=== PATIENT | male | born 1955 | race Caucasian/White ===

== ENCOUNTER → 2016-05-18 | Outpatient (CLI) | payer OTHER | END | disposition home or self-care (01) | LOC: RADECHMAIN 12:29 | PROVIDERS: ATTEND Family Medicine | DX: R00.1 Bradycardia, unspecified (principal); R00.0 Tachycardia, unspecified | CPT/HCPCS: 93225; 93226 ==

== ENCOUNTER 2019-05-07 16:55 | Emergency (ER) | payer OTHER ==
[2019-05-07] MEDS ORDERED: ONDANSETRON 4 MG/2 ML VIAL IVP STA (17:54)
[2019-05-07] MEDS ORDERED: MORPHINE SULFATE 4 MG/ML SYRINGE IVP STA (17:54)
[2019-05-07] MEDS ORDERED: diphenhydrAMINE 50 MG/ML 1 ML VIAL IVP STA (17:54)
--- NOTE | 2019-05-07 18:05 | ED ---
Headache HPI - General Chief Complaint: Headache Stated Complaint: Fall, headache Time Seen by Provider: 05/07/19 17:17 Mode of arrival: ambulatory Limitations: no limitations - History of Present Illness Initial Comments: Patient is a 63-year-old male presenting to emergency Department with complaints of a right-sided headache that started early today. Patient states he did have a slip and fall on ice 2 weeks ago. He put out his right hand to break most of this fall but he did hit the right side of his head. Patient states he had a mild headache the rest of that day but that went away. Patient denies being on blood thinners. Patient has been fine for the last 2 weeks until today. Patient states he was working today when he started noticing right sided forehead pain that extended into his right thigh. He states even touching the right eyebrow caused him pain. He also states he feels some mild tingling in the right cheek. He denies any fever, chills, vomiting, diarrhea, dizziness, blurry vision, weakness. He does admit to mild nausea when the headache intensifies. He has no other complaints at this time. Upon arrival to the ER, his vital signs are stable. - Related Data Previous Rx's Medication Instructions Recorded Dexamethasone 0.75 mg PO DAILY #12 tablet 04/07/15 Hydrocodone/Acetaminophen [[place] 1 each PO Q6HR PRN #30 tab 04/07/15 5-325] Orphenadrine [Norflex] 100 mg PO Q12H #10 tablet.er 04/07/15 Amoxicillin/Potassium Clav 1 tab PO BID 7 Days #14 tab 05/07/19 [Augmentin 875-125 Tablet] Allergies Allergy/AdvReac Type Severity Reaction Status Date / Time No Known Allergies Allergy Verified 05/07/19 17:00 Review of Systems ROS Statement: Those systems with pertinent positive or pertinent negative responses have been documented in the HPI. ROS Other: All systems not noted in ROS Statement are negative. Past Medical History Past Medical History: Hyperlipidemia, Hypertension Additional Past Medical History / Comment(s): allergies History of Any Multi-Drug Resistant Organisms: None Reported Past Surgical History: Hernia Repair, Orthopedic Surgery Additional Past Surgical History / Comment(s): face, right eye, shoulder Past Psychological History: No Psychological Hx Reported Smoking Status: Current every day smoker Past Alcohol Use History: None Reported Past Drug Use History: None Reported General Exam - General Exam Comments Initial Comments: GENERAL: Well-appearing, well-nourished and in no acute distress. HEAD: Atraumatic, normocephalic. No hematoma. No signs of basal skull fracture. Pain with palpation of the right forehead. EYES: Pupils equal round and reactive to light, extraocular movements intact, sclera anicteric, conjunctiva are normal. A very mild healing abrasion to the right lateral eyebrow. ENT: TMs normal, nares patent, oropharynx clear without exudates. Moist mucous membranes. NECK: Normal range of motion, supple without lymphadenopathy or JVD. LUNGS: Breath sounds clear to auscultation bilaterally and equal. No wheezes rales or rhonchi. HEART: Regular rate and rhythm without murmurs, rubs or gallops. ABDOMEN: Soft, nontender, normoactive bowel sounds. No guarding, no rebound. No masses appreciated. : Deferred EXTREMITIES: Normal range of motion, no pitting or edema. No clubbing or cyanosis. 5 out of 5 strength in upper and lower extremities. Sensation is equal in bilateral upper and lower extremities. NEUROLOGICAL: Cranial nerves II through XII grossly intact. Normal speech, normal gait. Negative Romberg, negative heel to toe. PSYCH: Normal mood, normal affect. SKIN: Warm, Dry, normal turgor, no rashes or lesions noted. Limitations: no limitations Course Vital Signs 05/07/19 16:57 Temperature 98.1 F Pulse Rate 102 H Respiratory 20 Rate Blood Pressure 210/95 O2 Sat by Pulse 95 Oximetry Medical Decision Making - Medical Decision Making Patient is 63-year-old male presenting with a headache since this morning. Patient did have a slip and fall on ice 2 weeks ago which she did hit the right side of his forehead. He is not on blood thinners. No acute findings on the neuro exam. CT the head shows moderately severe pansinusitis. No acute intercranial hemorrhage or other abnormalities. Patient was given pain control, Zofran, Benadryl reports improvement of symptoms. I discussed these findings with the patient. Patient will be started on antibiotic for sinusitis. He will follow-up with his ENT, Dr. Johnson. Return parameters were discussed with the patient and he verbalized understanding. He is stable for discharge and he is in agreement with this plan of care. Case discussed with Dr. cartagena. Disposition Clinical Impression: Headache, Pansinusitis Disposition: HOME SELF-CARE Condition: Stable Instructions (If sedation given, give patient instructions): Sinusitis (ED) Additional Instructions: Please return to the Emergency Department if symptoms worsen or any other concerns. Continue with Motrin as needed for headache. Follow up with ENT, Dr. Carey as discussed. Take antibiotic as prescribed. Prescriptions: Amoxicillin/Potassium Clav [Augmentin 875-125 Tablet] 1 tab PO BID 7 Days #14 tab Is patient prescribed a controlled substance at d/c from ED?: No Referrals: Monster Bolivar MD [Primary Care Provider] - 1-2 days
--- NOTE | 2019-05-07 18:21 | CT ---
EXAMINATION TYPE: CT brain wo con DATE OF EXAM: 05/07/2019 COMPARISON: None HISTORY: DESAI after fall injury x1 week ago CT DLP: 1123.4 mGycm Automated exposure control for dose reduction was used. There is some cerebral mild cortical atrophy. There is no mass effect nor midline shift. There is no sign of intracranial hemorrhage. There is mucosal thickening involving the frontal ethmoid maxillary and sphenoid sinuses. There is almost complete opacification of the ethmoid sinuses. The calvarium is intact. IMPRESSION: Mild atrophy. Moderately severe pansinusitis.
[2019-05-07] MEDS ORDERED: AMOXIC-POT CLAV 875-125MG 1 EACH TAB PO STA (19:23)
[2019-05-07 19:30] VITALS: BP 147/81; PULSE 63; RESP 18; TEMP 98
== END 2019-05-07 19:43 | disposition home or self-care (01) ==
LOC: EC 16:55
DX: J32.4 Chronic pansinusitis (principal); S09.90XA Unspecified injury of head, initial encounter; F17.200 Nicotine dependence, unspecified, uncomplicated; W01.10XA Fall on same level from slipping, tripping and stumbling with subsequent striking against unspecified object, initial encounter; Y92.009 Unspecified place in unspecified non-institutional (private) residence as the place of occurrence of the external cause
CPT/HCPCS: 70450; 99284; 96374; 96375 ×2; J2270; J1200; J2405

== ENCOUNTER 2021-02-12 12:40 | Observation (INO) | payer OTHER, MEDICARE ==
[2021-02-12 14:17] LABS: Basophils % (A) 0 %; Eosinophils # (A) 0.1 k/uL (0-0.7); Eosinophils % (A) 1 %; HCT 48.2 % (39.0-53.0); HGB 16.5 gm/dL (13.0-17.5); Lymphocytes # (A) 0.8 k/uL (1.0-4.8); Lymphocytes % (A) 7 %; MCH 30.3 pg (25.0-35.0); MCHC 34.2 g/dL (31.0-37.0); MCV 88.5 fL (80.0-100.0); Monocytes # (A) 0.6 k/uL (0-1.0); Monocytes % (A) 6 %; Neutrophils # (A) 9.3 k/uL (1.3-7.7); Neutrophils % (A) 85 %; Platelet Count 161 k/uL (150-450); RBC 5.44 m/uL (4.30-5.90); RDW 12.9 % (11.5-15.5)
[2021-02-12] MEDS ORDERED: SODIUM CHLORIDE 0.9% 1,000 ML IV ONE (14:17)
[2021-02-12 14:34] LABS: ALT 18 U/L (4-49); AST 21 U/L (17-59); African American GFR (CKD) >90 (>60 ml/min/1.73 sqM); Albumin 4.4 g/dL (3.5-5.0); Alkaline Phosphatase 82 U/L (38-126); Anion Gap 10 mmol/L; Blood Urea Nitrogen 16 mg/dL (9-20); Carbon Dioxide 26 mmol/L (22-30); Chloride 100 mmol/L (98-107); Glucose 119 mg/dL (74-99); Non-African American GFR(CKD) >90 (>60 ml/min/1.73 sqM); Potassium 3.9 mmol/L (3.5-5.1); Sodium 136 mmol/L (137-145); Total Protein 7.4 g/dL (6.3-8.2)
[2021-02-12 14:35] LABS: Partial Thromboplastin Time 27.1 sec (22.0-30.0); Prothrombin Time 10.3 sec (9.0-12.0)
--- NOTE | 2021-02-12 14:50 | ED ---
General Adult HPI - General Chief complaint: Arrhythmia/Palpitations Stated complaint: Increased heart rate,Dizziness Time Seen by Provider: 02/12/21 13:46 Source: patient, RN notes reviewed, old records reviewed Mode of arrival: ambulatory Limitations: no limitations - History of Present Illness Initial comments: 65-year-old male presents for evaluation of palpitations and lightheadedness. Patient states that this morning he had a short episode less than 1 minute of palpitations with associated dizziness. He did not pass out. He states he's had an upper respiratory infection for the past several days with nasal congestion. He has had several episodes vomiting. No central chest pain. No history of arrhythmia. No history of CAD. No measured fevers. He is vaccinated against coronavirus. - Related Data Home Medications Medication Instructions Recorded Confirmed Bromfenac Sodium [Prolensa Ophth 1 drop LEFT EYE DAILY 02/12/21 02/12/21 Soln] Fluticasone Nasal [place] [Flonase 1 spray EA NOSTRIL DAILY 02/12/21 02/12/21 Nasal [place]] HYDROcodone/APAP 7.5-325MG [[place] 1 tab PO QID PRN 02/12/21 02/12/21 7.5-325] Montelukast Sodium [Singulair] 10 mg PO HS 02/12/21 02/12/21 Ofloxacin 0.3% Ophth Soln [Ocuflox 1 drops RIGHT EYE DIRECTED 02/12/21 02/12/21 Ophth Soln] prednisoLONE ACETATE [Pred Forte 1 drop LEFT EYE QID 02/12/21 02/12/21 1%] Allergies Allergy/AdvReac Type Severity Reaction Status Date / Time No Known Allergies Allergy Verified 05/07/19 17:00 Review of Systems ROS Statement: Those systems with pertinent positive or pertinent negative responses have been documented in the HPI. ROS Other: All systems not noted in ROS Statement are negative. Past Medical History Past Medical History: Hyperlipidemia, Hypertension Additional Past Medical History / Comment(s): allergies History of Any Multi-Drug Resistant Organisms: None Reported Past Surgical History: Hernia Repair, Orthopedic Surgery Additional Past Surgical History / Comment(s): face, right eye, shoulder Past Psychological History: No Psychological Hx Reported Smoking Status: Current every day smoker Past Alcohol Use History: Occasional Past Drug Use History: Marijuana General Exam Limitations: no limitations General appearance: alert, in no apparent distress Head exam: Present: atraumatic, normocephalic Eye exam: Present: normal appearance, PERRL ENT exam: Present: mucous membranes dry Neck exam: Present: normal inspection Respiratory exam: Present: normal lung sounds bilaterally. Absent: respiratory distress, wheezes Cardiovascular Exam: Present: regular rate, irregular rhythm GI/Abdominal exam: Present: soft. Absent: distended, tenderness, guarding Extremities exam: Present: normal inspection, normal capillary refill Neurological exam: Present: alert, oriented X3, CN II-XII intact. Absent: motor sensory deficit Psychiatric exam: Present: normal affect, normal mood Skin exam: Present: warm, dry, intact. Absent: cyanosis, diaphoretic Course Vital Signs 02/12/21 02/12/21 02/12/21 13:04 14:03 15:31 Temperature 98.9 F Pulse Rate 90 68 Pulse Rate [ 68 Bilateral Pulse Oximetery] Respiratory 19 20 Rate Blood Pressure 157/86 O2 Sat by Pulse 97 95 Oximetry 02/12/21 16:22 Temperature Pulse Rate 77 Pulse Rate [ Bilateral Pulse Oximetery] Respiratory 20 Rate Blood Pressure 125/45 O2 Sat by Pulse 97 Oximetry EKG Findings - EKG Comments: EKG Findings:: EKG: Sinus rhythm with arrhythmia left atrial enlargement, possible LVH, rate of 79, DE interval 142, QRS duration 86, QTC [address] segment elevation. Medical Decision Making - Medical Decision Making 65-year-old male presenting with central chest palpitations, and a vague discomfort as well as lightheadedness and near syncope. Patient does currently have an upper respiratory infection. Chest x-ray is negative for focal pneumonia. He is negative for coronavirus. His EKG is sinus rhythm with sinus arrhythmia. There is no ST segment elevation. He has a mild leukocytosis at 11. He has a normal CMP, initial troponin 0.017. This level will be trended. He will be monitored on telemetry. Also he will be treated with Augmentin for sinusitis. Case discussed with Roly degroot for [facility]. - Lab Data Result diagrams: 02/12/21 14:03 02/12/21 14:03 Lab Results 02/12/21 02/12/21 02/12/21 Range/Units 14:03 14:03 14:03 WBC 11.0 H (3.8-10.6) k/uL RBC 5.44 (4.30-5.90) m/uL Hgb 16.5 (13.0-17.5) gm/dL Hct 48.2 (39.0-53.0) % MCV 88.5 (80.0-100.0) fL MCH 30.3 (25.0-35.0) pg MCHC 34.2 (31.0-37.0) g/dL RDW 12.9 (11.5-15.5) % Plt Count 161 (150-450) k/uL MPV 9.0 Neutrophils % 85 % Lymphocytes % 7 % Monocytes % 6 % Eosinophils % 1 % Basophils % 0 % Neutrophils # 9.3 H (1.3-7.7) k/uL Lymphocytes # 0.8 L (1.0-4.8) k/uL Monocytes # 0.6 (0-1.0) k/uL Eosinophils # 0.1 (0-0.7) k/uL Basophils # 0.0 (0-0.2) k/uL PT 10.3 (9.0-12.0) sec INR 1.0 (<1.2) APTT 27.1 (22.0-30.0) sec Sodium 136 L (137-145) mmol/L Potassium 3.9 (3.5-5.1) mmol/L Chloride 100 (98-107) mmol/L Carbon Dioxide 26 (22-30) mmol/L Anion Gap 10 mmol/L BUN 16 (9-20) mg/dL Creatinine 0.61 L (0.66-1.25) mg/dL Est GFR (CKD-EPI)AfAm >90 (>60 ml/min/1.73 sqM) Est GFR (CKD-EPI)NonAf >90 (>60 ml/min/1.73 sqM) Glucose 119 H (74-99) mg/dL Calcium 10.0 (8.4-10.2) mg/dL Magnesium 2.0 (1.6-2.3) mg/dL Total Bilirubin 1.0 (0.2-1.3) mg/dL AST 21 (17-59) U/L ALT 18 (4-49) U/L Alkaline Phosphatase 82 (38-126) U/L Troponin I (0.000-0.034) ng/mL Total Protein 7.4 (6.3-8.2) g/dL Albumin 4.4 (3.5-5.0) g/dL Coronavirus (PCR) (Not Detectd) 02/12/21 02/12/21 02/12/21 Range/Units 14:03 15:25 16:31 WBC (3.8-10.6) k/uL RBC (4.30-5.90) m/uL Hgb (13.0-17.5) gm/dL Hct (39.0-53.0) % MCV (80.0-100.0) fL MCH (25.0-35.0) pg MCHC (31.0-37.0) g/dL RDW (11.5-15.5) % Plt Count (150-450) k/uL MPV Neutrophils % % Lymphocytes % % Monocytes % % Eosinophils % % Basophils % % Neutrophils # (1.3-7.7) k/uL Lymphocytes # (1.0-4.8) k/uL Monocytes # (0-1.0) k/uL Eosinophils # (0-0.7) k/uL Basophils # (0-0.2) k/uL PT (9.0-12.0) sec INR (<1.2) APTT (22.0-30.0) sec Sodium (137-145) mmol/L Potassium (3.5-5.1) mmol/L Chloride (98-107) mmol/L Carbon Dioxide (22-30) mmol/L Anion Gap mmol/L BUN (9-20) mg/dL Creatinine (0.66-1.25) mg/dL Est GFR (CKD-EPI)AfAm (>60 ml/min/1.73 sqM) Est GFR (CKD-EPI)NonAf (>60 ml/min/1.73 sqM) Glucose (74-99) mg/dL Calcium (8.4-10.2) mg/dL Magnesium (1.6-2.3) mg/dL Total Bilirubin (0.2-1.3) mg/dL AST (17-59) U/L ALT (4-49) U/L Alkaline Phosphatase (38-126) U/L Troponin I 0.017 0.023 (0.000-0.034) ng/mL Total Protein (6.3-8.2) g/dL Albumin (3.5-5.0) g/dL Coronavirus (PCR) Not Detected (Not Detectd) Disposition Clinical Impression: Palpitations, Chest pain, URI (upper respiratory infection) Disposition: ADMITTED IP TO THIS [facility] Condition: Stable Is patient prescribed a controlled substance at d/c from ED?: No Referrals: Monster Bolivar MD [Primary Care Provider] - 1-2 days Decision to Admit Reason: Admit from EC Decision Date: 02/12/21 Decision Time: 17:39
--- NOTE | 2021-02-12 16:17 | XR ---
EXAMINATION TYPE: XR chest 2V DATE OF EXAM: 02/12/2021 COMPARISON: 04/07/2015 HISTORY: Dysrhythmia TECHNIQUE: Frontal and lateral views of the chest are obtained. FINDINGS: There is a mildly prominent interstitial pattern with height or inflation lungs and flatten ing the diaphragms consistent with COPD. There is no lung consolidation. There is no pleural effusion or pneumothorax. Heart size is normal and the pulmonary vasculature is not congested. There are multiple healed rib fractures bilaterally and there is a prosthesis of the right shoulder. There is marked degeneration of the left shoulder joint. IMPRESSION: No acute cardiopulmonary process. Probable mild COPD.
[2021-02-12] MEDS ORDERED: AMOXIC-POT CLAV 875-125MG 1 EACH TAB PO STA (17:35)
[2021-02-12] MEDS ORDERED: NALOXONE 0.4 MG/ML 1 ML VIAL IV PRN (17:36)
[2021-02-12] MEDS ORDERED: ACETAMINOPHEN TAB 325 MG TAB PO PRN (17:36)
[2021-02-12] MEDS ORDERED: ASPIRIN 325 MG TAB PO STA (17:37)
[2021-02-12] MEDS: SODIUM CHLORIDE 0.9% 1,000 ML IV SCH (18:50)
[2021-02-13] MEDS: AMOXIC-POT CLAV 875-125MG 1 EACH TAB PO SCH ×3 (01:39→20:25)
[2021-02-13] MEDS: SODIUM CHLORIDE 0.9% 1,000 ML IV SCH ×2 (06:48→19:47)
[2021-02-13 07:20] LABS: African American GFR (CKD) >90 (>60 ml/min/1.73 sqM); Anion Gap 6 mmol/L; Blood Urea Nitrogen 15 mg/dL (9-20); Calcium 8.8 mg/dL (8.4-10.2); Carbon Dioxide 24 mmol/L (22-30); Chloride 105 mmol/L (98-107); Glucose 103 mg/dL (74-99); Non-African American GFR(CKD) >90 (>60 ml/min/1.73 sqM); Potassium 3.9 mmol/L (3.5-5.1); Sodium 135 mmol/L (137-145)
[2021-02-13] MEDS: lisinopriL 10 MG TAB PO SCH (10:38)
[2021-02-13] MEDS: HYDROcodone/APAP 7.5-325MG 1 EACH TAB PO PRN (10:39)
[2021-02-13] MEDS: prednisoLONE ACETATE 1% OPHTH DROPS 5 ML BTL LEFT EYE SCH ×3 (10:39→19:46)
[2021-02-13] MEDS: KETOROLAC 0.5% OPHTH DROPS 5 ML BTL LEFT EYE SCH ×3 (10:39→19:45)
[2021-02-13] MEDS: METOPROLOL TARTRATE 12.5 MG TAB PO SCH ×2 (10:39→19:44)
[2021-02-13] MEDS: OFLOXACIN 0.3% OPHTH DROPS 5 ML BOTTLE RIGHT EYE SCH (10:40)
--- NOTE | 2021-02-13 11:19 | P.CRDCN ---
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 Patient states that he had a heart cathet erization done in the after he had an ALLERGIC reaction to bee sting. Patient denies any exertional chest pain or shortness of breath. Patient states that he has had sinus symptoms and yesterday morning he took a hot shower following that he was standing and he could feel that his heart was fluttering and racing in the center part. It stopped suddenly and he felt lightheaded after that and then had an episode for 3-5 seconds where he felt he was going to black out. He was standing but was able to sit himself into a chair did not have any fall. EKG sinus rhythm with sinus arrhythmia, no acute ST changes. Chest x-ray reveals no acute cardiopulmonary process. Probable mild COPD Laboratory studies: Troponin 0.023, 0.027, 0.019. Creatinine 0.61. WBC 11.0. Coronavirus PCR not detected drag down revealed Cruz of 17 beats of V. tach at 3:30 in the morning which patient states he could feel. This morning shortly after seeing the patient, he had another run of 6 beats. Patient is a smoker three-quarter pack a day for 30 years off and on. Patient drinks anywhere from 2-16 beers per week. REVIEW OF SYSTEMS Constitutional: No fever, no chills. No weakness, fatigue or lethargy. EENT: No headache. No dizziness. Lungs: No shortness of breath, cough, no sputum production. No wheezing. Cardiovascular: No chest pain, no lower extremity edema. Reports palpitations. No paroxysmal nocturnal dyspnea. No orthopnea. No lightheadedness or dizziness. Reports near syncopal episodes. Abdominal: No abdominal pain. No nausea, vomiting. No diarrhea. No constipation. No bloody or tarry stools.. No loss of appetite. Genitourinary: No dysuria.. No urinary retention. Musculoskeletal: No myalgias. No muscle weakness, no gait dysfunction, no frequent falls. No back pain. No neck pain. Integumentary: No wounds, no lesions. No rash or pruritus. No unusual bruising. Neurologic: No aphasia. No facial droop. No change in mentation. No head injury. No headache. No paralysis. No paresthesia. Psychiatric: No depression. No anxiety. Endocrine: No abnormal blood sugars. PHYSICAL EXAMINATION Gen: This is a 65-year-old male. He is resting in bed and appears to be in no acute distress. VS: Blood pressure 164/81, heart rate 59, pulse ox 96% on room air, afebrile. HEENT: Head is atraumatic, normocephalic. Pupils equal, round. Sclerae is anicteric. NECK: Supple. No JVD. No lymphadenopathy. No thyromegaly. LUNGS: Few scattered rhonchi rhonchi. No intercostal retractions. HEART: Distant heart sounds, Irregular rate and rhythm. No murmur. ABDOMEN: Soft. Bowel sounds are present. No masses. No tenderness. EXTREMITIES: No pedal edema. No calf tenderness. Dorsalis pedis +2 bilaterally. NEUROLOGICAL: Patient is awake, alert and oriented x3. Cranial nerves 2 through 12 are grossly intact. ASSESSMENT Episodes of ventricular tachycardia associated with near syncope Hypertension COPD Active tobacco use PLAN Patient started on lisinopril 10 mg daily and Lopressor 12.5 mg twice daily Obtain 2-D echocardiogram and Doppler study to assess cardiac structure and function Patient most likely will require heart catheterization Further recommendations to follow based upon clinical course Thank you kindly for this consultation. Nurse practitioner note has been reviewed, I agree with documented findings and plan of care. Patient was seen and examined. Past Medical History Past Medical History: Eye Disorder, Hyperlipidemia, Hypertension Additional Past Medical History / Comment(s): bilateral cataracts, allergies History of Any Multi-Drug Resistant Organisms: None Reported Past Surgical History: Heart Catheterization, Hernia Repair, Orthopedic Surgery Additional Past Surgical History / Comment(s): ankle surgery X3 with hardware, face surgery w/ titanium mesh, left eye cataract surgery 02/03/21, right shoulder replacement Past Anesthesia/Blood Transfusion Reactions: Previous Problems w/ Anesthesia Additional Past Anesthesia/Blood Transfusion Reaction / Comment(s): Pt states he went into anaphylactic shock during his right shoulder surgery. Past Psychological History: No Psychological Hx Reported Smoking Status: Current every day smoker Past Alcohol Use History: Occasional Past Drug Use History: Marijuana Medications and Allergies Home Medications Medication Instructions Recorded Confirmed Type Bromfenac Sodium [Prolensa Ophth 1 drop LEFT EYE DAILY 02/12/21 02/12/21 History Soln] Fluticasone Nasal [place] [Flonase 1 spray EA NOSTRIL DAILY 02/12/21 02/12/21 History Nasal [place]] HYDROcodone/APAP 7.5-325MG [[place] 1 tab PO QID PRN 02/12/21 02/12/21 History 7.5-325] Montelukast Sodium [Singulair] 10 mg PO HS 02/12/21 02/12/21 History Ofloxacin 0.3% Ophth Soln [Ocuflox 1 drops RIGHT EYE DIRECTED 02/12/21 02/12/21 History Ophth Soln] prednisoLONE ACETATE [Pred Forte 1 drop LEFT EYE QID 02/12/21 02/12/21 History 1%] Allergies Allergy/AdvReac Type Severity Reaction Status Date / Time No Known Allergies Allergy Verified 05/07/19 17:00 Physical Exam Vitals: Vital Signs Temp Pulse Pulse Pulse Resp BP BP 02/13/21 08:00 20 02/13/21 07:05 98.1 F 59 L 16 164/81 02/13/21 04:25 02/13/21 02:00 62 20 02/13/21 01:01 68 20 02/13/21 01:00 97.4 F L 62 16 02/12/21 23:15 57 L 20 157/78 02/12/21 21:44 67 20 147/82 02/12/21 19:25 76 20 167/62 02/12/21 18:39 67 20 167/82 02/12/21 16:22 77 20 125/45 02/12/21 15:31 68 20 02/12/21 14:03 68 02/12/21 13:04 98.9 F 90 19 157/86 BP Pulse Ox 02/13/21 08:00 02/13/21 07:05 96 02/13/21 04:25 169/88 02/13/21 02:00 02/13/21 01:01 02/13/21 01:00 176/85 100 02/12/21 23:15 97 02/12/21 21:44 96 02/12/21 19:25 96 02/12/21 18:39 96 02/12/21 16:22 97 02/12/21 15:31 95 02/12/21 14:03 02/12/21 13:04 97 Intake and Output 02/12/21 02/13/21 02/13/21 22:59 06:59 14:59 Other: Voiding Method Toilet Toilet Urinal Urinal # Voids 1 Weight 79.379 kg Results 02/12/21 14:03 02/13/21 06:18 Cardiac Enzymes 02/12/21 02/12/21 02/12/21 Range/Units 14:03 14:03 16:31 AST 21 (17-59) U/L Troponin I 0.017 0.023 (0.000-0.034) ng/mL 02/12/21 02/12/21 Range/Units 19:17 22:30 AST (17-59) U/L Troponin I 0.027 0.019 (0.000-0.034) ng/mL Coagulation 02/12/21 Range/Units 14:03 PT 10.3 (9.0-12.0) sec APTT 27.1 (22.0-30.0) sec CBC 02/12/21 Range/Units 14:03 WBC 11.0 H (3.8-10.6) k/uL RBC 5.44 (4.30-5.90) m/uL Hgb 16.5 (13.0-17.5) gm/dL Hct 48.2 (39.0-53.0) % Plt Count 161 (150-450) k/uL Comprehensive Metabolic Panel 02/12/21 02/13/21 Range/Units 14:03 06:18 Sodium 136 L 135 L (137-145) mmol/L Potassium 3.9 3.9 (3.5-5.1) mmol/L Chloride 100 105 (98-107) mmol/L Carbon Dioxide 26 24 (22-30) mmol/L BUN 16 15 (9-20) mg/dL Creatinine 0.61 L 0.50 L (0.66-1.25) mg/dL Glucose 119 H 103 H (74-99) mg/dL Calcium 10.0 8.8 (8.4-10.2) mg/dL AST 21 (17-59) U/L ALT 18 (4-49) U/L Alkaline Phosphatase 82 (38-126) U/L Total Protein 7.4 (6.3-8.2) g/dL Albumin 4.4 (3.5-5.0) g/dL Current Medications Generic Name Dose Route Start Last Admin Trade Name Freq PRN Reason Stop Dose Admin Acetaminophen 650 mg 02/12/21 17:36 Acetaminophen Tab 325 Mg Tab PO Q6HR PRN Mild Pain or Fever > 100.5 Amoxicillin/Clavulanate Potassium 1 each 02/12/21 21:00 02/13/21 06:48 Amoxic-Pot Clav 875-125mg 1 Each Tab PO 1 each Q12HR DELORES Administration Sodium Chloride 1,000 mls @ 75 mls/hr 02/12/21 17:45 02/13/21 06:48 Saline 0.9% IV 75 mls/hr .[id number] DELORES Administration Naloxone HCl 0.2 mg 02/12/21 17:36 Naloxone 0.4 Mg/Ml 1 Ml Vial IV Q2M PRN Opioid Reversal Intake and Output 02/12/21 02/13/21 02/13/21 22:59 06:59 14:59 Other: Voiding Method Toilet Toilet Urinal Urinal # Voids 1 Weight 79.379 kg 02/12/21 14:03 02/13/21 06:18
[2021-02-13] MEDS: MONTELUKAST 10 MG TAB PO SCH (19:44)
--- NOTE | 2021-02-13 22:25 | P.HPIM ---
History of Present Illness H&P Date: 02/13/21 Chief Complaint: Dizziness/palpitations/rapid heart beat 65-year-old male presents for evaluation of palpitations and lightheadedness. Patient states that this morning he had a short episode less than 1 minute of palpitations with associated dizziness. He did not pass out. He states he's had an upper respiratory infection for the past several days with nasal congestion. He has had several episodes vomiting. No central chest pain. No history of arrhythmia. No history of CAD. No measured fevers. He is vaccinated against coronavirus. EKG sinus rhythm with sinus arrhythmia, no acute ST changes. Chest x-ray reveals no acute cardiopulmonary process. Probable mild COPD Laboratory studies: Troponin 0.023, 0.027, 0.019. Creatinine 0.61. WBC 11.0. Coronavirus PCR not detected compliance monitor revealed Cruz of 17 beats of V. tach at 3:30 in the morning which patient states he could feel. This morning shortly after seeing the patient, he had another run of 6 beats. Patient is a smoker three-quarter pack a day for 30 years off and on. Patient drinks anywhere from 2-16 beers per week. Review of Systems REVIEW OF SYSTEMS: CONSTITUTIONAL: No fever, no malaise, no fatigue. HEENT: No recent visual problems or hearing problems. Denied any sore throat. CARDIOVASCULAR: No chest pain, orthopnea, PND, no palpitations, no syncope. PULMONARY: No shortness of breath, no cough, no hemoptysis. GASTROINTESTINAL: No diarrhea, no nausea, no vomiting, no abdominal pain. NEUROLOGICAL: No headaches, no weakness, no numbness. HEMATOLOGICAL: Denies any bleeding or petechiae. GENITOURINARY: Denies any burning micturition, frequency, or urgency. MUSCULOSKELETAL/RHEUMATOLOGICAL: Denies any joint pain, swelling, or any muscle pain. ENDOCRINE: Denies any polyuria or polydipsia. The rest of the 14-point review of systems is negative. Past Medical History Past Medical History: Eye Disorder, Hyperlipidemia, Hypertension Additional Past Medical History / Comment(s): bilateral cataracts, allergies History of Any Multi-Drug Resistant Organisms: None Reported Past Surgical History: Heart Catheterization, Hernia Repair, Orthopedic Surgery Additional Past Surgical History / Comment(s): ankle surgery X3 with hardware, face surgery w/ titanium mesh, left eye cataract surgery 02/03/21, right shoulder replacement Past Anesthesia/Blood Transfusion Reactions: Previous Problems w/ Anesthesia Additional Past Anesthesia/Blood Transfusion Reaction / Comment(s): Pt states he went into anaphylactic shock during his right shoulder surgery. Past Psychological History: No Psychological Hx Reported Smoking Status: Current every day smoker Past Alcohol Use History: Occasional Past Drug Use History: Marijuana Medications and Allergies Home Medications Medication Instructions Recorded Confirmed Type Bromfenac Sodium [Prolensa Ophth 1 drop LEFT EYE DAILY 02/12/21 02/12/21 History Soln] Fluticasone Nasal [place] [Flonase 1 spray EA NOSTRIL DAILY 02/12/21 02/12/21 History Nasal [place]] HYDROcodone/APAP 7.5-325MG [[place] 1 tab PO QID PRN 02/12/21 02/12/21 History 7.5-325] Montelukast Sodium [Singulair] 10 mg PO HS 02/12/21 02/12/21 History Ofloxacin 0.3% Ophth Soln [Ocuflox 1 drops RIGHT EYE DIRECTED 02/12/21 02/12/21 History Ophth Soln] prednisoLONE ACETATE [Pred Forte 1 drop LEFT EYE QID 02/12/21 02/12/21 History 1%] Allergies Allergy/AdvReac Type Severity Reaction Status Date / Time No Known Allergies Allergy Verified 05/07/19 17:00 Physical Exam Vitals: Vital Signs Temp Pulse Pulse Pulse Resp BP BP 02/13/21 08:00 20 02/13/21 07:05 98.1 F 59 L 16 164/81 02/13/21 04:25 02/13/21 02:00 62 20 02/13/21 01:01 68 20 02/13/21 01:00 97.4 F L 62 16 02/12/21 23:15 57 L 20 157/78 02/12/21 21:44 67 20 147/82 02/12/21 19:25 76 20 167/62 02/12/21 18:39 67 20 167/82 02/12/21 16:22 77 20 125/45 02/12/21 15:31 68 20 02/12/21 14:03 68 02/12/21 13:04 98.9 F 90 19 157/86 BP Pulse Ox 02/13/21 08:00 02/13/21 07:05 96 02/13/21 04:25 169/88 02/13/21 02:00 02/13/21 01:01 02/13/21 01:00 176/85 100 02/12/21 23:15 97 02/12/21 21:44 96 02/12/21 19:25 96 02/12/21 18:39 96 02/12/21 16:22 97 02/12/21 15:31 95 02/12/21 14:03 02/12/21 13:04 97 Intake and Output 02/12/21 02/13/21 02/13/21 22:59 06:59 14:59 Intake Total 118 Balance 118 Intake: Oral 118 Other: Voiding Method Toilet Toilet Urinal Urinal # Voids 1 Weight 79.379 kg - Constitutional General appearance: Present: average body habitus, cooperative, no acute distress - EENT Eyes: Present: anicteric sclerae, EOMI, PERRLA, normal appearance ENT: Present: hearing grossly normal, normal oropharynx Ears: bilateral: normal - Neck Neck: Present: normal ROM. Absent: lymphadenopathy, rigidity, thyromegaly Carotids: negative: bruit present Thyroid: bilateral: normal size, negative: enlarged, nodule - Respiratory Respiratory: bilateral: CTA, negative: rales, rhonchi, wheezing - Cardiovascular Rhythm: regular Heart sounds: normal: S1, S2 Abnormal Heart Sounds: Absent: systolic murmur, diastolic murmur - Gastrointestinal General gastrointestinal: Present: normal bowel sounds, soft. Absent: distended, organomegaly, tenderness - Genitourinary Genitourinary Comment(s): deferred - Integumentary Integumentary: Present: normal turgor. Absent: jaundiced, rash, ulcer - Neurologic Neurologic: Present: CNII-XII intact. Absent: focal deficits - Musculoskeletal Musculoskeletal: Present: gait normal, strength equal bilaterally - Psychiatric Psychiatric: Present: A&O x's 3, appropriate affect, intact judgment & insight Results CBC & Chem 7: 02/12/21 14:03 02/13/21 06:18 Labs: Abnormal Lab Results - Last 24 Hours (Table) 02/12/21 02/12/21 02/13/21 Range/Units 14:03 14:03 06:18 WBC 11.0 H (3.8-10.6) k/uL Neutrophils # 9.3 H (1.3-7.7) k/uL Lymphocytes # 0.8 L (1.0-4.8) k/uL Sodium 136 L 135 L (137-145) mmol/L Creatinine 0.61 L 0.50 L (0.66-1.25) mg/dL Glucose 119 H 103 H (74-99) mg/dL Thrombosis Risk Factor Assmnt - Choose All That Apply Each Risk Factor Represents 2 Points: Age 61-74 years Thrombosis Risk Factor Assessment Total Risk Factor Score: 2 Thrombosis Risk Factor Assessment Level: Low Risk Assessment and Plan Assessment: 1. Episodes of ventricular tachycardia with near syncope - Patient is placed on Lopressor 12.5 mg twice a day; cardiology on board and planning possible cardiac catheterization - 2-D echo is ordered and pending 2. Hypertension; patient has been placed on lisinopril 10 mg daily along with Lopressor 12.5 mg twice a day 3. Hyperlipidemia; currently not on statin therapy; we will order lipid profile 4. COPD; Singulair 10 mg daily at bedtime; continue with home inhaler therapy DVT prophylaxis; SCDs CODE STATUS; full code
--- NOTE | 2021-02-14 08:10 | P.PN ---
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 Patient states that he had a heart catheterization done in the after he had an ALLERGIC reaction to bee sting. Patient denies any exertional chest pain or shortness of breath. Patient states that he has had sinus symptoms and yesterday morning he took a hot shower following that he was standing and he could feel that his heart was fluttering and racing in the center part. It stopped suddenly and he felt lightheaded after that and then had an episode for 3-5 seconds where he felt he was going to black out. He was standing but was able to sit himself into a chair did not have any fall. EKG sinus rhythm with sinus arrhythmia, no acute ST changes. Chest x-ray reveals no acute cardiopulmonary process. Probable mild COPD Laboratory studies: Troponin 0.023, 0.027, 0.019. Creatinine 0.61. WBC 11.0. Coronavirus PCR not detected traffic monitor specialist revealed Cruz of 17 beats of V. tach at 3:30 in the morning which patient states he could feel. This morning shortly after seeing the patient, he had another run of 6 beats. Patient is a smoker three-quarter pack a day for 30 years off and on. Patient drinks anywhere from 2-16 beers per week. 02/14 Patient seen and examined. Patient denies any chest pain or pressure. He does admit at home however that he may get chest pain mainly when he is at work doing things. Echo pending today. No further episodes of DVT. PHYSICAL EXAMINATION Gen: This is a 65-year-old male. He is resting in bed and appears to be in no acute distress. VS: Reviewed HEENT: Head is atraumatic, normocephalic. Pupils equal, round. Sclerae is anicteric. NECK: Supple. No JVD. No lymphadenopathy. No thyromegaly. LUNGS: Few scattered rhonchi rhonchi. No intercostal retractions. HEART: Distant heart sounds, Irregular rate and rhythm. No murmur. ABDOMEN: Soft. Bowel sounds are present. No masses. No tenderness. EXTREMITIES: No pedal edema. No calf tenderness. Dorsalis pedis +2 bilaterally. NEUROLOGICAL: Patient is awake, alert and oriented x3. Cranial nerves 2 through 12 are grossly intact. ASSESSMENT Episodes of ventricular tachycardia associated with near syncope Hypertension COPD Active tobacco use Chest pain occurring at work, rule out angina PLAN Continue lisinopril 10 mg daily and Lopressor 12.5 mg twice daily Obtain 2-D echocardiogram and Doppler study to assess cardiac structure and function Possible heart catheterization today or tomorrow Further recommendations to follow based upon clinical course Objective - Vital Signs Vital signs: Vital Signs Temp 98.5 F 02/14/21 07:00 Pulse 58 L 02/14/21 07:00 Resp 18 02/14/21 07:00 BP 169/77 02/14/21 07:00 Pulse Ox 98 02/14/21 07:00 Intake & Output 02/13/21 02/14/21 02/14/21 18:59 06:59 18:59 Intake Total 568 Balance 568 Intake: IV 450 Sodium Chloride 0.9% 1, 450 000 ml @ 75 mls/hr IV . [id number] [facility] Rx#:[id number] Oral 118 Other: Voiding Method Toilet Toilet Urinal Urinal # Voids 2 - Labs CBC & Chem 7: 02/12/21 14:03 02/13/21 06:18
[2021-02-14] MEDS: METOPROLOL TARTRATE 12.5 MG TAB PO SCH (08:57)
[2021-02-14] MEDS: AMOXIC-POT CLAV 875-125MG 1 EACH TAB PO SCH ×2 (08:57→21:34)
[2021-02-14] MEDS: lisinopriL 10 MG TAB PO SCH (08:57)
[2021-02-14] MEDS: FLUTICASONE 50MCG/SPRAY NASAL 16GM EA NOSTRIL SCH (08:58)
[2021-02-14] MEDS: HYDROcodone/APAP 7.5-325MG 1 EACH TAB PO PRN ×2 (08:58→21:34)
[2021-02-14] MEDS: KETOROLAC 0.5% OPHTH DROPS 5 ML BTL LEFT EYE SCH ×4 (08:58→21:34)
[2021-02-14] MEDS: OFLOXACIN 0.3% OPHTH DROPS 5 ML BOTTLE RIGHT EYE SCH (09:09)
[2021-02-14] MEDS: prednisoLONE ACETATE 1% OPHTH DROPS 5 ML BTL LEFT EYE SCH ×4 (09:10→21:34)
[2021-02-14] MEDS: SODIUM CHLORIDE 0.9% 1,000 ML IV SCH ×2 (09:10→21:37)
[2021-02-14] MEDS ORDERED: ALPRAZolam 0.5 MG TAB PO PRN (09:34)
[2021-02-14] MEDS ORDERED: ATORVASTATIN 80 MG TAB PO STA (09:34)
[2021-02-14] MEDS ORDERED: ASPIRIN 325 MG TAB PO STA (09:34)
[2021-02-14] MEDS ORDERED: ALPRAZolam 0.25 MG TAB PO PRN (09:34)
[2021-02-14] MEDS ORDERED: NITROGLYCERIN SL TABS 0.4 MG TAB SUBLINGUAL PRN (09:34)
[2021-02-14] MEDS: SODIUM CHLORIDE 0.9% 1,000 ML in EMPTY BAG 1 BAG IV SCH ×2 (09:57→21:37)
[2021-02-14] MEDS ORDERED: LIDOCAINE 1% INJ 10MG/ML (20 ML MDV) ONE (11:00)
[2021-02-14] MEDS ORDERED: VERAPAMIL 2.5 MG/ML 2 ML AMP ONE (11:00)
[2021-02-14] MEDS ORDERED: IV FLUID CONTINUATION 1,000 ML IV ONE (11:06)
[2021-02-14] MEDS ORDERED: fentaNYL (PF) 50 MCG/ML 2 ML AMP ONE (11:18)
[2021-02-14] MEDS ORDERED: HEPARIN SODIUM 1,000 UN/ML (10ML VL) ONE (11:18)
[2021-02-14] MEDS ORDERED: MIDAZOLAM 2 MG/2 ML VIAL IV ONE (11:46)
[2021-02-14] MEDS ORDERED: fentaNYL (PF) 50 MCG/ML 2 ML AMP IV ONE (11:47)
[2021-02-14] MEDS ORDERED: LIDOCAINE 1% INJ 10MG/ML (20 ML MDV) SQ ONE (11:49)
[2021-02-14] MEDS ORDERED: VERAPAMIL SYRINGE (5 MG/10 ML) INTRAARTER ONE (11:51)
[2021-02-14] MEDS: HEPARIN SODIUM 1,000 UN/ML (10ML VL) IV ONE ×2 (11:55→12:23)
[2021-02-14] MEDS ORDERED: NITROGLYCERIN 1000MCG/10ML SYRINGE INTRACORON ONE (12:28)
[2021-02-14] MEDS ORDERED: IOPAMIDOL-370 125ML BTL INJ ONE (12:33)
--- NOTE | 2021-02-14 12:37 | ECHOF ---
Referral Reason:LVF MEASUREMENTS -------- HEIGHT: 180.3 cm WEIGHT: 79.4 kg BP: 169/77 RVIDd: 4.0 cm (< 3.3) IVSd: 1.6 cm (0.6 - 1.1) LVIDd: 4.5 cm (3.9 - 5.3) LVPWd: 1.7 cm (0.6 - 1.1) IVSs: 2.1 cm LVIDs: 3.1 cm LVPWs: 2.0 cm LAESV Index (A-L): 45.60 ml/m Ao Diam: 3.2 cm (2.0 - 3.7) AV Cusp: 2.1 cm (1.5 - 2.6) LA Diam: 2.6 cm (2.7 - 3.8) MV EXCURSION: 16.898 mm (> 18.000) MV EF SLOPE: 84 mm/s (70 - 150) EPSS: 0.4 cm MV E Raymond: 0.83 m/s MV DecT: 221 ms MV A Raymond: 1.00 m/s MV E/A Ratio: 0.82 RAP: 5.00 mmHg RVSP: 30.01 mmHg FINDINGS -------- Resting bradycardia (HR<60bpm). This was a technically adequate study. The left ventricular size is normal. There is moderate concentric left ventricular hypertrophy. O verall left ventricular systolic function is low-normal with, an EF between 50 - 55 %. The right ventricle is moderately enlarged. LA is severely dilated >40 ml/m2 The right atrial size is normal. Interatrial and interventricular septum intact. Mobile interatrial septum. The aortic valve is trileaflet and appears structurally normal. There is no evidence of aortic regu rgitation. There is no evidence of aortic stenosis. [id number]-[id number] mitral regurgitation is present. Mild tricuspid regurgitation present. There is no evidence of pulmonary hypertension. The right v entricular systolic pressure, as measured by Doppler, is 30.01mmHg. There is no pulmonic regurgitation present. The aortic root size is normal. The inferior vena cava is mildly dilated. There is no pericardial effusion. CONCLUSIONS -------- 1. This was a technically adequate study. 2. The left ventricular size is normal. 3. There is moderate concentric left ventricular hypertrophy. 4. Overall left ventricular systolic function is low-normal with, an EF between 50 - 55 %. 5. The right ventricle is moderately enlarged. 6. LA is severely dilated >40 ml/m2 7. The right atrial size is normal. 8. [place]-ha-vjdvuiwe mitral regurgitation is present. 9. Mild tricuspid regurgitation present. 10. The inferior vena cava is mildly dilated. RECEIVABLES SPECIALIST: Afia Stoll RDCS
[2021-02-14] MEDS: MONTELUKAST 10 MG TAB PO SCH (21:34)
--- NOTE | 2021-02-14 21:48 | P.PN ---
Subjective Progress Note Date: 02/14/21 Principal diagnosis: The patient is here ess maternal tachycardia wi dizziness/syncope. Echocardiogram is pend. The patient feels much better this morning. No new dizziness or chest pain stated. No significant nausea or vomiting. No diaphoresis stated. Appreciate cardiology input Objective - Vital Signs Vital signs: Vital Signs Temp 98.1 F 02/14/21 19:16 Pulse 58 L 02/14/21 19:16 Resp 18 02/14/21 19:16 BP 144/72 02/14/21 19:16 Pulse Ox 99 02/14/21 19:16 Intake & Output 02/14/21 02/14/21 02/15/21 06:59 18:59 06:59 Intake Total 340 Balance 340 Intake: IV 100 Oral 240 Other: Voiding Method Toilet Urinal # Voids 2 1 - Constitutional General appearance: Present: average body habitus - EENT Eyes: Absent: abnormal pupil - Neck Neck: Absent: lymphadenopathy - Respiratory Respiratory: bilateral: diminished - Cardiovascular Rhythm: regular Heart sounds: normal: S1, S2 Abnormal Heart Sounds: Absent: S3 Gallop - Gastrointestinal General gastrointestinal: Present: soft. Absent: tenderness - Labs CBC & Chem 7: 02/12/21 14:03 02/13/21 06:18 Assessment and Plan (1) Chest pain Current Visit: Yes Status: Acute Code(s): R07.9 - CHEST PAIN, UNSPECIFIED SNOMED Code(s): 35559084 (2) Palpitations Current Visit: Yes Status: Acute Code(s): R00.2 - PALPITATIONS SNOMED Code(s): 74917254 Plan: Await echocardiogram results. Continue current regimen of treatment. Possible cardiac catheterization.
[2021-02-15] MEDS ORDERED: HEPARIN SODIUM,PORCINE 10,000 UNIT in SODIUM CHLORIDE 0.9% 1,000 ML IRRIGATION PRN (07:00)
[2021-02-15] MEDS ORDERED: HEPARIN SODIUM,PORCINE 2,500 UNIT in SODIUM CHLORIDE 0.9% 250 ML IRRIGATION PRN (07:00)
[2021-02-15 07:08] VITALS: BP 172/82; PULSE 50; RESP 18; TEMP 97.5
[2021-02-15] MEDS: HYDROcodone/APAP 7.5-325MG 1 EACH TAB PO PRN (07:47)
[2021-02-15] MEDS: AMOXIC-POT CLAV 875-125MG 1 EACH TAB PO SCH (07:47)
[2021-02-15] MEDS: lisinopriL 10 MG TAB PO SCH (07:47)
[2021-02-15] MEDS: FLUTICASONE 50MCG/SPRAY NASAL 16GM EA NOSTRIL SCH (07:48)
[2021-02-15] MEDS: KETOROLAC 0.5% OPHTH DROPS 5 ML BTL LEFT EYE SCH (07:48)
[2021-02-15] MEDS: METOPROLOL TARTRATE 12.5 MG TAB PO SCH (07:48)
[2021-02-15] MEDS: SODIUM CHLORIDE 0.9% 1,000 ML IV SCH (07:49)
[2021-02-15] MEDS: SODIUM CHLORIDE 0.9% 1,000 ML in EMPTY BAG 1 BAG IV SCH (07:49)
[2021-02-15] MEDS: prednisoLONE ACETATE 1% OPHTH DROPS 5 ML BTL LEFT EYE SCH (07:49)
[2021-02-15] MEDS: OFLOXACIN 0.3% OPHTH DROPS 5 ML BOTTLE RIGHT EYE SCH (07:49)
--- NOTE | 2021-02-15 08:39 | P.CARDCATH ---
Description of Procedure: PROCEDURES PERFORMED: Left coronary angiography, iFR diagonal branch INDICATION: VT HISTORY: Patient is a pleasant 65-year-old male with history of hypertension who presented with near syncopal episodes and was found to have nonsustained VT. He therefore underwent diagnostic heart catheterization with relatively normal coronary arteries other than a 60-70% diagonal 1 branch stenosis. Therefore iFR was recommended. PROCEDURE: After the risks, benefits and alternatives of the above mentioned procedure explained in detail with the patient, informed consent was obtained. Patient had been taken to the catheterization lab and prepped and draped in usual fashion and a 6FR sheath had already been placed in the right radial jose ry. Heparin was given. A 6Fr CLS 3.5 guide was used to engage the left main. A 0.014 pressure wire was advanced into the left main and normalized. The wire was then advanced approximately 1 cm distally to the diagonal lesion. Initial iFR values had a drift noted with pullback and therefore the wire was renormalized and advanced again distal to the lesion. iFR was then noted to be normal at 0.94. There was no drift with pullback. The guide and wire were then removed. The right radial sheath was removed and a TR band was placed with hemostasis achieved. The patient tolerated the procedure well. Patient was transported back to the post catheterization holding area in stable condition. Conscious Sedation: Patient was monitored under the direct supervision of vision of myself for conscious sedation using Versed and fentanyl for a total duration of 10 minutes FINAL IMPRESSION: 1. 60-70% diagonal 1 stenosis with normal iFR 0.94 PLAN: 1. Aggressive risk factor modification per most recent ACC/AHA guidelines. 2. Recommend medical therapy of diagonal branch.
--- NOTE | 2021-02-15 08:50 | P.DS ---
Providers Date of admission: 02/12/21 17:37 Attending physician: Monster Bolivar Consults: 02/13/21 05:05 Consult Physician Routine Consulting Provider: Tricia Bai Consult Reason/Comments: Run of V-tach Do you want consulting provider notified?: Yes Primary care physician: Monster Bolivar - Discharge Diagnosis(es) (1) Chest pain Current Visit: Yes Status: Acute (2) Palpitations Current Visit: Yes Status: Acute Hospital Course: The patient is a 65-year-old white male with known history of asthma and chronic sinusitis came in with significant chest pressure. Cardiac catheterization is being done after evaluation. The patient had no critical stenosis and is to be treated with appropriate aggressive medical management. The patient is being discharged on ADARSH inhibitor beta murtaza appropriately and will have good cluster control. The patient is now stable and will follow-up with me in about one Patient Condition at Discharge: Stable Plan - Discharge Summary New Discharge Prescriptions: New Metoprolol Tartrate [Lopressor] 12.5 mg PO BID #60 tab Nitroglycerin Sl Tabs [Nitrostat] 0.4 mg SUBLINGUAL Q5M PRN #50 tab PRN Reason: Chest Pain Amoxic-Pot Clav 875-125Mg [Augmentin 875-125] 1 each PO Q12HR #14 tab lisinopriL [Zestril] 20 mg PO DAILY #30 tab Continue Ofloxacin 0.3% Ophth Soln [Ocuflox Ophth Soln] 1 drops RIGHT EYE DIRECTED Montelukast Sodium [Singulair] 10 mg PO HS Bromfenac Sodium [Prolensa Ophth Soln] 1 drop LEFT EYE DAILY prednisoLONE ACETATE [Pred Forte 1%] 1 drop LEFT EYE QID HYDROcodone/APAP 7.5-325MG [[place] 7.5-325] 1 tab PO QID PRN PRN Reason: Pain Fluticasone Nasal [place] [Flonase Nasal [place]] 1 spray EA NOSTRIL DAILY Discharge Medication List Bromfenac Sodium [Prolensa Ophth Soln] 1 drop LEFT EYE DAILY 02/12/21 [History] Fluticasone Nasal [place] [Flonase Nasal [place]] 1 spray EA NOSTRIL DAILY 02/12/21 [History] HYDROcodone/APAP 7.5-325MG [[place] 7.5-325] 1 tab PO QID PRN 02/12/21 [History] Montelukast Sodium [Singulair] 10 mg PO HS 02/12/21 [History] Ofloxacin 0.3% Ophth Soln [Ocuflox Ophth Soln] 1 drops RIGHT EYE DIRECTED 02/12/21 [History] prednisoLONE ACETATE [Pred Forte 1%] 1 drop LEFT EYE QID 02/12/21 [History] Amoxic-Pot Clav 875-125Mg [[place] 875-125] 1 each PO Q12HR #14 tab 02/15/21 [Rx] Metoprolol Tartrate [Lopressor] 12.5 mg PO BID #60 tab 02/15/21 [Rx] Nitroglycerin Sl Tabs [Nitrostat] 0.4 mg SUBLINGUAL Q5M PRN #50 tab 02/15/21 [Rx] lisinopriL [Zestril] 20 mg PO DAILY #30 tab 02/15/21 [Rx] Follow up Appointment(s)/Referral(s): Alfred Lund DO [STAFF PHYSICIAN] - 1 Week Monster Bolivar MD [Primary Care Provider] - 1-2 days Patient Instructions/Handouts: *Surgery [facility] - After Heart Catheterization - Loss Control Consultant Instructions, Holter Monitor (GEN) Activity/Diet/Wound Care/Special Instructions: event monitor placed 02/14/2021 , continue until Mar 16, 2021 Right wrist puncture from Heart Cath 02/14/2021 activity as tolerated heart healthy diet
[2021-02-15] MEDS ORDERED: lisinopriL 10 MG TAB PO SCH (09:00)
[2021-02-15] MEDS ORDERED: ASPIRIN 81 MG PO SCH (09:00)
--- NOTE | 2021-02-15 09:41 | P.PN ---
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 Patient states that he had a heart catheterization done in the after he had an ALLERGIC reaction to bee sti ng. Patient denies any exertional chest pain or shortness of breath. Patient states that he has had sinus symptoms and yesterday morning he took a hot shower following that he was standing and he could feel that his heart was fluttering and racing in the center part. It stopped suddenly and he felt lightheaded after that and then had an episode for 3-5 seconds where he felt he was going to black out. He was standing but was able to sit himself into a chair did not have any fall. EKG sinus rhythm with sinus arrhythmia, no acute ST changes. Chest x-ray reveals no acute cardiopulmonary process. Probable mild COPD Laboratory studies: Troponin 0.023, 0.027, 0.019. Creatinine 0.61. WBC 11.0. Coronavirus PCR not detected monitoring coordinator revealed Cruz of 17 beats of V. tach at 3:30 in the morning which patient states he could feel. This morning shortly after seeing the patient, he had another run of 6 beats. Patient is a smoker three-quarter pack a day for 30 years off and on. Patient drinks anywhere from 2-16 beers per week. 02/14 Patient seen and examined. Patient denies any chest pain or pressure. He does admit at home however that he may get chest pain mainly when he is at work doing things. Echo pending today. No further episodes of DVT. 02/15/2021 Patient examined this morning at the bedside. He is s/p cardiac cath revealing 60-70% diagonal 1 stenosis with normal iFR 0.94. He denies chest pain or pressure. Denies SOB. Denies dizziness or lightheadedness. No episodes of syncope. Patient had event monitor placed yesterday. Telemetry reveals sinus bradycardia with a heart rate in the 50s. Blood pressures remain elevated with a systolic ranging between 160 and 170. Echocardiogram completed revealed ejection fraction 50-55%, [id number] mitral regurgitation, and mild tricuspid regurgitation. PHYSICAL EXAM: VITAL SIGNS: Reviewed. GENERAL: Well-developed in no acute distress. NECK: Supple. No JVD or thyromegaly LUNGS: Respirations even and unlabored. Lungs essentially clear to auscultation bilaterally. HEART: Regular rate and rhythm. S1 and S2 heard. EXTREMITIES: Normal range of motion. No clubbing or cyanosis. Peripheral pulses intact. No lower extremity edema. Right radial cath site with pulse present. ASSESSMENT: Ventricular tachycardia associated with near syncope Chest pain, s/p cardiac cath revealing 60-70% diagonal 1 stenosis with normal iFR 0.94 Hypertension COPD Nicotine dependence PLAN: Continue current cardiac medications Add aspirin 81mg daily Increase lisinopril for optimal blood pressure control Add Lipitor 40mg at HS. Check lipid panel. Patient stable for discharge home today. He is to follow up outpatient with Dr. Lund. Nurse practitioner note has been reviewed by physician. Signing provider agrees with the documented findings, assessment, and plan of care. Objective - Vital Signs Vital signs: Vital Signs Temp 97.5 F L 02/15/21 07:00 Pulse 50 L 02/15/21 07:00 Resp 18 02/15/21 07:00 BP 172/82 02/15/21 07:00 Pulse Ox 98 02/15/21 07:00 Intake & Output 02/14/21 02/15/21 02/15/21 18:59 06:59 18:59 Intake Total 340 Balance 340 Intake: IV 100 Oral 240 Other: # Voids 1 2 - Labs CBC & Chem 7: 02/12/21 14:03 02/13/21 06:18
--- NOTE | 2021-02-15 12:16 | P.CARDCATH ---
Date of Procedure: 02/15/21 Preoperative Diagnosis: Nonsustained ventricular tachycardia Postoperative Diagnosis: Borderline lesion in the diagonal Procedure(s) Performed: Left heart catheterization without left ventriculography Description of Procedure: HISTORY: This is a 65-year-old gentleman who was admitted to the hospital with complains of palpitations. He was found to have episode of nonsustained V. tach. He is also having some jaw discomfort. He was advised to have cardiac catheterization to rule out underlying ischemic heart disease. CONSENT:I have discussed the risks, benefits and alternative therapies for the above-mentioned procedure and for both sedation/analgesia as well as necessary blood product administration, if indicated, as they pertain to this patient. The patient has indicated understanding and acceptance of the risks and procedures discussed. PROCEDURE: Patient was brought to the lab in a fasting state. Patient was given some IV sedation. The right wrist is infiltrated with lidocaine and right radial artery was entered using Seldinger technique. A 6-Stateless catheter was left in place and selective coronary arteriography was performed. Patient tolerated the procedure well. Patient was found to have borderline lesion lesion in the diagonal and went on to have IFR by Dr. Lund. Hemostasis is obtained with TR band No immediate complications were noted and patient was transferred to [facility] in a stable condition Conscious Sedation: Versed 1mg Fentanyl 50 g Duration 17minutes HEMODYNAMICS: The aortic pressure is about 120/70. There was no gradient across the aortic valve SELECTIVE CORONARY ARTERIOGRAPHY: LEFT MAIN: There is no left main. The LAD and circumflex are originating separately THE LEFT ANTERIOR DESCENDING CORONARY ARTERY: This a good caliber vessel, denies to good-sized diagonal branch. Diagonal branch has borderline 60% lesion THE LEFT CIRCUMFLEX AND IS CORONARY ARTERY: . This is a rising separately with separate origins and moderate to large caliber vessel free of any significant occlusive disease THE RIGHT CORONARY ARTERY: . This is a large caliber vessel free of any significant occlusive disease LEFT VENTRICULOGRAPHY: . Not performed FINAL IMPRESSION: . Noncritical lesion which is borderline and the diagonal. The rest of the coronary system is free of occlusive disease PLAN: . Beta blockers and monitor him with event monitor. He patient continues to have nonsustained V. tach, we will consider EP evaluation PROGNOSIS: Fair
[2021-02-15 16:56] LABS: LDL Cholesterol,Calculated 77.9 mg/dL (0.0-131.0); VLDL Calculation 18.38 mg/dL (5.00-40.00)
== END 2021-02-15 09:59 | disposition home or self-care (01) ==
LOC: EC 12:40 → 6NMEDSUR 17:37
PROVIDERS: ADMIT Family Medicine; ATTEND Family Medicine
DX: R07.89 Other chest pain (principal); I47.2 Ventricular tachycardia; J32.9 Chronic sinusitis, unspecified; J44.9 Chronic obstructive pulmonary disease, unspecified; I25.10 Atherosclerotic heart disease of native coronary artery without angina pectoris; R00.1 Bradycardia, unspecified; I08.1 Rheumatic disorders of both mitral and tricuspid valves; I10 Essential (primary) hypertension; E78.5 Hyperlipidemia, unspecified; H26.9 Unspecified cataract; R11.10 Vomiting, unspecified; F17.210 Nicotine dependence, cigarettes, uncomplicated; Z20.822 Contact with and (suspected) exposure to COVID-19; Z79.899 Other long term (current) drug therapy; Z98.890 Other specified postprocedural states; Z91.030 Bee allergy status; Z91.09 Other allergy status, other than to drugs and biological substances; Z96.611 Presence of right artificial shoulder joint; Z98.42 Cataract extraction status, left eye; Z87.892 Personal history of anaphylaxis
CPT/HCPCS: 96361 ×3; 96360; 99285; 36415; 93005; 93306; 93270; 93571; 93458; 80061; 80053; 80048; 83735 ×2; 84484; 85025; 85610; 85730; 87635; 71046; G0378 ×4; C1887; C1894; C1769; J2250; J2001; J3010; J1644; Q9967

== ENCOUNTER → 2021-04-09 | Outpatient (CLI) | payer OTHER, MEDICARE ==
[2021-04-09 11:35] LABS: African American GFR (CKD) >90 (>60 ml/min/1.73 sqM); Anion Gap 10 mmol/L; Blood Urea Nitrogen 14 mg/dL (9-20); Carbon Dioxide 25 mmol/L (22-30); Chloride 103 mmol/L (98-107); Non-African American GFR(CKD) >90 (>60 ml/min/1.73 sqM); Potassium 3.9 mmol/L (3.5-5.1); Sodium 138 mmol/L (137-145)
[2021-04-09 11:42] LABS: HGB 14.9 gm/dL (13.0-17.5); MCH 29.4 pg (25.0-35.0); MCHC 31.6 g/dL (31.0-37.0); MCV 92.9 fL (80.0-100.0); Mean Platelet Volume 9.7; Platelet Count 153 k/uL (150-450); RBC 5.06 m/uL (4.30-5.90); RDW 13.9 % (11.5-15.5); WBC 5.9 k/uL (3.8-10.6)
== END | disposition home or self-care (01) ==
LOC: LABPAT 10:33
PROVIDERS: ATTEND Internal Medicine Clinical Cardiac Electrophysiology
DX: Z01.812 Encounter for preprocedural laboratory examination (principal); Z20.822 Contact with and (suspected) exposure to COVID-19; I47.2 Ventricular tachycardia
CPT/HCPCS: 80051; 82565; 84520; 85027; 87635; 36415; C9803

== ENCOUNTER 2021-04-12 12:49 | Day surgery (SDC) | payer OTHER, MEDICARE ==
[2021-04-07 03:48] VITALS: BMI 24.4
[2021-04-12] MEDS ORDERED: SODIUM CHLORIDE 0.9% 1,000 ML IV ONE (13:04)
[2021-04-12] MEDS ORDERED: LIDOCAINE 1% INJ 10MG/ML (20 ML MDV) ONE (14:59)
[2021-04-12] MEDS ORDERED: HEPARIN SODIUM (1,000 UNIT/ML) 1,000 UNIT in SODIUM CHLORIDE 0.9% 1,000 ML IRRIGATION ONE (15:04)
[2021-04-12] MEDS ORDERED: ISOPROTERENOL 250 MCG/1.25 ML SYR IV ONE (15:08)
[2021-04-12] MEDS ORDERED: fentaNYL (PF) 50 MCG/ML 2 ML AMP ONE (15:08)
[2021-04-12] MEDS ORDERED: MIDAZOLAM 2 MG/2 ML VIAL ONE (15:08)
--- NOTE | 2021-04-12 15:27 | P.HPCAR ---
History of Present Illness This is Dr. Arrington dictating an H/P on this patient The patient was interviewed and examined IMPRESSION / ASSESSMENT: Recurrent palpitations Documented wide complex tachycardia for left bundle branch block morphology with upright QRS is in the inferior leads Nonsustained atrial tachycardia as well as PACs PLAN: Diagnoses EP study and possible VT ablation HPI Patient did have palpitations is placed to the exertion No syncope no loss of consciousness No fever chills cough expectoration ROS: No fever chills or rigors, no cough, phlegm or expectoration, no nausea, vomiting or diarrhea, no hematuria, dysuria, no musculoskeletal complaints, no strokes or seizures, no skin lesions. EXAMINATION: Afebrile 97.5F pulse rate in the 60s normal respirations No JVD Blood pressure 177/85 mmHg Breath sounds are clear no rhonchi no crackles Heart sounds S1 and S2 are normal No lower extremity edema REVIEW OF LABS, ECG & MEDICAL DATA Rhythm strips at [facility] show fast VT with warmup phase with a left bundle branch block morphology and upright QRS is in the inferior leads Twelve-lead EKG is normal, no epsilon waves Physical Exam Vitals: Vital Signs Temp Pulse Resp BP Pulse Ox 04/12/21 12:55 97.5 F L 61 16 177/85 98 Intake and Output 04/12/21 04/12/21 04/12/21 06:59 14:59 22:59 Intake Total 100 0 Balance 100 0 Intake: IV 100 0 Other: Weight 76.8 kg Past Medical History Past Medical History: Eye Disorder, Hyperlipidemia, Hypertension Additional Past Medical History / Comment(s): bilateral cataracts, environmental , allergies, see dr Arrington's history and physical for cardiac history History of Any Multi-Drug Resistant Organisms: None Reported Past Surgical History: Heart Catheterization, Hernia Repair, Orthopedic Surgery Additional Past Surgical History / Comment(s): ankle surgery X3 with hardware, face surgery w/ titanium mesh, left eye cataract, CATARACT REMOVED left EYE , Past Anesthesia/Blood Transfusion Reactions: Previous Problems w/ Anesthesia Additional Past Anesthesia/Blood Transfusion Reaction / Comment(s): Pt states he went into shock prior to shoulder surgery was in the OR. Kept him overnight and he had the surgery done the next day. Patient states he has had surgery since than including a total surgery with no problem." Smoking Status: Current every day smoker - Past Family History Mother Family Medical History: No Reported History Physical Examination Vital Signs Temp Pulse Resp BP Pulse Ox 04/12/21 12:55 97.5 F L 61 16 177/85 98 Intake and Output 04/12/21 04/12/21 04/12/21 06:59 14:59 22:59 Intake Total 100 0 Balance 100 0 Intake: IV 100 0 Other: Weight 76.8 kg Results Current Medications Generic Name Dose Route Start Last Admin Trade Name Freq PRN Reason Stop Dose Admin Sodium Chloride 1,000 mls @ 50 mls/hr 04/12/21 06:00 Saline 0.9% IV 05/12/21 06:01 .Q20H DELORES Lactated Ringer's 1,000 mls @ 20 mls/hr 04/12/21 06:00 Lactated Ringers IV 05/12/21 06:01 .Q24H DELORES Intake and Output 04/12/21 04/12/21 04/12/21 06:59 14:59 22:59 Intake Total 100 0 Balance 100 0 Intake: IV 100 0 Other: Weight 76.8 kg Patient Weight 04/13/21 06:59 Weight 76.8 kg
[2021-04-12] MEDS ORDERED: LIDOCAINE 1% INJ 10MG/ML (20 ML MDV) SQ ONE ×2 (15:34)
[2021-04-12] MEDS ORDERED: ACETAMINOPHEN TAB 325 MG TAB PO PRN (16:41)
--- NOTE | 2021-04-12 16:55 | P.EPPROC ---
- EP Procedure Note Electrophysiology Procedure Note: Diagnosis Run of nonsustained ventricular tachycardia, palpitations The documented episode was fast ventricular tachycardia with a left bundle branch block morphology and upright QRS lead 2 Procedures performed Diagnostic EP study CS pacing and recording Programmed solution following Isuprel Procedure details Patient was brought to the EP lab in a fasting state. Written informed consent was obtained prior to the procedure Venous sheaths were placed in the right and left femoral veins and abnormalities, diagnostic catheters were positioned in diagnostic EP study is performed on and off Isuprel Sinus cycle length 1113 ms, MA interval 142 ms, QRS 180 ms and QT interval 412 ms AH 84 ms and HV 31 ms Sinus recovery times at the bases cycle length 600 ms is 1561 ms. Corresponding carotid sinus node recovery time is normal AV node Wenckebach block 280 ms VA Wenckebach block 380 ms Burst ablation was performed from the right ventricle Access stimulation after double extrastimuli performed from the right ventricular apex Height is Isuprel was employed Burst stimulation on Isuprel performed Access stimulation up to triple extrastimuli performed on Isuprel from the right ventricle Burst stimulation from the RV septum performed on Isuprel AV node Wenckebach block on Isuprel was to 50 ms PVCs of different morphologies induced No nonsustained VT induced no sustained VT induced Most PVCs seem to originate from the septum but with varying morphologies, mostly upright in the inferior leads, left bundle branch block morphology with a prominent initial R wave, broad and round, mostly negative QRS is in lead 1 Sometimes in lead 1 it would be a deep S wave, RS pattern current upright QRS In view of multiple different morphologies mostly from the septum with indications of a deep focus, no ablation was performed Catheters were removed Vascade closure device applied Impression Normal sinus node function Normal AV node function No SVT No sustained VT PVCs of different morphologies mostly from the septum the left bundle-like morphology with an initial broad and tall R wave Consistent with a deep pericardial focus Suggest Resume all cardiac medications including beta blockers Recommend cardiac MRI to look for delayed enhancement in the myocardial septum
[2021-04-12] MEDS ORDERED: ACETAMINOPHEN IV (For NPO) 1,000 MG in EMPTY BAG 1 BAG IVPB ONE (17:30)
[2021-04-12] MEDS: LACTATED RINGERS 1,000 ML IV SCH (17:48)
[2021-04-12] MEDS: SODIUM CHLORIDE 0.9% 1,000 ML IV SCH (17:48)
[2021-04-12] MEDS: METOPROLOL TARTRATE 12.5 MG TAB PO SCH (20:10)
[2021-04-12] MEDS: HYDROcodone/APAP 7.5-325MG 1 EACH TAB PO PRN (20:26)
[2021-04-12] MEDS ORDERED: ATORVASTATIN 40 MG TAB PO SCH (21:00)
[2021-04-12] MEDS ORDERED: MONTELUKAST 10 MG TAB PO SCH (21:00)
[2021-04-13] MEDS: SODIUM CHLORIDE 0.9% 1,000 ML IV SCH (03:47)
[2021-04-13] MEDS: LACTATED RINGERS 1,000 ML IV SCH (03:48)
[2021-04-13] MEDS: HYDROcodone/APAP 7.5-325MG 1 EACH TAB PO PRN (08:33)
[2021-04-13 08:52] VITALS: BP 185/80; PULSE 56; RESP 18; TEMP 97.7
[2021-04-13] MEDS ORDERED: lisinopriL 20 MG TAB PO SCH (09:00)
[2021-04-13] MEDS ORDERED: FLUTICASONE 50MCG/SPRAY NASAL 16GM EA NOSTRIL SCH (09:00)
[2021-04-13] MEDS: METOPROLOL TARTRATE 12.5 MG TAB PO SCH (11:07)
--- NOTE | 2021-04-13 12:10 | P.DS ---
Providers Attending physician: Manjeet Arrington Primary care physician: Monster Bolivar Assessment: Patient is doing well. No chest discomfort no dizziness no lightheadedness He's had brief runs of nonsustained ventricular tachycardia lasting 45 beats and ventricular triplets No groin pain Breath sounds are clear no rhonchi no crackles Heart sounds are normal normal S1 normal S2 Groins of healed well no hematoma no swelling Afebrile 97.7F pulse rate in the 50s Blood pressure 151/80 mmHg Impression Nonsustained ventricular tachycardia, on low-dose beta blockers Hypertension, on lisinopril Dyslipidemia Diagnosis EP study yesterday did not reveal any reproducible sustained or long, nonsustained VT He PVCs of multiple different morphologies mostly of the left bundle branch block morphology but some of her right bundle branch block morphology with upright QRS is These PVCs were consistent with a deep myocardial focus in the septum Variable morphology in lead 1 Suggest Evaluate for chronic myocarditis causes such as sarcoidosis I will schedule him for a cardiac MRI He'll follow Dr. Bai thereafter Discussed with the patient Plan - Discharge Summary Discharge Rx Participant: Yes New Discharge Prescriptions: Continue Montelukast Sodium [Singulair] 10 mg PO HS Metoprolol Tartrate [Lopressor] 12.5 mg PO BID #60 tab Nitroglycerin Sl Tabs [Nitrostat] 0.4 mg SUBLINGUAL Q5M PRN #50 tab PRN Reason: Chest Pain HYDROcodone/APAP 7.5-325MG [[place] 7.5-325] 1 tab PO QID PRN PRN Reason: Pain Fluticasone Nasal [place] [Flonase Nasal [place]] 1 spray EA NOSTRIL DAILY lisinopriL [Zestril] 20 mg PO DAILY #30 tab Atorvastatin Calcium [Lipitor] 40 mg PO HS #90 tablet Discharge Medication List Fluticasone Nasal [place] [Flonase Nasal [place]] 1 spray EA NOSTRIL DAILY 02/12/21 [History] HYDROcodone/APAP 7.5-325MG [[place] 7.5-325] 1 tab PO QID PRN 02/12/21 [History] Montelukast Sodium [Singulair] 10 mg PO HS 02/12/21 [History] Atorvastatin Calcium [Lipitor] 40 mg PO HS #90 tablet 02/15/21 [Rx] Metoprolol Tartrate [Lopressor] 12.5 mg PO BID #60 tab 02/15/21 [Rx] Nitroglycerin Sl Tabs [Nitrostat] 0.4 mg SUBLINGUAL Q5M PRN #50 tab 02/15/21 [Rx] lisinopriL [Zestril] 20 mg PO DAILY #30 tab 02/15/21 [Rx] Follow up Appointment(s)/Referral(s): Tricia Bai MD [STAFF PHYSICIAN] - 04/26/21 2:30 pm Patient Instructions/Handouts: Electrophysiology Study (IP), Cardiac Ablation (DC) Activity/Diet/Wound Care/Special Instructions: Post EP study - Ablation instructions 1. Keep access sites dry for 2 days. 2. No heavy lifting or straining for 2 days. 3. Avoid bending the hips repeatedly for 2 days. 4. You may go up and down stairs slowly Call if the following is noted 1. Bleeding, increasing swelling or pain at the access sites. 2. Increasing chest discomfort, especially upon taking a deep breath. 3. Increasing shortness of breath, at rest or with exertion. 4. Undue cough / phlegm 5. Difficulty or pain while swallowing. 6. Pain or change in color in the extremities. 7. Fever, chills, rigors. 8. Increasing headache or neurologic symptoms. 9. Dizziness, fainting, palpitations Follow-up Dr. Bai in a week Discharge Disposition: HOME SELF-CARE
== END 2021-04-13 13:55 | disposition home or self-care (01) ==
LOC: CATHEP 12:49 → 6NMEDSUR 15:09 → CATHEP 04-13 13:55
PROVIDERS: ATTEND Internal Medicine Clinical Cardiac Electrophysiology
DX: I47.2 Ventricular tachycardia (principal); R00.0 Tachycardia, unspecified; I49.1 Atrial premature depolarization; E78.5 Hyperlipidemia, unspecified; I10 Essential (primary) hypertension; F17.200 Nicotine dependence, unspecified, uncomplicated; Z98.42 Cataract extraction status, left eye; H26.9 Unspecified cataract; Z98.890 Other specified postprocedural states
CPT/HCPCS: 93623; 93620; C1894; C1769 ×2; C1760; C1730 ×2; J2250; J2001; J3010

== ENCOUNTER 2021-10-14 06:23 | Inpatient (IN) | payer MEDICARE, OTHER ==
[2021-10-14] MEDS: SODIUM CHLORIDE 0.9% 500 ML 500 ML IV SCH (06:48)
[2021-10-14] MEDS: SODIUM CHLORIDE 0.9% 1,000 ML IV SCH ×3 (06:48→22:14)
--- NOTE | 2021-10-14 06:49 | ED ---
General Adult HPI - General Source: patient, EMS Mode of arrival: EMS Limitations: altered mental status - History of Present Illness -: hour(s) Location: genitals Quality: aching Consistency: constant Improves with: none Worsens with: none Associated Symptoms: fever/chills, shortness of breath Treatments Prior to Arrival: none <Bhargav Murray - Last Filed: 10/14/21 07:12> <Josr Collins - Last Filed: 10/14/21 10:25> - General Chief complaint: Shortness of Breath Stated complaint: SINDI Time Seen by Provider: 10/14/21 06:34 - History of Present Illness Initial comments: This patient is 66-year-old man who presents with complaint of shortness of breath. He called EMS this morning with complaint that he was feeling cold and short of breath. Patient had been fine yesterday he had gone to see the parade and walk around there and he had a ground-level fall. Patient states that after the fall he noticed he was having some pain in the left groin. He states that over the course of the night he became cold and shaky and he was short of breath. He denies chest pain, abdominal pain, back pain. He did have a couple of episodes of vomiting over the course of the night and he was having pain in the left side of the groin. Patient denies having a fever. No productive cough. No change in urination or bowel movements. (Bhargav Murray) - Related Data Home Medications Medication Instructions Recorded Confirmed Fluticasone Nasal [place] [Flonase 1 spray EA NOSTRIL DAILY 02/12/21 10/14/21 Nasal [place]] HYDROcodone/APAP 7.5-325MG [[place] 1 tab PO QID PRN 02/12/21 10/14/21 7.5-325] Montelukast Sodium [Singulair] 10 mg PO HS 02/12/21 10/14/21 Albuterol Inhaler [Ventolin Hfa 2 puff INHALATION RT-Q6H PRN 10/14/21 10/14/21 Inhaler] EPINEPHrine (Auto Inject) [Epipen] 0.3 mg IM ONCE PRN 10/14/21 10/14/21 Ibuprofen [Motrin] 600 mg PO Q8HR 10/14/21 10/14/21 lisinopriL [Zestril] 10 mg PO DAILY 10/14/21 10/14/21 Previous Rx's Medication Instructions Recorded Atorvastatin Calcium [Lipitor] 40 mg PO HS #90 tablet 02/15/21 Allergies Allergy/AdvReac Type Severity Reaction Status Date / Time No Known Allergies Allergy Verified 10/14/21 09:49 Review of Systems ROS Other: All systems not noted in ROS Statement are negative. Constitutional: Reports: chills. Denies: fever, weakness Respiratory: Reports: dyspnea. Denies: cough, wheezes Cardiovascular: Reports: palpitations. Denies: chest pain, edema, syncope Gastrointestinal: Reports: abdominal pain (Left groin), nausea, vomiting. Denies: diarrhea, constipation, hematemesis, melena, hematochezia Genitourinary: Reports: testicular pain, testicular mass. Denies: dysuria, hematuria Musculoskeletal: Denies: back pain Skin: Denies: rash Neurological: Denies: headache, weakness, numbness <Bhargav Murray - Last Filed: 10/14/21 07:12> ROS Other: All systems not noted in ROS Statement are negative. <Josr Collins - Last Filed: 10/14/21 10:25> ROS Statement: Those systems with pertinent positive or pertinent negative responses have been documented in the HPI. Past Medical History Past Medical History: Eye Disorder, Hyperlipidemia, Hypertension Additional Past Medical History / Comment(s): bilateral cataracts, environmental , allergies, see dr Arrington's history and physical for cardiac history History of Any Multi-Drug Resistant Organisms: None Reported Past Surgical History: Heart Catheterization, Hernia Repair, Orthopedic Surgery Additional Past Surgical History / Comment(s): ankle surgery X3 with hardware, face surgery w/ titanium mesh, left eye cataract, CATARACT REMOVED left EYE , Past Anesthesia/Blood Transfusion Reactions: Previous Problems w/ Anesthesia Additional Past Anesthesia/Blood Transfusion Reaction / Comment(s): Pt states he went into shock prior to shoulder surgery was in the OR. Kept him overnight and he had the surgery done the next day. Patient states he has had surgery since than including a total surgery with no problem." Past Psychological History: No Psychological Hx Reported Smoking Status: Current every day smoker Past Alcohol Use History: Occasional Past Drug Use History: Marijuana - Past Family History Mother Family Medical History: No Reported History <Bhargav Murray - Last Filed: 10/14/21 07:12> General Exam General appearance: alert, in distress Head exam: Present: atraumatic, normocephalic Eye exam: Present: normal appearance, PERRL, EOMI. Absent: scleral icterus, conjunctival injection ENT exam: Present: mucous membranes dry Neck exam: Present: normal inspection, full ROM. Absent: tenderness Respiratory exam: Present: normal lung sounds bilaterally, respiratory distress. Absent: wheezes, rales, rhonchi, stridor Cardiovascular Exam: Present: regular rate, normal rhythm, normal heart sounds. Absent: systolic murmur, diastolic murmur, rubs, gallop GI/Abdominal exam: Present: soft, hernia (There is a left inguinal hernia which was minimally tender. It was soft and I was able to reduce it at the bedside without difficulty.). Absent: distended, tenderness, guarding, rebound, rigid, mass Extremities exam: Present: normal inspection, normal capillary refill. Absent: pedal edema, calf tenderness Back exam: Present: normal inspection. Absent: CVA tenderness (R), CVA tenderness (L) Neurological exam: Present: alert Skin exam: Present: warm, dry, intact, normal color. Absent: rash <Bhargav Murray - Last Filed: 10/14/21 07:12> Course Vital Signs 10/14/21 10/14/21 10/14/21 06:24 06:36 06:48 Temperature 96.8 F L Pulse Rate 90 100 Pulse Rate [ Supine Pulse Oximetery] Respiratory Rate Blood Pressure 68/33 101/56 66/45 Blood Pressure [Left Arm Supine] O2 Sat by Pulse Oximetry 10/14/21 10/14/21 10/14/21 07:03 07:05 07:38 Temperature 97.4 F L 98.5 F Pulse Rate 96 Pulse Rate [ Supine Pulse Oximetery] Respiratory 25 H Rate Blood Pressure 131/59 Blood Pressure [Left Arm Supine] O2 Sat by Pulse 98 Oximetry 10/14/21 10/14/21 10/14/21 07:45 07:59 08:03 Temperature 97.5 F L Pulse Rate 91 111 H 93 Pulse Rate [ Supine Pulse Oximetery] Respiratory 20 20 22 Rate Blood Pressure 111/76 92/60 104/91 Blood Pressure [Left Arm Supine] O2 Sat by Pulse 98 100 100 Oximetry 0710/14/21 10/14/21 08:13 08:17 08:20 Temperature 97.6 F 97.8 F Pulse Rate 95 85 87 Pulse Rate [ Supine Pulse Oximetery] Respiratory 18 18 20 Rate Blood Pressure 124/68 122/77 Blood Pressure [Left Arm Supine] O2 Sat by Pulse 100 100 Oximetry 10/14/21 10/14/21 10/14/21 08:46 08:57 09:05 Temperature 98.1 F 96.9 F L Pulse Rate 91 90 Pulse Rate [ 83 Supine Pulse Oximetery] Respiratory 20 18 16 Rate Blood Pressure 152/77 131/84 Blood Pressure 123/58 [Left Arm Supine] O2 Sat by Pulse 100 100 100 Oximetry EKG Findings - EKG Results: EKG: interpreted by ERMD, sinus rhythm (Rate 86 bpm), normal axis, normal QRS, normal ST/T <Bhargav Murray - Last Filed: 10/14/21 07:12> Medical Decision Making - Lab Data Result diagrams: 10/14/21 09:44 10/14/21 06:30 <Josr Collins - Last Filed: 10/14/21 10:25> - Medical Decision Making Computed tomography scan shows blood in the abdomen and possible splenic laceration. I spoke with Dr. Crowell immediately and he agreed to take the patient to the OR. I activated the massive blood transfusion gave the patient packed red blood cells. I also gave the patient TXA. (Josr Collins) - Lab Data Lab Results 10/14/21 10/14/21 10/14/21 Range/Units 06:30 06:30 06:30 WBC 17.3 H (3.8-10.6) k/uL RBC 3.81 L (4.30-5.90) m/uL Hgb 11.2 L (13.0-17.5) gm/dL Hct 35.8 L (39.0-53.0) % MCV 93.7 (80.0-100.0) fL MCH 29.3 (25.0-35.0) pg MCHC 31.3 (31.0-37.0) g/dL RDW 13.8 (11.5-15.5) % Plt Count 140 L (150-450) k/uL MPV 10.7 Neutrophils % 81 % Lymphocytes % 13 % Monocytes % 4 % Eosinophils % 1 % Basophils % 0 % Neutrophils # 14.0 H (1.3-7.7) k/uL Lymphocytes # 2.2 (1.0-4.8) k/uL Monocytes # 0.7 (0-1.0) k/uL Eosinophils # 0.1 (0-0.7) k/uL Basophils # 0.1 (0-0.2) k/uL Manual Slide Review Performed Hypochromasia Moderate PT 12.1 H (9.0-12.0) sec INR 1.1 (<1.2) APTT 21.9 L (22.0-30.0) sec Sodium 138 (137-145) mmol/L Potassium 3.8 (3.5-5.1) mmol/L Chloride 104 (98-107) mmol/L Carbon Dioxide 14 L (22-30) mmol/L Anion Gap 20 mmol/L BUN 17 (9-20) mg/dL Creatinine 1.49 H (0.66-1.25) mg/dL Est GFR (CKD-EPI)AfAm 56 (>60 ml/min/1.73 sqM) Est GFR (CKD-EPI)NonAf 48 (>60 ml/min/1.73 sqM) Glucose 266 H (74-99) mg/dL Lactic Ac Sepsis Rflx Plasma Lactic Acid Ben (0.7-2.0) mmol/L Calcium 9.0 (8.4-10.2) mg/dL Total Bilirubin 0.9 (0.2-1.3) mg/dL AST 31 (17-59) U/L ALT 35 (4-49) U/L Alkaline Phosphatase 64 (38-126) U/L Troponin I (0.000-0.034) ng/mL Total Protein 5.9 L (6.3-8.2) g/dL Albumin 4.0 (3.5-5.0) g/dL Urine Color Urine Appearance (Clear) Urine pH (5.0-8.0) Ur Specific [place] (1.001-1.035) Urine Protein (Negative) Urine Glucose (UA) (Negative) Urine Ketones (Negative) Urine Blood (Negative) Urine Nitrite (Negative) Urine Bilirubin (Negative) Urine Urobilinogen (<2.0) mg/dL Ur Leukocyte Esterase (Negative) Urine RBC (0-5) /hpf Urine WBC (0-5) /hpf Ur Squamous Epith Cells (0-4) /hpf Hyaline Casts (0-2) /lpf Urine Mucus (None) /hpf Serum Alcohol <10 mg/dL Coronavirus (PCR) (Not Detectd) Blood Type Blood Type Confirm Blood Type Recheck Bld Type Recheck Status Antibody Screen Crossmatch Spec Expiration Date 10/14/21 10/14/21 10/14/21 Range/Units 06:30 06:30 06:52 WBC (3.8-10.6) k/uL RBC (4.30-5.90) m/uL Hgb (13.0-17.5) gm/dL Hct (39.0-53.0) % MCV (80.0-100.0) fL MCH (25.0-35.0) pg MCHC (31.0-37.0) g/dL RDW (11.5-15.5) % Plt Count (150-450) k/uL MPV Neutrophils % % Lymphocytes % % Monocytes % % Eosinophils % % Basophils % % Neutrophils # (1.3-7.7) k/uL Lymphocytes # (1.0-4.8) k/uL Monocytes # (0-1.0) k/uL Eosinophils # (0-0.7) k/uL Basophils # (0-0.2) k/uL Manual Slide Review Hypochromasia PT (9.0-12.0) sec INR (<1.2) APTT (22.0-30.0) sec Sodium (137-145) mmol/L Potassium (3.5-5.1) mmol/L Chloride (98-107) mmol/L Carbon Dioxide (22-30) mmol/L Anion Gap mmol/L BUN (9-20) mg/dL Creatinine (0.66-1.25) mg/dL Est GFR (CKD-EPI)AfAm (>60 ml/min/1.73 sqM) Est GFR (CKD-EPI)NonAf (>60 ml/min/1.73 sqM) Glucose (74-99) mg/dL Lactic Ac Sepsis Rflx Plasma Lactic Acid Ben 14.1 H* (0.7-2.0) mmol/L Calcium (8.4-10.2) mg/dL Total Bilirubin (0.2-1.3) mg/dL AST (17-59) U/L ALT (4-49) U/L Alkaline Phosphatase (38-126) U/L Troponin I 0.181 H* (0.000-0.034) ng/mL Total Protein (6.3-8.2) g/dL Albumin (3.5-5.0) g/dL Urine Color Urine Appearance (Clear) Urine pH (5.0-8.0) Ur Specific [place] (1.001-1.035) Urine Protein (Negative) Urine Glucose (UA) (Negative) Urine Ketones (Negative) Urine Blood (Negative) Urine Nitrite (Negative) Urine Bilirubin (Negative) Urine Urobilinogen (<2.0) mg/dL Ur Leukocyte Esterase (Negative) Urine RBC (0-5) /hpf Urine WBC (0-5) /hpf Ur Squamous Epith Cells (0-4) /hpf Hyaline Casts (0-2) /lpf Urine Mucus (None) /hpf Serum Alcohol mg/dL Coronavirus (PCR) Not Detected (Not Detectd) Blood Type Blood Type Confirm Blood Type Recheck Bld Type Recheck Status Antibody Screen Crossmatch Spec Expiration Date 10/14/21 10/14/21 10/14/21 Range/Units 07:29 07:48 08:10 WBC (3.8-10.6) k/uL RBC (4.30-5.90) m/uL Hgb (13.0-17.5) gm/dL Hct (39.0-53.0) % MCV (80.0-100.0) fL MCH (25.0-35.0) pg MCHC (31.0-37.0) g/dL RDW (11.5-15.5) % Plt Count (150-450) k/uL MPV Neutrophils % % Lymphocytes % % Monocytes % % Eosinophils % % Basophils % % Neutrophils # (1.3-7.7) k/uL Lymphocytes # (1.0-4.8) k/uL Monocytes # (0-1.0) k/uL Eosinophils # (0-0.7) k/uL Basophils # (0-0.2) k/uL Manual Slide Review Hypochromasia PT (9.0-12.0) sec INR (<1.2) APTT (22.0-30.0) sec Sodium (137-145) mmol/L Potassium (3.5-5.1) mmol/L Chloride (98-107) mmol/L Carbon Dioxide (22-30) mmol/L Anion Gap mmol/L BUN (9-20) mg/dL Creatinine (0.66-1.25) mg/dL Est GFR (CKD-EPI)AfAm (>60 ml/min/1.73 sqM) Est GFR (CKD-EPI)NonAf (>60 ml/min/1.73 sqM) Glucose (74-99) mg/dL Lactic Ac Sepsis Rflx Y Plasma Lactic Acid Ben (0.7-2.0) mmol/L Calcium (8.4-10.2) mg/dL Total Bilirubin (0.2-1.3) mg/dL AST (17-59) U/L ALT (4-49) U/L Alkaline Phosphatase (38-126) U/L Troponin I (0.000-0.034) ng/mL Total Protein (6.3-8.2) g/dL Albumin (3.5-5.0) g/dL Urine Color Urine Appearance (Clear) Urine pH (5.0-8.0) Ur Specific [place] (1.001-1.035) Urine Protein (Negative) Urine Glucose (UA) (Negative) Urine Ketones (Negative) Urine Blood (Negative) Urine Nitrite (Negative) Urine Bilirubin (Negative) Urine Urobilinogen (<2.0) mg/dL Ur Leukocyte Esterase (Negative) Urine RBC (0-5) /hpf Urine WBC (0-5) /hpf Ur Squamous Epith Cells (0-4) /hpf Hyaline Casts (0-2) /lpf Urine Mucus (None) /hpf Serum Alcohol mg/dL Coronavirus (PCR) (Not Detectd) Blood Type AB Positive Blood Type Confirm AB Positive Blood Type Recheck No Previous Record Bld Type Recheck Status CABO Indicated Antibody Screen NEGATIVE Crossmatch See Detail Spec Expiration Date 10/17/2021 - 234710/14/21 10/14/21 Range/Units 08:40 09:44 WBC 14.0 H (3.8-10.6) k/uL RBC 3.13 L (4.30-5.90) m/uL Hgb 9.1 L D (13.0-17.5) gm/dL Hct 27.6 L (39.0-53.0) % MCV 88.3 D (80.0-100.0) fL MCH 29.2 (25.0-35.0) pg MCHC 33.0 (31.0-37.0) g/dL RDW 13.8 (11.5-15.5) % Plt Count 103 L (150-450) k/uL MPV 10.7 Neutrophils % 88 % Lymphocytes % 6 % Monocytes % 5 % Eosinophils % 0 % Basophils % 0 % Neutrophils # 12.3 H (1.3-7.7) k/uL Lymphocytes # 0.9 L (1.0-4.8) k/uL Monocytes # 0.8 (0-1.0) k/uL Eosinophils # 0.0 (0-0.7) k/uL Basophils # 0.0 (0-0.2) k/uL Manual Slide Review Hypochromasia PT (9.0-12.0) sec INR (<1.2) APTT (22.0-30.0) sec Sodium (137-145) mmol/L Potassium (3.5-5.1) mmol/L Chloride (98-107) mmol/L Carbon Dioxide (22-30) mmol/L Anion Gap mmol/L BUN (9-20) mg/dL Creatinine (0.66-1.25) mg/dL Est GFR (CKD-EPI)AfAm (>60 ml/min/1.73 sqM) Est GFR (CKD-EPI)NonAf (>60 ml/min/1.73 sqM) Glucose (74-99) mg/dL Lactic Ac Sepsis Rflx Plasma Lactic Acid Ben (0.7-2.0) mmol/L Calcium (8.4-10.2) mg/dL Total Bilirubin (0.2-1.3) mg/dL AST (17-59) U/L ALT (4-49) U/L Alkaline Phosphatase (38-126) U/L Troponin I (0.000-0.034) ng/mL Total Protein (6.3-8.2) g/dL Albumin (3.5-5.0) g/dL Urine Color Yellow Urine Appearance Clear (Clear) Urine pH 5.5 (5.0-8.0) Ur Specific [place] 1.009 (1.001-1.035) Urine Protein 1+ H (Negative) Urine Glucose (UA) Negative (Negative) Urine Ketones Negative (Negative) Urine Blood Large H (Negative) Urine Nitrite Negative (Negative) Urine Bilirubin Negative (Negative) Urine Urobilinogen <2.0 (<2.0) mg/dL Ur Leukocyte Esterase Negative (Negative) Urine RBC 5 (0-5) /hpf Urine WBC 5 (0-5) /hpf Ur Squamous Epith Cells <1 (0-4) /hpf Hyaline Casts 22 H (0-2) /lpf Urine Mucus Few H (None) /hpf Serum Alcohol mg/dL Coronavirus (PCR) (Not Detectd) Blood Type Blood Type Confirm Blood Type Recheck Bld Type Recheck Status Antibody Screen Crossmatch Spec Expiration Date Critical Care Time Critical Care Time: Yes Total Critical Care Time: 35 <Josr Collins - Last Filed: 10/14/21 10:25> Disposition Is patient prescribed a controlled substance at d/c from ED?: No <Bhargav Murray - Last Filed: 10/14/21 07:12> Time of Disposition: 07:30 <Josr Collins - Last Filed: 10/14/21 10:25> Clinical Impression: Splenic laceration, Hemoperitoneum, Fall Disposition: ADMITTED IP TO THIS HOSP Referrals: Monster Bolivar MD [Primary Care Provider] - 1-2 days
--- NOTE | 2021-10-14 06:58 | XR ---
EXAMINATION TYPE: XR chest 1V portable DATE OF EXAM: 10/14/2021 COMPARISON: 02/12/2021 HISTORY: Fever TECHNIQUE: FINDINGS: There is no heart failure nor confluent pneumonic infiltrate. There is right shoulder prost hesis. There are numerous bilateral old rib fractures. No pleural effusion. Heart size is normal. IMPRESSION: No active cardiopulmonary disease. Normal heart. No change.
[2021-10-14 07:08] LABS: INR 1.1 (<1.2); Partial Thromboplastin Time 21.9 sec (22.0-30.0); Prothrombin Time 12.1 sec (9.0-12.0)
[2021-10-14 07:11] LABS: AST 31 U/L (17-59); African American GFR (CKD) 56 (>60 ml/min/1.73 sqM); Alcohol <10 mg/dL; Alkaline Phosphatase 64 U/L (38-126); Anion Gap 20 mmol/L; Blood Urea Nitrogen 17 mg/dL (9-20); Carbon Dioxide 14 mmol/L (22-30); Chloride 104 mmol/L (98-107); Glucose 266 mg/dL (74-99); Non-African American GFR(CKD) 48 (>60 ml/min/1.73 sqM); Potassium 3.8 mmol/L (3.5-5.1); Sodium 138 mmol/L (137-145); Total Bilirubin 0.9 mg/dL (0.2-1.3); Total Protein 5.9 g/dL (6.3-8.2)
[2021-10-14 07:20] LABS: ALT 35 U/L (4-49)
[2021-10-14 07:34] LABS: Basophils # (A) 0.1 k/uL (0-0.2); Basophils % (A) 0 %; Eosinophils # (A) 0.1 k/uL (0-0.7); Eosinophils % (A) 1 %; HCT 35.8 % (39.0-53.0); HGB 11.2 gm/dL (13.0-17.5); Hypochromasia Moderate; Lymphocytes # (A) 2.2 k/uL (1.0-4.8); Lymphocytes % (A) 13 %; MCH 29.3 pg (25.0-35.0); MCHC 31.3 g/dL (31.0-37.0); MCV 93.7 fL (80.0-100.0); Mean Platelet Volume 10.7; Monocytes # (A) 0.7 k/uL (0-1.0); Monocytes % (A) 4 %; Neutrophils % (A) 81 %; RBC 3.81 m/uL (4.30-5.90); RDW 13.8 % (11.5-15.5); WBC 17.3 k/uL (3.8-10.6)
[2021-10-14] MEDS ORDERED: SODIUM CHLORIDE 0.9% 1,000 ML IV ONE ×7 (07:38→10:40)
--- NOTE | 2021-10-14 07:45 | CT ---
EXAMINATION TYPE: CT abdomen pelvis wo con DATE OF EXAM: 10/14/2021 HISTORY: Lt Inguinal Hernia, abdominal pain CT DLP: 634 mGycm. Automated Exposure Control for Dose Reduction was Utilized. TECHNIQUE: CT scan of the abdomen and pelvis is performed without oral or IV contrast. COMPARISON: NONE FINDINGS: Within the limitations of a non-contrast study, the following observations are made. LUNG BASES: Tiny anterior pericardial effusion. LIVER/GB: Somewhat small size liver with lobulated contour and adjacent right lateral ascites. PANCREAS: No significant abnormality is seen. SPLEEN: Heterogeneous possibly slightly enlarged spleen with surrounding hyperdense intraperitoneal f luid extending into the left paracolic and infracolic gutter. ADRENALS: Low dense nodularity to both adrenal glands favors benign lipid rich adenomas. KIDNEYS: There is nonobstructing 3 mm calculus midpole right kidney: No left-sided nephrolithiasis. N o hydronephrosis bilaterally. BOWEL: Slightly suboptimal evaluation without enteric contrast. No suspicious small or large bowel di latation. A few diverticula of the sigmoid colon are present. GENITAL ORGANS: Some central calcifications and nonenlarged prostate gland. LYMPH NODES: No greater than 1cm abdominal or pelvic lymph nodes are appreciated. OSSEOUS STRUCTURES: [id number] multilevel anterior and lateral spurring in the thoracolumbar spine. Moderate axial joint space loss in both hips. Transitional-type vertebra at lumbosacral juncti on is sacralized on the left. OTHER: Surgical clips right groin region from prior hernia repair surgery. There is moderate to large left inguinal hernia containing fat and portions of sigmoid colon. Moderate to severe hyperdense free fluid in the pelvis. Small to moderate amount of heterogeneous sli ghtly hyperdense fluid in the abdomen. The most hyperdense fluid collection is the adjacent to the sp srinivas. Atherosclerotic and ectatic abdominal aorta without greater than 3.0 cm AAA. 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 Small to moderate-sized fat-containing umbilical hernia. IMPRESSION: 1. There is suspected acute splenic hematoma or hemorrhage possible rupture with nonsimple ascites be ing more hyperdense than the left lateral abdomen versus right abdomen. Underlying splenomegaly may b e present. Etiology uncertain. Significant nonsimple fluid or hemorrhage into the pelvis is noted. 2. Confirmation of left inguinal hernia containing portion of sigmoid colon. No bowel obstruction. Po stsurgical change right groin without recurrent hernia. Difficult to accurately grade trauma as exam is performed without IV contrast. Result communicated with Dr. Collins via telephone at time of dictation.
[2021-10-14] MEDS ORDERED: TRANEXAMIC ACID IN NACL,ISO-OS 1,000 MG in SALINE 1 100ML.BAG IVPB ONE (07:51)
[2021-10-14] MEDS ORDERED: ONDANSETRON 4 MG/2 ML VIAL IVP STA (07:53)
[2021-10-14] MEDS ORDERED: HYDROmorphone 0.5 MG/0.5 ML SYRINGE IVP STA (07:53)
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
[2021-10-14 08:49] LABS: Appearance,Urine Clear (Clear); Bilirubin,Urine Negative (Negative); Blood,Urine Large (Negative); Color,Urine Yellow; Glucose,Urine (UA) Negative (Negative); Hyaline Casts,Urine 22 /lpf (0-2); Ketones,Urine Negative (Negative); Leukocyte Esterase,Urine Negative (Negative); Mucus,Urine Few /hpf; Nitrite,Urine Negative (Negative); PH, Urine 5.5 (5.0-8.0); Protein,Urine 1+ (Negative); RBC,Urine 5 /hpf (0-5); Specific Gravity,Urine 1.009 (1.001-1.035); Squamous Epithelial Cell,Urine <1 /hpf (0-4); Urobilinogen,Urine <2.0 mg/dL (<2.0); WBC,Urine 5 /hpf (0-5)
[2021-10-14] MEDS ORDERED: LACTATED RINGERS 1,000 ML IV ONE ×2 (09:48→12:23)
[2021-10-14 09:55] LABS: Basophils % (A) 0 %; Eosinophils % (A) 0 %; HCT 27.6 % (39.0-53.0); Lymphocytes # (A) 0.9 k/uL (1.0-4.8); Lymphocytes % (A) 6 %; MCH 29.2 pg (25.0-35.0); Mean Platelet Volume 10.7; Monocytes # (A) 0.8 k/uL (0-1.0); Monocytes % (A) 5 %; Neutrophils # (A) 12.3 k/uL (1.3-7.7); Neutrophils % (A) 88 %; Platelet Count 103 k/uL (150-450); RBC 3.13 m/uL (4.30-5.90); RDW 13.8 % (11.5-15.5)
[2021-10-14 10:04] LABS: HGB 9.1 gm/dL (13.0-17.5); MCV 88.3 fL (80.0-100.0)
[2021-10-14] MEDS ORDERED: PHENYLEPHRINE-0.9% NACL SYG 1,000 MCG/10 ML SYRINGE ONE (10:04)
[2021-10-14] MEDS ORDERED: ROCURONIUM 10 MG/ML (5 ML VIAL) IV ONE (10:04)
[2021-10-14] MEDS ORDERED: SUCCINYLCHOLINE CHLORIDE 100 MG/5 ML SYR IV ONE (10:04)
[2021-10-14] MEDS ORDERED: PROPOFOL 10 MG/ML 20 ML VIAL IV ONE (10:04)
[2021-10-14] MEDS ORDERED: SODIUM CHLORIDE 0.9% IRRIG 1,000 ML BTL IRRIGATION ONE (10:04)
[2021-10-14] MEDS ORDERED: NEOSTIGMINE 1 MG/ML 10 ML VIAL ONE (10:04)
[2021-10-14] MEDS ORDERED: HEPARIN SODIUM,PORCINE 10,000 UNIT/ML 1 ML VIAL ONE (10:04)
[2021-10-14] MEDS ORDERED: LIDOCAINE 2% INJ 20 MG/ML (2 ML VIAL) ONE (10:04)
[2021-10-14] MEDS ORDERED: GLYCOPYRROLATE 0.2 MG/ML 2 ML VIAL ONE (10:04)
[2021-10-14] MEDS ORDERED: fentaNYL (PF) 50 MCG/ML 2 ML AMP ONE (10:04)
[2021-10-14 10:19] LABS: Platelet Count 140 k/uL (150-450)
[2021-10-14] MEDS ORDERED: ACETAMINOPHEN IV (For NPO) 1,000 MG in EMPTY BAG 1 BAG IVPB ONE (12:23)
--- NOTE | 2021-10-14 12:35 | P.OP ---
Date of Procedure: 10/14/21 Procedure(s) Performed: PREOPERATIVE DIAGNOSIS: Hemoperitoneum with splenic injury, umbilical hernia POSTOPERATIVE DIAGNOSIS: Same PROCEDURE: Exploratory laparotomy with splenectomy, with umbilical hernia repair SURGEON: Socrates EBL: 2.5 L Urine output: 350 mL Transfusion: 2 units PRBC, additional Cell Saver blood given please check anesthesia records ANESTHESIA: Gen. COMPLICATIONS: None OPERATIVE PROCEDURE: Patient is brought and placed on the operative table. He was placed under general anesthesia. Bear hugger and Andres catheter were placed. Arterial line was placed preoperatively as well in preop. Abdomen was prepped and draped sterilely. Midline incision was made from the xiphoid to the left periumbilical location. Subcutaneous tissues and fascia were divided using electrocautery. The patient's defect at the umbilicus was included in our fascial opening. Once anesthesia was prepared the peritoneum was opened. 4 quadrants were packed with lap pads. 2.5 L eventually were evacuated from the abdomen. Cell Saver was utilized from the onset. Sequentially the packs were removed from the left lower quadrant, right lower quadrant, and right upper quadrant. No bleeding was seen in those areas. The patient's spleen was noted to be pushed inferiorly from a large hematoma above the spleen. Using a combination of sharp dissection and blunt dissection the spleen was brought medially. The short gastrics are divided using sutures and the LigaSure device. The hilum of the spleen was then divided using interrupted 0 silk ties. Care was taken to sequentially tie the vein and artery separately. Clips were also used on these ties sites. The specimen was passed off. At that point we carefully examined the perisplenic region for bleeding. No significant bleeding was seen. A small serosal tear on the fundus of the stomach was repaired using a 3-0 GI silk Lembert suture. The abdomen was irrigated with approximate 5 L of saline. Again no active bleeding was seen. Our count was correct as we started to close the abdomen. The fascia was reapproximated using 2 separate double- stranded #1 PDS sutures. Skin was then closed using luis. Then the umbilical hernia defect was closed with our fascial closure. Sterile dressings were applied. DISPOSITION: Stable to recovery room
[2021-10-14] MEDS: HYDROmorphone 0.5 MG/0.5 ML SYRINGE IVP PRN (12:55)
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
[2021-10-14 13:45] LABS: Glucose,Whole Blood 83 mg/dL (70-110)
[2021-10-14] MEDS: HYDROmorphone 1 MG/ML 1 ML SYRINGE IVP PRN ×3 (15:52→22:17)
[2021-10-14] MEDS: PANTOPRAZOLE 40 MG/10 ML VIAL IV SCH (15:54)
[2021-10-14 16:35] LABS: HCT 43.3 % (39.0-53.0); Hypochromasia Slight; MCH 29.8 pg (25.0-35.0); MCHC 32.3 g/dL (31.0-37.0); MCV 92.2 fL (80.0-100.0); Mean Platelet Volume 10.7; RDW 14.5 % (11.5-15.5); WBC 14.1 k/uL (3.8-10.6)
[2021-10-14 16:52] LABS: Calcium 7.6 mg/dL (8.4-10.2); Magnesium 1.5 mg/dL (1.6-2.3); Phosphorus 4.1 mg/dL (2.5-4.5); Platelet Count 77 k/uL (150-450); Potassium 4.4 mmol/L (3.5-5.1)
[2021-10-14] MEDS: ACETAMINOPHEN IV (For NPO) 1,000 MG in EMPTY BAG 1 BAG IVPB SCH (17:38)
[2021-10-14] MEDS: MAGNESIUM SULFATE-D5W PMX 1 GM in DEXTROSE/WATER 1 100ML.BAG IVPB SCH ×2 (18:40→19:45)
[2021-10-14] MEDS: HEPARIN SODIUM,PORCINE/PF 5,000 UNIT/0.5 ML SYRINGE SQ SCH (21:15)
[2021-10-14] MEDS: ATORVASTATIN 40 MG TAB PO SCH (21:38)
[2021-10-14] MEDS: MONTELUKAST 10 MG TAB PO SCH (21:38)
--- NOTE | 2021-10-14 23:23 | P.CONS ---
History of Present Illness - Reason for Consult Consult date: 10/14/21 Postsplenectomy vaccination Requesting physician: Brian Crowell - Chief Complaint Weakness and abdominal pain x one day - History of Present Illness Patient is a 66-year-old male with a past medical history pertinent for hypertension hyperlipidemia chronic and ongoing tobacco use patient apparently was in the [facility] yesterday for the bout festive of patient apparently did have a ground-level fall patient was able to get up and did notice some pain to the abdominal area however not significant over the night patient started having worsening abdominal pain mostly in the left groin and lower abdominal area describing it to be sharp almost 10 out of 10 and still nauseated but no vomiting with the symptoms the patient presented to hospital on arrival to the ER the patient was afebrile and no fever have been recorded subsequently patient did have white count of 17,000 with a left shift creatinine was mildly elevated did have elevated lactic acid liver exams are normal urine was negative serum alcohol less than 10: PCR was negative patient did have a chest x-ray no active cardiopulmonary disease CT of abdominal pelvis suspected acute splenic hematoma or hemorrhage possible rupture, patient was taken to the in this patient who is status post drainage of the splenic hematoma there was no evidence of any damage to the visceral or any perforation patient is s/p penectomy has been admitted to ICU infectious disease was consulted for posts plenectomy vaccination Review of Systems Positive point has been mentioned in the HPI rest of the systems are negative Past Medical History Past Medical History: Eye Disorder, Hyperlipidemia, Hypertension Additional Past Medical History / Comment(s): bilateral cataracts, environmental , allergies, see dr Arrington's history and physical for cardiac history History of Any Multi-Drug Resistant Organisms: None Reported Past Surgical History: Heart Catheterization, Hernia Repair, Orthopedic Surgery Additional Past Surgical History / Comment(s): ankle surgery X3 with hardware, face surgery w/ titanium mesh, left eye cataract, CATARACT REMOVED left EYE , Past Anesthesia/Blood Transfusion Reactions: Previous Problems w/ Anesthesia Additional Past Anesthesia/Blood Transfusion Reaction / Comm: Pt states he went into shock prior to shoulder surgery was in the OR. Kept him overnight and he had the surgery done the next day. Patient states he has had surgery since than including a total surgery with no problem." Past Psychological History: No Psychological Hx Reported Smoking Status: Current every day smoker Past Alcohol Use History: Occasional Past Drug Use History: Marijuana - Past Family History Mother Family Medical History: No Reported History Medications and Allergies Home Medications Medication Instructions Recorded Confirmed Type Fluticasone Nasal [place] [Flonase 1 spray EA NOSTRIL DAILY 02/12/21 10/14/21 History Nasal [place]] HYDROcodone/APAP 7.5-325MG [[place] 1 tab PO QID PRN 02/12/21 10/14/21 History 7.5-325] Montelukast Sodium [Singulair] 10 mg PO HS 02/12/21 10/14/21 History Atorvastatin Calcium [Lipitor] 40 mg PO HS #90 tablet 02/15/21 10/14/21 Rx Albuterol Inhaler [Ventolin Hfa 2 puff INHALATION RT-Q6H PRN 10/14/21 10/14/21 H istory Inhaler] EPINEPHrine (Auto Inject) [Epipen] 0.3 mg IM ONCE PRN 10/14/21 10/14/21 History Ibuprofen [Motrin] 600 mg PO Q8HR 10/14/21 10/14/21 History lisinopriL [Zestril] 10 mg PO DAILY 10/14/21 10/14/21 History Allergies Allergy/AdvReac Type Severity Reaction Status Date / Time No Known Allergies Allergy Verified 10/14/21 09:49 Physical Exam Vitals: Vital Signs Temp Pulse Pulse Pulse Resp BP BP 10/14/21 12:59 62 22 10/14/21 12:44 62 18 10/14/21 12:23 67 18 10/14/21 12:08 98.4 F 92 18 10/14/21 09:05 96.9 F L 83 16 123/58 10/14/21 08:57 98.1 F 90 18 131/84 10/14/21 08:46 91 20 152/77 10/14/21 08:20 97.8 F 87 20 122/77 10/14/21 08:17 85 18 10/14/21 08:13 97.6 F 95 18 124/68 10/14/21 08:03 97.5 F L 93 22 104/91 10/14/21 07:59 111 H 20 92/60 10/14/21 07:45 91 20 111/76 10/14/21 07:38 98.5 F 10/14/21 07:05 97.4 F L 10/14/21 07:03 96 25 H 131/59 10/14/21 06:48 100 66/45 10/14/21 06:36 96.8 F L 90 101/56 10/14/21 06:24 68/33 BP Pulse Ox 10/14/21 12:59 138/64 100 10/14/21 12:44 148/70 100 10/14/21 12:23 145/71 100 10/14/21 12:08 152/70 97 10/14/21 09:05 100 10/14/21 08:57 100 10/14/21 08:46 100 10/14/21 08:20 100 10/14/21 08:17 100 10/14/21 08:13 10/14/21 08:03 100 10/14/21 07:59 100 10/14/21 07:45 98 10/14/21 07:38 10/14/21 07:05 10/14/21 07:03 98 10/14/21 06:48 10/14/21 06:36 10/14/21 06:24 Intake and Output 10/13/21 10/14/21 10/14/21 22:59 06:59 14:59 Intake Total 1651 Output Total 2850 Balance -1199 Intake: IV 750 Blood Product 901 Rc As-1 Unit 310 [id number] Rc As-1 Unit 310 [id number] Rc Pheresis 2 As3 Unit 281 [id number] Output: Urine 350 Estimated Blood Loss 2500 Other: Weight 78.8 kg GENERAL DESCRIPTION: Elderly male lying in bed, no distress. No tachypnea or accessory muscle of respiration use. HEENT: Shows Pallor , no scleral icterus. Oral mucous membrane is dry. No pharyngeal erythema or thrush NECK: Trachea central, no thyromegaly. LUNGS: Unlabored breathing. Decreased breath sound the bases. No wheeze or crackle. HEART: S1, S2, regular rate and rhythm. No loud murmur ABDOMEN: Soft, no tenderness , guarding or rigidity, no organomegaly EXTREMITIES: No edema of feet. SKIN: No rash, no masses palpable. NEUROLOGICAL: The patient is awake, alert, oriented x3, mood and affect normal. Results CBC & Chem 7: 10/14/21 16:15 10/14/21 16:15 Labs: Abnormal Lab Results - Last 24 Hours (Table) 10/14/21 10/14/21 10/14/21 Range/Units 06:30 06:30 06:30 WBC 17.3 H (3.8-10.6) k/uL RBC 3.81 L (4.30-5.90) m/uL Hgb 11.2 L (13.0-17.5) gm/dL Hct 35.8 L (39.0-53.0) % Plt Count 140 L (150-450) k/uL Neutrophils # 14.0 H (1.3-7.7) k/uL Lymphocytes # (1.0-4.8) k/uL PT 12.1 H (9.0-12.0) sec APTT 21.9 L (22.0-30.0) sec Carbon Dioxide 14 L (22-30) mmol/L Creatinine 1.49 H (0.66-1.25) mg/dL Glucose 266 H (74-99) mg/dL Plasma Lactic Acid Ben (0.7-2.0) mmol/L Troponin I (0.000-0.034) ng/mL Total Protein 5.9 L (6.3-8.2) g/dL Urine Protein (Negative) Urine Blood (Negative) Hyaline Casts (0-2) /lpf Urine Mucus (None) /hpf Crossmatch 10/14/21 10/14/21 10/14/21 Range/Units 06:30 06:30 07:48 WBC (3.8-10.6) k/uL RBC (4.30-5.90) m/uL Hgb (13.0-17.5) gm/dL Hct (39.0-53.0) % Plt Count (150-450) k/uL Neutrophils # (1.3-7.7) k/uL Lymphocytes # (1.0-4.8) k/uL PT (9.0-12.0) sec APTT (22.0-30.0) sec Carbon Dioxide (22-30) mmol/L Creatinine (0.66-1.25) mg/dL Glucose (74-99) mg/dL Plasma Lactic Acid Ben 14.1 H* (0.7-2.0) mmol/L Troponin I 0.181 H* (0.000-0.034) ng/mL Total Protein (6.3-8.2) g/dL Urine Protein (Negative) Urine Blood (Negative) Hyaline Casts (0-2) /lpf Urine Mucus (None) /hpf Crossmatch See Detail 10/14/21 10/14/21 Range/Units 08:40 09:44 WBC 14.0 H (3.8-10.6) k/uL RBC 3.13 L (4.30-5.90) m/uL Hgb 9.1 L D (13.0-17.5) gm/dL Hct 27.6 L (39.0-53.0) % Plt Count 103 L (150-450) k/uL Neutrophils # 12.3 H (1.3-7.7) k/uL Lymphocytes # 0.9 L (1.0-4.8) k/uL PT (9.0-12.0) sec APTT (22.0-30.0) sec Carbon Dioxide (22-30) mmol/L Creatinine (0.66-1.25) mg/dL Glucose (74-99) mg/dL Plasma Lactic Acid Ben (0.7-2.0) mmol/L Troponin I (0.000-0.034) ng/mL Total Protein (6.3-8.2) g/dL Urine Protein 1+ H (Negative) Urine Blood Large H (Negative) Hyaline Casts 22 H (0-2) /lpf Urine Mucus Few H (None) /hpf Crossmatch Assessment and Plan (1) Post-splenectomy Current Visit: Yes Status: Acute Code(s): Z90.81 - ACQUIRED ABSENCE OF SPLEEN SNOMED Code(s): 103718073 (2) Leukocytosis Current Visit: Yes Status: Acute Code(s): D72.829 - ELEVATED WHITE BLOOD CELL COUNT, UNSPECIFIED SNOMED Code(s): 444992196 Plan: 1patient presented hospital abdominal pain in this patient who did have evidence of traumatic splenic rupture and hematoma status post laparotomy evacuation of the hematoma and splenectomy with no evidence of any trauma to the gut or any perforation. 2patient will need postsplenectomy vaccination for pneumococcal haemophilus influenza and meningococcal day 14 of his splenectomy which will be 10/28/2021. 3-leukocytosis possible reactive post splenectomy and will be monitored closely. We will follow on clinical condition and cultures to further adjust medication if needed Thank you for this consultation will follow this patient with you Time with Patient: Greater than 30
[2021-10-15] MEDS: HYDROmorphone 1 MG/ML 1 ML SYRINGE IVP PRN ×11 (00:19→22:41)
[2021-10-15] MEDS: ACETAMINOPHEN IV (For NPO) 1,000 MG in EMPTY BAG 1 BAG IVPB SCH ×3 (00:21→12:05)
[2021-10-15 00:58] LABS: Glucose,Whole Blood 107 mg/dL (70-110)
[2021-10-15 06:12] LABS: Glucose,Whole Blood 104 mg/dL (70-110)
[2021-10-15 06:12] LABS: Basophils % (A) 0 %; Eosinophils # (A) 0.1 k/uL (0-0.7); Eosinophils % (A) 1 %; HCT 36.6 % (39.0-53.0); Hypochromasia Slight; Lymphocytes # (A) 1.5 k/uL (1.0-4.8); Lymphocytes % (A) 10 %; MCH 30.1 pg (25.0-35.0); MCHC 32.8 g/dL (31.0-37.0); MCV 91.9 fL (80.0-100.0); Mean Platelet Volume 9.4; Monocytes % (A) 7 %; Neutrophils # (A) 11.7 k/uL (1.3-7.7); Neutrophils % (A) 81 %; Platelet Count 86 k/uL (150-450); RBC 3.98 m/uL (4.30-5.90); RDW 14.4 % (11.5-15.5); WBC 14.5 k/uL (3.8-10.6)
[2021-10-15] MEDS: SODIUM CHLORIDE 0.9% 1,000 ML IV SCH ×3 (06:22→21:02)
[2021-10-15 06:24] LABS: ALT 18 U/L (4-49); AST 25 U/L (17-59); African American GFR (CKD) >90 (>60 ml/min/1.73 sqM); Albumin 2.4 g/dL (3.5-5.0); Alkaline Phosphatase 42 U/L (38-126); Anion Gap 2 mmol/L; Blood Urea Nitrogen 21 mg/dL (9-20); Calcium 7.6 mg/dL (8.4-10.2); Carbon Dioxide 23 mmol/L (22-30); Chloride 111 mmol/L (98-107); Glucose 104 mg/dL (74-99); Magnesium 2.1 mg/dL (1.6-2.3); Non-African American GFR(CKD) >90 (>60 ml/min/1.73 sqM); Phosphorus 3.1 mg/dL (2.5-4.5); Potassium 4.1 mmol/L (3.5-5.1); Sodium 136 mmol/L (137-145); Total Bilirubin 0.4 mg/dL (0.2-1.3); Total Protein 4.3 g/dL (6.3-8.2)
--- NOTE | 2021-10-15 09:32 | P.CONS ---
History of Present Illness - History of Present Illness On-call hospitalist covering Dr. Bolivar over the weekend 10/15 and 10/16, Dr. Andrea rodríguez will resume the care of the patient on 10/17 This is a pleasant 66 years old male with past medical history of Hyperlipidemia, Hypertension Patient presents on 10/14 with fall and dyspnea with left inguinal pain. Patient was celebrating with fireworks and drinking alcohol got confused and fell and presents with left sided abdominal pain.patient states that his abdominal pain happened immediately after he fell, he was walking flat on the stairs when he fell, he denies dizziness or syncope, he stated he is twisted and tripped and fell. Immediately after the fall he started having abdominal pain around his stomach area which was gradually getting worse, but he got more concerns with getting sweating and clammy currently he had some abdominal tenderness which is expected. No bowel moveme nt. No vomiting. He has a Andres catheter but denies any urinary symptoms. He denies headache or weakness or numbness. No chest pain or dyspnea, no coughing. He is a smoker 15 per day and he was counseled to quit and he agrees but he declines nicotine patch. States that he drinks about twice a week now days, before was daily, currently he drinks 1-2 beers a day of drinking. He said that the day he fell he was drinking 1 or 2 beers only. No liquor. No illicit drugs. Patient informed about the need to get the vaccination in 2 weeks and he agrees and he told me he will talk to Dr. Bolivar On admission he had CT of the abdomen and pelvis with suspected acute splenic hematoma or hemorrhage and possible rupture, also with left inguinal hernia containing portion of the sigmoid colon. Patient underwent emergent exploratory laparotomy with hernia repair and splenectomy and he was admitted to the ICU for further management. Today is postoperative day #1. Vitals are stable and patient is afebrile. He has mild leukocytosis at 14.5, hemoglobin 12.0. BMP and liver enzymes are unremarkable and sugar controlled. Urine analysis is also suspicious of infection. Serum alcohol is less than 10 Coronavirus not detected. patient received 3 units of blood transfusion Review of Systems CONSTITUTIONAL: No fever, no malaise, no fatigue. HEENT: No recent visual problems or hearing problems. Denied any sore throat. CARDIOVASCULAR: No orthopnea, PND, no palpitations, no syncope. PULMONARY: No shortness of breath, no cough, no hemoptysis. GASTROINTESTINAL: No diarrhea, no nausea, no vomiting,. Normoactive bowel sounds. NEUROLOGICAL: No headaches, no weakness, no numbness. HEMATOLOGICAL: Denies any bleeding or petechiae. GENITOURINARY: Denies any burning micturition, frequency, or urgency. MUSCULOSKELETAL/RHEUMATOLOGICAL: Denies any joint pain, swelling, or any muscle pain. ENDOCRINE: Denies any polyuria or polydipsia. Past Medical History Past Medical History: Eye Disorder, Hyperlipidemia, Hypertension Additional Past Medical History / Comment(s): bilateral cataracts, environmental , allergies, see dr Arrington's history and physical for cardiac history History of Any Multi-Drug Resistant Organisms: None Reported Past Surgical History: Heart Catheterization, Hernia Repair, Orthopedic Surgery Additional Past Surgical History / Comment(s): ankle surgery X3 with hardware, face surgery w/ titanium mesh, left eye cataract, CATARACT REMOVED left EYE , Past Anesthesia/Blood Transfusion Reactions: Previous Problems w/ Anesthesia Additional Past Anesthesia/Blood Transfusion Reaction / Comm: Pt states he went into shock prior to shoulder surgery was in the OR. Kept him overnight and he had the surgery done the next day. Patient states he has had surgery since than including a total surgery with no problem." Past Psychological History: No Psychological Hx Reported Smoking Status: Current every day smoker Past Alcohol Use History: Occasional Past Drug Use History: Marijuana - Past Family History Mother Family Medical History: No Reported History Medications and Allergies Home Medications Medication Instructions Recorded Confirmed Type Fluticasone Nasal [place] [Flonase 1 spray EA NOSTRIL DAILY 02/12/21 10/14/21 History Nasal [place]] HYDROcodone/APAP 7.5-325MG [[place] 1 tab PO QID PRN 02/12/21 10/14/21 History 7.5-325] Montelukast Sodium [Singulair] 10 mg PO HS 02/12/21 10/14/21 History Atorvastatin Calcium [Lipitor] 40 mg PO HS #90 tablet 02/15/21 10/14/21 Rx Albuterol Inhaler [Ventolin Hfa 2 puff INHALATION RT-Q6H PRN 10/14/21 10/14/21 History Inhaler] EPINEPHrine (Auto Inject) [Epipen] 0.3 mg IM ONCE PRN 10/14/21 10/14/21 History Ibuprofen [Motrin] 600 mg PO Q8HR 10/14/21 10/14/21 History lisinopriL [Zestril] 10 mg PO DAILY 10/14/21 10/14/21 History Allergies Allergy/AdvReac Type Severity Reaction Status Date / Time No Known Allergies Allergy Verified 10/14/21 09:49 Physical Exam Vitals: Vital Signs Temp Pulse Pulse Pulse Resp BP BP 10/15/21 07:00 51 L 17 149/80 10/15/21 06:00 51 L 16 125/58 10/15/21 05:00 52 L 16 154/72 10/15/21 04:00 98 F 65 60 16 113/56 10/15/21 03:00 50 L 16 145/67 10/15/21 02:00 59 L 18 146/66 10/15/21 01:00 63 22 128/64 10/15/21 00:00 97.8 F 53 L 60 17 129/60 10/14/21 23:00 58 L 24 152/68 10/14/21 22:00 56 L 18 133/71 10/14/21 21:00 59 L 17 134/83 10/14/21 20:00 97.6 F 68 60 15 147/74 10/14/21 19:00 60 135/65 10/14/21 18:00 60 0 L 127/69 10/14/21 17:00 98.6 F 63 19 132/77 10/14/21 16:30 62 9 L 137/61 10/14/21 16:02 21 10/14/21 16:00 71 12 145/96 10/14/21 15:30 61 0 L 172/83 10/14/21 15:00 61 14 172/83 10/14/21 14:30 61 14 156/75 10/14/21 14:00 60 14 156/75 10/14/21 13:40 14 10/14/21 13:14 60 24 10/14/21 12:59 62 22 10/14/21 12:44 62 18 10/14/21 12:23 67 18 10/14/21 12:08 98.4 F 92 18 10/14/21 09:05 96.9 F L 83 16 123/58 10/14/21 08:57 98.1 F 90 18 131/84 10/14/21 08:46 91 20 152/77 10/14/21 08:20 97.8 F 87 20 122/77 10/14/21 08:17 85 18 10/14/21 08:13 97.6 F 95 18 124/68 10/14/21 08:03 97.5 F L 93 22 104/91 10/14/21 07:59 111 H 20 92/60 10/14/21 07:45 91 20 111/76 10/14/21 07:38 98.5 F BP Pulse Ox 10/15/21 07:00 97 10/15/21 06:00 98 10/15/21 05:00 97 10/15/21 04:00 97 10/15/21 03:00 98 10/15/21 02:00 97 10/15/21 01:00 98 10/15/21 00:00 97 10/14/21 23:00 97 10/14/21 22:00 98 10/14/21 21:00 97 10/14/21 20:00 95 10/14/21 19:00 97 10/14/21 18:00 96 10/14/21 17:00 97 10/14/21 16:30 95 10/14/21 16:02 10/14/21 16:00 96 10/14/21 15:30 99 10/14/21 15:00 99 10/14/21 14:30 99 10/14/21 14:00 98 10/14/21 13:40 10/14/21 13:14 144/67 100 10/14/21 12:59 138/64 100 10/14/21 12:44 148/70 100 10/14/21 12:23 145/71 100 10/14/21 12:08 152/70 97 10/14/21 09:05 100 10/14/21 08:57 100 10/14/21 08:46 100 10/14/21 08:20 100 10/14/21 08:17 100 10/14/21 08:13 10/14/21 08:03 100 10/14/21 07:59 100 10/14/21 07:45 98 10/14/21 07:38 Intake and Output 10/14/21 10/15/21 10/15/21 22:59 06:59 14:59 Intake Total 1340 800 100 Output Total 270 495 60 Balance 1070 305 40 Intake: IV 300 800 100 Lactated Ringers 1,000 ml 300 800 100 @ 100 mls/hr IV .Q10H ONE Rx#:[id number] Intake, IV Titration 1040 Amount ACETAMINOPHEN IV (For NPO 100 ) 1,000 mg In Empty Bag 1 bag @ 400 mls/hr IVPB ONCE ONE Rx#:[id number] ACETAMINOPHEN IV (For NPO 400 ) 1,000 mg In Empty Bag 1 bag @ 400 mls/hr IVPB Q6HR [facility] Rx#:[id number] Lactated Ringers 1,000 ml 300 @ 100 mls/hr IV .Q10H ONE Rx#:[id number] Magnesium Sulfate-D5w Pmx 200 1 gm In Dextrose/Water 1 100ml.bag @ 100 mls/hr IVPB Q1H [facility] Rx#: [id number] Sodium Chloride 0.9% 1, 40 000 ml @ 0 mls/hr IV .STK -MED ONE Rx#:[id number] Output: Urine 270 495 60 Other: Voiding Method Indwelling Catheter Indwelling Catheter Weight 78.8 kg 79.5 kg GENERAL: The patient is alert and oriented x3, not in any acute distress. Well developed, well nourished. HEENT: Pupils are round and equally reacting to light. EOMI. No scleral icterus. No conjunctival pallor. Normocephalic, atraumatic. No pharyngeal erythema. No t hyromegaly. CARDIOVASCULAR: S1 and S2 present. No murmurs, rubs, or gallops. PULMONARY: Chest is clear to auscultation, no wheezing or crackles. -ABDOMEN: Soft, nontender, nondistended, normoactive bowel sounds. No palpable organomegaly. Surgical wound with dressing place, rest of exam is deferred to surgery team MUSCULOSKELETAL: No joint swelling or deformity. EXTREMITIES: No cyanosis, clubbing, or pedal edema. NEUROLOGICAL: Gross neurological examination did not reveal any focal deficits. SKIN: No rashes. No petechiae Results CBC & Chem 7: 10/15/21 05:47 10/15/21 05:47 Labs: Abnormal Lab Results - Last 24 Hours (Table) 10/14/21 10/14/21 10/14/21 Range/Units 06:30 06:30 06:30 WBC 17.3 H (3.8-10.6) k/uL RBC 3.81 L (4.30-5.90) m/uL Hgb 11.2 L (13.0-17.5) gm/dL Hct 35.8 L (39.0-53.0) % Plt Count 140 L (150-450) k/uL Neutrophils # 14.0 H (1.3-7.7) k/uL Lymphocytes # (1.0-4.8) k/uL Sodium (137-145) mmol/L Chloride (98-107) mmol/L Carbon Dioxide 14 L (22-30) mmol/L BUN (9-20) mg/dL Creatinine 1.49 H (0.66-1.25) mg/dL Glucose 266 H (74-99) mg/dL Plasma Lactic Acid Ben 14.1 H* (0.7-2.0) mmol/L Calcium (8.4-10.2) mg/dL Magnesium (1.6-2.3) mg/dL Troponin I (0.000-0.034) ng/mL Total Protein 5.9 L (6.3-8.2) g/dL Albumin (3.5-5.0) g/dL Urine Protein (Negative) Urine Blood (Negative) Hyaline Casts (0-2) /lpf Urine Mucus (None) /hpf Crossmatch 10/14/21 10/14/21 10/14/21 Range/Units 06:30 07:48 08:40 WBC (3.8-10.6) k/uL RBC (4.30-5.90) m/uL Hgb (13.0-17.5) gm/dL Hct (39.0-53.0) % Plt Count (150-450) k/uL Neutrophils # (1.3-7.7) k/uL Lymphocytes # (1.0-4.8) k/uL Sodium (137-145) mmol/L Chloride (98-107) mmol/L Carbon Dioxide (22-30) mmol/L BUN (9-20) mg/dL Creatinine (0.66-1.25) mg/dL Glucose (74-99) mg/dL Plasma Lactic Acid Ben (0.7-2.0) mmol/L Calcium (8.4-10.2) mg/dL Magnesium (1.6-2.3) mg/dL Troponin I 0.181 H* (0.000-0.034) ng/mL Total Protein (6.3-8.2) g/dL Albumin (3.5-5.0) g/dL Urine Protein 1+ H (Negative) Urine Blood Large H (Negative) Hyaline Casts 22 H (0-2) /lpf Urine Mucus Few H (None) /hpf Crossmatch See Detail 10/14/21 10/14/21 10/14/21 Range/Units 09:44 16:15 16:15 WBC 14.0 H 14.1 H (3.8-10.6) k/uL RBC 3.13 L (4.30-5.90) m/uL Hgb 9.1 L D (13.0-17.5) gm/dL Hct 27.6 L (39.0-53.0) % Plt Count 103 L 77 L (150-450) k/uL Neutrophils # 12.3 H (1.3-7.7) k/uL Lymphocytes # 0.9 L (1.0-4.8) k/uL Sodium (137-145) mmol/L Chloride 113 H (98-107) mmol/L Carbon Dioxide 17 L (22-30) mmol/L BUN (9-20) mg/dL Creatinine (0.66-1.25) mg/dL Glucose (74-99) mg/dL Plasma Lactic Acid Ben (0.7-2.0) mmol/L Calcium 7.6 L (8.4-10.2) mg/dL Magnesium 1.5 L (1.6-2.3) mg/dL Troponin I (0.000-0.034) ng/mL Total Protein (6.3-8.2) g/dL Albumin (3.5-5.0) g/dL Urine Protein (Negative) Urine Blood (Negative) Hyaline Casts (0-2) /lpf Urine Mucus (None) /hpf Crossmatch 10/15/21 10/15/21 Range/Units 05:47 05:47 WBC 14.5 H (3.8-10.6) k/uL RBC 3.98 L (4.30-5.90) m/uL Hgb 12.0 L (13.0-17.5) gm/dL Hct 36.6 L (39.0-53.0) % Plt Count 86 L (150-450) k/uL Neutrophils # 11.7 H (1.3-7.7) k/uL Lymphocytes # (1.0-4.8) k/uL Sodium 136 L (137-145) mmol/L Chloride 111 H (98-107) mmol/L Carbon Dioxide (22-30) mmol/L BUN 21 H (9-20) mg/dL Creatinine (0.66-1.25) mg/dL Glucose 104 H (74-99) mg/dL Plasma Lactic Acid Ben (0.7-2.0) mmol/L Calcium 7.6 L (8.4-10.2) mg/dL Magnesium (1.6-2.3) mg/dL Troponin I (0.000-0.034) ng/mL Total Protein 4.3 L (6.3-8.2) g/dL Albumin 2.4 L (3.5-5.0) g/dL Urine Protein (Negative) Urine Blood (Negative) Hyaline Casts (0-2) /lpf Urine Mucus (None) /hpf Crossmatch Assessment and Plan Assessment: Acute splenic rupture secondary to trauma, status post Exploratory laparotomy with splenectomy, with umbilical hernia repair Possible acute left inguinal hernia strangulation status post hernia repair acute blood loss anemia secondary to above Hypertension Hyperlipidemia nicotine dependence Plan: This is a pleasant 66 years old male who presents with splenic rupture status post exploratory laparotomy, splenectomy and left inguinal hernia repair Continue monitoring in the ICU Continue with gentle hydration Pain management Monitor hemoglobin after blood transfusion patient will need postsplenectomy vaccination for pneumococcal haemophilus influenza and meningococcal day 14 of his splenectomy which will be 10/28/2021. Several consultants on the case including pulmonary/critical care team Labs and medication were reviewed.. Continue same treatment. Continue with symptomatic treatment. Resume home medication. Monitor lytes and vitals. DVT and GI prophylaxis. Further recommendationsas per clinical course of the patient DVT prophylaxis: Subcutaneous heparin GI Prophylaxis: Ppi PT/OT: Pending Prognosis is guarded thank you for consulting us
--- NOTE | 2021-10-15 10:07 | XR ---
EXAMINATION TYPE: XR chest 1V portable DATE OF EXAM: 10/15/2021 HISTORY: Post op splenectomy, dyspnea COMPARISON: 10/14/2021 TECHNIQUE: Single view of the chest is submitted. FINDINGS: Demonstrated are scattered senescent parenchymal change. NG tube is seen coursing into the stomach. Mild basilar linear atelectasis. Small amount of pneumoperitoneum and a patient that is status post s plenectomy. The heart is stable. Hilar and mediastinal structures are within normal limits. Degenerative changes are seen of the dorsal spine. IMPRESSION: 1. Basilar atelectasis.
[2021-10-15] MEDS: PANTOPRAZOLE 40 MG/10 ML VIAL IV SCH (10:13)
[2021-10-15] MEDS: HEPARIN SODIUM,PORCINE/PF 5,000 UNIT/0.5 ML SYRINGE SQ SCH ×2 (10:13→20:30)
--- NOTE | 2021-10-15 12:02 | P.PN ---
Subjective Progress Note Date: 10/15/21 This is a 66-year-old male patient who follows with Dr. Bolivar as his primary care provider. He has a history of hypertension, hyperlipidemia, chronic and ongoing tobacco dependence, occasional alcohol use, occasional marijuana use. Yesterday he had been downtown [place] and had sustained a ground-level fall. He did not feel as though there is any injuries however throughout the night and early today he developed significant abdominal discomfort and left groin discomfort. Recent anterior to the emergency room for the same. Chest x-ray revealed no acute cardiopulmonary process. Computed tomography scan of the abdomen and pelvis revealed a suspected acute splenic hematoma or hemorrhage possible rupture with non-simple ascites being more hyperdense in the left lateral abdomen versus right abdomen. Underlying splenomegaly may be present. Significant non-simple fluid or hemorrhage into the pelvis is noted. Confirmation of left inguinal hernia containing portion of the sigmoid colon. He was given 1 L of fluid resuscitation and tranexamic acid in the emergency room. No bowel obstruction. He was taken to the urgently to the operating room by Dr. Crowell. He had undergone a exploratory laparotomy with splenectomy, umbilical hernia repair. Estimated blood loss was 2.5 L. He did receive 2 units of packed red blood cells during surgery and additional Cell Saver blood. He is seen today in consultation in the recovery room. The plan is for close observation the ICU. He is receiving a third unit of packed red blood cells. Plan is for possible fourth unit. Current hemoglobin is 9.1. His any hemoglobin was 11.2. White count 14.0. Platelets 103. INR 1.1. Sodium 138. Potassium 3.8. BUN 17. Creatinine 1.49. Glucose 266. Lactic acid 14.1. Troponin 0.181. Urinalysis with large amount of blood and 1+ glucose villarreal virus by PCR not detected. Serum alcohol level less than 10. He did receive ceftriaxone in the ER. He did receive Kefzol in the OR. He is on heparin for DVT prophylaxis. Lactated Ringer's at 100 ML's per hour. He is arousable. Maintaining O2 saturations up to 100% on 3 L/m per nasal cannula. He is hemodynamically stable. Afebrile. The patient is seen today 10/15/2021 in follow-up in the intensive care unit. He is awake and alert in no acute distress. Sitting up in a chair at the bedside. He is maintaining O2 saturations in the 90s on room air. Nasogastric tube remains in place. He has normal saline at 100 ML's per hour. Chest x-ray reveals mild basilar linear atelectasis. Small amount of pneumoperitoneum status post splenectomy. Postoperative day #1. He is status post 3 units of packed red blood cells this admission. Current hemoglobin 12.0. Platelets 86,000. White count 14.5. Sodium 136. Potassium 4.1. BUN 21. Creatinine 0.80. Glucose 104. AST 25. ALT 18. Albumin 2.4. Blood cultures reveal no growth to date. Heparin for DVT prophylaxis. Objective - Vital Signs Vital signs: Vital Signs Temp 97.8 F 10/15/21 08:00 Pulse 66 10/15/21 11:00 Resp 18 10/15/21 11:00 BP 152/64 10/15/21 11:00 Pulse Ox 99 10/15/21 11:00 FiO2 Intake & Output 10/14/21 10/15/21 10/15/21 18:59 06:59 18:59 Intake Total 2721 1300 500 Output Total 2950 665 278 Balance -229 635 222 Weight 79.5 kg Intake: IV 800 1100 500 Lactated Ringers 1,000 ml 1100 500 @ 100 mls/hr IV .Q10H ONE Rx#:[id number] Intake, IV Titration 840 200 Amount ACETAMINOPHEN IV (For NPO 100 ) 1,000 mg In Empty Bag 1 bag @ 400 mls/hr IVPB ONCE ONE Rx#:[id number] ACETAMINOPHEN IV (For NPO 400 ) 1,000 mg In Empty Bag 1 bag @ 400 mls/hr IVPB Q6HR [facility] Rx#:[id number] Lactated Ringers 1,000 ml 200 100 @ 100 mls/hr IV .Q10H ONE Rx#:[id number] Magnesium Sulfate-D5w Pmx 100 100 1 gm In Dextrose/Water 1 100ml.bag @ 100 mls/hr IVPB Q1H [facility] Rx#: [id number] Sodium Chloride 0.9% 1, 40 000 ml @ 0 mls/hr IV .STK -MED ONE Rx#:[id number] Blood Product 1081 Rc As-1 Unit 310 [id number] Rc As-1 Unit 310 [id number] Rc Pheresis 2 As3 Unit 281 [id number] Output: Urine 450 665 278 Estimated Blood Loss 2500 Other: Voiding Method Indwelling Catheter Indwelling Catheter Indwelling Catheter - Exam GENERAL EXAM: Awake, alert very pleasant 66-year-old male patient, up in a chair at the bedside, on room air, fairly comfortable in no apparent distress. HEAD: Normocephalic. EYES: Normal reaction of pupils, equal size. NOSE: Nasogastric tube remains in place. Clear with pink turbinates. THROAT: No erythema or exudates. NECK: No masses, no JVD. CHEST: No chest wall deformity. LUNGS: Equal air entry with no crackles, wheeze, rhonchi or dullness. CVS: S1 and S2 normal with no audible murmur, regular rhythm. ABDOMEN: Midline abdominal dressing dry and intact. Binder in place.. SPINE: No scoliosis or deformity SKIN: No rashes CENTRAL NERVOUS SYSTEM: No focal deficits, tone is normal in all 4 extremities. EXTREMITIES: There is no peripheral edema. No clubbing, no cyanosis. Peripheral pulses are intact. - Labs CBC & Chem 7: 10/15/21 05:47 10/15/21 05:47 Labs: Abnormal Lab Results - Last 24 Hours (Table) 10/14/21 10/14/21 10/14/21 Range/Units 07:48 16:15 16:15 WBC 14.1 H (3.8-10.6) k/uL RBC (4.30-5.90) m/uL Hgb (13.0-17.5) gm/dL Hct (39.0-53.0) % Plt Count 77 L (150-450) k/uL Neutrophils # (1.3-7.7) k/uL Sodium (137-145) mmol/L Chloride 113 H (98-107) mmol/L Carbon Dioxide 17 L (22-30) mmol/L BUN (9-20) mg/dL Glucose (74-99) mg/dL Calcium 7.6 L (8.4-10.2) mg/dL Magnesium 1.5 L (1.6-2.3) mg/dL Total Protein (6.3-8.2) g/dL Albumin (3.5-5.0) g/dL Crossmatch See Detail 10/15/21 10/15/21 Range/Units 05:47 05:47 WBC 14.5 H (3.8-10.6) k/uL RBC 3.98 L (4.30-5.90) m/uL Hgb 12.0 L (13.0-17.5) gm/dL Hct 36.6 L (39.0-53.0) % Plt Count 86 L (150-450) k/uL Neutrophils # 11.7 H (1.3-7.7) k/uL Sodium 136 L (137-145) mmol/L Chloride 111 H (98-107) mmol/L Carbon Dioxide (22-30) mmol/L BUN 21 H (9-20) mg/dL Glucose 104 H (74-99) mg/dL Calcium 7.6 L (8.4-10.2) mg/dL Magnesium (1.6-2.3) mg/dL Total Protein 4.3 L (6.3-8.2) g/dL Albumin 2.4 L (3.5-5.0) g/dL Crossmatch Microbiology - Last 24 Hours (Table) 10/14/21 06:30 Blood Culture - Preliminary Blood No Growth after 24 hours 10/14/21 06:45 Blood Culture - Preliminary Blood No Growth after 24 hours Assessment and Plan Assessment: Acute abdominal discomfort and left groin pain secondary to acute splenic hematoma or hemorrhage possible rupture with non-simple ascites. More hyperdense on the left lateral abdomen versus the right. Underlying splenomegaly may be present. Also noted left inguinal hernia containing portion of sigmoid colon. The patient had sustained a ground-level fall 10/13/2021. Status post exploratory laparotomy with splenectomy, umbilical hernia repair. Postoperative day #1. Blood loss anemia secondary to above status post 3 units of packed red blood cells with additional Cell Saver given thus far. Current hemoglobin 12.0 History of chronic and ongoing tobacco dependence History of marijuana use History of alcohol use History of nonsustained VT and palpitations Hypertension Hyperlipidemia Plan: The patient was seen and evaluated Chest x-ray, labs and medications reviewed Encouraged use the incentive spirometer and cough and deep breathing exercises Increase his activity as tolerated ID services for postsplenectomy vaccination recommendation We will continue to follow I have personally seen and examined the patient, performed the documentation and the assessment and plan as written. Number of minutes spent on the visit: 10.
[2021-10-15] MEDS: lisinopriL 10 MG TAB PO SCH (12:04)
[2021-10-15] MEDS: METOPROLOL TARTRATE 25 MG TAB PO SCH ×2 (12:04→20:30)
--- NOTE | 2021-10-15 13:13 | P.PN ---
Subjective Progress Note Date: 10/15/21 CHIEF COMPLAINT: Splenic laceration status post fall HISTORY OF PRESENT ILLNESS: The patient is a 66-year-old male who had a fall with splenic laceration status post splenectomy, 10/14/2021. He is POD 1 in the intensive care unit. He is sitting in a chair. He has a NGT tube. No bloody NG tube output. ROS: No reports of nausea and vomiting. No bowel movements. No fevers or chills. No new chest pain. No productive sputum PHYSICAL EXAM: VITAL SIGNS: Reviewed CONSTITUTIONAL: Well developed and in no acute distress. EYES: Conjuctivae without sclera icterus. Extraocular movements grossly intact. HEAD, EARS, NOSE, THROAT: Moist buccal mucosa. Head is atraumatic, normocephalic. Hears conversational speech. NG tube of brown discharge. RESPIRATORY: Non-labored respirations and equal bilateral excursions. CARDIOVASCULAR: Palpable 2+ radial pulses. ABDOMEN: Dressing intact. No peritonitis MUSCULOSKELETAL: No gross deformity of the lower extremities noted. No clubbing. No cyanosis. SKIN: Good skin turgor. Well perfused. NEUROLOGIC: Cranial nerves II through XII grossly intact. No focal or lateralizing signs. PSYCH: Appropriate affect. Alert and oriented to person, place and time. CLINICAL LABS: Reviewed. Hemoglobin of 12.0 down from 14.0 ASSESSMENT: 1. Status post ground level fall 2. Splenic laceration status post splenectomy PLAN: 1. Continue ICU care. 2. Monitor hemoglobin. 3. Continue NG tube. Objective - Vital Signs Vital signs: Vital Signs Temp 97.8 F 10/15/21 08:00 Pulse 66 10/15/21 11:00 Resp 18 10/15/21 11:00 BP 152/64 10/15/21 11:00 Pulse Ox 99 10/15/21 11:00 FiO2 Intake & Output 10/14/21 10/15/21 10/15/21 18:59 06:59 18:59 Intake Total 2721 1300 500 Output Total 2950 665 278 Balance -229 635 222 Weight 79.5 kg Intake: IV 800 1100 500 Lactated Ringers 1,000 ml 1100 500 @ 100 mls/hr IV .Q10H [facility] Rx#:[id number] Intake, IV Titration 840 200 Amount ACETAMINOPHEN IV (For NPO 100 ) 1,000 mg In Empty Bag 1 bag @ 400 mls/hr IVPB ONCE ONE Rx#:[id number] ACETAMINOPHEN IV (For NPO 400 ) 1,000 mg In Empty Bag 1 bag @ 400 mls/hr IVPB Q6HR [facility] Rx#:[id number] Lactated Ringers 1,000 ml 200 100 @ 100 mls/hr IV .Q10H [facility] Rx#:[id number] Magnesium Sulfate-D5w Pmx 100 100 1 gm In Dextrose/Water 1 100ml.bag @ 100 mls/hr IVPB Q1H [facility] Rx#: [id number] Sodium Chloride 0.9% 1, 40 000 ml @ 0 mls/hr IV .STK -MED [facility] Rx#:[id number] Blood Product 1081 Rc As-1 Unit 310 [id number] Rc As-1 Unit 310 [id number] Rc Pheresis 2 As3 Unit 281 [id number] Output: Urine 450 665 278 Estimated Blood Loss 2500 Other: Voiding Method Indwelling Catheter Indwelling Catheter Indwelling Catheter - Labs CBC & Chem 7: 10/15/21 05:47 10/15/21 05:47 Labs: Abnormal Lab Results - Last 24 Hours (Table) 10/14/21 10/14/21 10/14/21 Range/Units 07:48 16:15 16:15 WBC 14.1 H (3.8-10.6) k/uL RBC (4.30-5.90) m/uL Hgb (13.0-17.5) gm/dL Hct (39.0-53.0) % Plt Count 77 L (150-450) k/uL Neutrophils # (1.3-7.7) k/uL Sodium (137-145) mmol/L Chloride 113 H (98-107) mmol/L Carbon Dioxide 17 L (22-30) mmol/L BUN (9-20) mg/dL Glucose (74-99) mg/dL Calcium 7.6 L (8.4-10.2) mg/dL Magnesium 1.5 L (1.6-2.3) mg/dL Total Protein (6.3-8.2) g/dL Albumin (3.5-5.0) g/dL Crossmatch See Detail 10/15/21 10/15/21 Range/Units 05:47 05:47 WBC 14.5 H (3.8-10.6) k/uL RBC 3.98 L (4.30-5.90) m/uL Hgb 12.0 L (13.0-17.5) gm/dL Hct 36.6 L (39.0-53.0) % Plt Count 86 L (150-450) k/uL Neutrophils # 11.7 H (1.3-7.7) k/uL Sodium 136 L (137-145) mmol/L Chloride 111 H (98-107) mmol/L Carbon Dioxide (22-30) mmol/L BUN 21 H (9-20) mg/dL Glucose 104 H (74-99) mg/dL Calcium 7.6 L (8.4-10.2) mg/dL Magnesium (1.6-2.3) mg/dL Total Protein 4.3 L (6.3-8.2) g/dL Albumin 2.4 L (3.5-5.0) g/dL Crossmatch Microbiology - Last 24 Hours (Table) 10/14/21 06:30 Blood Culture - Preliminary Blood No Growth after 24 hours 10/14/21 06:45 Blood Culture - Preliminary Blood No Growth after 24 hours
[2021-10-15 17:46] LABS: Glucose,Whole Blood 87 mg/dL (70-110)
[2021-10-15] MEDS: MONTELUKAST 10 MG TAB PO SCH (20:30)
[2021-10-15] MEDS: ATORVASTATIN 40 MG TAB PO SCH (20:30)
--- NOTE | 2021-10-16 | P.PN ---
Subjective Progress Note Date: 10/15/21 Principal diagnosis: Leukocytosis and post splenectomy Patient is a 66-year-old male who did have a ground-level fall the day before presentation to the hospital with abdominal pain and weakness noticed to have a splenic hematoma status post laparotomy and splenectomy. On today's evaluation that is 10/15/2021, the patient is afebrile, the patient did have the NG is breathing comfortably, denies any chest pain or shortness of breath or cough no abdominal pain is controlled with the pain medication no vomiting or diarrhea Objective - Vital Signs Vital signs: Vital Signs Temp 97.8 F 10/15/21 08:00 Pulse 66 10/15/21 11:00 Resp 18 10/15/21 11:00 BP 152/64 10/15/21 11:00 Pulse Ox 99 10/15/21 11:00 FiO2 Intake & Output 10/14/21 10/15/21 10/15/21 18:59 06:59 18:59 Intake Total 2721 1300 500 Output Total 2950 665 278 Balance -229 635 222 Weight 79.5 kg Intake: IV 800 1100 500 Lactated Ringers 1,000 ml 1100 500 @ 100 mls/hr IV .Q10H [facility] Rx#:[id number] Intake, IV Titration 840 200 Amount ACETAMINOPHEN IV (For NPO 100 ) 1,000 mg In Empty Bag 1 bag @ 400 mls/hr IVPB ONCE ONE Rx#:[id number] ACETAMINOPHEN IV (For NPO 400 ) 1,000 mg In Empty Bag 1 bag @ 400 mls/hr IVPB Q6HR [facility] Rx#:[id number] Lactated Ringers 1,000 ml 200 100 @ 100 mls/hr IV .Q10H [facility] Rx#:[id number] Magnesium Sulfate-D5w Pmx 100 100 1 gm In Dextrose/Water 1 100ml.bag @ 100 mls/hr IVPB Q1H [facility] Rx#: [id number] Sodium Chloride 0.9% 1, 40 000 ml @ 0 mls/hr IV .STK -MED ONE Rx#:[id number] Blood Product 1081 Rc As-1 Unit 310 [id number] Rc As-1 Unit 310 [id number] Rc Pheresis 2 As3 Unit 281 [id number] Output: Urine 450 665 278 Estimated Blood Loss 2500 Other: Voiding Method Indwelling Catheter Indwelling Catheter Indwelling Catheter - Exam GENERAL DESCRIPTION: An elderly male up in the chair in no distress RESPIRATORY SYSTEM: Unlabored breathing , decreased breath sounds at bases HEART: S1 S2 regular rate and rhythm , ABDOMEN: Soft , no tenderness EXTREMITIES: No edema feet - Labs CBC & Chem 7: 10/15/21 05:47 10/15/21 05:47 Labs: Abnormal Lab Results - Last 24 Hours (Table) 10/14/21 10/14/21 10/14/21 Range/Units 07:48 16:15 16:15 WBC 14.1 H (3.8-10.6) k/uL RBC (4.30-5.90) m/uL Hgb (13.0-17.5) gm/dL Hct (39.0-53.0) % Plt Count 77 L (150-450) k/uL Neutrophils # (1.3-7.7) k/uL Sodium (137-145) mmol/L Chloride 113 H (98-107) mmol/L Carbon Dioxide 17 L (22-30) mmol/L BUN (9-20) mg/dL Glucose (74-99) mg/dL Calcium 7.6 L (8.4-10.2) mg/dL Magnesium 1.5 L (1.6-2.3) mg/dL Total Protein (6.3-8.2) g/dL Albumin (3.5-5.0) g/dL Crossmatch See Detail 10/15/21 10/15/21 Range/Units 05:47 05:47 WBC 14.5 H (3.8-10.6) k/uL RBC 3.98 L (4.30-5.90) m/uL Hgb 12.0 L (13.0-17.5) gm/dL Hct 36.6 L (39.0-53.0) % Plt Count 86 L (150-450) k/uL Neutrophils # 11.7 H (1.3-7.7) k/uL Sodium 136 L (137-145) mmol/L Chloride 111 H (98-107) mmol/L Carbon Dioxide (22-30) mmol/L BUN 21 H (9-20) mg/dL Glucose 104 H (74-99) mg/dL Calcium 7.6 L (8.4-10.2) mg/dL Magnesium (1.6-2.3) mg/dL Total Protein 4.3 L (6.3-8.2) g/dL Albumin 2.4 L (3.5-5.0) g/dL Crossmatch Microbiology - Last 24 Hours (Table) 10/14/21 06:30 Blood Culture - Preliminary Blood No Growth after 24 hours 10/14/21 06:45 Blood Culture - Preliminary Blood No Growth after 24 hours Assessment and Plan (1) Post-splenectomy Current Visit: Yes Status: Acute Code(s): Z90.81 - ACQUIRED ABSENCE OF SPLEEN SNOMED Code(s): 631073989 (2) Leukocytosis Current Visit: Yes Status: Acute Code(s): D72.829 - ELEVATED WHITE BLOOD CELL COUNT, UNSPECIFIED SNOMED Code(s): 746385030 Plan: 1patient presented hospital abdominal pain in this patient who did have evidence of traumatic splenic rupture and hematoma status post laparotomy evacuation of the hematoma and splenectomy with no evidence of any trauma to the gut or any perforation. 2patient will need postsplenectomy vaccination for pneumococcal haemophilus influenza and meningococcal day 14 of his splenectomy which will be 10/28/2021. 3-leukocytosis possible reactive post splenectomy, so far no fever blood culture on admission has been negative so far and we will monitor closely Time with Patient: Less than 30
[2021-10-16] MEDS: HYDROmorphone 1 MG/ML 1 ML SYRINGE IVP PRN ×10 (01:05→22:26)
[2021-10-16 01:09] LABS: Glucose,Whole Blood 85 mg/dL (70-110)
[2021-10-16] MEDS: SODIUM CHLORIDE 0.9% 1,000 ML IV SCH ×3 (05:58→18:15)
[2021-10-16 06:01] LABS: Glucose,Whole Blood 74 mg/dL (70-110)
[2021-10-16 06:45] LABS: Basophils % (A) 0 %; Eosinophils # (A) 0.1 k/uL (0-0.7); Eosinophils % (A) 1 %; HCT 36.8 % (39.0-53.0); HGB 12.3 gm/dL (13.0-17.5); Lymphocytes # (A) 1.3 k/uL (1.0-4.8); Lymphocytes % (A) 12 %; MCH 30.3 pg (25.0-35.0); MCHC 33.4 g/dL (31.0-37.0); MCV 90.8 fL (80.0-100.0); Monocytes # (A) 0.6 k/uL (0-1.0); Monocytes % (A) 5 %; Neutrophils # (A) 8.9 k/uL (1.3-7.7); Neutrophils % (A) 80 %; Platelet Count 121 k/uL (150-450); RBC 4.05 m/uL (4.30-5.90); RDW 14.3 % (11.5-15.5); WBC 11.1 k/uL (3.8-10.6)
[2021-10-16 06:51] LABS: ALT 18 U/L (4-49); AST 26 U/L (17-59); African American GFR (CKD) >90 (>60 ml/min/1.73 sqM); Albumin 2.7 g/dL (3.5-5.0); Alkaline Phosphatase 56 U/L (38-126); Anion Gap 2 mmol/L; Blood Urea Nitrogen 10 mg/dL (9-20); Calcium 8.1 mg/dL (8.4-10.2); Carbon Dioxide 26 mmol/L (22-30); Chloride 105 mmol/L (98-107); Glucose 77 mg/dL (74-99); Magnesium 1.7 mg/dL (1.6-2.3); Non-African American GFR(CKD) >90 (>60 ml/min/1.73 sqM); Potassium 3.6 mmol/L (3.5-5.1); Sodium 133 mmol/L (137-145); Total Bilirubin 0.5 mg/dL (0.2-1.3); Total Protein 4.7 g/dL (6.3-8.2)
[2021-10-16 07:03] LABS: C Reactive Protein 12.4 mg/dL (<1.0)
[2021-10-16] MEDS ORDERED: Potassium Replacement Protocol 1 EACH MISC MISCELLANE PRN (07:13)
[2021-10-16] MEDS ORDERED: POTASSIUM BICARBONATE/CIT AC 20 MEQ TABLET.EFF NG-TUBE SCH (08:00)
[2021-10-16] MEDS: HEPARIN SODIUM,PORCINE/PF 5,000 UNIT/0.5 ML SYRINGE SQ SCH ×2 (08:21→20:19)
[2021-10-16] MEDS: PANTOPRAZOLE 40 MG/10 ML VIAL IV SCH (08:21)
[2021-10-16] MEDS: lisinopriL 10 MG TAB PO SCH (08:22)
[2021-10-16] MEDS: METOPROLOL TARTRATE 25 MG TAB PO SCH ×2 (08:22→20:19)
--- NOTE | 2021-10-16 11:00 | P.PN ---
Subjective Progress Note Date: 10/16/21 This is a 66-year-old male patient who follows with Dr. Bolivar as his primary care provider. He has a history of hypertension, hyperlipidemia, chronic and ongoing tobacco dependence, occasional alcohol use, occasional marijuana use. Yesterday he had been downtown [place] and had sustained a ground-level fall. He did not feel as though there is any injuries however throughout the night and early today he developed significant abdominal discomfort and left groin discomfort. Recent anterior to the emergency room for the same. Chest x-ray revealed no acute cardiopulmonary process. Computed tomography scan of the abdomen and pelvis revealed a suspected acute splenic hematoma or hemorrhage possible rupture with non-simple ascites being more hyperdense in the left lateral abdomen versus right abdomen. Underlying splenomegaly may be present. Significant non-simple fluid or hemorrhage into the pelvis is noted. Confirmation of left inguinal hernia containing portion of the sigmoid colon. He was given 1 L of fluid resuscitation and tranexamic acid in the emergency room. No bowel obstruction. He was taken to the urgently to the operating room by Dr. Crowell. He had undergone a exploratory laparotomy with splenectomy, umbilical hernia repair. Estimated blood loss was 2.5 L. He did receive 2 units of packed red blood cells during surgery and additional Cell Saver blood. He is seen today in consultation in the recovery room. The plan is for close observation the ICU. He is receiving a third unit of packed red blood cells. Plan is for possible fourth unit. Current hemoglobin is 9.1. His any hemoglobin was 11.2. White count 14.0. Platelets 103. INR 1.1. Sodium 138. Potassium 3.8. BUN 17. Creatinine 1.49. Glucose 266. Lactic acid 14.1. Troponin 0.181. Urinalysis with large amount of blood and 1+ glucose villarreal virus by PCR not detected. Serum alcohol level less than 10. He did receive ceftriaxone in the ER. He did receive Kefzol in the OR. He is on heparin for DVT prophylaxis. Lactated Ringer's at 100 ML's per hour. He is arousable. Maintaining O2 saturations up to 100% on 3 L/m per nasal cannula. He is hemodynamically stable. Afebrile. The patient is seen today 10/15/2021 in follow-up in the intensive care unit. He is awake and alert in no acute distress. Sitting up in a chair at the bedside. He is maintaining O2 saturations in the 90s on room air. Nasogastric tube remains in place. He has normal saline at 100 ML's per hour. Chest x-ray reveals mild basilar linear atelectasis. Small amount of pneumoperitoneum status post splenectomy. Postoperative day #1. He is status post 3 units of packed red blood cells this admission. Current hemoglobin 12.0. Platelets 86,000. White count 14.5. Sodium 136. Potassium 4.1. BUN 21. Creatinine 0.80. Glucose 104. AST 25. ALT 18. Albumin 2.4. Blood cultures reveal no growth to date. Heparin for DVT prophylaxis. The patient is seen today 10/17/2019 follow-up in the intensive care unit. Postoperative day #2. He is currently sitting up in bed. Awake and alert in no acute distress. Maintaining good O2 saturations in the 90s on room air. Nasogastric tube remains in place. He has lactated Ringer's at 100 ML's per hour. Chest x-ray had revealed basilar atelectasis. He is again encouraged regarding the increased use of the incentive spirometer and cough and deep br eathing exercises. He is status post 3 units of packed red blood cells this admission. Current hemoglobin 12.3. Platelets 121. White count 11.1. Sodium 133. Potassium 3.6. BUN 10. Creatinine 0.58. Pro-calcitonin 0.22. Blood cultures reveal no growth. Heparin for DVT prophylaxis. Dilaudid for pain control. Objective - Vital Signs Vital signs: Vital Signs Temp 98.2 F 10/16/21 08:00 Pulse 57 L 10/16/21 10:00 Resp 15 10/16/21 10:00 BP 169/87 10/16/21 09:00 Pulse Ox 97 10/16/21 10:00 FiO2 Intake & Output 10/15/21 10/16/21 10/16/21 18:59 06:59 18:59 Intake Total 1300 1100 300 Output Total 1221 3115 420 Balance 72 -375 -120 Weight 77.3 kg Intake: IV 1300 1100 300 Lactated Ringers 1,000 ml 1300 1100 300 @ 100 mls/hr IV .Q10H [facility] Rx#:[id number] Output: Gastric Drainage 300 150 Urine 928 1325 420 Other: Voiding Method Indwelling Catheter Indwelling Catheter Indwelling Catheter - Exam GENERAL EXAM: Awake, pleasant 66-year-old male patient, up in a chair at the bedside, on room air, fairly comfortable in no apparent distress. HEAD: Normocephalic. EYES: Normal reaction of pupils, equal size. NOSE: Nasogastric tube remains in place. Clear with pink turbinates. THROAT: No erythema or exudates. NECK: No masses, no JVD. CHEST: No chest wall deformity. LUNGS: Equal air entry with no crackles, wheeze, rhonchi or dullness. CVS: S1 and S2 normal with no audible murmur, regular rhythm. ABDOMEN: Midline abdominal dressing dry and intact. Binder in place.. SPINE: No scoliosis or deformity SKIN: No rashes CENTRAL NERVOUS SYSTEM: No focal deficits, tone is normal in all 4 extremities. EXTREMITIES: There is no peripheral edema. No clubbing, no cyanosis. Peripheral pulses are intact. - Labs CBC & Chem 7: 10/16/21 06:08 10/16/21 06:08 Labs: Abnormal Lab Results - Last 24 Hours (Table) 10/16/21 10/16/21 10/16/21 Range/Units 06:08 06:08 06:08 WBC 11.1 H (3.8-10.6) k/uL RBC 4.05 L (4.30-5.90) m/uL Hgb 12.3 L (13.0-17.5) gm/dL Hct 36.8 L (39.0-53.0) % Plt Count 121 L (150-450) k/uL Neutrophils # 8.9 H (1.3-7.7) k/uL Sodium 133 L (137-145) mmol/L Creatinine 0.58 L (0.66-1.25) mg/dL Calcium 8.1 L (8.4-10.2) mg/dL C-Reactive Protein 12.4 H (<1.0) mg/dL Total Protein 4.7 L (6.3-8.2) g/dL Albumin 2.7 L (3.5-5.0) g/dL Procalcitonin 0.22 H (0.02-0.09) ng/mL Microbiology - Last 24 Hours (Table) 10/14/21 06:45 Blood Culture - Preliminary Blood No Growth after 48 hours 10/14/21 06:30 Blood Culture - Preliminary Blood No Growth after 48 hours Assessment and Plan Assessment: Acute abdominal discomfort and left groin pain secondary to acute splenic hematoma or hemorrhage possible rupture with non-simple ascites. More h yperdense on the left lateral abdomen versus the right. Underlying splenomegaly may be present. Also noted left inguinal hernia containing portion of sigmoid colon. The patient had sustained a ground-level fall 10/13/2021. Status post exploratory laparotomy with splenectomy, umbilical hernia repair. Postoperative day #2. Blood loss anemia secondary to above status post 3 units of packed red blood cells with additional Cell Saver given thus far. Current hemoglobin 12.3 History of chronic and ongoing tobacco dependence History of marijuana use History of alcohol use History of nonsustained VT and palpitations Hypertension Hyperlipidemia Plan: The patient was seen and evaluated Labs and medications reviewed Encouraged use the incentive spirometer and cough and deep breathing exercises Increase his activity as tolerated Transfer to the regular medical floor today We will continue to follow I have personally seen and examined the patient, performed the documentation and the assessment and plan as written. Number of minutes spent on the visit: 10.
[2021-10-16 11:39] LABS: Glucose,Whole Blood 83 mg/dL (70-110)
--- NOTE | 2021-10-16 13:37 | P.PN ---
Subjective Progress Note Date: 10/16/21 CHIEF COMPLAINT: Splenic laceration status post fall HISTORY OF PRESENT ILLNESS: The patient is a 66-year-old male who had a fall with splenic laceration status post splenectomy, 10/14/2021. Patient has been transfered from intensive care unit to the floor. He reports pain with ambulation. No passage of flatus. No bowel movements. ROS: No reports of nausea and vomiting. No bowel movements. No fevers or chills. No new chest pain. No productive sputum PHYSICAL EXAM: VITAL SIGNS: Reviewed CONSTITUTIONAL: Well developed and in no acute distress. EYES: Conjuctivae without sclera icterus. Extraocular movements grossly intact. HEAD, EARS, NOSE, THROAT: Moist buccal mucosa. Head is atraumatic, normocephalic. Hears conversational speech. NG tube of brown discharge. RESPIRATORY: Non-labored respirations and equal bilateral excursions. CARDIOVASCULAR: Palpable 2+ radial pulses. ABDOMEN: Dressing intact. No peritonitis MUSCULOSKELETAL: No gross deformity of the lower extremities noted. No clubbing. No cyanosis. SKIN: Good skin turgor. Well perfused. NEUROLOGIC: Cranial nerves II through XII grossly intact. No focal or lateralizing signs. PSYCH: Appropriate affect. Alert and oriented to person, place and time. CLINICAL LABS: Reviewed. Hemoglobin of 12.0 down from 14.0 ASSESSMENT: 1. Status post ground level fall 2. Splenic laceration status post splenectomy PLAN: 1. Recommend physical therapy occupational therapy. 2. Ambulation encouraged. 3. Continue nasogastric tube. Objective - Vital Signs Vital signs: Vital Signs Temp 97.9 F 10/16/21 11:50 Pulse 53 L 10/16/21 11:50 Resp 16 10/16/21 11:50 BP 186/83 10/16/21 11:50 Pulse Ox 97 10/16/21 11:50 FiO2 Intake & Output 10/15/21 10/16/21 10/16/21 18:59 06:59 18:59 Intake Total 1300 1100 300 Output Total 1228 0935 420 Balance 72 -375 -120 Weight 77.3 kg Intake: IV 1300 1100 300 Lactated Ringers 1,000 ml 1300 1100 300 @ 100 mls/hr IV .Q10H ONE Rx#:[id number] Output: Gastric Drainage 300 150 Urine 928 1325 420 Other: Voiding Method Indwelling Catheter Indwelling Catheter Indwelling Catheter - Labs CBC & Chem 7: 10/16/21 06:08 10/16/21 06:08 Labs: Abnormal Lab Results - Last 24 Hours (Table) 10/16/21 10/16/21 10/16/21 Range/Units 06:08 06:08 06:08 WBC 11.1 H (3.8-10.6) k/uL RBC 4.05 L (4.30-5.90) m/uL Hgb 12.3 L (13.0-17.5) gm/dL Hct 36.8 L (39.0-53.0) % Plt Count 121 L (150-450) k/uL Neutrophils # 8.9 H (1.3-7.7) k/uL Sodium 133 L (137-145) mmol/L Creatinine 0.58 L (0.66-1.25) mg/dL Calcium 8.1 L (8.4-10.2) mg/dL C-Reactive Protein 12.4 H (<1.0) mg/dL Total Protein 4.7 L (6.3-8.2) g/dL Albumin 2.7 L (3.5-5.0) g/dL Procalcitonin 0.22 H (0.02-0.09) ng/mL Microbiology - Last 24 Hours (Table) 10/14/21 06:45 Blood Culture - Preliminary Blood No Growth after 48 hours 10/14/21 06:30 Blood Culture - Preliminary Blood No Growth after 48 hours
[2021-10-16 17:50] LABS: Glucose,Whole Blood 71 mg/dL (70-110)
--- NOTE | 2021-10-16 19:04 | P.PN ---
Subjective On-call hospitalist covering Dr. Bolivar over the weekend 10/15 and 10/16, Dr. Bolivar will resume the care of the patient on 10/17 This is a pleasant 66 years old male with past medical history of Hyperlipidemia, Hypertension Patient presents on 10/14 with fall and dyspnea with left inguinal pain. Patient was celebrating with fireworks and drinking alcohol got confused and fell and presents with left sided abdominal pain.patient states that his abdominal pain happened immediately after he fell, he was walking flat on the stairs when he fell, he denies dizziness or syncope, he stated he is twisted and tripped and fell. Immediately after the fall he started having abdominal pain around his stomach area which was gradually getting worse, but he got more concerns with getting sweating and clammy currently he had some abdominal tenderness which is expected. No bowel movement. No vomiting. He has a Andres catheter but denies any urinary symp toms. He denies headache or weakness or numbness. No chest pain or dyspnea, no coughing. He is a smoker 15 per day and he was counseled to quit and he agrees but he declines nicotine patch. States that he drinks about twice a week now days, before was daily, currently he drinks 1-2 beers a day of drinking. He said that the day he fell he was drinking 1 or 2 beers only. No liquor. No illicit d rugs. Patient informed about the need to get the vaccination in 2 weeks and he agrees and he told me he will talk to Dr. Bolivar On admission he had CT of the abdomen and pelvis with suspected acute splenic hematoma or hemorrhage and possible rupture, also with left inguinal hernia containing portion of the sigmoid colon. Patient underwent emergent exploratory laparotomy with hernia repair and splenectomy and he was admitted to the ICU for further management. Today is postoperative day #1. Vitals are stable and patient is afebrile. He has mild leukocytosis at 14.5, hemoglobin 12.0. BMP and liver enzymes are unremarkable and sugar controlled. Urine analysis is also suspicious of infection. Serum alcohol is less than 10 Coronavirus not detected. patient received 3 units of blood transfusion 10/16/2021 Patient clinically doing well, his abdominal symptoms controlled with no signif icant abdominal pain and he tolerates diet well. Hemodynamically stable, systolic blood pressure is slightly elevated and therefore we were normal saline with 50-75. He is on lisinopril and metoprolol. procalcitonin 0.22. WBC 11.1. Hemoglobin 12.3. Patient on the vaccination in 2 weeks, he was made aware. Objective - Vital Signs Vital signs: Vital Signs Temp 97.9 F 10/16/21 11:50 Pulse 53 L 10/16/21 11:50 Resp 16 10/16/21 11:50 BP 186/83 10/16/21 11:50 Pulse Ox 97 10/16/21 11:50 FiO2 Intake & Output 10/16/21 10/16/21 10/17/21 06:59 18:59 06:59 Intake Total 1100 1860 Output Total 1475 2120 Balance -375 -260 Weight 77.3 kg Intake: IV 1100 300 Lactated Ringers 1,000 ml 1100 300 @ 100 mls/hr IV .Q10H ONE Rx#:[id number] Intake, IV Titration 1560 Amount Sodium Chloride 0.9% 1, 1560 000 ml @ 130 mls/hr IV . Q7H42M [facility] Rx#:[id number] Output: Gastric Drainage 150 Urine 1325 2120 Other: Voiding Method Indwelling Catheter Indwelling Catheter - Exam GENERAL: The patient is alert and oriented x3, not in any acute distress. Well developed, well nourished. HEENT: Pupils are round and equally reacting to light. EOMI. No scleral icterus. No conjunctival pallor. Normocephalic, atraumatic. No pharyngeal erythema. No thyromegaly. CARDIOVASCULAR: S1 and S2 present. No murmurs, rubs, or gallops. PULMONARY: Chest is clear to auscultation, no wheezing or crackles. -ABDOMEN: Soft, nontender, nondistended, normoactive bowel sounds. No palpable organomegaly. Surgical wound with dressing place, rest of exam is deferred to surgery team MUSCULOSKELETAL: No joint swelling or deformity. EXTREMITIES: No cyanosis, clubbing, or pedal edema. NEUROLOGICAL: Gross neurological examination did not reveal any focal deficits. SKIN: No rashes. No petechiae - Labs CBC & Chem 7: 10/16/21 06:08 10/16/21 06:08 Labs: Abnormal Lab Results - Last 24 Hours (Table) 10/16/21 10/16/21 10/16/21 Range/Units 06:08 06:08 06:08 WBC 11.1 H (3.8-10.6) k/uL RBC 4.05 L (4.30-5.90) m/uL Hgb 12.3 L (13.0-17.5) gm/dL Hct 36.8 L (39.0-53.0) % Plt Count 121 L (150-450) k/uL Neutrophils # 8.9 H (1.3-7.7) k/uL Sodium 133 L (137-145) mmol/L Creatinine 0.58 L (0.66-1.25) mg/dL Calcium 8.1 L (8.4-10.2) mg/dL C-Reactive Protein 12.4 H (<1.0) mg/dL Total Protein 4.7 L (6.3-8.2) g/dL Albumin 2.7 L (3.5-5.0) g/dL Procalcitonin 0.22 H (0.02-0.09) ng/mL Microbiology - Last 24 Hours (Table) 10/14/21 06:45 Blood Culture - Preliminary Blood No Growth after 48 hours 10/14/21 06:30 Blood Culture - Preliminary Blood No Growth after 48 hours Assessment and Plan Assessment: Acute splenic rupture secondary to trauma, status post Exploratory laparotomy with splenectomy, with umbilical hernia repair acute left inguinal hernia strangulation status post hernia repair acute blood loss anemia secondary to above Hypertension Hyperlipidemia nicotine dependence Plan: This is a pleasant 66 years old male who presents with splenic rupture status post exploratory laparotomy, splenectomy and left inguinal hernia repair Patient can be transferred to general medical floor Continue with gentle hydration and were normal saline 75 mm/h to help with blood pressure. Pain management patient will need postsplenectomy vaccination for pneumococcal haemophilus influenza and meningococcal day 14 of his splenectomy which will be 10/28/2021. Several consultants on the case including pulmonary/critical care team Labs and medication were reviewed.. Continue same treatment. Continue with symptomatic treatment. Resume home medication. Monitor lytes and vitals. DVT and GI prophylaxis. Further recommendations as per clinical course of the patient DVT prophylaxis: Subcutaneous heparin GI Prophylaxis: Ppi PT/OT: Pending Prognosis is guarded thank you for consulting us
[2021-10-16] MEDS: MONTELUKAST 10 MG TAB PO SCH (20:19)
[2021-10-16] MEDS: ATORVASTATIN 40 MG TAB PO SCH (20:19)
[2021-10-17 00:18] LABS: Glucose,Whole Blood 55 mg/dL (70-110)
[2021-10-17] MEDS ORDERED: DEXTROSE 50% SYRINGE 50 ML IVP ONE (00:19)
[2021-10-17] MEDS: HYDROmorphone 1 MG/ML 1 ML SYRINGE IVP PRN ×3 (00:38→11:18)
[2021-10-17 00:42] LABS: Glucose,Whole Blood 155 mg/dL (70-110)
[2021-10-17] MEDS: SODIUM CHLORIDE 0.9% 1,000 ML IV SCH (03:49)
[2021-10-17 05:39] LABS: Glucose,Whole Blood 79 mg/dL (70-110)
--- NOTE | 2021-10-17 08:28 | P.PN ---
Subjective Progress Note Date: 10/17/21 Principal diagnosis: Splenic rupture This is a continue present on a 66-year-old white male with underlying history of asthma and COPD who had splenic rupture with expiratory laparotomy and splenectomy and left inguinal hernia repair. The patient has NG tube no flatus stated. Some burping noted. Pain is nominal. Objective - Vital Signs Vital signs: Vital Signs Temp 98.2 F 10/17/21 03:55 Pulse 58 L 10/17/21 03:55 Resp 18 10/17/21 03:55 BP 187/87 10/17/21 03:55 Pulse Ox 96 10/17/21 03:55 FiO2 Intake & Output 10/16/21 10/17/21 10/17/21 18:59 06:59 18:59 Intake Total 1860 0 Output Total 2120 1000 Balance -260 -1000 Intake: IV 300 Lactated Ringers 1,000 ml 300 @ 100 mls/hr IV .Q10H [facility] Rx#:[id number] Intake, IV Titration 1560 Amount Sodium Chloride 0.9% 1, 1560 000 ml @ 75 mls/hr IV . [id number] [facility] Rx#:[id number] Oral 0 Output: Urine 2120 1000 Other: Voiding Method Indwelling Catheter Indwelling Catheter - Constitutional General appearance: Present: cooperative - Neck Neck: Absent: lymphadenopathy - Respiratory Respiratory: bilateral: CTA - Cardiovascular Rhythm: regular Heart sounds: normal: S1, S2 Abnormal Heart Sounds: Absent: S3 Gallop - Gastrointestinal General gastrointestinal: Present: absent bowel sounds - Integumentary Integumentary: Absent: cellulitis - Labs CBC & Chem 7: 10/16/21 06:08 10/16/21 06:08 Labs: Abnormal Lab Results - Last 24 Hours (Table) 10/16/21 10/17/21 10/17/21 Range/Units 06:08 00:16 00:41 POC Glucose (mg/dL) 55 L 155 H (70-110) mg/dL Procalcitonin 0.22 H (0.02-0.09) ng/mL Microbiology - Last 24 Hours (Table) 10/14/21 06:45 Blood Culture - Preliminary Blood No Growth after 48 hours 10/14/21 06:30 Blood Culture - Preliminary Blood No Growth after 48 hours Assessment and Plan (1) Fall Current Visit: Yes Status: Acute Code(s): W19.XXXA - UNSPECIFIED FALL, INITIAL ENCOUNTER SNOMED Code(s): 0072390 (2) Hemoperitoneum Current Visit: Yes Status: Acute Code(s): K66.1 - HEMOPERITONEUM SNOMED Code(s): 824755169 (3) Post-splenectomy Current Visit: Yes Status: Acute Code(s): Z90.81 - ACQUIRED ABSENCE OF SPLEEN SNOMED Code(s): 304925652 (4) Splenic laceration Current Visit: Yes Status: Acute Code(s): S36.039A - UNSPECIFIED LACERATION OF SPLEEN, INITIAL ENCOUNTER SNOMED Code(s): 632278888 Plan: Continue normal postop pulmonary toilet and appropriate protocols. Check CBC and CMP in a.m. Appropriate pain control otherwise.
[2021-10-17] MEDS: METOPROLOL TARTRATE 25 MG TAB PO SCH ×2 (08:29→20:25)
[2021-10-17] MEDS: HEPARIN SODIUM,PORCINE/PF 5,000 UNIT/0.5 ML SYRINGE SQ SCH ×2 (08:29→20:24)
[2021-10-17] MEDS: lisinopriL 10 MG TAB PO SCH (08:29)
[2021-10-17] MEDS: PANTOPRAZOLE 40 MG/10 ML VIAL IV SCH (08:29)
[2021-10-17] MEDS: HYDROmorphone 0.5 MG/0.5 ML SYRINGE IVP PRN (08:44)
[2021-10-17 09:19] LABS: African American GFR (CKD) >90 (>60 ml/min/1.73 sqM); Anion Gap 5 mmol/L; Blood Urea Nitrogen 8 mg/dL (9-20); Calcium 8.1 mg/dL (8.4-10.2); Carbon Dioxide 27 mmol/L (22-30); Chloride 102 mmol/L (98-107); Glucose 70 mg/dL (74-99); Non-African American GFR(CKD) >90 (>60 ml/min/1.73 sqM); Potassium 3.4 mmol/L (3.5-5.1); Sodium 134 mmol/L (137-145)
[2021-10-17 09:35] LABS: Basophils % (A) 0 %; Eosinophils # (A) 0.2 k/uL (0-0.7); Eosinophils % (A) 2 %; HCT 36.6 % (39.0-53.0); HGB 12.2 gm/dL (13.0-17.5); Lymphocytes % (A) 10 %; MCH 30.1 pg (25.0-35.0); MCHC 33.5 g/dL (31.0-37.0); MCV 89.9 fL (80.0-100.0); Mean Platelet Volume 9.5; Monocytes # (A) 0.8 k/uL (0-1.0); Monocytes % (A) 7 %; Neutrophils # (A) 8.1 k/uL (1.3-7.7); Neutrophils % (A) 79 %; Platelet Count 135 k/uL (150-450); RBC 4.07 m/uL (4.30-5.90); RDW 14.2 % (11.5-15.5); WBC 10.3 k/uL (3.8-10.6)
--- NOTE | 2021-10-17 10:52 | P.PN ---
Subjective Progress Note Date: 10/16/21 Principal diagnosis: Leukocytosis and post splenectomy Patient is a 66-year-old male who did have a ground-level fall the day before presentation to the hospital with abdominal pain and weakness noticed to have a splenic hematoma status post laparotomy and splenectomy. On today's evaluation that is 10/16/2021, the patient did have a low-grade fever 100.2F However the patient is afebrile this morning, the patient did have the NG is breathing comfortably, denies any chest pain or shortness of breath or cough no abdominal pain is controlled with the pain medication no vomiting or diarrhea Objective - Vital Signs Vital signs: Vital Signs Temp 97.9 F 10/16/21 11:50 Pulse 53 L 10/16/21 11:50 Resp 16 10/16/21 11:50 BP 186/83 10/16/21 11:50 Pulse Ox 97 10/16/21 11:50 FiO2 Intake & Output 10/15/21 10/16/21 10/16/21 18:59 06:59 18:59 Intake Total 1300 1100 300 Output Total 1228 1475 420 Balance 72 -375 -120 Weight 77.3 kg Intake: IV 1300 1100 300 Lactated Ringers 1,000 ml 1300 1100 300 @ 100 mls/hr IV .Q10H [facility] Rx#:[id number] Output: Gastric Drainage 300 150 Urine 928 1325 420 Other: Voiding Method Indwelling Catheter Indwelling Catheter Indwelling Catheter - Exam GENERAL DESCRIPTION: An elderly male up in the chair in no distress RESPIRATORY SYSTEM: Unlabored breathing , decreased breath sounds at bases HEART: S1 S2 regular rate and rhythm , ABDOMEN: Soft , no tenderness EXTREMITIES: No edema feet - Labs CBC & Chem 7: 10/17/21 08:25 10/17/21 08:25 Labs: Abnormal Lab Results - Last 24 Hours (Table) 10/16/21 10/16/21 10/16/21 Range/Units 06:08 06:08 06:08 WBC 11.1 H (3.8-10.6) k/uL RBC 4.05 L (4.30-5.90) m/uL Hgb 12.3 L (13.0-17.5) gm/dL Hct 36.8 L (39.0-53.0) % Plt Count 121 L (150-450) k/uL Neutrophils # 8.9 H (1.3-7.7) k/uL Sodium 133 L (137-145) mmol/L Creatinine 0.58 L (0.66-1.25) mg/dL Calcium 8.1 L (8.4-10.2) mg/dL C-Reactive Protein 12.4 H (<1.0) mg/dL Total Protein 4.7 L (6.3-8.2) g/dL Albumin 2.7 L (3.5-5.0) g/dL Procalcitonin 0.22 H (0.02-0.09) ng/mL Microbiology - Last 24 Hours (Table) 10/14/21 06:45 Blood Culture - Preliminary Blood No Growth after 48 hours 10/14/21 06:30 Blood Culture - Preliminary Blood No Growth after 48 hours Assessment and Plan (1) Post-splenectomy Current Visit: Yes Status: Acute Code(s): Z90.81 - ACQUIRED ABSENCE OF SPLEEN SNOMED Code(s): 727853204 (2) Leukocytosis Current Visit: Yes Status: Acute Code(s): D72.829 - ELEVATED WHITE BLOOD CELL COUNT, UNSPECIFIED SNOMED Code(s): 664870788 Plan: 1patient presented hospital abdominal pain in this patient who did have evidence of traumatic splenic rupture and hematoma status post laparotomy evacuation of the hematoma and splenectomy with no evidence of any trauma to the gut or any perforation. 2patient will need postsplenectomy vaccination for pneumococcal haemophilus influenza and meningococcal day 14 of his splenectomy which will be 10/28/2021. 3-leukocytosis possible reactive post splenectomy, and trending downwards will be monitored closely 4low grade fever possible pulmonary atelectasis patient has been advised incentive spirometry blood cultures have been repeated those and will follow-up Time with Patient: Less than 30
[2021-10-17 11:44] LABS: Glucose,Whole Blood 75 mg/dL (70-110)
[2021-10-17] MEDS ORDERED: POTASSIUM CHLORIDE 20 MEQ in WATER FOR INJECTION 1 100ML.BAG IVPB STA (11:45)
--- NOTE | 2021-10-17 11:46 | P.PN ---
Subjective Progress Note Date: 10/17/21 CHIEF COMPLAINT: Splenic laceration status post fall HISTORY OF PRESENT ILLNESS: Patient is status post splenectomy on 10/14/2021. He is currently on a regular medical floor. He reports that he he is having abdominal pain. He is requiring the IV Dilaudid. He reports that the pain medication is not lasting long enough. He denies any nausea. He has NG tube in place. Denies any flatus or BM. Afebrile. Blood pressures elevated. WBC 11.1 down to 10.3 Hgb stable at 12.2 platelets 135 sodium 134 potassium 3.4 creatinine 0.56 glucose 70 requiring dextrose. PHYSICAL EXAM: VITAL SIGNS: Reviewed. GENERAL: Well-developed in no acute distress. HEENT: No sclera icterus. Extraocular movements grossly intact. Moist buccal mucosa. Head is atraumatic, normocephalic. ABDOMEN: Soft. Mildly distended Incision site dressing with small saturation and distal aspect. Abdominal binder in place NEUROLOGIC: Alert and oriented. Cranial nerves II through XII grossly intact. ASSESSMENT: 1. Fall with splenic laceration status post splenectomy 2. Hypokalemia PLAN: -Add IV Tylenol and Toradol scheduled to help with pain control -Continue NG tube for decompression -Keep patient nothing by mouth -Encourage patient to ambulate -Encourage patient to use incentive spirometer -Continue IV fluids -GI prophylaxis Protonix and DVT prophylaxis subcu heparin Physician Top Lift Nailer note has been reviewed by physician. Signing provider agrees with the documented findings, assessment, and plan of care. I have personally seen and examined the patient, reviewed the [employer]ATE [employer]PER[employer] /PAs history, exam and MDM and agree with the assessment and plan as written. Based on total visit time, I have performed more than 50% of the visit. As above: Patient doing well today. Nasogastric output is minimal. We'll remove nasogastric tube and Andres catheter. Begin sips of liquids. Ambulate. Follow lab work. Objective - Vital Signs Vital signs: Vital Signs Temp 98.2 F 10/17/21 03:55 Pulse 58 L 10/17/21 03:55 Resp 18 10/17/21 03:55 BP 187/87 10/17/21 03:55 Pulse Ox 96 10/17/21 03:55 FiO2 Intake & Output 10/16/21 10/17/21 10/17/21 18:59 06:59 18:59 Intake Total 1860 0 Output Total 2120 1000 Balance -260 -1000 Intake: IV 300 Lactated Ringers 1,000 ml 300 @ 100 mls/hr IV .Q10H [facility] Rx#:[id number] Intake, IV Titration 1560 Amount Sodium Chloride 0.9% 1, 1560 000 ml @ 75 mls/hr IV . [id number] [facility] Rx#:[id number] Oral 0 Output: Urine 2120 1000 Other: Voiding Method Indwelling Catheter Indwelling Catheter Indwelling Catheter - Labs CBC & Chem 7: 10/17/21 08:25 10/17/21 08:25 Labs: Abnormal Lab Results - Last 24 Hours (Table) 10/17/21 10/17/21 10/17/21 Range/Units 00:16 00:41 08:25 RBC 4.07 L (4.30-5.90) m/uL Hgb 12.2 L (13.0-17.5) gm/dL Hct 36.6 L (39.0-53.0) % Plt Count 135 L (150-450) k/uL Neutrophils # 8.1 H (1.3-7.7) k/uL Sodium (137-145) mmol/L Potassium (3.5-5.1) mmol/L BUN (9-20) mg/dL Creatinine (0.66-1.25) mg/dL Glucose (74-99) mg/dL POC Glucose (mg/dL) 55 L 155 H (70-110) mg/dL Calcium (8.4-10.2) mg/dL 10/17/21 Range/Units 08:25 RBC (4.30-5.90) m/uL Hgb (13.0-17.5) gm/dL Hct (39.0-53.0) % Plt Count (150-450) k/uL Neutrophils # (1.3-7.7) k/uL Sodium 134 L (137-145) mmol/L Potassium 3.4 L (3.5-5.1) mmol/L BUN 8 L (9-20) mg/dL Creatinine 0.56 L (0.66-1.25) mg/dL Glucose 70 L (74-99) mg/dL POC Glucose (mg/dL) (70-110) mg/dL Calcium 8.1 L (8.4-10.2) mg/dL Microbiology - Last 24 Hours (Table) 10/14/21 06:45 Blood Culture - Preliminary Blood No Growth after 72 hours 10/14/21 06:30 Blood Culture - Preliminary Blood No Growth after 72 hours 10/16/21 06:08 Blood Culture - Preliminary Blood No Growth after 24 hours
[2021-10-17] MEDS: ACETAMINOPHEN IV (For NPO) 1,000 MG in EMPTY BAG 1 BAG IVPB SCH ×3 (12:36→21:20)
--- NOTE | 2021-10-17 13:46 | P.PN ---
Subjective Progress Note Date: 10/17/21 Principal diagnosis: Splenic hemorrhage, status post splenectomy This is a 66-year-old male patient who follows with Dr. Bolivar as his primary care provider. He has a history of hypertension, hyperlipidemia, chronic and ongoing tobacco dependence, occasional alcohol use, occasional marijuana use. Yesterday he had been downtown [place] and had sustained a ground-level fall. He did not feel as though there is any injuries however throughout the night and early today he developed significant abdominal discomfort and left groin discomfort. Recent anterior to the emergency room for the same. Chest x-ray revealed no acute cardiopulmonary process. Computed tomography scan of the abdomen and pelvis revealed a suspected acute splenic hematoma or hemorrhage possible rupture with non-simple ascites being more hyperdense in the left lateral abdomen versus right abdomen. Underlying splenomegaly may be present. Significant non-simple fluid or hemorrhage into the pelvis is noted. Confirmation of left inguinal hernia containing portion of the sigmoid colon. He was given 1 L of fluid resuscitation and tranexamic acid in the emergency room. No bowel obstruction. He was taken to the urgently to the operating room by Dr. Crowell. He had undergone a exploratory laparotomy with splenectomy, umbilical hernia repair. Estimated blood loss was 2.5 L. He did receive 2 units of packed red blood cells during surgery and additional Cell Saver blood. He is seen today in consultation in the recovery room. The plan is for close observation the ICU. He is receiving a third unit of packed red blood cells. Plan is for possible fourth unit. Current hemoglobin is 9.1. His any hemoglobin was 11.2. White count 14.0. Platelets 103. INR 1.1. Sodium 138. Potassium 3.8. BUN 17. Creatinine 1.49. Glucose 266. Lactic acid 14.1. Troponin 0.181. Urinalysis with large amount of blood and 1+ glucose villarreal virus by PCR not detected. Serum alcohol level less than 10. He did receive ceftriaxone in the ER. He did receive Kefzol in the OR. He is on heparin for DVT prophylaxis. Lactated Ringer's at 100 ML's per hour. He is arousable. Maintaining O2 saturations up to 100% on 3 L/m per nasal cannula. He is hemodynamically stable. Afebrile. The patient is seen today 10/15/2021 in follow-up in the intensive care unit. He is awake and alert in no acute distress. Sitting up in a chair at the bedside. He is maintaining O2 saturations in the 90s on room air. Nasogastric tube remains in place. He has normal saline at 100 ML's per hour. Chest x-ray reveals mild basilar linear atelectasis. Small amount of pneumoperitoneum status post splenectomy. Postoperative day #1. He is status post 3 units of packed red blood cells this admission. Current hemoglobin 12.0. Platelets 86,000. White count 14.5. Sodium 136. Potassium 4.1. BUN 21. Creatinine 0.80. Glucose 104. AST 25. ALT 18. Albumin 2.4. Blood cultures reveal no growth to date. Heparin for DVT prophylaxis. The patient is seen today 10/17/2019 follow-up in the intensive care unit. Postoperative day #2. He is currently sitting up in bed. Awake and alert in no acute distress. Maintaining good O2 saturations in the 90s on room air. Nasogastric tube remains in place. He has lactated Ringer's at 100 ML's per hour. Chest x-ray had revealed basilar atelectasis. He is again encouraged regarding the increased use of the incentive spirometer and cough and deep breathing exercises. He is status post 3 units of packed red blood cells this admission. Current hemoglobin 12.3. Platelets 121. White count 11.1. Sodium 133. Potassium 3.6. BUN 10. Creatinine 0.58. Pro-calcitonin 0.22. Blood cultures reveal no growth. Heparin for DVT prophylaxis. Dilaudid for pain control. On 10/17/2021 patient seen in follow-up on medical surgical floor. He is awake and alert, in no acute distress. He sitting up in the recliner, breathing comfortably, room air pulse ox is 97%, afebrile, hemodynamically patient has been admitted hypertensive. Breathing is non-labored. Last chest x-ray from 10/15/2021 showed bibasilar atelectasis. Patient is working on the incentive spirometer. He still has NG tube in place, remains nothing by mouth, and there is been 450 mL out of the NG tube for the past 48 hours as recorded. Today's labs have been reviewed, with little, still 0.3, hemoglobin is 12.2, sodium is 134, potassium is 3.4, BUN is 8 and creatinine 0.56. Patient is status post transfusion with 3 units of packed red blood cells on 10/14/2021 during initial presentation with splenic hemorrhage. Hemodynamically patient has been stable. Objective - Vital Signs Vital signs: Vital Signs Temp 97.9 F 10/17/21 12:49 Pulse 55 L 10/17/21 12:49 Resp 16 10/17/21 12:49 BP 183/73 10/17/21 12:49 Pulse Ox 97 10/17/21 12:49 FiO2 Intake & Output 10/16/21 10/17/21 10/17/21 18:59 06:59 18:59 Intake Total 1860 0 Output Total 2120 1000 1100 Balance -260 -1000 -1100 Intake: IV 300 Lactated Ringers 1,000 ml 300 @ 100 mls/hr IV .Q10H ONE Rx#:[id number] Intake, IV Titration 1560 Amount Sodium Chloride 0.9% 1, 1560 000 ml @ 75 mls/hr IV . [id number] DELORES Rx#:[id number] Oral 0 Output: Gastric Drainage 100 Urine 2120 1000 1000 Other: Voiding Method Indwelling Catheter Indwelling Catheter Indwelling Catheter - Exam GENERAL EXAM: Alert, very pleasant, 66-year-old white male on room air, with pulse ox of 97%, comfortable in no apparent distress. HEAD: Normocephalic/atraumatic. EYES: Normal reaction of pupils, equal size. Conjunctiva pink, sclera white. NOSE: Clear with pink turbinates. NG tube is in place, to low intermittent combs ction, with small amount of NG output THROAT: No erythema or exudates. NECK: No masses, no JVD, no thyroid enlargement, no adenopathy. CHEST: No chest wall deformity. Symmetrical expansion. LUNGS: Equal air entry with no crackles, wheeze, rhonchi or dullness. CVS: Regular rate and rhythm, normal S1 and S2, no gallops, no murmurs, no rubs ABDOMEN: Soft, nontender. No hepatosplenomegaly, normal bowel sounds, no guarding or rigidity. Abdominal incision is clean dry and intact, binder is in place EXTREMITIES: No clubbing, no edema, no cyanosis, 2+ pulses and upper and lower extremities. MUSCULOSKELETAL: Muscle strength and tone normal. SPINE: No scoliosis or deformity SKIN: No rashes CENTRAL NERVOUS SYSTEM: Alert and oriented -3. No focal deficits, tone is normal in all 4 extremities. PSYCHIATRIC: Alert and oriented -3. Appropriate affect. Intact judgment and insight. - Labs CBC & Chem 7: 10/17/21 08:25 10/17/21 08:25 Labs: Abnormal Lab Results - Last 24 Hours (Table) 10/17/21 10/17/21 10/17/21 Range/Units 00:16 00:41 08:25 RBC 4.07 L (4.30-5.90) m/uL Hgb 12.2 L (13.0-17.5) gm/dL Hct 36.6 L (39.0-53.0) % Plt Count 135 L (150-450) k/uL Neutrophils # 8.1 H (1.3-7.7) k/uL Sodium (137-145) mmol/L Potassium (3.5-5.1) mmol/L BUN (9-20) mg/dL Creatinine (0.66-1.25) mg/dL Glucose (74-99) mg/dL POC Glucose (mg/dL) 55 L 155 H (70-110) mg/dL Calcium (8.4-10.2) mg/dL 10/17/21 Range/Units 08:25 RBC (4.30-5.90) m/uL Hgb (13.0-17.5) gm/dL Hct (39.0-53.0) % Plt Count (150-450) k/uL Neutrophils # (1.3-7.7) k/uL Sodium 134 L (137-145) mmol/L Potassium 3.4 L (3.5-5.1) mmol/L BUN 8 L (9-20) mg/dL Creatinine 0.56 L (0.66-1.25) mg/dL Glucose 70 L (74-99) mg/dL POC Glucose (mg/dL) (70-110) mg/dL Calcium 8.1 L (8.4-10.2) mg/dL Microbiology - Last 24 Hours (Table) 10/14/21 06:45 Blood Culture - Preliminary Blood No Growth after 72 hours 10/14/21 06:30 Blood Culture - Preliminary Blood No Growth after 72 hours 10/16/21 06:08 Blood Culture - Preliminary Blood No Growth after 24 hours Assessment and Plan Plan: Assessment: Acute abdominal discomfort and left groin pain secondary to acute splenic hematoma or hemorrhage possible rupture with non-simple ascites. More hyperdense on the left lateral abdomen versus the right. Underlying splenomegaly may be present. Also noted left inguinal hernia containing portion of sigmoid colon. The patient had sustained a ground-level fall 10/13/2021. Status post exploratory laparotomy with splenectomy, umbilical hernia repair. Postoperative day #3. Blood loss anemia secondary to above status post 3 units of packed red blood cells with additional Cell Saver given thus far. Current hemoglobin 12.3 History of chronic and ongoing tobacco dependence History of marijuana use History of alcohol use History of nonsustained VT and palpitations Hypertension Hyperlipidemia Plan: Continue encouraging deep breathing and coughing Continue weaning FiO2 Increase activity as tolerated Labs and last chest x-ray reviewed Vital signs have been stable, no signs of active bleeding, no difficulty breathing Surgical recommendations GI and DVT prophylaxis I have personally seen and examined the patient, performed the documentation and the assessment and plan as written. Number of minutes spent on the visit: [10] I have personally seen and examined the patient and reviewed the documentation. I performed a joint evaluation with the nurse practitioner in this evaluation was done more than 20 minutes. I fully agree with the documentation above and the plan of care.. The patient is doing well. The patient is postop day #3. The patient has an NG tube in place. Output is still considerably high in the order form of the series over the past 24 hours. We'll monitor flatness. We'll monitor the NG tube output. Keep the patient nothing by mouth for now. Normal sed rate of 75 mL an hour. Bowel sounds are hypoactive at the present. We'll continue to follow. Decreased mobility and increased activity as tolerated. Time with Patient: Less than 30
[2021-10-17] MEDS: KETOROLAC 15 MG/ML 1 ML VIAL IVP SCH ×2 (13:58→20:25)
[2021-10-17 17:32] LABS: Glucose,Whole Blood 104 mg/dL (70-110)
[2021-10-17] MEDS: MONTELUKAST 10 MG TAB PO SCH (20:25)
[2021-10-17] MEDS: ATORVASTATIN 40 MG TAB PO SCH (20:25)
[2021-10-17 20:29] LABS: Glucose,Whole Blood 125 mg/dL (70-110)
[2021-10-17] MEDS: amLODIPine 5 MG TAB PO SCH (22:02)
[2021-10-18] MEDS: ACETAMINOPHEN IV (For NPO) 1,000 MG in EMPTY BAG 1 BAG IVPB SCH (04:55)
[2021-10-18] MEDS: KETOROLAC 15 MG/ML 1 ML VIAL IVP SCH ×5 (05:28→23:25)
[2021-10-18 05:29] LABS: Glucose,Whole Blood 100 mg/dL (70-110)
--- NOTE | 2021-10-18 08:41 | P.PN ---
Subjective Principal diagnosis: Splenic rupture This is a continue present on a 66-year-old white male with underlying history of asthma and COPD who had splenic rupture with expiratory laparotomy and splenectomy and left inguinal hernia repair. The patient has NG tube no flatus stated. Some burping noted. Pain is nominal. Blood pressure is elevated. We will add hydralazine and Norvasc was added last night. No chest pain stated. However some sweats are noted. Objective - Vital Signs Vital signs: Vital Signs Temp 98.1 F 10/18/21 04:59 Pulse 52 L 10/18/21 04:59 Resp 16 10/18/21 04:59 BP 186/84 10/18/21 04:59 Pulse Ox 97 10/18/21 04:59 FiO2 Intake & Output 10/17/21 10/18/21 10/18/21 18:59 06:59 18:59 Output Total 1100 600 Balance -1100 -600 Output: Gastric Drainage 100 Urine 1000 600 Other: Voiding Method Indwelling Catheter Toilet # Voids 3 3 - Constitutional General appearance: Present: average body habitus - EENT Eyes: Absent: abnormal pupil - Neck Neck: Absent: lymphadenopathy - Respiratory Respiratory: bilateral: CTA - Cardiovascular Rhythm: regular Heart sounds: normal: S1, S2 Abnormal Heart Sounds: Absent: S3 Gallop - Gastrointestinal General gastrointestinal: Present: soft. Absent: tenderness - Psychiatric Psychiatric: Present: A&O x's 3 - Labs CBC & Chem 7: 10/17/21 08:25 10/17/21 08:25 Labs: Abnormal Lab Results - Last 24 Hours (Table) 10/17/21 10/17/21 10/17/21 Range/Units 08:25 08:25 20:28 RBC 4.07 L (4.30-5.90) m/uL Hgb 12.2 L (13.0-17.5) gm/dL Hct 36.6 L (39.0-53.0) % Plt Count 135 L (150-450) k/uL Neutrophils # 8.1 H (1.3-7.7) k/uL Sodium 134 L (137-145) mmol/L Potassium 3.4 L (3.5-5.1) mmol/L BUN 8 L (9-20) mg/dL Creatinine 0.56 L (0.66-1.25) mg/dL Glucose 70 L (74-99) mg/dL POC Glucose (mg/dL) 125 H (70-110) mg/dL Calcium 8.1 L (8.4-10.2) mg/dL Microbiology - Last 24 Hours (Table) 10/16/21 06:08 Blood Culture - Preliminary Blood No Growth after 48 hours 10/14/21 06:45 Blood Culture - Preliminary Blood No Growth after 72 hours 10/14/21 06:30 Blood Culture - Preliminary Blood No Growth after 72 hours Assessment and Plan (1) Fall Current Visit: Yes Status: Acute Code(s): W19.XXXA - UNSPECIFIED FALL, INITIAL ENCOUNTER SNOMED Code(s): 4576099 (2) Hemoperitoneum Current Visit: Yes Status: Acute Code(s): K66.1 - HEMOPERITONEUM SNOMED Code(s): 690127408 (3) Post-splenectomy Current Visit: Yes Status: Acute Code(s): Z90.81 - ACQUIRED ABSENCE OF SPLEEN SNOMED Code(s): 413509742 (4) Splenic laceration Current Visit: Yes Status: Acute Code(s): S36.039A - UNSPECIFIED LACERATION OF SPLEEN, INITIAL ENCOUNTER SNOMED Code(s): 901058114 Plan: Continue normal postop pulmonary toilet and appropriate protocols. Check CBC and CMP in a.m. Appropriate pain control otherwise. Norvasc and hydralazine added for blood pressure elements.
[2021-10-18] MEDS: PANTOPRAZOLE 40 MG/10 ML VIAL IV SCH (09:00)
[2021-10-18] MEDS: METOPROLOL TARTRATE 25 MG TAB PO SCH ×2 (09:00→20:44)
[2021-10-18] MEDS: HEPARIN SODIUM,PORCINE/PF 5,000 UNIT/0.5 ML SYRINGE SQ SCH ×2 (09:01→20:44)
[2021-10-18] MEDS: lisinopriL 10 MG TAB PO SCH (09:01)
[2021-10-18] MEDS: amLODIPine 5 MG TAB PO SCH (09:01)
[2021-10-18] MEDS: hydrALAZINE HCL 25 MG TAB PO SCH ×2 (09:03→20:44)
[2021-10-18] MEDS: SODIUM CHLORIDE 0.9% 1,000 ML IV SCH ×2 (09:08)
[2021-10-18 10:33] LABS: HCT 36.4 % (39.6-50.0); HGB 11.7 g/dL (13.0-17.0); MCH 28.3 pg (27.0-32.0); MCHC 32.1 g/dL (32.0-37.0); MCV 87.9 fL (80.0-97.0); Mean Platelet Volume 11.6 fL (9.5-12.2); NRBC Per 100 WBC 0.2 /100 WBCS (0.0-0.0); Platelet Count 192 X 10*3/uL (140-440); RBC 4.14 X 10*6/uL (4.40-5.60); RDW 13.7 % (11.5-14.5); WBC 11.72 X 10*3/uL (4.50-10.00)
[2021-10-18 10:48] LABS: African American GFR (CKD) 143.4 (60.0-200.0); Albumin 3.2 g/dL (3.8-4.9); Albumin/Globulin Ratio 1.88 (1.60-3.17); Anion Gap 10.9 mmol/L (10.00-18.00); BUN/Creat Ratio 16.75 Ratio (12.00-20.00); Blood Urea Nitrogen 6.7 mg/dL (9.0-27.0); Calcium 8.6 mg/dL (8.7-10.3); Carbon Dioxide 27.1 mmol/L (20.0-27.5); Globulin 1.7 g/dL (1.6-3.3); Non-African American GFR(CKD) 123.8 (60.0-200.0); Potassium 3.4 mmol/L (3.5-5.5); Total Bilirubin 0.5 mg/dL (0.30-1.20); Total Protein 4.9 g/dL (6.2-8.2)
[2021-10-18] MEDS ORDERED: POTASSIUM CHLORIDE ER 20 MEQ TAB.ER PO STA (11:19)
--- NOTE | 2021-10-18 11:22 | P.PN ---
Subjective Progress Note Date: 10/18/21 CHIEF COMPLAINT: Splenic laceration status post fall HISTORY OF PRESENT ILLNESS: Patient is status post splenectomy on 10/14/2021. Patient does complain of abdominal pain. He is having flatus. Denies any nausea or vomiting. Does report that the pain is slightly less than yesterday. NG tube and Andres catheter removed. He is tolerating clear liquids. Denies any nausea or vomiting. He is urinating without difficulty. He has been hypertensive. Medicine service did add Norvasc and hydralazine. Afebrile. BP 186/84 WBC is up from 10.3-11.7 to Hgb 11.7 platelets 192 sodium is 140 potassium is 3.4. Also note the patient takes [place] 7.5 at home. PHYSICAL EXAM: VITAL SIGNS: Reviewed. GENERAL: Well-developed in no acute distress. HEENT: No sclera icterus. Extraocular movements grossly intact. Moist buccal mucosa. Head is atraumatic, normocephalic. ABDOMEN: Soft. Mildly distended Incision site dressing with small saturation and distal aspect. Abdominal binder in place NEUROLOGIC: Alert and oriented. Cranial nerves II through XII grossly intact. ASSESSMENT: 1. Fall with splenic laceration status post splenectomy 2. Hypokalemia PLAN: -Continue clear liquids -Replace potassium -Check magnesium -Resume [place] 7.5mg PRN pain -Encourage patient to ambulate -Encourage patient to use incentive spirometer -Continue IV fluids -GI prophylaxis Protonix and DVT prophylaxis subcu heparin Physician Activities Concierge note has been reviewed by physician. Signing provider agrees with the documented findings, assessment, and plan of care. I have personally seen and examined the patient, reviewed the CYCLE COUNTER /PAs history, exam and MDM and agree with the assessment and plan as written. Based on total visit time, I have performed more than 50% of the visit. As above: Patient doing well today. Pain seems to be better controlled. Labs noted. Tolerating clear liquids. Having flatus. Will advance to full liquids. Ambulate. Possible discharge tomorrow or . Objective - Vital Signs Vital signs: Vital Signs Temp 98.1 F 10/18/21 04:59 Pulse 52 L 10/18/21 04:59 Resp 16 10/18/21 04:59 BP 186/84 10/18/21 04:59 Pulse Ox 97 10/18/21 04:59 FiO2 Intake & Output 10/17/21 10/18/21 10/18/21 18:59 06:59 18:59 Output Total 1100 600 Balance -1100 -600 Output: Gastric Drainage 100 Urine 1000 600 Other: Voiding Method Indwelling Catheter Toilet # Voids 3 3 - Labs CBC & Chem 7: 10/18/21 06:33 10/18/21 06:33 Labs: Abnormal Lab Results - Last 24 Hours (Table) 10/17/21 10/18/21 10/18/21 Range/Units 20:28 06:33 06:33 WBC 11.72 H (4.50-10.00) X 10*3/uL RBC 4.14 L (4.40-5.60) X 10*6/uL Hgb 11.7 L (13.0-17.0) g/dL Hct 36.4 L (39.6-50.0) % Absolute Nucleated RBC 0.02 H (0.00-0.00) X 10*3/uL NRBC/100 WBC Diff 0.2 H (0.0-0.0) /100 WBCS Potassium 3.4 L (3.5-5.5) mmol/L BUN 6.7 L (9.0-27.0) mg/dL Creatinine 0.4 L (0.6-1.5) mg/dL POC Glucose (mg/dL) 125 H (70-110) mg/dL Calcium 8.6 L (8.7-10.3) mg/dL Total Protein 4.9 L (6.2-8.2) g/dL Albumin 3.2 L (3.8-4.9) g/dL Microbiology - Last 24 Hours (Table) 10/14/21 06:30 Blood Culture - Preliminary Blood No Growth after 96 hours 10/14/21 06:45 Blood Culture - Preliminary Blood No Growth after 96 hours 10/16/21 06:08 Blood Culture - Preliminary Blood No Growth after 48 hours
--- NOTE | 2021-10-18 12:28 | P.PN ---
Subjective Progress Note Date: 10/18/21 Principal diagnosis: Splenic hemorrhage, status post splenectomy This is a 66-year-old male patient who follows with Dr. Bolivar as his primary care provider. He has a history of hypertension, hyperlipidemia, chronic and ongoing tobacco dependence, occasional alcohol use, occasional marijuana use. Yesterday he had been [place] and had sustained a ground-level fall. He did not feel as though there is any injuries however throughout the night and early today he developed significant abdominal discomfort and left groin discomfort. Recent anterior to the emergency room for the same. Chest x-ray revealed no acute cardiopulmonary process. Computed tomography scan of the abdomen and pelvis revealed a suspected acute splenic hematoma or hemorrhage possible rupture with non-simple ascites being more hyperdense in the left lateral abdomen versus right abdomen. Underlying splenomegaly may be present. Significant non-simple fluid or hemorrhage into the pelvis is noted. Confirmation of left inguinal hernia containing portion of the sigmoid colon. He was given 1 L of fluid resuscitation and tranexamic acid in the emergency room. No bowel obstruction. He was taken to the urgently to the operating room by Dr. Crowell. He had undergone a exploratory laparotomy with splenectomy, umbilical hernia repair. Estimated blood loss was 2.5 L. He did receive 2 units of packed red blood cells during surgery and additional Cell Saver blood. He is seen today in consultation in the recovery room. The plan is for close observation the ICU. He is receiving a third unit of packed red blood cells. Plan is for possible fourth unit. Current hemoglobin is 9.1. His any hemoglobin was 11.2. White count 14.0. Platelets 103. INR 1.1. Sodium 138. Potassium 3.8. BUN 17. Creatinine 1.49. Glucose 266. Lactic acid 14.1. Troponin 0.181. Urinalysis with large amount of blood and 1+ glucose villarreal virus by PCR not detected. Serum alcohol level less than 10. He did receive ceftriaxone in the ER. He did receive Kefzol in the OR. He is on heparin for DVT prophylaxis. Lactated Ringer's at 100 ML's per hour. He is arousable. Maintaining O2 saturations up to 100% on 3 L/m per nasal cannula. He is hemodynamically stable. Afebrile. The patient is seen today 10/15/2021 in follow-up in the intensive care unit. He is awake and alert in no acute distress. Sitting up in a chair at the bedside. He is maintaining O2 saturations in the 90s on room air. Nasogastric tube remains in place. He has normal saline at 100 ML's per hour. Chest x-ray reveals mild basilar linear atelectasis. Small amount of pneumoperitoneum status post splenectomy. Postoperative day #1. He is status post 3 units of packed red blood cells this admission. Current hemoglobin 12.0. Platelets 86,000. White count 14.5. Sodium 136. Potassium 4.1. BUN 21. Creatinine 0.80. Glucose 104. AST 25. ALT 18. Albumin 2.4. Blood cultures reveal no growth to date. Heparin for DVT prophylaxis. The patient is seen today 10/17/2019 follow-up in the intensive care unit. Postoperative day #2. He is currently sitting up in bed. Awake and alert in no acute distress. Maintaining good O2 saturations in the 90s on room air. Nasogastric tube remains in place. He has lactated Ringer's at 100 ML's per hour. Chest x-ray had revealed basilar atelectasis. He is again encouraged regarding the increased use of the incentive spirometer and cough and deep breathing exercises. He is status post 3 units of packed red blood cells this admission. Current hemoglobin 12.3. Platelets 121. White count 11.1. Sodium 133. Potassium 3.6. BUN 10. Creatinine 0.58. Pro-calcitonin 0.22. Blood cultures reveal no growth. Heparin for DVT prophylaxis. Dilaudid for pain control. On 10/17/2021 patient seen in follow-up on medical surgical floor. He is awake and alert, in no acute distress. He sitting up in the recliner, breathing comfortably, room air pulse ox is 97%, afebrile, hemodynamically patient has been admitted hypertensive. Breathing is non-labored. Last chest x-ray from 10/15/2021 showed bibasilar atelectasis. Patient is working on the incentive spirometer. He still has NG tube in place, remains nothing by mouth, and there is been 450 mL out of the NG tube for the past 48 hours as recorded. Today's labs have been reviewed, with little, still 0.3, hemoglobin is 12.2, sodium is 134, potassium is 3.4, BUN is 8 and creatinine 0.56. Patient is status post transfusion with 3 units of packed red blood cells on 10/14/2021 during initial presentation with splenic hemorrhage. Hemodynamically patient has been stable. On 10/18/2021 patient seen in follow-up on medical surgical floor. NG tube has been removed, patient has been started on clear liquid diet. Abdomen slightly more distended today, and patient did experience a couple episodes of nausea this morning, no vomiting, he is passing lots of gas. He was up ambulating in the hallway with the physical therapy, tolerating activity very well. No respiratory difficulty, lung sounds are clear to auscultation, abdomen is soft, his incision in the midabdomen is clean dry and intact. No bowel movement yet. Vital signs have been stable. Today's labs have been reviewed, his white blood cell count is 11.7, hemoglobin is 11.7, sodium is 140, potassium is 3.4, chloride is 102, BUN is 6.7, creatinine 0.4. No acute issues overnight Objective - Vital Signs Vital signs: Vital Signs Temp 98.0 F 10/18/21 11:34 Pulse 57 L 10/18/21 11:34 Resp 16 10/18/21 11:34 BP 175/89 10/18/21 11:34 Pulse Ox 98 10/18/21 11:34 FiO2 Intake & Output 10/17/21 10/18/21 10/18/21 18:59 06:59 18:59 Output Total 1100 600 Balance -1100 -600 Output: Gastric Drainage 100 Urine 1000 600 Other: Voiding Method Indwelling Catheter Toilet Toilet # Voids 3 3 - Exam GENERAL EXAM: Alert, very pleasant, 66-year-old white male on room air, with pulse ox of 97%, comfortable in no apparent distress. HEAD: Normocephalic/atraumatic. EYES: Normal reaction of pupils, equal size. Conjunctiva pink, sclera white. NOSE: Clear with pink turbinates. NG tube is in place, to low intermittent suction, with small amount of NG output THROAT: No erythema or exudates. NECK: No masses, no JVD, no thyroid enlargement, no adenopathy. CHEST: No chest wall deformity. Symmetrical expansion. LUNGS: Equal air entry with no crackles, wheeze, rhonchi or dullness. CVS: Regular rate and rhythm, normal S1 and S2, no gallops, no murmurs, no rubs ABDOMEN: Soft, nontender. No hepatosplenomegaly, normal bowel sounds, no guarding or rigidity. Abdominal incision is clean dry and intact, binder is in place EXTREMITIES: No clubbing, no edema, no cyanosis, 2+ pulses and upper and lower extremities. MUSCULOSKELETAL: Muscle strength and tone normal. SPINE: No scoliosis or deformity SKIN: No rashes CENTRAL NERVOUS SYSTEM: Alert and oriented -3. No focal deficits, tone is normal in all 4 extremities. PSYCHIATRIC: Alert and oriented -3. Appropriate affect. Intact judgment and insight. - Labs CBC & Chem 7: 10/18/21 06:33 10/18/21 06:33 Labs: Abnormal Lab Results - Last 24 Hours (Table) 10/17/21 10/18/21 10/18/21 Range/Units 20:28 06:33 06:33 WBC 11.72 H (4.50-10.00) X 10*3/uL RBC 4.14 L (4.40-5.60) X 10*6/uL Hgb 11.7 L (13.0-17.0) g/dL Hct 36.4 L (39.6-50.0) % Absolute Nucleated RBC 0.02 H (0.00-0.00) X 10*3/uL NRBC/100 WBC Diff 0.2 H (0.0-0.0) /100 WBCS Potassium 3.4 L (3.5-5.5) mmol/L BUN 6.7 L (9.0-27.0) mg/dL Creatinine 0.4 L (0.6-1.5) mg/dL POC Glucose (mg/dL) 125 H (70-110) mg/dL Calcium 8.6 L (8.7-10.3) mg/dL Total Protein 4.9 L (6.2-8.2) g/dL Albumin 3.2 L (3.8-4.9) g/dL Microbiology - Last 24 Hours (Table) 10/14/21 06:30 Blood Culture - Preliminary Blood No Growth after 96 hours 10/14/21 06:45 Blood Culture - Preliminary Blood No Growth after 96 hours 10/16/21 06:08 Blood Culture - Preliminary Blood No Growth after 48 hours Assessment and Plan Plan: Assessment: Acute abdominal discomfort and left groin pain secondary to acute splenic hematoma or hemorrhage possible rupture with non-simple ascites. More hyperdense on the left lateral abdomen versus the right. Underlying splenomegaly may be present. Also noted left inguinal hernia containing portion of sigmoid colon. The patient had sustained a ground-level fall 10/13/2021. Status post exploratory laparotomy with splenectomy, umbilical hernia repair. Postoperative day #4. Blood loss anemia secondary to above status post 3 units of packed red blood cells with additional Cell Saver given thus far. Current hemoglobin 11.7 History of chronic and ongoing tobacco dependence History of marijuana use History of alcohol use History of nonsustained VT and palpitations Hypertension Hyperlipidemia Plan: Continue encouraging deep breathing and coughing Vital signs have been stable, no signs of active bleeding, no difficulty breathing Vital signs have been stable, patient is now on room air NG-tube has been removed, he is tolerating clear liquid diet Surgical recommendations GI and DVT prophylaxis I have personally seen and examined the patient, performed the documentation and the assessment and plan as written. I have personally seen and examined the patient and reviewed the documentation. I performed a joint evaluation with the nurse practitioner in this evaluation was done more than 20 minutes. I fully agree with the documentation above and the plan of care. Patient is postop day #4. The patient is doing well. NG tube was removed and the patient will be gradually advanced on his diet. Surgical site is dry clean and intact. Hemodynamically stable for now. Doing well. He is on room air oxygen and using incentive spirometer. Time with Patient: Less than 30
[2021-10-18 17:23] LABS: Glucose,Whole Blood 114 mg/dL (70-110)
[2021-10-18] MEDS: MONTELUKAST 10 MG TAB PO SCH (20:44)
[2021-10-18] MEDS: HYDROcodone/APAP 7.5-325MG 1 EACH TAB PO PRN (20:44)
[2021-10-18] MEDS: ATORVASTATIN 40 MG TAB PO SCH (20:44)
[2021-10-18 23:26] LABS: Glucose,Whole Blood 110 mg/dL (70-110)
[2021-10-19] MEDS: SODIUM CHLORIDE 0.9% 1,000 ML IV SCH (02:12)
[2021-10-19] MEDS: lisinopriL 10 MG TAB PO SCH (05:40)
[2021-10-19] MEDS: amLODIPine 5 MG TAB PO SCH (05:40)
[2021-10-19] MEDS: KETOROLAC 15 MG/ML 1 ML VIAL IVP SCH ×4 (06:02→23:05)
[2021-10-19 06:17] LABS: Glucose,Whole Blood 109 mg/dL (70-110)
[2021-10-19] MEDS ORDERED: lisinopriL 10 MG TAB PO ONE (08:15)
[2021-10-19] MEDS: HYDROcodone/APAP 7.5-325MG 1 EACH TAB PO PRN ×3 (08:22→20:24)
[2021-10-19] MEDS: HEPARIN SODIUM,PORCINE/PF 5,000 UNIT/0.5 ML SYRINGE SQ SCH ×2 (08:23→20:24)
[2021-10-19] MEDS: METOPROLOL TARTRATE 25 MG TAB PO SCH ×2 (08:23→20:24)
[2021-10-19] MEDS: hydrALAZINE HCL 25 MG TAB PO SCH ×2 (08:23→20:24)
[2021-10-19] MEDS: PANTOPRAZOLE 40 MG/10 ML VIAL IV SCH (08:24)
--- NOTE | 2021-10-19 08:53 | P.PN ---
Subjective Principal diagnosis: Splenic rupture This is a continue present on a 66-year-old white male with underlying history of asthma and COPD who had splenic rupture with expiratory laparotomy and splenectomy and left inguinal hernia repair. The patient has NG tube no flatus stated. Some burping noted. Pain is nominal. Blood pressure is elevated. We will add hydralazine and Norvasc was added last night. No chest pain stated. However some sweats are noted. Objective - Vital Signs Vital signs: Vital Signs Temp 98.3 F 10/19/21 04:37 Pulse 66 10/19/21 08:34 Resp 18 10/19/21 04:37 BP 163/79 10/19/21 08:34 Pulse Ox 98 10/19/21 04:37 FiO2 Intake & Output 10/18/21 10/19/21 10/19/21 18:59 06:59 18:59 Intake Total 1300 Balance 1300 Intake: Intake, IV Titration 900 Amount Sodium Chloride 0.9% 1, 900 000 ml @ 75 mls/hr IV . [id number] [facility] Rx#:[id number] Oral 400 Other: Voiding Method Toilet Toilet # Voids 1 2 - Constitutional General appearance: Present: cooperative - EENT Eyes: Absent: abnormal pupil - Neck Neck: Absent: lymphadenopathy - Respiratory Respiratory: bilateral: CTA - Cardiovascular Rhythm: regular Heart sounds: normal: S1, S2 Abnormal Heart Sounds: Absent: S3 Gallop - Gastrointestinal General gastrointestinal: Present: soft. Absent: tenderness - Labs CBC & Chem 7: 10/18/21 06:33 10/18/21 06:33 Labs: Abnormal Lab Results - Last 24 Hours (Table) 10/18/21 10/18/21 10/18/21 Range/Units 06:33 06:33 17:20 WBC 11.72 H (4.50-10.00) X 10*3/uL RBC 4.14 L (4.40-5.60) X 10*6/uL Hgb 11.7 L (13.0-17.0) g/dL Hct 36.4 L (39.6-50.0) % Absolute Nucleated RBC 0.02 H (0.00-0.00) X 10*3/uL NRBC/100 WBC Diff 0.2 H (0.0-0.0) /100 WBCS Potassium 3.4 L (3.5-5.5) mmol/L BUN 6.7 L (9.0-27.0) mg/dL Creatinine 0.4 L (0.6-1.5) mg/dL POC Glucose (mg/dL) 114 H (70-110) mg/dL Calcium 8.6 L (8.7-10.3) mg/dL Total Protein 4.9 L (6.2-8.2) g/dL Albumin 3.2 L (3.8-4.9) g/dL Microbiology - Last 24 Hours (Table) 10/16/21 06:08 Blood Culture - Preliminary Blood No Growth after 72 hours 10/14/21 06:30 Blood Culture - Preliminary Blood No Growth after 96 hours 10/14/21 06:45 Blood Culture - Preliminary Blood No Growth after 96 hours Assessment and Plan (1) Fall Current Visit: Yes Status: Acute Code(s): W19.XXXA - UNSPECIFIED FALL, INITI AL ENCOUNTER SNOMED Code(s): 3793426 (2) Hemoperitoneum Current Visit: Yes Status: Acute Code(s): K66.1 - HEMOPERITONEUM SNOMED Code(s): 556228469 (3) Post-splenectomy Current Visit: Yes Status: Acute Code(s): Z90.81 - ACQUIRED ABSENCE OF SPLEEN SNOMED Code(s): 953015650 (4) Splenic laceration Current Visit: Yes Status: Acute Code(s): S36.039A - UNSPECIFIED LACERATION OF SPLEEN, INITIAL ENCOUNTER SNOMED Code(s): 921313086 Plan: Continue normal postop pulmonary toilet and appropriate protocols. Check CBC and CMP in a.m. Appropriate pain control otherwise. Norvasc and hydralazine added for blood pressure elements. Increase Zestril today.
[2021-10-19 09:34] LABS: Basophils # (A) 0.06 X 10*3/uL (0.00-0.10); Basophils % (A) 0.5 %; Eosinophils # (A) 0.86 X 10*3/uL (0.04-0.35); Eosinophils % (A) 7.8 %; HCT 38.9 % (39.6-50.0); HGB 12.4 g/dL (13.0-17.0); Immature Grans, Automated 0.4 %; Lymphocytes # (A) 1.31 X 10*3/uL (0.90-5.00); Lymphocytes % (A) 11.8 %; MCH 28.4 pg (27.0-32.0); MCHC 31.9 g/dL (32.0-37.0); Mean Platelet Volume 11.1 fL (9.5-12.2); Monocytes # (A) 1.42 X 10*3/uL (0.20-1.00); Monocytes % (A) 12.8 %; NRBC Per 100 WBC 0.2 /100 WBCS (0.0-0.0); Neutrophils # (A) 7.39 X 10*3/uL (1.80-7.70); Neutrophils % (A) 66.7 %; Platelet Count 230 X 10*3/uL (140-440); RBC 4.37 X 10*6/uL (4.40-5.60); RDW 13.6 % (11.5-14.5); WBC 11.08 X 10*3/uL (4.50-10.00)
[2021-10-19 09:42] LABS: African American GFR (CKD) 121.4 (60.0-200.0); Anion Gap 10.6 mmol/L (10.00-18.00); BUN/Creat Ratio 12.67 Ratio (12.00-20.00); Blood Urea Nitrogen 7.6 mg/dL (9.0-27.0); Carbon Dioxide 26.4 mmol/L (20.0-27.5); Non-African American GFR(CKD) 104.8 (60.0-200.0); Potassium 3.9 mmol/L (3.5-5.5)
--- NOTE | 2021-10-19 11:26 | P.PN ---
Subjective Progress Note Date: 10/19/21 CHIEF COMPLAINT: Splenic laceration status post fall HISTORY OF PRESENT ILLNESS: Patient is status post splenectomy on 10/14/2021. patient reports that he is starting to feel better. He does not quite feel ready for discharge. Patient has been up and ambulating. He does report some shortness of breath after ambulating. Denies any nausea or vomiting. He is having flatus. Patient does complain of abdominal pain. He is having flatus. Denies any bowel movement. Tolerating full liquids. Blood pressures have been elevated. Medicine service continues to adjust medications. Afebrile. BP 163/79 WBC 11.08 HGB up at 12.4 platelets 230 sodium 139 potassium improved at 3.9 and creatinine 0.6 PHYSICAL EXAM: VITAL SIGNS: Reviewed. GENERAL: Well-developed in no acute distress. HEENT: No sclera icterus. Extraocular movements grossly intact. Moist buccal mucosa. Head is atraumatic, normocephalic. ABDOMEN: Soft. Nondistended. incisional dressing clean dry and intact. Abdominal binder in place NEUROLOGIC: Alert and oriented. Cranial nerves II through XII grossly intact. ASSESSMENT: 1. Fall with splenic laceration status post splenectomy 2. Hypokalemia improved 3. Leukocytosis secondary to splenectomy PLAN: -Continue full liquid diet -Continue pain medication as needed -Hep-Lock IV -Encourage patient to ambulate -Encourage patient to use incentive spirometer -Anticipate discharge tomorrow -GI prophylaxis Protonix and DVT prophylaxis subcu heparin Physician Plastic Surgery Nurse note has been reviewed by physician. Signing provider agrees with the documented findings, assessment, and plan of care. Objective - Vital Signs Vital signs: Vital Signs Temp 98.3 F 10/19/21 04:37 Pulse 66 10/19/21 08:34 Resp 18 10/19/21 04:37 BP 163/79 10/19/21 08:34 Pulse Ox 98 10/19/21 04:37 FiO2 Intake & Output 10/18/21 10/19/21 10/19/21 18:59 06:59 18:59 Intake Total 1300 Balance 1300 Intake: Intake, IV Titration 900 Amount Sodium Chloride 0.9% 1, 900 000 ml @ 75 mls/hr IV . [id number] [facility] Rx#:[id number] Oral 400 Other: Voiding Method Toilet Toilet # Voids 1 2 - Labs CBC & Chem 7: 07/20/22 04:48 10/19/21 04:48 Labs: Abnormal Lab Results - Last 24 Hours (Table) 10/18/21 10/19/21 10/19/21 Range/Units 17:20 04:48 04:48 WBC 11.08 H (4.50-10.00) X 10*3/uL RBC 4.37 L (4.40-5.60) X 10*6/uL Hgb 12.4 L (13.0-17.0) g/dL Hct 38.9 L (39.6-50.0) % MCHC 31.9 L (32.0-37.0) g/dL Absolute Nucleated RBC 0.02 H (0.00-0.00) X 10*3/uL Monocytes # 1.42 H (0.20-1.00) X 10*3/uL Eosinophils # 0.86 H (0.04-0.35) X 10*3/uL NRBC/100 WBC Diff 0.2 H (0.0-0.0) /100 WBCS BUN 7.6 L (9.0-27.0) mg/dL POC Glucose (mg/dL) 114 H (70-110) mg/dL Microbiology - Last 24 Hours (Table) 10/14/21 06:45 Blood Culture - Preliminary Blood No Growth after 120 hours 10/14/21 06:30 Blood Culture - Preliminary Blood No Growth after 120 hours 10/16/21 06:08 Blood Culture - Preliminary Blood No Growth after 72 hours
[2021-10-19 11:43] LABS: Glucose,Whole Blood 145 mg/dL (70-110)
--- NOTE | 2021-10-19 12:59 | P.PN ---
Subjective Progress Note Date: 10/19/21 Principal diagnosis: Splenic hemorrhage, status post splenectomy This is a 66-year-old male patient who follows with Dr. Bolivar as his primary care provider. He has a history of hypertension, hyperlipidemia, chronic and ongoing tobacco dependence, occasional alcohol use, occasional marijuana use. Yesterday he had been downtown [place] and had sustained a ground-level fall. He did not feel as though there is any injuries however throughout the night and early today he developed significant abdominal discomfort and left groin discomfort. Recent anterior to the emergency room for the same. Chest x-ray revealed no acute cardiopulmonary process. Computed tomography scan of the abdomen and pelvis revealed a suspected acute splenic hematoma or hemorrhage possible rupture with non-simple ascites being more hyperdense in the left lateral abdomen versus right abdomen. Underlying splenomegaly may be present. Significant non-simple fluid or hemorrhage into the pelvis is noted. Confirmation of left inguinal hernia containing portion of the sigmoid colon. He was given 1 L of fluid resuscitation and tranexamic acid in the emergency room. No bowel obstruction. He was taken to the urgently to the operating room by Dr. Crowell. He had undergone a exploratory laparotomy with splenectomy, umbilical hernia repair. Estimated blood loss was 2.5 L. He did receive 2 units of packed red blood cells during surgery and additional Cell Saver blood. He is seen today in consultation in the recovery room. The plan is for close observation the ICU. He is receiving a third unit of packed red blood cells. Plan is for possible fourth unit. Current hemoglobin is 9.1. His any hemoglobin was 11.2. White count 14.0. Platelets 103. INR 1.1. Sodium 138. Potassium 3.8. BUN 17. Creatinine 1.49. Glucose 266. Lactic acid 14.1. Troponin 0.181. Urinalysis with large amount of blood and 1+ glucose villarreal virus by PCR not detected. Serum alcohol level less than 10. He did receive ceftriaxone in the ER. He did receive Kefzol in the OR. He is on heparin for DVT prophylaxis. Lactated Ringer's at 100 ML's per hour. He is arousable. Maintaining O2 saturations up to 100% on 3 L/m per nasal cannula. He is hemodynamically stable. Afebrile. The patient is seen today 10/15/2021 in follow-up in the intensive care unit. He is awake and alert in no acute distress. Sitting up in a chair at the bedside. He is maintaining O2 saturations in the 90s on room air. Nasogastric tube remains in place. He has normal saline at 100 ML's per hour. Chest x-ray reveals mild basilar linear atelectasis. Small amount of pneumoperitoneum status post splenectomy. Postoperative day #1. He is status post 3 units of packed red blood cells this admission. Current hemoglobin 12.0. Platelets 86,000. White count 14.5. Sodium 136. Potassium 4.1. BUN 21. Creatinine 0.80. Glucose 104. AST 25. ALT 18. Albumin 2.4. Blood cultures reveal no growth to date. Heparin for DVT prophylaxis. The patient is seen today 10/17/2019 follow-up in the intensive care unit. Postoperative day #2. He is currently sitting up in bed. Awake and alert in no acute distress. Maintaining good O2 saturations in the 90s on room air. Nasogastric tube remains in place. He has lactated Ringer's at 100 ML's per hour. Chest x-ray had revealed basilar atelectasis. He is again encouraged regarding the increased use of the incentive spirometer and cough and deep breathing exercises. He is status post 3 units of packed red blood cells this admission. Current hemoglobin 12.3. Platelets 121. White count 11.1. Sodium 133. Potassium 3.6. BUN 10. Creatinine 0.58. Pro-calcitonin 0.22. Blood cultures reveal no growth. Heparin for DVT prophylaxis. Dilaudid for pain control. On 10/17/2021 patient seen in follow-up on medical surgical floor. He is awake and alert, in no acute distress. He sitting up in the recliner, breathing comfortably, room air pulse ox is 97%, afebrile, hemodynamically patient has been admitted hypertensive. Breathing is non-labored. Last chest x-ray from 10/15/2021 showed bibasilar atelectasis. Patient is working on the incentive spirometer. He still has NG tube in place, remains nothing by mouth, and there is been 450 mL out of the NG tube for the past 48 hours as recorded. Today's labs have been reviewed, with little, still 0.3, hemoglobin is 12.2, sodium is 134, potassium is 3.4, BUN is 8 and creatinine 0.56. Patient is status post transfusion with 3 units of packed red blood cells on 10/14/2021 during initial presentation with splenic hemorrhage. Hemodynamically patient has been stable. On 10/18/2021 patient seen in follow-up on medical surgical floor. NG tube has been removed, patient has been started on clear liquid diet. Abdomen slightly more distended today, and patient did experience a couple episodes of nausea this morning, no vomiting, he is passing lots of gas. He was up ambulating in the hallway with the physical therapy, tolerating activity very well. No respiratory difficulty, lung sounds are clear to auscultation, abdomen is soft, his incision in the midabdomen is clean dry and intact. No bowel movement yet. Vital signs have been stable. Today's labs have been reviewed, his white blood cell count is 11.7, hemoglobin is 11.7, sodium is 140, potassium is 3.4, chloride is 102, BUN is 6.7, creatinine 0.4. No acute issues overnight On 10/19/2021 patient seen in follow-up on medical surgical floor. He is awake and alert, in no acute distress, still complaining of abdomen being distended, tight and sore , but no nausea or vomiting, and patient has been passing gas, he is tolerating oral diet, and his been progressed to full liquid diet today. His been working on his incentive spirometer, he was achieving [id number] on it, lung sounds are clear, no pulmonary complaints. Tolerating oral intake, and he still remains on point and was seen at a rate of 50 ML per hour. Today's labs have been reviewed, white blood cell count is 11.08, hemoglobin is 12.4, electrolytes and renal profile were unremarkable. Blood cultures have been negative. Vitals are stable. Patient has been tolerating ambulation in the hallway Objective - Vital Signs Vital signs: Vital Signs Temp 98.3 F 10/19/21 04:37 Pulse 66 10/19/21 08:34 Resp 18 10/19/21 04:37 BP 163/79 10/19/21 08:34 Pulse Ox 98 10/19/21 04:37 FiO2 Intake & Output 10/18/21 10/19/21 10/19/21 18:59 06:59 18:59 Intake Total 1300 Balance 1300 Intake: Intake, IV Titration 900 Amount Sodium Chloride 0.9% 1, 900 000 ml @ 75 mls/hr IV . [id number] Rx#:[id number] Oral 400 Other: Voiding Method Toilet Toilet Toilet # Voids 1 2 - Exam GENERAL EXAM: Alert, very pleasant, 66-year-old white male on room air, with pulse ox of 97%, comfortable in no apparent distress. HEAD: Normocephalic/atraumatic. EYES: Normal reaction of pupils, equal size. Conjunctiva pink, sclera white. NOSE: Clear with pink turbinates. NG tube is in place, to low intermittent suction, with small amount of NG output THROAT: No erythema or exudates. NECK: No masses, no JVD, no thyroid enlargement, no adenopathy. CHEST: No chest wall deformity. Symmetrical expansion. LUNGS: Equal air entry with no crackles, wheeze, rhonchi or dullness. CVS: Regular rate and rhythm, normal S1 and S2, no gallops, no murmurs, no rubs ABDOMEN: Soft, nontender. No hepatosplenomegaly, normal bowel sounds, no guarding or rigidity. Abdominal incision is clean dry and intact, binder is in place EXTREMITIES: No clubbing, no edema, no cyanosis, 2+ pulses and upper and lower extremities. MUSCULOSKELETAL: Muscle strength and tone normal. SPINE: No scoliosis or deformity SKIN: No rashes CENTRAL NERVOUS SYSTEM: Alert and oriented -3. No focal deficits, tone is normal in all 4 extremities. PSYCHIATRIC: Alert and oriented -3. Appropriate affect. Intact judgment and insight. - Labs CBC & Chem 7: 10/19/21 04:48 10/19/21 04:48 Labs: Abnormal Lab Results - Last 24 Hours (Table) 10/18/21 10/19/21 10/19/21 Range/Units 17:20 04:48 04:48 WBC 11.08 H (4.50-10.00) X 10*3/uL RBC 4.37 L (4.40-5.60) X 10*6/uL Hgb 12.4 L (13.0-17.0) g/dL Hct 38.9 L (39.6-50.0) % MCHC 31.9 L (32.0-37.0) g/dL Absolute Nucleated RBC 0.02 H (0.00-0.00) X 10*3/uL Monocytes # 1.42 H (0.20-1.00) X 10*3/uL Eosinophils # 0.86 H (0.04-0.35) X 10*3/uL NRBC/100 WBC Diff 0.2 H (0.0-0.0) /100 WBCS BUN 7.6 L (9.0-27.0) mg/dL POC Glucose (mg/dL) 114 H (70-110) mg/dL 10/19/21 Range/Units 11:39 WBC (4.50-10.00) X 10*3/uL RBC (4.40-5.60) X 10*6/uL Hgb (13.0-17.0) g/dL Hct (39.6-50.0) % MCHC (32.0-37.0) g/dL Absolute Nucleated RBC (0.00-0.00) X 10*3/uL Monocytes # (0.20-1.00) X 10*3/uL Eosinophils # (0.04-0.35) X 10*3/uL NRBC/100 WBC Diff (0.0-0.0) /100 WBCS BUN (9.0-27.0) mg/dL POC Glucose (mg/dL) 145 H (70-110) mg/dL Microbiology - Last 24 Hours (Table) 10/14/21 06:45 Blood Culture - Preliminary Blood No Growth after 120 hours 10/14/21 06:30 Blood Culture - Preliminary Blood No Growth after 120 hours 10/16/21 06:08 Blood Culture - Preliminary Blood No Growth after 72 hours Assessment and Plan Plan: Assessment: Acute abdominal discomfort and left groin pain secondary to acute splenic hematoma or hemorrhage possible rupture with non-simple ascites. More hype rdense on the left lateral abdomen versus the right. Underlying splenomegaly may be present. Also noted left inguinal hernia containing portion of sigmoid colon. The patient had sustained a ground-level fall 10/13/2021. Status post exploratory laparotomy with splenectomy, umbilical hernia repair. Postoperative day #5. Blood loss anemia secondary to above status post 3 units of packed red blood cells with additional Cell Saver given thus far. Current hemoglobin 12.4 History of chronic and ongoing tobacco dependence History of marijuana use History of alcohol use History of nonsustained VT and palpitations Hypertension Hyperlipidemia Plan: Continue encouraging deep breathing and coughing Vital signs have been stable, no signs of active bleeding, Today's labs have been reviewed Increase activity as tolerated Surgical recommendations Will follow on an as-needed basis I have personally seen and examined the patient, performed the documentation and the assessment and plan as written. I have personally seen and examined the patient and reviewed the documentation. I performed a joint evaluation with the nurse practitioner in this evaluation was done more than 20 minutes. I fully agree with the documentation above and the plan of care.. The patient is doing well. No specific complaints. NG tube is removed. His emanating. Bowel sounds are still hypoactive. Surgical wound site is dry clean and intact. We will going to sign off the case. We'll keep the rest of the management up to medicine and general surgery. Time with Patient: Less than 30
[2021-10-19 17:02] LABS: Glucose,Whole Blood 100 mg/dL (70-110)
[2021-10-19 19:29] VITALS: RESP 16
[2021-10-19] MEDS: ATORVASTATIN 40 MG TAB PO SCH (20:24)
[2021-10-19] MEDS: MONTELUKAST 10 MG TAB PO SCH (20:24)
[2021-10-20] MEDS: HYDROcodone/APAP 7.5-325MG 1 EACH TAB PO PRN ×3 (04:51→16:29)
[2021-10-20] MEDS: KETOROLAC 15 MG/ML 1 ML VIAL IVP SCH (05:43)
--- NOTE | 2021-10-20 08:45 | P.PN ---
Subjective Principal diagnosis: Splenic rupture This is a continue present on a 66-year-old white male with underlying history of asthma and COPD who had splenic rupture with expiratory laparotomy and splenectomy and left inguinal hernia repair. The patient has NG tube no flatus stated. Some burping noted. Pain is nominal. Blood pressure is stabilizing We will add hydralazine and Norvasc was added last night. No chest pain stated. However some sweats are noted. Objective - Vital Signs Vital signs: Vital Signs Temp 97.9 F 10/20/21 04:35 Pulse 66 10/20/21 04:35 Resp 16 10/20/21 04:35 BP 156/88 10/20/21 04:35 Pulse Ox 96 10/20/21 04:35 FiO2 Intake & Output 10/19/21 10/20/21 10/20/21 18:59 06:59 18:59 Intake Total 1200 600 Balance 1200 600 Intake: Intake, IV Titration 600 Amount Sodium Chloride 0.9% 1, 600 000 ml @ 75 mls/hr IV . [id number] [facility] Rx#:[id number] Oral 600 600 Other: Voiding Method Toilet Toilet # Voids 4 2 - Constitutional General appearance: Present: average body habitus - EENT Eyes: Absent: abnormal pupil - Neck Neck: Absent: lymphadenopathy - Respiratory Respiratory: bilateral: CTA - Cardiovascular Rhythm: regular Heart sounds: normal: S1, S2 Abnormal Heart Sounds: Absent: S3 Gallop - Gastrointestinal General gastrointestinal: Present: soft - Musculoskeletal Musculoskeletal: Present: gait normal - Psychiatric Psychiatric: Present: A&O x's 3 - Labs CBC & Chem 7: 10/19/21 04:48 10/19/21 04:48 Labs: Abnormal Lab Results - Last 24 Hours (Table) 10/19/21 10/19/21 10/19/21 Range/Units 04:48 04:48 11:39 WBC 11.08 H (4.50-10.00) X 10*3/uL RBC 4.37 L (4.40-5.60) X 10*6/uL Hgb 12.4 L (13.0-17.0) g/dL Hct 38.9 L (39.6-50.0) % MCHC 31.9 L (32.0-37.0) g/dL Absolute Nucleated RBC 0.02 H (0.00-0.00) X 10*3/uL Monocytes # 1.42 H (0.20-1.00) X 10*3/uL Eosinophils # 0.86 H (0.04-0.35) X 10*3/uL NRBC/100 WBC Diff 0.2 H (0.0-0.0) /100 WBCS BUN 7.6 L (9.0-27.0) mg/dL POC Glucose (mg/dL) 145 H (70-110) mg/dL Microbiology - Last 24 Hours (Table) 10/16/21 06:08 Blood Culture - Preliminary Blood No Growth after 96 hours 10/14/21 06:45 Blood Culture - Preliminary Blood No Growth after 120 hours 10/14/21 06:30 Blood Culture - Preliminary Blood No Growth after 120 hours Assessment and Plan (1) Fall Current Visit: Yes Status: Acute Code(s): W19.XXXA - UNSPECIFIED FALL, INITIAL ENCOUNTER SNOMED Code(s): 3223000 (2) Hemoperitoneum Current Visit: Yes Status: Acute Code(s): K66.1 - HEMOPERITONEUM SNOMED Code(s): 905369389 (3) Post-splenectomy Current Visit: Yes Status: Acute Code(s): Z90.81 - ACQUIRED ABSENCE OF SPLEEN SNOMED Code(s): 267114470 (4) Splenic laceration Current Visit: Yes Status: Acute Code(s): S36.039A - UNSPECIFIED LACERATION OF SPLEEN, INITIAL ENCOUNTER SNOMED Code(s): 178286207 Plan: Continue normal postop pulmonary toilet and appropriate protocols. Check CBC and CMP in a.m. Appropriate pain control otherwise. Norvasc and hydralazine added for blood pressure elements. Blood pressure improved.
[2021-10-20] MEDS ORDERED: lisinopriL 20 MG TAB PO SCH (09:00)
[2021-10-20] MEDS: PANTOPRAZOLE 40 MG/10 ML VIAL IV SCH (10:04)
[2021-10-20] MEDS: HEPARIN SODIUM,PORCINE/PF 5,000 UNIT/0.5 ML SYRINGE SQ SCH (10:04)
[2021-10-20] MEDS: hydrALAZINE HCL 25 MG TAB PO SCH (10:05)
[2021-10-20] MEDS: amLODIPine 5 MG TAB PO SCH (10:05)
[2021-10-20] MEDS: METOPROLOL TARTRATE 25 MG TAB PO SCH (10:05)
[2021-10-20 12:33] VITALS: BP 142/76; PULSE 57; TEMP 97.7
--- NOTE | 2021-10-20 14:09 | P.DS ---
Providers Date of admission: 10/14/21 12:23 Expected date of discharge: 10/20/21 Attending physician: Brian Crowell Consults: 10/14/21 12:23 Consult Physician Routine Consulting Provider: Good Gonzalez Consult Reason/Comments: Medical management Do you want consulting provider notified?: Yes Consult Physician Routine Consulting Provider: Monster Bolivar Consult Reason/Comments: Medical management Do you want consulting provider notified?: Yes 10/14/21 12:28 Consult Physician Routine Consulting Provider: Bertha Allen Consult Reason/Comments: Post splenectomy vaccination Do you want consulting provider notified?: Yes Primary care physician: Monster Bolivar Hospital Course: Discharge diagnosis 1. Fall with splenic laceration status post splenectomy 2. Hypokalemia improved 3. Leukocytosis secondary to splenectomy 4. Hypertension Hospital course This is a 66-year-old male who had been at a festival in [facility]. He had been heavily alcohol. He had a ground level fall. He started to have abdominal pain. Computed tomography scan obtained showing significant fluid in the abdomen consistent with hemorrhage and associated splenic injury. Patient was taken the OR. He is status post splenectomy for a splenic laceration. Did require 3 units of blood at the beginning of this admission. Patient tolerated surgery well. His pain is controlled. He is up and ambulating. He is tolerating diet. He's afebrile. His been cleared by all consultants for discharge. He'll follow-up with his PCP, Dr. Bolivar for post splenectomy vaccinations. Patient is stable for discharge. Please refer to chart for any further details. Physician Mortician Investigator note has been reviewed by physician. Signing provider agrees with the documented findings, assessment, and plan of care. I have personally seen and examined the patient, reviewed the CDL PROGRAM COORDINATOR /PAs history, exam and MDM and agree with the assessment and plan as written. Based on total visit time, I have performed more than 50% of the visit. As above: Patient doing well today. Pain is well-controlled at this point. May discharge. Follow-up one week. Follow-up with PCP next few week for vaccinations. Patient Condition at Discharge: Stable Plan - Discharge Summary Discharge Rx Participant: No New Discharge Prescriptions: New hydrALAZINE HCL [Apresoline] 25 mg PO BID #60 tab amLODIPine [Norvasc] 5 mg PO DAILY #30 tab HYDROcodone/APAP 7.5-325MG [Chardon 7.5-325] 1 each PO Q4HR PRN #60 tab PRN Reason: Pain lisinopriL [Zestril] 20 mg PO DAILY #30 tab Continue Montelukast Sodium [Singulair] 10 mg PO HS Albuterol Inhaler [Ventolin Hfa Inhaler] 2 puff INHALATION RT-Q6H PRN PRN Reason: Shortness Of Breath HYDROcodone/APAP 7.5-325MG [Chardon 7.5-325] 1 tab PO QID PRN PRN Reason: Pain Fluticasone Nasal [place] [Flonase Nasal [place]] 1 spray EA NOSTRIL DAILY Atorvastatin Calcium [Lipitor] 40 mg PO HS #90 tablet lisinopriL [Zestril] 10 mg PO DAILY Ibuprofen [Motrin] 600 mg PO Q8HR EPINEPHrine (Auto Inject) [Epipen] 0.3 mg IM ONCE PRN PRN Reason: Anaphylaxis Discharge Medication List Fluticasone Nasal [place] [Flonase Nasal [place]] 1 spray EA NOSTRIL DAILY 02/12/21 [History] HYDROcodone/APAP 7.5-325MG [Chardon 7.5-325] 1 tab PO QID PRN 02/12/21 [History] Montelukast Sodium [Singulair] 10 mg PO HS 02/12/21 [History] Atorvastatin Calcium [Lipitor] 40 mg PO HS #90 tablet 02/15/21 [Rx] Albuterol Inhaler [Ventolin Hfa Inhaler] 2 puff INHALATION RT-Q6H PRN 10/14/21 [History] EPINEPHrine (Auto Inject) [Epipen] 0.3 mg IM ONCE PRN 10/14/21 [History] Ibuprofen [Motrin] 600 mg PO Q8HR 10/14/21 [History] lisinopriL [Zestril] 10 mg PO DAILY 10/14/21 [History] HYDROcodone/APAP 7.5-325MG [[place] 7.5-325] 1 each PO Q4HR PRN #60 tab 10/20/21 [Rx] amLODIPine [Norvasc] 5 mg PO DAILY #30 tab 10/20/21 [Rx] hydrALAZINE HCL [Apresoline] 25 mg PO BID #60 tab 10/20/21 [Rx] lisinopriL [Zestril] 20 mg PO DAILY #30 tab 10/20/21 [Rx] Follow up Appointment(s)/Referral(s): Brian Crowell MD [Medical Doctor] - 10/26/21 2:15 pm Monster Bolivar MD [Primary Care Provider] - 10/24/21 11:00 am Activity/Diet/Wound Care/Special Instructions: No driving while taking Chardon No lifting over 10 pounds You may shower. No soaking or tub baths for 2 weeks Very light activity until you are reevaluated at your follow up appointment with your surgeon Patient needs vaccinations for H influenza and meningococcal on 10/28/2021 which will be given at Dr. Bolivar's office
== END 2021-10-20 16:35 | disposition home or self-care (01) | DRG 799 ==
LOC: EC 06:23 → 2SICU 12:23 → 5NMEDONC 10-16 11:22
PROVIDERS: ADMIT Surgery; ATTEND Surgery
PROC: 0WQF0ZZ Repair Abdominal Wall, Open Approach (ICD-10-PCS; 2021-10-14)
PROC: 0W9F0ZZ Drainage of Abdominal Wall, Open Approach (ICD-10-PCS; 2021-10-14)
PROC: 30233N1 Transfusion of Nonautologous Red Blood Cells into Peripheral Vein, Percutaneous Approach (ICD-10-PCS; 2021-10-14)
PROC: 0D9770Z Drainage of Stomach, Pylorus with Drainage Device, Via Natural or Artificial Opening (ICD-10-PCS; 2021-10-14)
PROC: 07TP0ZZ Resection of Spleen, Open Approach (ICD-10-PCS; principal; 2021-10-14 10:05)
DX: S36.039A Unspecified laceration of spleen, initial encounter (principal); K66.1 Hemoperitoneum; J98.11 Atelectasis; R18.8 Other ascites; D62 Acute posthemorrhagic anemia; J44.9 Chronic obstructive pulmonary disease, unspecified; K42.9 Umbilical hernia without obstruction or gangrene; Z20.822 Contact with and (suspected) exposure to COVID-19; Z71.6 Tobacco abuse counseling; D50.0 Iron deficiency anemia secondary to blood loss (chronic); J45.909 Unspecified asthma, uncomplicated; G89.29 Other chronic pain; D72.829 Elevated white blood cell count, unspecified; E78.5 Hyperlipidemia, unspecified; E87.6 Hypokalemia; F17.210 Nicotine dependence, cigarettes, uncomplicated; I10 Essential (primary) hypertension; W18.30XA Fall on same level, unspecified, initial encounter; Z79.899 Other long term (current) drug therapy; J30.2 Other seasonal allergic rhinitis; Z98.42 Cataract extraction status, left eye; Z98.41 Cataract extraction status, right eye
CPT/HCPCS: 36415; 36430; 51702; 71045; 74176; 80048; 80053; 80320; 81001; 83605; 83735; 84100; 84145; 84484; 85025; 85027; 85610; 85730; 86140; 86850; 86891; 86900; 86901; 86920; 87040; 87635; 88305; 93005; 96365; 96367; 96375; 99291

== ENCOUNTER → 2022-02-20 | Outpatient (CLI) | payer MEDICARE, BC ==
--- NOTE | 2022-02-20 14:27 | XR ---
EXAMINATION TYPE: XR cervical spine limited DATE OF EXAM: 02/20/2022 COMPARISON: 04/07/2015 HISTORY: Pain TECHNIQUE: Four views are submitted. FINDINGS: The odontoid is intact. There are no compression deformities. The prevertebral soft tissue structur es are within normal limits. Severe degenerative disc disease C2-C3, C4-5, C5-6 and C6-C7. Large ant erior spurring is seen in the mid and lower cervical spine. There is multilevel facet arthropathy. Od ontoid view is nondiagnostic. Lateral view grossly appears limited. Vascular calcifications in the so ft tissues of neck. Suspect previous shoulder replacement surgery. IMPRESSION: 1. Multilevel severe degenerative disc disease and hypertrophic spurring. Limited assessment of the o dontoid. Recommend follow-up MRI or CT scan based on the patient's tolerance..
== END | disposition home or self-care (01) ==
LOC: RADXRMAIN 13:48
PROVIDERS: ATTEND Family Medicine
DX: M50.31 Other cervical disc degeneration, high cervical region (principal)
CPT/HCPCS: 72040

== ENCOUNTER → 2022-03-14 | Outpatient (CLI) | payer MEDICARE, BC ==
--- NOTE | 2022-03-15 22:35 | MR ---
EXAMINATION TYPE: MR cervical spine wo con DATE OF EXAM: 03/14/2022 INDICATION: Patient age:Male; 66 years old; Reason for study: M50.33CERVICAL DISC DEGENERATION, CERVICOTHORACIC; PHH. Neck pain, numbness/tinglin g charu upper extremities COMPARISON: None . TECHNIQUE: Multi planar, multi sequence imaging was performed utilizing: T1-weighted, T2-weighted, an d turbo inversion recovery imaging of the cervical spine. IV Contrast: None FINDINGS: Alignment: The cervical vertebral bodies have preserved heights. Grade 1 anterolisthesis of C7 on T1. Bones: No evidence of bony edema on inversion recovery. Multilevel degenerative disc disease is noted and most pronounced at the C3-C7 vertebral levels. Cord: The spinal cord is unremarkable with regards to their signal intensity and morphology. Discs: Multilevel disc desiccation is present. C2-C3: A disc osteophyte complex is present which minimally narrows the ventral subarachnoid space. Bilateral facet and uncovertebral joint arthropathy are present with mild bilateral neural foraminal stenosis. C3-C4: A disc osteophyte complex is present with mild spinal canal stenosis. Bilateral facet and unc overtebral joint arthropathy are present with moderate to severe left and moderate right neural william inal stenosis. C4-C5: A disc osteophyte complex is present which impresses upon the anterior spinal cord on the left with moderate spinal canal stenosis. Bilateral facet and uncovertebral joint arthropathy are presen t with moderate left and mild right neural foraminal stenosis. C5-C6: A disc osteophyte complex is present with mild spinal canal stenosis. Bilateral facet and unc overtebral joint arthropathy are present with mild bilateral neural foraminal stenosis. C6-C7: A disc osteophyte complex is present with moderate to severe spinal canal stenosis. Bilateral facet and uncovertebral joint arthropathy are present with moderate to severe bilateral neural william inal stenosis. C7-T1: Grade 1 anterolisthesis at this level with disc uncovering. No significant disc pathology. The spinal canal is patent. Bilateral facet and uncovertebral joint arthropathy are present with modera te bilateral neural foraminal stenosis. Other: Significant paranasal sinus disease with mucosal thickening. IMPRESSION: 1. C6-C7 moderate to severe spinal canal stenosis with disc osteophyte complex impressing upon the s yanna cord. No myelomalacia identified 2. C4-C5 moderate spinal canal stenosis with disc osteophyte complex impressing upon the left spinal cord. No myelomalacia identified 3. Grade 1 anterolisthesis of C7 on T1. 4. Paranasal sinus disease consider evaluation of the paranasal sinuses with CT sinus.
== END | disposition home or self-care (01) ==
LOC: RADMRIMAIN 16:30
PROVIDERS: ATTEND Family Medicine
DX: M50.33 Other cervical disc degeneration, cervicothoracic region (principal); M25.78 Osteophyte, vertebrae; M48.02 Spinal stenosis, cervical region; J32.8 Other chronic sinusitis; M43.13 Spondylolisthesis, cervicothoracic region
CPT/HCPCS: 72141

== ENCOUNTER → 2022-04-12 | Outpatient (CLI) | payer MEDICARE, BC ==
[2022-04-12 20:17] LABS: Basophils % (A) 1.1 %; Eosinophils # (A) 0.37 X 10*3/uL (0.04-0.35); Eosinophils % (A) 4.2 %; HCT 41.9 % (39.6-50.0); HGB 12.8 g/dL (13.0-17.0); Immature Grans, Automated 0.1 %; Lymphocytes # (A) 2.87 X 10*3/uL (0.90-5.00); Lymphocytes % (A) 32.2 %; MCH 27.2 pg (27.0-32.0); MCHC 30.5 g/dL (32.0-37.0); MCV 89.1 fL (80.0-97.0); Mean Platelet Volume 11.1 fL (9.5-12.2); Monocytes % (A) 7.9 %; NRBC Per 100 WBC 0 /100 WBCS (0.0-0.0); Neutrophils # (A) 4.86 X 10*3/uL (1.80-7.70); Neutrophils % (A) 54.5 %; Platelet Count 303 X 10*3/uL (140-440); RDW 14.7 % (11.5-14.5); WBC 8.91 X 10*3/uL (4.50-10.00)
== END | disposition home or self-care (01) ==
LOC: LABPAT 13:09
PROVIDERS: ATTEND Surgery
DX: Z01.812 Encounter for preprocedural laboratory examination (principal); K40.90 Unilateral inguinal hernia, without obstruction or gangrene, not specified as recurrent; D64.9 Anemia, unspecified; F17.200 Nicotine dependence, unspecified, uncomplicated
CPT/HCPCS: 85025; 93005

== ENCOUNTER 2022-04-17 06:59 | Day surgery (SDC) | payer MEDICARE, BC ==
[2022-04-13 11:24] VITALS: BMI 23.4
[~2022-04-17 06:59] MED LIST: ACETAMINOPHEN TAB 500 MG TAB PO PRN; DEXAMETHASONE SOD PHOSPHATE 4 MG/ML 1 ML VIAL IV ONE; HEPARIN SODIUM,PORCINE/PF 5,000 UNIT/0.5 ML SYRINGE SQ PRN; HYDROmorphone 0.5 MG/0.5 ML SYRINGE IVP PRN; LACTATED RINGERS 1,000 ML IV SCH; LIDOCAINE 1% (10MG/ML) FOR IV START INTRADERMA PRN; ONDANSETRON 4 MG/2 ML VIAL IVP ONE
--- NOTE | 2022-04-17 07:26 | P.GSHP ---
History of Present Illness H&P Date: 04/17/22 Chief Complaint: Left inguinal hernia 66-year-old male known to our service from urgent splenectomy performed last September. This was after a fall. Patient at that time had a symptomatic left inguinal hernia that has become more symptomatic postoperatively. No change in bowel habits. No symptoms on the right. Past Medical History Past Medical History: Eye Disorder, Hyperlipidemia, Hypertension Additional Past Medical History / Comment(s): environmental allergies, see dr Arrington's history and physical for cardiac history. pt states he had couple issues with palpitaions and vtach/svt-states he was cleared by Dr Arrington and that the issue was caused by bee allergy. neck injury/pain History of Any Multi-Drug Resistant Organisms: None Reported Past Surgical History: EPS, Heart Catheterization, Hernia Repair, Orthopedic Surgery Additional Past Surgical History / Comment(s): ankle surgery X3 with hardware. face surgery w/ titanium mesh. left eye cataract removed. emergency spleenectomy. chaur shoulder surg Past Anesthesia/Blood Transfusion Reactions: No Reported Reaction Additional Past Anesthesia/Blood Transfusion Reaction / Comment(s): Pt states he went into "shock" prior to shoulder surgery was in the ER waiting and was talking to Dr Lemus and anesth. Kept him overnight and he had the surgery done the next day. Patient states he has had surgery since then with no problem. Past Psychological History: Anxiety Smoking Status: Former smoker Past Alcohol Use History: Occasional Additional Past Alcohol Use History / Comment(s): quit smoking 04/02/22. no alcohol use since September 2021 Past Drug Use History: Marijuana Additional Drug Use History / Comment(s): occasional use - Past Family History Mother Family Medical History: No Reported History Brother(s) Family Medical History: Coronary Artery Disease (CAD) Medications and Allergies Home Medications Medication Instructions Recorded Confirmed Type Fluticasone Nasal [place] [Flonase 1 spray EA NOSTRIL DAILY 02/12/21 04/13/22 History Nasal Jenera] HYDROcodone/APAP 7.5-325MG [[place] 1 tab PO QID PRN 02/12/21 04/13/22 History 7.5-325] Montelukast Sodium [Singulair] 10 mg PO HS 02/12/21 04/13/22 History Atorvastatin Calcium [Lipitor] 40 mg PO HS #90 tablet 02/15/21 04/13/22 Rx Albuterol Inhaler [Ventolin Hfa 2 puff INHALATION RT-Q6H PRN 10/14/21 04/13/22 History Inhaler] EPINEPHrine (Auto Inject) [Epipen] 0.3 mg IM ONCE PRN 10/14/21 04/13/22 History Ibuprofen [Motrin] 600 mg PO Q8HR 10/14/21 04/13/22 History amLODIPine [Norvasc] 5 mg PO DAILY #30 tab 10/20/21 04/13/22 Rx hydrALAZINE HCL [Apresoline] 25 mg PO BID #60 tab 10/20/21 04/13/22 Rx lisinopriL [Zestril] 20 mg PO DAILY #30 tab 10/20/21 04/13/22 Rx Allergies Allergy/AdvReac Type Severity Reaction Status Date / Time bee venom protein (honey bee) Allergy Anaphylaxis Verified 04/13/22 11:08 Surgical - Exam Physical exam: General: Well-developed, well-nourished HEENT: Normocephalic, sclerae nonicteric Abdomen: Nontender, nondistended, midline incision noted, reducible left inguinal hernia Extremities: No edema Neuro: Alert and oriented Assessment and Plan (1) Left inguinal hernia Narrative/Plan: 66-year-old male with left inguinal hernia. We'll proceed with laparoscopic da Maxine assisted repair left inguinal hernia with mesh, possible open, possible bilateral. Risks of bleeding, infection, recurrence, bladder and bowel injury, numbness, nerve injury, conversion to an open procedure were discussed with the patient. The patient understands and wishes to proceed. Current Visit: Yes Status: Acute Code(s): K40.90 - UNIL INGUINAL HERNIA, W/O OBST OR GANGR, NOT SPCF RECUR SNOMED Code(s): 413390905
[2022-04-17 07:51] LABS: Glucose,Whole Blood 98 mg/dL (70-110)
[2022-04-17] MEDS ORDERED: TAMSULOSIN 0.4 MG CAP.ER.24H PO ONE (08:00)
[2022-04-17] MEDS ORDERED: LIDOCAINE 2% INJ 20 MG/ML (2 ML VIAL) ONE (08:14)
[2022-04-17] MEDS ORDERED: ROCURONIUM 10 MG/ML (5 ML VIAL) IV ONE (08:14)
[2022-04-17] MEDS ORDERED: MIDAZOLAM 2 MG/2 ML VIAL ONE (08:14)
[2022-04-17] MEDS ORDERED: fentaNYL (PF) 50 MCG/ML 2 ML AMP ONE (08:14)
[2022-04-17] MEDS ORDERED: PHENYLEPHRINE-0.9% NACL SYG 1,000 MCG/10 ML SYRINGE ONE (08:14)
[2022-04-17] MEDS ORDERED: NEOSTIGMINE 1 MG/ML 10 ML VIAL ONE (08:14)
[2022-04-17] MEDS ORDERED: GLYCOPYRROLATE 0.2 MG/ML 2 ML VIAL ONE (08:14)
[2022-04-17] MEDS ORDERED: PROPOFOL 10 MG/ML 20 ML VIAL IV ONE (08:14)
[2022-04-17] MEDS ORDERED: SUCCINYLCHOLINE CHLORIDE 200 MG/10 ML VIAL IV ONE (08:14)
[2022-04-17] MEDS ORDERED: BUPIVACAIN-EPI 0.25%-1:200,000 30 ML VIAL SQ ONE ×2 (08:38)
--- NOTE | 2022-04-17 10:12 | P.OP ---
Date of Procedure: 04/17/22 Procedure(s) Performed: PREOPERATIVE DIAGNOSIS: Left inguinal hernia POSTOPERATIVE DIAGNOSIS: Large sliding indirect left inguinal hernia PROCEDURE: Laparoscopic da Maxine assisted repair left inguinal hernia with mesh SURGEON: Dr. Crowell ANESTHESIA: General OPERATIVE PROCEDURE DETAILS: Patient was placed in the operating table in the supine position. The patient was placed under general anesthesia. The abdomen was prepped and draped in usual sterile fashion. A small incision was made in the left midabdomen. The 5 mm optical trocar was used to gain entrance into the cavity because of the patient's large midline incision from before. We were able to gain pneumoperitoneum without difficulty. There were minimal adhesions to the midline. Additionally millimeter trocar was placed in the supra umbilical location through a vertical incision through the previous scar site. An 8 mm trocar was then placed in the right upper quadrant laterally. The initial 5 was then switched to an 8 mm trocar without difficulty. The robotic arms were then brought in and docked into place. The fenestrated bipolar was used in the left arm and the laparoscopic silvia was utilized in the right arm. A 30 8 mm scope was used in the up position. The peritoneal cavity was inspected. The patient had a large sliding indirect left inguinal hernia containing a loop of the sigmoid colon. This was not able to be reduced without reducing the hernia sac itself. The peritoneum was incised in a horizontal f ashion cephalad to the internal inguinal ring. Following that careful dissection of the preperitoneal space took place. This took place using both electrocautery, sharp dissection but primarily blunt dissection. Visualization of the pubic tubercle and Zenon's ligament took place medially. Full dissection took place laterally as well. The hernia sac was fully dissected. Once we had adequate space the [id number] Progrip mesh was advanced into the preperitoneal space and flattened out appropriately to cover all potential hernia sites. No sutures were used. The peritoneal defect was then closed using a absorbable 2-0 VLok suture. The hernia sac was incorporated into the peritoneal closure to help prevent future recurrence. The pneumoperitoneum was then evacuated. The skin of all 3 sites was closed using a 4-0 Monocryl stitch. Skin glue was then applied. TYPE OF MESH USED: Progrip LOCATION OF MESH: Preperitoneal FIXATION: None PREOPERATIVE DISCUSSION ON SMOKING CESSASTION: Yes PREOPERATIVE DISCUSSION ON MORBID OBESITY: Yes PREOPERATIVE DISCUSSION ON APPROPRIATE USE OF NARCOTIC USE: Yes PREOPERATIVE EDUCATION: Multi Modal, Smoking Cessation and Weight Loss with BMI over 35. DISPOSITION: Stable to recovery room
[2022-04-17 10:14] VITALS: TEMP 97.6
[2022-04-17] MEDS ORDERED: HYDROmorphone 0.5 MG/0.5 ML SYRINGE IVP ONE ×4 (10:22→13:10)
[2022-04-17 11:17] VITALS: RESP 16
[2022-04-17] MEDS ORDERED: ACETAMINOPHEN TAB 325 MG TAB PO SCH (12:00)
[2022-04-17 12:42] VITALS: BP 145/71; PULSE 90
[2022-04-17] MEDS ORDERED: LACTATED RINGERS 1,000 ML IV ONE ×2 (12:43)
[2022-04-17] MEDS ORDERED: IBUPROFEN 600 MG TAB PO SCH (13:15)
== END 2022-04-17 13:53 | disposition home or self-care (01) ==
LOC: OR 06:59
PROVIDERS: ATTEND Surgery
DX: K40.90 Unilateral inguinal hernia, without obstruction or gangrene, not specified as recurrent (principal); E78.5 Hyperlipidemia, unspecified; I10 Essential (primary) hypertension; J32.9 Chronic sinusitis, unspecified; Z90.81 Acquired absence of spleen; Z82.49 Family history of ischemic heart disease and other diseases of the circulatory system; Z91.030 Bee allergy status; F41.9 Anxiety disorder, unspecified; Z87.891 Personal history of nicotine dependence; Z79.1 Long term (current) use of non-steroidal anti-inflammatories (NSAID); Z79.899 Other long term (current) drug therapy; R20.0 Anesthesia of skin; M54.2 Cervicalgia
CPT/HCPCS: 86900; 86901; 86850; 49650; C1781; J2250; J0330; J1100; J2710; J0690; J2405; J3010; J2370; J2704; J1170; J1644; J2001

== ENCOUNTER → 2022-06-15 | Outpatient (CLI) | payer MEDICARE, BC | END | disposition home or self-care (01) | LOC: LABPAT 11:44 | PROVIDERS: ATTEND Orthopaedic Surgery | DX: Z01.812 Encounter for preprocedural laboratory examination (principal); M47.812 Spondylosis without myelopathy or radiculopathy, cervical region; M48.02 Spinal stenosis, cervical region; M43.12 Spondylolisthesis, cervical region; Z22.322 Carrier or suspected carrier of Methicillin resistant Staphylococcus aureus | CPT/HCPCS: 87070 ==

== ENCOUNTER → 2022-06-16 | Outpatient (CLI) | payer MEDICARE, BC ==
--- NOTE | 2022-06-16 10:26 | CT ---
EXAMINATION TYPE: CT cervical spine wo con DATE OF EXAM: 06/16/2022 COMPARISON: MRI 03/14/2022 HISTORY: 66 year-old male M48.02, spinal stenosis or region, G99.2, numbness in both hands, per order cervical stenosis and cervical myelopathy TECHNIQUE: Contiguous axial scanning of the cervical spine without IV contrast. Coronal and sagittal reconstructions performed. CT DLP: 466 mGycm Automated exposure control for dose reduction was used. FINDINGS: Partially visualized severe paranasal sinus disease with some frothy opacification the maxillary sinu ses. Air-fluid level left sphenoid sinus. No craniocervical junction abnormality, predental space widening, or prevertebral soft tissue swellin g. There is some degenerative change of the C1 dens articulation. Multilevel hypertrophic facet and uncovertebral joint arthropathy. There is some degenerative bony an kylosis across the C5-C6 left-sided facet joints. Additional multilevel moderate to advanced disc/endplate degenerative change. There is grade 1 retrolisthesis C2-C3. Grade 1 anterolisthesis C5-C6. Grade 2 anterolisthesis C7-T1. No acute fracture of the cervical spine. At C2-C3, disc osteophyte complex and ligamentum flavum thickening may contribute to moderate spinal canal stenosis along with moderate to severe left neuroforaminal stenosis. At C3-C4, some ligamentum flavum thickening mildly narrows the spinal canal. Moderate left neural for aminal stenosis. At C4-C5, disc osteophyte complex with superimposed left paracentral disc herniation may cause a yasmeen re focal spinal canal stenosis. Severe left and [id number] right neuroforaminal stenosis. At C5-C6, disc osteophyte complex with mild spinal canal stenosis. Moderate to severe left and modera te right neuroforaminal stenosis. At C6-C7, large disc osteophyte complex with extensive hyperostotic changes. Possible severe spinal c anal stenosis and severe bilateral neuroforaminal stenosis. At C7-T1, grade 2 anterolisthesis. Spinal canal not well assessed. No obvious significant narrowing b y limited CT. However, there appears to be severe bilateral neuroforaminal stenosis. Emphysematous changes in the visualized upper lungs along with right greater than left biapical pleur al-parenchymal scarring. IMPRESSION: 1. ADVANCED MULTILEVEL SPONDYLOTIC CHANGE. THERE IS DEGENERATIVE GRADE 1 SPONDYLOLISTHESIS AT C2-C3 A ND C5-C6. DEGENERATIVE GRADE 2 ANTEROLISTHESIS AT C7-T1. 2. POSSIBLE SEVERE SPINAL CANAL STENOSIS AT THE C4-C5 AND C6-C7. THESE LEVELS COULD CONTRIBUTE TO THE PATIENT'S MYELOPATHIC SYMPTOMS. FINDINGS MAY BE OVERESTIMATED ON CT. CONSIDER FOLLOW-UP MRI IF SYMPT OMS HAVE WORSENED FROM THE PATIENT'S PRIOR 03/14/2022 STUDY. 3. ADDITIONAL VARIABLE MILD TO MODERATE CANAL STENOSIS OUTLINED ABOVE. 4. SEVERE BILATERAL NEURAL FORAMINAL STENOSIS AT BOTH C6/C7 AND C7-T1. ADDITIONAL VARIABLE NEUROFORAM INAL STENOSES OUTLINED ABOVE. 5. SEVERE ACUTE ON CHRONIC PARANASAL SINUS DISEASE. RECOMMEND ENT REFERRAL IF SYMPTOMATIC.
== END | disposition home or self-care (01) ==
LOC: RADCTMAIN 08:51
PROVIDERS: ATTEND Orthopaedic Surgery
DX: M43.12 Spondylolisthesis, cervical region (principal); M47.12 Other spondylosis with myelopathy, cervical region; M48.02 Spinal stenosis, cervical region; M99.72 Connective tissue and disc stenosis of intervertebral foramina of thoracic region
CPT/HCPCS: 72125

== ENCOUNTER 2022-06-22 11:38 | Inpatient (IN) | payer MEDICARE, BC ==
[~2022-06-22 11:38] MED LIST changes: -DEXAMETHASONE SOD PHOSPHATE 4 MG/ML 1 ML VIAL IV ONE; +GABAPENTIN 300 MG CAP PO PRN; -HEPARIN SODIUM,PORCINE/PF 5,000 UNIT/0.5 ML SYRINGE SQ PRN; -HYDROmorphone 0.5 MG/0.5 ML SYRINGE IVP PRN; -LACTATED RINGERS 1,000 ML IV SCH; -LIDOCAINE 1% (10MG/ML) FOR IV START INTRADERMA PRN; -ONDANSETRON 4 MG/2 ML VIAL IVP ONE; +ONDANSETRON 4 MG/2 ML VIAL IVP PRN; +TRANEXAMIC ACID IN NACL,ISO-OS 1,000 MG in SALINE 1 100ML.BAG IVPB PRN
[2022-06-29 10:55] VITALS: BMI 23.0
[2022-07-03] MEDS ORDERED: TRANEXAMIC ACID IN NACL,ISO-OS 1,000 MG in SALINE 1 100ML.BAG IVPB PRN ×2 (05:00)
[2022-07-03] MEDS ORDERED: ACETAMINOPHEN TAB 500 MG TAB PO PRN (05:00)
[2022-07-03] MEDS ORDERED: GABAPENTIN 300 MG CAP PO PRN (05:00)
[2022-07-03] MEDS ORDERED: ONDANSETRON 4 MG/2 ML VIAL IVP PRN (05:00)
[2022-07-03] MEDS ORDERED: MIDAZOLAM 2 MG/2 ML VIAL IV PRN (06:08)
[2022-07-03] MEDS ORDERED: LIDOCAINE 1% (10MG/ML) FOR IV START INTRADERMA PRN (06:08)
[2022-07-03] MEDS ORDERED: DEXAMETHASONE SOD PHOSPHATE 4 MG/ML 1 ML VIAL IV ONE (06:08)
[2022-07-03] MEDS ORDERED: ONDANSETRON 4 MG/2 ML VIAL IVP ONE (06:08)
[2022-07-03] MEDS: LACTATED RINGERS 1,000 ML IV SCH ×2 (06:19→16:55)
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
[2022-07-03] MEDS ORDERED: LACTATED RINGERS 1,000 ML IV ONE ×5 (06:33→13:25)
[2022-07-03] MEDS ORDERED: MIDAZOLAM 2 MG/2 ML VIAL IVP ONE (07:18)
[2022-07-03] MEDS ORDERED: MIDAZOLAM 2 MG/2 ML VIAL ONE (07:30)
[2022-07-03] MEDS ORDERED: HYDROmorphone (PF) 1 MG/ML ONE (07:30)
[2022-07-03] MEDS ORDERED: PHENYLEPHRINE-0.9% NACL SYG 1,000 MCG/10 ML SYRINGE ONE (07:30)
[2022-07-03] MEDS ORDERED: ALBUMIN HUMAN 5% (25gm) 500 ML VIAL IVPB ONE (07:30)
[2022-07-03] MEDS ORDERED: SUCCINYLCHOLINE CHLORIDE 200 MG/10 ML VIAL IV ONE (07:30)
[2022-07-03] MEDS ORDERED: GLYCOPYRROLATE 0.2 MG/ML 2 ML VIAL ONE (07:30)
[2022-07-03] MEDS ORDERED: WATER FOR INJECTION, STERILE 10 ML VIAL IV ONE (07:30)
[2022-07-03] MEDS ORDERED: PROPOFOL 10 MG/ML 20 ML VIAL IV ONE (07:30)
[2022-07-03] MEDS ORDERED: ePHEDrine 50 MG/ML 1 ML VIAL ONE (07:30)
[2022-07-03] MEDS ORDERED: fentaNYL (PF) 50 MCG/ML 2 ML AMP ONE (07:30)
[2022-07-03] MEDS ORDERED: VASOPRESSIN 20 UNIT/ML 1 ML VIAL ONE (07:30)
[2022-07-03] MEDS ORDERED: LIDOCAINE 2% INJ 20 MG/ML (2 ML VIAL) ONE (07:30)
[2022-07-03] MEDS ORDERED: TRANEXAMIC ACID IN NACL,ISO-OS 1,000 MG/100 ML BAG ONE (07:30)
[2022-07-03] MEDS ORDERED: NEOSTIGMINE 1 MG/ML 10 ML VIAL ONE (07:30)
[2022-07-03] MEDS ORDERED: diphenhydrAMINE 50 MG/ML 1 ML VIAL ONE (07:30)
[2022-07-03] MEDS ORDERED: KETAMINE 10 MG/ML 20 ML VIAL ONE (07:30)
[2022-07-03] MEDS ORDERED: ROCURONIUM 10 MG/ML (5 ML VIAL) IV ONE (07:30)
--- NOTE | 2022-07-03 07:38 | P.ANPRN ---
Procedure Note - Anesthesia - Invasive Line Left Arterial Line Time Out Performed: Yes Date of Procedure: 07/03/22 Time of Procedure: 07:21 Location of Patient: PreOp Preparation: Sterile Prep, Sterile Dressing Arterial Line Location: Radial Ultrasound Used: No Narrative: Central line placement per sterile protocol utilized.
[2022-07-03] MEDS ORDERED: GELATIN SPONGE,ABSORB (LARGE) 1 EACH SPONGE TOPICAL ONE (08:33)
[2022-07-03] MEDS ORDERED: THROMBIN (BOVINE) 5,000 UNIT VIAL TOPICAL ONE (08:33)
[2022-07-03] MEDS ORDERED: SENNOSIDES-DOCUSATE SODIUM 1 EACH TAB PO PRN (10:57)
[2022-07-03] MEDS ORDERED: MAGNESIUM HYDROXIDE 2,400 MG/10 ML CUP PO PRN (10:57)
[2022-07-03] MEDS ORDERED: ACETAMINOPHEN TAB 325 MG TAB PO SCH (12:00)
[2022-07-03] MEDS ORDERED: VANCOMYCIN 1,250 MG in SODIUM CHLORIDE 0.9% 250 ML IVPB ONE (12:30)
[2022-07-03] MEDS ORDERED: VANCOMYCIN 1,000 MG VIAL MISCELLANE ONE (12:56)
--- NOTE | 2022-07-03 13:29 | P.ANPRN ---
Procedure Note - Anesthesia - Invasive Line Left Central Line Time Out Performed: Yes (0720) Date of Procedure: 07/03/22 Time of Procedure: 07:21 Location of Patient: PreOp Preparation: Sterile Prep, Sterile Dressing Central Line Location: Internal Jugular (left) Ultrasound Used: Yes Purpose - Visualization and Identification of Vasculature: Yes Needle Guage: 18g angio Image Stored and Saved: Yes Narrative: Central line placement per sterile protocol utilized. +local +angio +cvp +jwire +uneventful dilation and introduction left IJ Double lumen catheter. Lumens bled and flushed
[2022-07-03] MEDS ORDERED: ALBUTEROL NEBULIZED 2.5 MG/3 ML INHALATION ONE (14:47)
--- NOTE | 2022-07-03 14:48 | XR ---
EXAMINATION TYPE: XR cervical spine limited DATE OF EXAM: 07/03/2022 COMPARISON: NONE HISTORY: Anterior cervical fusion TECHNIQUE: 10 intraoperative images FINDINGS: Intraoperative fluoroscopy changes are demonstrated with the postsurgical changes also seen . Resolution and artifactual artifact overlying limits assessment. Central line and ET tube noted. IMPRESSION: Limited intraoperative images
[2022-07-03] MEDS: HYDROmorphone 0.5 MG/0.5 ML SYRINGE IVP PRN ×3 (14:52→22:25)
--- NOTE | 2022-07-03 15:03 | FL ---
EXAMINATION TYPE: FL guidance operating room DATE OF EXAM: 07/03/2022 HISTORY: Fluoroscopy time 1 minute and 27 seconds of fluoroscopy provided. 4.7883 DAP. IMPRESSION: 1. Fluoroscopy time.
[2022-07-03] MEDS ORDERED: ALBUTEROL NEBULIZED 2.5 MG/3 ML INHALATION PRN (15:04)
[2022-07-03 15:54] LABS: Glucose,Whole Blood 158 mg/dL (70-110)
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
[2022-07-03] MEDS: PANTOPRAZOLE 40 MG/10 ML VIAL IVP SCH (16:54)
[2022-07-03] MEDS: ACETAMINOPHEN IV (For NPO) 1,000 MG in EMPTY BAG 1 BAG IVPB SCH (16:55)
--- NOTE | 2022-07-03 17:02 | XR ---
EXAMINATION TYPE: XR chest 1V portable DATE OF EXAM: 07/03/2022 4:47 PM COMPARISON: Chest radiographs from 10/15/2021 TECHNIQUE: XR chest 1V portable Frontal view of the chest. CLINICAL INDICATION:Male, 66 years old with history of shortness of breath; FINDINGS: Lungs/Pleura: Prominent interstitial lung markings are seen scattered throughout the lungs with juarez ening of the diaphragm and increased lucency of the lung apices. No evidence of focal consolidation, pneumothorax or pleural effusion. Pulmonary vascularity: Unremarkable. Heart/mediastinum: Cardiomediastinal silhouette is unremarkable. Musculoskeletal: Postsurgical changes to the lower cervical spine with fixation hardware in place. Th ere is skin luis present. Heart appears intact. Right shoulder arthroplasty changes are also prese nt. Hardware appears intact as well. Left shoulder demonstrates end-stage osteoporosis changes. IMPRESSION: 1. Chronic changes without acute pulmonary process. 2. COPD changes. 3. New surgical changes involving the neck hardware appears intact.
--- NOTE | 2022-07-03 19:09 | P.OP ---
Date of Procedure: 07/03/22 Preoperative Diagnosis: 1. Cervical stenosis with myelopathy 2. Cervical spondylosis with radiculopathy 3. UE weakness 4. LE weakness Postoperative Diagnosis: 1. Cervical stenosis with myelopathy 2. Cervical spondylosis with radiculopathy 3. UE weakness 4. LE weakness Procedure(s) Performed: Two separate procedures preformed on the same day. Part I: 1. C4-5, C5-6, C6-7 anterior cervical arthroplasty (33989, [id number]) 2. Insertion of biomechanical device C4-5, C5-6, C6-7 ([id number]) Part II: 1. C2-T2 posteriolateral instrumented fusion (80341, [id number]) 2. Segmental instrumentation C2-T2 (47982) 3. C2-T7 bilateral laminectomy, partial medial facetectomy and foraminotomy (37754, [id number]) Implants: Anterior: Warren Secure C Posterior; Warren Posterior cervical system Allocell, Magnatos, Autrograft Anesthesia: GETA Surgeon: Damion Baptiste Buckle Stapler #1: Koko Reyes (was present and assisted with all aspects of the case from positioning to dressing placement. ) Estimated Blood Loss (ml): 225 IV fluids (ml): 2,500 Urine output (ml): 550 Pathology: none sent Condition: stable Disposition: PACU Indications for Procedure: Good Gan is a 66 year old male presenting for evaluation of onset of Pain upper and lower extremity radiculopathy difficulty with ambulation and gait disturbance difficulty with fine motor skills. It was my pleasure to have seen and examined Mr. Gan. In our visit today we have had a chance to go over subjective complaints, physical examination findings and treatments, including the natural course history without intervention and various interventional options. The imaging demonstrates severe cervical spondylosis on x-ray and MRI which demonstrates moderate to severe stenosis throughout the cervical spine from C3 through C7 with this collapsed disc height loss and C7-T1 anterolisthesis. Myelomalacia changes starting at C4 5. . On physical exam, Mr. 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 . I explained to the patient that as his condition progresses it could cause Progressive neurologic Walker continued symptoms worsening symptoms. Continued neck pain or worsening neck pain. . At this time, based on the patients imaging and physical exam, I recommend surgery in the form or a: Phase I C3 to C7 ACDF followed by phase II C2 to T2 posterior decompression fusion . I discussed the risk and benefits of this procedure at length with Mr. Gan. The patient agreed to consider pursuing the procedure mentioned above. Plan: 1. phase I: C3 to C7 anterior cervical discectomy and fusion; phase 2: C2 to T2 posterior decompression fusion Description of Procedure: Part I: C3-7 ACDF The patient was seen and examined in the preoperative area. All preoperative protocols were followed. Informed consent was obtained risks and benefits of the procedure were discussed at length. Risks including bleeding infection damage to the surrounding tissue and risk of re-operation were discussed with the patient. Risk of anesthesia up to and including was a discussed with the patient. These are outlined in the risk review. They were willing to accept these risks and all the risks of surgery. The patient was given a weight-based dose of antibiotics in the form of 2 g Ancef. The patient was seen and evaluated by the anesthesia team who deemed them fit for surgery. The site was marked, the patient was willing to proceed with the procedure.The patient was transferred to the operative suite by the Department of anesthesia. They were then drifted off to sleep by the department anesthesia and GETA was performed. The patient tolerated this well. Andres catheter was placed by nursing staff, a-traumatically. Once confirmation of lines and ventilation the patient was transferred to a Supine Ace table very carefully. All bony prominences including wrists, elbows, axilla, chest, hips, and thighs, and feet were padded very well. Special attention was paid to the genitalia, and these were padded accordingly. SCDs were placed on bilateral lower extremities and were connected. Arms were well padded and placed at their side thumbs up. Once in position, again we confirmed good ventilation capabilities and that lines were running appropriately. The patients Cervical spine was then exposed. 1010s were placed outlining the incision site. Standard alcohol was used to clean the incision site and allowed to dry. C-arm was used to bio-jonathan the patient and confirm level for incision which was marked with a skin marker. Operative briefing was performed with all teams and everyone in agreement to proceed. The patient was then prepped and draped in a normal sterile fashion. Timeout was then performed, and all parties agreed with the procedure to be performed.Transverse skin incision was then made on the right side of the patients neck 3 cm and dissection taken down to the platysma which was split transversely. Sub platysma flap was made, and interval identified between SCM and medial structures. Omohyoid was visualized and protected. Blunt dissection taken down to the anterior cervical facia which was identified. Blunt prob was then placed and lateral image taken which confirmed levels for operation. These levels were then marked with a bovi. Subperiosteal dissection of the longissimus muscles were then done over these levels identifying uncovertebral joints bilaterally. Retractor was then placed deep to these muscles and held in place with a bed arm. Starting at C6-7, Tuckerton pins were placed into C6 and C7 and gentle distraction taken out over the levels. Drew rongure used to remove disc material. Operating microscope brought in for visualization. Complete discectomy performed at this level with curette, rongure and pituitary. High speed willian used to remove osteophytes anteriorly and posteriorly until PLL was identified. 6-0 up curette then used to identify the canal and resect the PLL. 2-0 and 3-0 Kerrison used then to remove PLL and disc herniation and performed b/l foraminotomies. Once good decompression accomplished, meticulous hemostasis was performed. Sizers were then placed under lateral fluoroscopy until the desired height and lordosis. Cage was then selected, packed with autograft and allograft and placed under lateral imaging. Once in good position it was tested and stable. Motors run before and after cage placement were stable. The wound was irrigated, and autograft placed lateral to the cage anteriorly for fusion. Tuckerton pin was then removed from C7 and placed into C5. Gentle distraction taken out over C5-6 now. Complete discectomy done at C5-6 as described including decompression, b/l foraminotomies and PLL resection. Burring of endplates was minimal, osteophytes removed as described. Spacers were then sized and placed under lateral imaging. Cage selected, packed with graft and placed under lateral images. Once in position, meticulous hemostasis performed, and motors remained stable before and after cage placement. AP image confirmed good placement of cages. Wound was irrigated.Tuckerton pin was then removed from C6 and placed into C4. Gentle distraction taken out over C4-5 now. Complete discectomy done at C4-5 as described including decompression, b/l foraminotomies and PLL resection. Burring of endplates was minimal, osteophytes removed as described. Spacers were then sized and placed under lateral imaging. Cage selected, packed with graft and placed under lateral images. Once in position, meticulous hemostasis performed, and motors remained stable before and after cage placement. AP image confirmed good placement of cages. Wound was irrigated. After each cage placement, screws were placed through the cage with good purchase using lateral imaging. The screws were placed inferiorly and superiorly and locked. All locking mechanisms set, and all screws had good purchase. Final AP and lateral images taken confirmed good placement of hardware and good reduction and religious of height. The wound was then irrigated copiously with NSS. Surgicel placed deep in the wound. A deep drain placed out a separate incision and sewed into place. Layered closure then performed with 3-0 Vicryl in the platysma and sub-Q tissue. 4-0 Strata fix in the subcuticular tissue. The wound was then cleaned, and dried and skin glue placed. Once glue dried an Opifoam was placed.The patient was then transferred back to their hospital bed a-traumatically. The drain continued to hold suction. They were placed in a soft collar. They were then awakened by the department of anesthesia having tolerated the procedure well without complications. Part II: C2-T2 decompression and fusion The patient was seen and examined in the preoperative area. All preoperative protocols were followed. Informed consent was obtained risks and benefits of the procedure were discussed at length. Risks including bleeding infection valeriano ge to the surrounding tissue and risk of reoperation were discussed with the patient. Risk of anesthesia up to and including was a discussed with the patient. These are outlined in the risk review. They were willing to accept these risks and all of the risks of surgery. The patient was given a weight- based dose of antibiotics in the form of 2 g Ancef. The patient was seen and evaluated by the anesthesia team who deemed them fit for surgery. The site was marked, the patient was willing to proceed with the procedure.The patient was transferred to the operative suite by the Department of anesthesia. They were then drifted off to sleep by the department anesthesia and GETA was performed. The patient tolerated this well. pre-positioning motors were obtained.Andres in place from the floor. Once confirmation of lines and ventilation Glade head clamp was placed on the patient and secured and the patient was transferred to a [prone Ace table very carefully] with the Glade head of mathematics the head was secured and placed into an optimal position x-ray confirmed this position. Post- positioning motors remained stable. All bony prominences including wrists, elbows, axilla, chest, hips, and thighs, and feet were padded very well. Special attention was paid to the genitalia and these were padded accordingly. SCDs were placed on bilateral lower extremities and were connected. Arms were well padded and placed tucked at his side thumbs down. Shoulders were gently taped down to the table.. Once in position, again we confirmed good ventilation capabilities and that lines were running appropriately. The patient's posterior cervical spine was then exposed. 1010s were placed outlining the incision site. Standard alcohol was used to clean the incision site and allowed to dry. C-arm was used to biomark the patient and confirm level for incision which was marked with a skin marker. Operative briefing was performed with all teams and everyone in agreement to proceed. The patient was then prepped and draped in a normal sterile fashion. Timeout was then performed and all parties were in agreement with the procedure to be performed. Midline skin incision made over the previously biomarked area and dissection taken down midline to the SP of C2- T2. Subperiosteal dissection taken out over the lamina and lateral masses of C2-C7 and TVP of T1 and T2. Once exposure complete, wound was irrigated and c arm brought in for imaging. A penfield 4 was used to bluntly dissect the medial border of C2 pedicle and placed for guidance. C arm used and willian hole made for starting point. C2 pedicle was then drilled in 2mm increments to 22 mm using a ball tip feeler in between each drill session to make sure within the 4 chaudhary with a good bottom. once this was accomplished a screw was selected and placed under lateral fluoroscopic guidance. Screw had good purchase. This was then repeated on the contralateral side. AP confirmed good placement of both screws. We then proceeded to the T1 screws bilaterally willian was used to remove the facet joint of C7 and to create a starting point for T1. Pedicle finder was then passed into T1 and imaging taken to confirm placement this was then removed and a tap placed ball-tipped probe was then placed and 4 chaudhary of pedicle fell with good bottom. Screw was then measured and placed into T1. These steps were repeated for T2 as well and then this is repeated on the contralateral side for T1 and T2. The T1 pedicle on the right side was atrophic and would not hold a screw and so it was left out. The wound was then irrigated. Lateral mass screws were then drilled to 12 mm and placed at each level. Each had a good bite. Rods were then sized and selected and cut to length. They were bent accordingly and lordosis. There is secured into C2 bilaterally and then sequentially her diet reduced into T1 and T2. All set screws were placed and were then final tightened and the position. Laminectomy was then performed using Ronjair followed by willian bilateral laminotomies and laminectomy was performed C2-C7 using high-speed bur Kerrison Ronjair and up-biting curette. Motors were run before and after decompression and they remain stable. Good pulsations of the cord were noted after decompression. The wound was then copiously irrigated with 3 L of Ancef irrigation followed by 3 L of gentamicin irrigation followed by 3 L of normal sterile saline. Facet joints were drilled at each level to allow for fusion Surgicel was placed over the dura. MagnetOs were placed in the posterior lateral gutters along with Candy and DBM. This was impacted into position for fusion. 2 g of powdered bank was not placed deep within the wound and a deep drain was placed. A cross-link was placed and final tightened. We then proceeded with layered closure first in the deep fascia with #1 PDS then in the middle fascia with 0 Vicryl superficial fascia was closed with 2-0 Vicryl and skin closed with skin luis. The wound edges approximated very well. The wound was then cleaned and dressed sterilely with an operative foam dressing 4 x 4 and Tegaderm. The drain had good suction. The patient was placed in a hard cervical collar.The patient was transferred back to their hospital bed atraumatically. Pacheco head clamp was removed and pin sites were clear. [Drain continued to hold suction and were in good position]. Patient was then awakened and extubated by the department of anesthesia having tolerated the procedure very well with no complications. They were transferred to the postoperative care unit in stable condition.
[2022-07-03 20:36] LABS: Basophils % (A) 0 %; Eosinophils % (A) 0 %; HGB 12.2 gm/dL (13.0-17.5); Lymphocytes % (A) 6 %; MCH 28.8 pg (25.0-35.0); MCHC 32.9 g/dL (31.0-37.0); MCV 87.4 fL (80.0-100.0); Mean Platelet Volume 7.9; Monocytes # (A) 0.7 k/uL (0-1.0); Monocytes % (A) 4 %; Neutrophils # (A) 13.8 k/uL (1.3-7.7); Neutrophils % (A) 88 %; Platelet Count 269 k/uL (150-450); RBC 4.23 m/uL (4.30-5.90); RDW 14.3 % (11.5-15.5); WBC 15.6 k/uL (3.8-10.6)
[2022-07-03] MEDS: MONTELUKAST 10 MG TAB PO SCH (20:41)
[2022-07-03] MEDS: ATORVASTATIN 40 MG TAB PO SCH (20:41)
[2022-07-03] MEDS: HYDROcodone/APAP 5-325MG 1 EACH TAB PO PRN (20:41)
[2022-07-03 21:00] LABS: African American GFR (CKD) >90 (>60 ml/min/1.73 sqM); Anion Gap 6 mmol/L; Blood Urea Nitrogen 11 mg/dL (9-20); Calcium 8.7 mg/dL (8.4-10.2); Carbon Dioxide 26 mmol/L (22-30); Chloride 105 mmol/L (98-107); Glucose 115 mg/dL (74-99); Non-African American GFR(CKD) >90 (>60 ml/min/1.73 sqM); Potassium 4.1 mmol/L (3.5-5.1); Sodium 137 mmol/L (137-145)
[2022-07-03] MEDS ORDERED: hydrALAZINE HCL 25 MG TAB PO SCH (21:00)
[2022-07-03] MEDS: CYCLOBENZAPRINE 5 MG TAB PO PRN (21:59)
[2022-07-04] MEDS ORDERED: VANCOMYCIN 1,250 MG in SODIUM CHLORIDE 0.9% 250 ML IVPB ONE (01:00)
[2022-07-04] MEDS: HYDROmorphone 0.5 MG/0.5 ML SYRINGE IVP PRN ×3 (01:06→21:56)
[2022-07-04] MEDS: ACETAMINOPHEN IV (For NPO) 1,000 MG in EMPTY BAG 1 BAG IVPB SCH ×2 (02:01→07:52)
[2022-07-04] MEDS: HYDROcodone/APAP 10-325MG 1 EACH TAB PO PRN ×2 (02:05→19:58)
[2022-07-04] MEDS: HYDROmorphone 1 MG/ML 1 ML SYRINGE IVP PRN ×5 (03:40→15:30)
[2022-07-04] MEDS: LACTATED RINGERS 1,000 ML IV SCH ×2 (06:29→08:12)
[2022-07-04 07:35] LABS: Basophils % (A) 0 %; Eosinophils # (A) 0.1 k/uL (0-0.7); Eosinophils % (A) 0 %; HCT 35.8 % (39.0-53.0); HGB 11.8 gm/dL (13.0-17.5); Lymphocytes # (A) 1.3 k/uL (1.0-4.8); Lymphocytes % (A) 8 %; MCHC 33.1 g/dL (31.0-37.0); MCV 87.7 fL (80.0-100.0); Mean Platelet Volume 7.8; Monocytes # (A) 1.1 k/uL (0-1.0); Monocytes % (A) 6 %; Neutrophils # (A) 14.5 k/uL (1.3-7.7); Neutrophils % (A) 84 %; Platelet Count 252 k/uL (150-450); RBC 4.08 m/uL (4.30-5.90); RDW 14.3 % (11.5-15.5); WBC 17.2 k/uL (3.8-10.6)
[2022-07-04 07:50] LABS: African American GFR (CKD) >90 (>60 ml/min/1.73 sqM); Anion Gap 4 mmol/L; Blood Urea Nitrogen 10 mg/dL (9-20); Calcium 8.6 mg/dL (8.4-10.2); Carbon Dioxide 28 mmol/L (22-30); Chloride 106 mmol/L (98-107); Glucose 109 mg/dL (74-99); Non-African American GFR(CKD) >90 (>60 ml/min/1.73 sqM); Potassium 3.9 mmol/L (3.5-5.1); Sodium 138 mmol/L (137-145)
[2022-07-04] MEDS: FLUTICASONE 50MCG/SPRAY NASAL 16GM EA NOSTRIL SCH (07:52)
[2022-07-04] MEDS: PANTOPRAZOLE 40 MG/10 ML VIAL IVP SCH (07:52)
[2022-07-04] MEDS: ATORVASTATIN 40 MG TAB PO SCH ×2 (07:52→19:58)
[2022-07-04] MEDS: HYDROcodone/APAP 5-325MG 1 EACH TAB PO PRN (08:03)
--- NOTE | 2022-07-04 08:08 | P.PN ---
Subjective Progress Note Date: 07/04/22 Principal diagnosis: 1. C4-7 Spondylosis 2. grade 1 anterior listhesis C7 T1 3. upper extremity radiculopathy and weakness 4. lower extremity radiculopathy and weakness 5. Cervical myelopathy Patient seen and examined this morning. Patient is resting comfortably in bed. He does state that he has anterior and posterior cervical pain. This is being controlled on current regimen, patient was hesitant for IV pain medication but is now agreeable. Surgical dressings are clean dry and intact Hemovac present to the posterior incision with minimal output, TALISHA drain to the anterior cervical incision also with minimal output. Drains will be pulled later today. Patient reports significant improvement in bilateral upper extremity radiculopathy, he currently denies any numbness tingling. Encouraged patient to be working with physical therapy today and at least that at the bedside if not up to the chair for lunch. Hard cervical collar is present, may be readjusted once patient is sitting up. Patient has remained afebrile, denies nausea/vomiting, or chest pain. Objective - Vital Signs Vital signs: Vital Signs Temp 99.2 F 07/04/22 04:00 Pulse 57 L 07/04/22 07:00 Resp 17 07/04/22 07:00 BP 144/69 07/04/22 07:00 Pulse Ox 97 07/04/22 07:00 FiO2 Intake & Output 07/03/22 07/04/22 07/04/22 18:59 06:59 18:59 Intake Total 4389 653 23 Output Total 1595 1170 0 Balance 2794 -517 23 Weight 76 kg Intake: IV 4209 33 3 arterial line pressure 9 33 3 bag Intake, IV Titration 180 220 20 Amount ACETAMINOPHEN IV (For NPO 100 ) 1,000 mg In Empty Bag 1 bag @ 400 mls/hr IVPB Q8H [facility] Rx#:[id number] Lactated Ringers 1,000 ml 40 180 20 @ 0 mls/hr IV .[facility] Rx#:[id number] Lactated Ringers 1,000 ml 40 40 @ 20 mls/hr IV .Q24H [facility] [place] Rx#:[id number] Oral 400 Output: Drainage 20 0 0 Anterior 20 0 0 Posterior 0 0 0 Urine 1350 1170 Estimated Blood Loss 225 Other: Voiding Method Indwelling Catheter Indwelling Catheter ABP, PAP, CO, CI - Last Documented Arterial Blood Pressure 102/94 - Exam Physical Examination General: The patient is awake and alert, in no acute distress Skin: Skin is warm and dry with no obvious rashes or lesions. Surgical incisions the anterior and posterior cervical, posterior incision has Hemovac drain and anterior incision has TALISHA drain. Eye: Pupils are equal, round and reactive to light, extra-ocular movements are intact; there is normal conjunctiva bilaterally. Neck: The neck is supple, there is moderate tenderness and ROM limited due to recent surgical procedure and Hard cervical collar intact.. Cardiovascular: There is a regular rate and rhythm. No murmur, rub or gallop is appreciated. Respiratory: Lungs are clear to auscultation, respirations are non-labored, br eath sounds are equal. Gastrointestinal: Soft, non-distended, non-tender abdomen. Back: There is no tenderness to palpation in the midline, paralumbar, parathoracic or buttocks region. There is no obvious deformity . Musculoskeletal: ROM limited secondary to pain and stiffness from surgical pr ocedure. Muscle strength in all major muscle groups of bilateral upper extremities 4/5, bilateral lower extremities 5/5. Neurological: CN 2-12 intact. There are no obvious motor or sensory deficits. Movement and coordination equal and intact. Sensory exam to light touch intact C5-T1 and intact from L2-S1. Reflexes 2/4 in bilateral upper and lower extremities. Negative Hoffmans, babinski, and clonus signs. Psychiatric: Cooperative, appropriate mood & affect, normal judgment. - Labs CBC & Chem 7: 07/04/22 07:20 07/04/22 07:20 Labs: Abnormal Lab Results - Last 24 Hours (Table) 07/03/22 07/03/22 07/03/22 Range/Units 15:52 20:20 20:20 WBC 15.6 H (3.8-10.6) k/uL RBC 4.23 L (4.30-5.90) m/uL Hgb 12.2 L (13.0-17.5) gm/dL Hct 37.0 L (39.0-53.0) % Neutrophils # 13.8 H (1.3-7.7) k/uL Monocytes # (0-1.0) k/uL Creatinine 0.52 L (0.66-1.25) mg/dL Glucose 115 H (74-99) mg/dL POC Glucose (mg/dL) 158 H (70-110) mg/dL 07/04/22 Range/Units 07:20 WBC 17.2 H (3.8-10.6) k/uL RBC 4.08 L (4.30-5.90) m/uL Hgb 11.8 L (13.0-17.5) gm/dL Hct 35.8 L (39.0-53.0) % Neutrophils # 14.5 H (1.3-7.7) k/uL Monocytes # 1.1 H (0-1.0) k/uL Creatinine (0.66-1.25) mg/dL Glucose (74-99) mg/dL POC Glucose (mg/dL) (70-110) mg/dL Assessment and Plan Assessment: Postop day 1; Stage 1: C3-C7 ACDF with Stage 2: C2-T2 open decompression and fusion 1. C4-7 Spondylosis 2. grade 1 anterior listhesis C7 T1 3. upper extremity radiculopathy and weakness 4. lower extremity radiculopathy and weakness 5. Cervical myelopathy Plan: -Appreciate senior microsoft consultant and team management. -Activity: Ambulate QID, OOB all meals, up and about, limit lifting bending twisting to less than 5 lbs. Use walker or cane if needed for stability. -Daily PT/OT, increase ambulation strength and balance. -Hard cervical collar on at all times, may remove to shower -Pain control: Adequate at this time -Meds: reviewed -GI ppx: senna, Miralax -DC rowland when up and about, bedside commode if needed -DVT PPX: OK to restart Heparin tonight -Hygiene: Shower today. Maintain dressing clean and dry. -Drains: Maintain for now. DC later today pending out put and PT -Encourage IS 10x/hr -Dispo: Anticipate discharge home in the next 48-72hrs with homecare *I reviewed and discussed this case with my attending Dr. Baptiste, whom has reviewed this chart and films and is in agreement with assessment and plan of care as outlined above. I have personally seen and examined the patient, performed the documentation and the assessment and plan as written. Number of minutes spent on the visit: 15m.
[2022-07-04] MEDS ORDERED: amLODIPine 5 MG TAB PO SCH (09:00)
[2022-07-04] MEDS ORDERED: lisinopriL 20 MG TAB PO SCH (09:00)
--- NOTE | 2022-07-04 10:19 | CT ---
EXAMINATION TYPE: CT cervical spine wo con CT DLP: 366.3 mGycm, Automated exposure control for dose reduction was used. DATE OF EXAM: 07/04/2022 10:00 AM COMPARISON: CT cervical spine 06/16/2022.. CLINICAL INDICATION:Male, 66 years old with history of s/p C4-C7 ACDF C2-T2 post. cervical decomp/f us; PHH, spinal fusion c2-t2 TECHNIQUE: Axial CT images from the skull base to the inferior aspect of T2 we obtained without intra venous contrast. Coronal and sagittal reformatted images were also reviewed. FINDINGS: Evaluation is limited due to lack of intravenous contrast. Anterior and posterior cervical fusion changes identified with laminectomies involving C2-T2. Anterio r fusion changes with disc spacers involving C4-C7. Hardware appears intact with appropriate alignmen t. This creates streak artifact limiting evaluation of the central canal and neuroforamina. No signif icant central canal stenosis within these limitations. Multilevel neural foraminal stenosis redemonst rated. No acute fracture or dislocation. There is associated subcutaneous gas and edema involving the posterior neck soft tissues and prevertebral space. The subcutaneous gas extends into the upper medi astinum. Skin luis demonstrate along the posterior neck. Drainage catheter identified entering from the right posterior lateral neck and terminating at the le adry of T1-T2 posteriorly. Additional surgical drain dimension within the anterior right neck soft tis sues terminating at the level of C4-C5. No sizable fluid collection within limitations of a noncontra st exam. Similar grade 1 anterolisthesis of C3 on C4 and C7 on T1. Left IJ central venous catheter partially visualized. Extensive paranasal mucosal sinus disease with near complete opacification of the sphenoid sinuses, ethmoid sinuses, left maxillary sinus. Mild muco artemio thickening of the right maxillary sinus. Moderate centrilobular emphysematous changes identified. IMPRESSION: 1. Extensive postsurgical changes from anterior and posterior fusion of the cervicothoracic spine. [place]incon rdware appears intact with appropriate alignment. 2. Severe paranasal sinus disease. 3. Moderate COPD changes.
[2022-07-04] MEDS: amLODIPine 5 MG TAB PO SCH (10:25)
[2022-07-04] MEDS: lisinopriL 20 MG TAB PO SCH (10:25)
[2022-07-04] MEDS: hydrALAZINE HCL 25 MG TAB PO SCH ×2 (10:25→19:58)
--- NOTE | 2022-07-04 10:31 | P.PN ---
Subjective Progress Note Date: 07/04/22 Subjective: Patient seen and examined at bedside. No acute events overnight. Per nursing, blood pressure has been stable overnight. Patient denies any chest pain, shortness of breath, abdominal pain, nausea, vomiting, diarrhea, constipation. He continues to have urinary catheter in place. He has significant neck pain after the surgery. Pertinent positives and negatives as discussed above, a complete review of systems was performed and all other systems are negative. Vitals Signs Reviewed. General: nontoxic, no distress, appears at stated age Derm: warm, dry Head: atraumatic, normocephalic, symmetric Eyes: EOMI, no lid lag, anicteric sclera, pupils equal round reactive to light ENT: Nose and ears atraumatic Neck: No thyromegaly, supple, c-collar in place Mouth: no lip lesion, mucus membranes moist Cardiovascular: S1S2 reg, no murmur, no edema Lungs: clear to auscultation bilateral, no rhonchi, no rales, no wheeze, no accessory muscle use Abdominal: soft, nontender to palpation, no guarding, no appreciable organomegaly Ext: no gross muscle atrophy, muscle strength muscle strength 5 out of 5 in all 4 extremities, no contractures Neuro: CN II-XII grossly intact Psych: Alert, oriented, appropriate affect Data Reviewed Today: Pertinent Labs: WBC 17.2, hemoglobin 11.8, platelet 252, potassium 3.9, creatinine 0.57 Imaging: Cervical spine CT report reviewed: Shows extensive postsurgical changes in this cervicothoracic spine, severe paranasal sinus disease, moderate COPD changes Assessment and Plan: Patient is likely to be downgraded to the ICU. History of Hypertension Intraoperative hypotension, resolved Status post cervical spine surgery Leukocytosis, reactive Mild normocytic anemia, anticipated outcome of surgery Dyslipidemia Asthma/COPD -Patient on home amlodipine 5 mg, lisinopril 20 mg daily, hydralazine 25 twice a day, atorvastatin 40 mg twice a day, montelukast 10 mg at night, albuterol as needed -Seeing Eye Dog Trainer following -Pain control on oral Tylenol, oral [place], IV Dilaudid as needed -On bowel regimen -DVT prophylaxis per orthospine -Repeat CBC ordered tomorrow -PT/OT Thank you for allowing us to participate in the care of this pleasant patient. Do not hesitate to contact us with questions. Someone can be reached from the [facility] hospitalist group all hours of the day at [phone] or via perfect serve. Objective - Vital Signs Vital signs: Vital Signs Temp 98.4 F 07/04/22 08:00 Pulse 60 07/04/22 09:00 Resp 16 07/04/22 09:00 BP 135/72 07/04/22 09:00 Pulse Ox 97 07/04/22 09:00 FiO2 Intake & Output 07/03/22 07/04/22 07/04/22 18:59 06:59 18:59 Intake Total 4389 653 169 Output Total 1595 1170 205 Balance 2794 -517 -36 Weight 76 kg Intake: IV 4209 33 9 arterial line pressure 9 33 9 bag Intake, IV Titration 180 220 160 Amount ACETAMINOPHEN IV (For NPO 100 100 ) 1,000 mg In Empty Bag 1 bag @ 400 mls/hr IVPB Q8H [facility] Rx#:[id number] Lactated Ringers 1,000 ml 40 180 20 @ 0 mls/hr IV .[facility] Rx#:[id number] Lactated Ringers 1,000 ml 40 40 @ 20 mls/hr IV .Q24H [facility] Rx#:[id number] Lactated Ringers 1,000 ml 40 @ 20 mls/hr IV .Q24H [facility] Rx#:[id number] Oral 400 Output: Drainage 20 0 0 Anterior 20 0 0 Posterior 0 0 0 Urine 1350 1170 205 Estimated Blood Loss 225 Other: Voiding Method Indwelling Catheter Indwelling Catheter ABP, PAP, CO, CI - Last Documented Arterial Blood Pressure 102/94 - Labs CBC & Chem 7: 07/04/22 07:20 07/04/22 07:20 Labs: Abnormal Lab Results - Last 24 Hours (Table) 07/03/22 07/03/22 07/03/22 Range/Units 15:52 20:20 20:20 WBC 15.6 H (3.8-10.6) k/uL RBC 4.23 L (4.30-5.90) m/uL Hgb 12.2 L (13.0-17.5) gm/dL Hct 37.0 L (39.0-53.0) % Neutrophils # 13.8 H (1.3-7.7) k/uL Monocytes # (0-1.0) k/uL Creatinine 0.52 L (0.66-1.25) mg/dL Glucose 115 H (74-99) mg/dL POC Glucose (mg/dL) 158 H (70-110) mg/dL 07/04/22 07/04/22 Range/Units 07:20 07:20 WBC 17.2 H (3.8-10.6) k/uL RBC 4.08 L (4.30-5.90) m/uL Hgb 11.8 L (13.0-17.5) gm/dL Hct 35.8 L (39.0-53.0) % Neutrophils # 14.5 H (1.3-7.7) k/uL Monocytes # 1.1 H (0-1.0) k/uL Creatinine 0.57 L (0.66-1.25) mg/dL Glucose 109 H (74-99) mg/dL POC Glucose (mg/dL) (70-110) mg/dL
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
[2022-07-04] MEDS: MONTELUKAST 10 MG TAB PO SCH (19:58)
[2022-07-05] MEDS: ACETAMINOPHEN TAB 325 MG TAB PO SCH ×5 (00:04→23:38)
[2022-07-05] MEDS: HEPARIN SODIUM,PORCINE/PF 5,000 UNIT/0.5 ML SYRINGE SQ SCH ×4 (00:04→23:39)
[2022-07-05] MEDS: CYCLOBENZAPRINE 5 MG TAB PO PRN ×2 (00:05→21:21)
[2022-07-05] MEDS: HYDROmorphone 1 MG/ML 1 ML SYRINGE IVP PRN ×3 (01:16→23:39)
[2022-07-05] MEDS: HYDROcodone/APAP 10-325MG 1 EACH TAB PO PRN (03:57)
[2022-07-05] MEDS: LACTATED RINGERS 1,000 ML IV SCH ×2 (05:40→05:41)
[2022-07-05] MEDS ORDERED: BENZOCAINE SPRAY 1 CAN MUCOUS MEM PRN (07:22)
--- NOTE | 2022-07-05 07:45 | P.PN ---
Subjective Progress Note Date: 07/05/22 Principal diagnosis: 1. C4-7 Spondylosis 2. grade 1 anterior listhesis C7 T1 3. upper extremity radiculopathy and weakness 4. lower extremity radiculopathy and weakness 5. Cervical myelopathy Patient seen and examined this morning. Patient is resting comfortably in bed. Patient continues to have complaint of cervical pain, medications have been adjusted. Patient also reports increase of sore throat, Hurricaine spray has been ordered. Surgical dressings are clean dry and intact. Encouraged patient to be working with physical therapy today. He states that he did attempt to sit at bedside yesterday, had increase of nausea and dizziness. This was resolved once patient was lying back down. Hard cervical collar is present. [place] catheter is present may be removed later this afternoon. Patient has remained afebrile, denies nausea/vomiting, or chest pain. Objective - Vital Signs Vital signs: Vital Signs Temp 99.0 F 07/05/22 01:49 Pulse 65 07/05/22 01:49 Resp 16 07/05/22 01:49 BP 144/68 07/05/22 01:49 Pulse Ox 95 07/05/22 01:49 FiO2 Intake & Output 07/04/22 07/05/22 07/05/22 18:59 06:59 18:59 Intake Total 169 Output Total 1230 750 Balance -1061 -750 Intake: IV 9 arterial line pressure 9 bag Intake, IV Titration 160 Amount ACETAMINOPHEN IV (For NPO 100 ) 1,000 mg In Empty Bag 1 bag @ 400 mls/hr IVPB Q8H [facility] Rx#:[id number] Lactated Ringers 1,000 ml 20 @ 0 mls/hr IV .[facility] Rx#:[id number] Lactated Ringers 1,000 ml 40 @ 20 mls/hr IV .Q24H [facility] Rx#:[id number] Output: Drainage 0 Anterior 0 Posterior 0 Urine 1230 750 Other: Voiding Method Indwelling Catheter Indwelling Catheter ABP, PAP, CO, CI - Last Documented Arterial Blood Pressure 102/94 - Exam Physical Examination General: The patient is awake and alert, in no acute distress Skin: Skin is warm and dry with no obvious rashes or lesions. Surgical dressings to the anterior and posterior cervical spine are clean dry and intact. Eye: Pupils are equal, round and reactive to light, extra-ocular movements are intact; there is normal conjunctiva bilaterally. Neck: The neck is supple, there is moderate tenderness and ROM limited due to recent surgical procedure and Hard cervical collar intact.. Cardiovascular: There is a regular rate and rhythm. No murmur, rub or gallop is appreciated. Respiratory: Lungs are clear to auscultation, respirations are non-labored, breath sounds are equal. Gastrointestinal: Soft, non-distended, non-tender abdomen. Back: There is no tenderness to palpation in the midline, paralumbar, parathoracic or buttocks region. There is no obvious deformity . Musculoskeletal: ROM limited secondary to pain and stiffness from surgical procedure. Muscle strength in all major muscle groups of bilateral upper extremities 4/5, bilateral lower extremities 5/5. Neurological: CN 2-12 intact. There are no obvious motor or sensory deficits. Movement and coordination equal and intact. Sensory exam to light touch intact C5-T1 and intact from L2-S1. Reflexes 2/4 in bilateral upper and lower extremities. Negative Hoffmans, babinski, and clonus signs. Psychiatric: Cooperative, appropriate mood & affect, normal judgment. - Labs CBC & Chem 7: 07/04/22 07:20 07/04/22 07:20 Labs: Abnormal Lab Results - Last 24 Hours (Table) 07/04/22 07/04/22 Range/Units 07:20 07:20 WBC 17.2 H (3.8-10.6) k/uL RBC 4.08 L (4.30-5.90) m/uL Hgb 11.8 L (13.0-17.5) gm/dL Hct 35.8 L (39.0-53.0) % Neutrophils # 14.5 H (1.3-7.7) k/uL Monocytes # 1.1 H (0-1.0) k/uL Creatinine 0.57 L (0.66-1.25) mg/dL Glucose 109 H (74-99) mg/dL Assessment and Plan Assessment: Postop day 2; Stage 1: C3-C7 ACDF with Stage 2: C2-T2 open decompression and fusion 1. C4-7 Spondylosis 2. grade 1 anterior listhesis C7 T1 3. upper extremity radiculopathy and weakness 4. lower extremity radiculopathy and weakness 5. Cervical myelopathy Plan: -Appreciate hospice care consultant and team management. -Activity: Ambulate QID, OOB all meals, up and about, limit lifting bending twisting to less than 5 lbs. Use walker or cane if needed for stability. -Daily PT/OT, increase ambulation strength and balance. -Hard cervical collar on at all times, may remove to shower -Pain control: Adequate at this time -Meds: reviewed -GI ppx: senna, Miralax -DC rowland when up and about, bedside commode if needed -DVT PPX: Heparin -Hygiene: Shower today. Maintain dressing clean and dry. -Encourage IS 10x/hr -Dispo: Anticipate discharge JULIANN in the next 48-72hrs *I reviewed and discussed this case with my attending Dr. Baptiste, whom has reviewed this chart and films and is in agreement with assessment and plan of care as outlined above. I have personally seen and examined the patient, performed the documentation and the assessment and plan as written. Number of minutes spent on the visit: 15m.
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
[2022-07-05] MEDS: PANTOPRAZOLE 40 MG/10 ML VIAL IVP SCH (08:44)
[2022-07-05] MEDS: ATORVASTATIN 40 MG TAB PO SCH ×2 (08:44→21:21)
[2022-07-05] MEDS: lisinopriL 20 MG TAB PO SCH (08:45)
[2022-07-05] MEDS: HYDROcodone/APAP 10-325MG 1 EACH TAB PO SCH ×4 (08:45→21:21)
[2022-07-05] MEDS: amLODIPine 5 MG TAB PO SCH (08:46)
[2022-07-05] MEDS: hydrALAZINE HCL 25 MG TAB PO SCH ×2 (08:46→21:20)
[2022-07-05 09:19] LABS: Basophils % (A) 0 %; Eosinophils # (A) 0.2 k/uL (0-0.7); Eosinophils % (A) 1 %; HCT 36.6 % (39.0-53.0); HGB 12.1 gm/dL (13.0-17.5); Lymphocytes # (A) 2.2 k/uL (1.0-4.8); Lymphocytes % (A) 13 %; MCH 28.7 pg (25.0-35.0); MCHC 33.1 g/dL (31.0-37.0); MCV 86.8 fL (80.0-100.0); Mean Platelet Volume 9.4; Monocytes # (A) 1.1 k/uL (0-1.0); Monocytes % (A) 7 %; Neutrophils # (A) 12.9 k/uL (1.3-7.7); Neutrophils % (A) 77 %; Platelet Count 245 k/uL (150-450); RBC 4.22 m/uL (4.30-5.90); RDW 14.1 % (11.5-15.5); WBC 16.8 k/uL (3.8-10.6)
--- NOTE | 2022-07-05 10:18 | P.PN ---
Subjective Progress Note Date: 07/05/22 Subjective: Patient seen and examined at bedside. No acute events overnight. He did try to get out of bed yesterday, and experienced some lightheadedness. Patient denies any chest pain, shortness of breath, abdominal pain, nausea, vomiting, diarrhea, constipation. He continues to have urinary catheter in place. He continues to have significant neck pain after the surgery. Pertinent positives and negatives as discussed above, a complete review of systems was performed and all other systems are negative. Vitals Signs Reviewed. General: nontoxic, no distress, appears at stated age Derm: warm, dry Head: atraumatic, normocephalic, symmetric Eyes: EOMI, no lid lag, anicteric sclera, pupils equal round reactive to light ENT: Nose and ears atraumatic Neck: No thyromegaly, supple, c-collar in place Mouth: no lip lesion, mucus membranes moist Cardiovascular: S1S2 reg, no murmur, no edema Lungs: clear to auscultation bilateral, no rhonchi, no rales, no wheeze, no accessory muscle use Abdominal: soft, nontender to palpation, no guarding, no appreciable organomegaly Ext: no gross muscle atrophy, muscle strength muscle strength 5 out of 5 in all 4 extremities, no contractures Neuro: CN II-XII grossly intact Psych: Alert, oriented, appropriate affect Data Reviewed Today: Pertinent Labs: WBC 16.8, hemoglobin 12.1, platelet 245 Assessment and Plan: History of Hypertension Intraoperative hypotension, resolved Status post cervical spine surgery Leukocytosis, reactive, improving Mild normocytic anemia, anticipated outcome of surgery Dyslipidemia Asthma/COPD -Orthospine reviewed: Patient will likely require subacute rehab -Discontinue Andres catheter -Patient on home amlodipine 5 mg, lisinopril 20 mg daily, hydralazine 25 twice a day, atorvastatin 40 mg twice a day, montelukast 10 mg at night, albuterol as needed -Thermoscrew Operator following -Pain control on oral Tylenol, oral [place], IV Dilaudid as needed -On bowel regimen -DVT prophylaxis: Subcu heparin -PT/OT Thank you for allowing us to participate in the care of this pleasant patient. Do not hesitate to contact us with questions. Someone can be reached from the [facility] hospitalist group all hours of the day at [phone] or via perfect serve. Objective - Vital Signs Vital signs: Vital Signs Temp 97.5 F L 07/05/22 08:00 Pulse 54 L 07/05/22 08:00 Resp 17 07/05/22 08:00 BP 145/71 07/05/22 08:00 Pulse Ox 95 07/05/22 08:00 FiO2 Intake & Output 07/04/22 07/05/22 07/05/22 18:59 06:59 18:59 Intake Total 169 Output Total 1230 750 Balance -1061 -750 Intake: IV 9 arterial line pressure 9 bag Intake, IV Titration 160 Amount ACETAMINOPHEN IV (For NPO 100 ) 1,000 mg In Empty Bag 1 bag @ 400 mls/hr IVPB Q8H [facility] Rx#:[id number] Lactated Ringers 1,000 ml 20 @ 0 mls/hr IV .[facility] Rx#:[id number] Lactated Ringers 1,000 ml 40 @ 20 mls/hr IV .Q24H [facility] Rx#:[id number] Output: Drainage 0 Anterior 0 Posterior 0 Urine 1230 750 Other: Voiding Method Indwelling Catheter Indwelling Catheter ABP, PAP, CO, CI - Last Documented Arterial Blood Pressure 102/94 - Labs CBC & Chem 7: 07/05/22 07:30 07/04/22 07:20 Labs: Abnormal Lab Results - Last 24 Hours (Table) 07/05/22 Range/Units 07:30 WBC 16.8 H (3.8-10.6) k/uL RBC 4.22 L (4.30-5.90) m/uL Hgb 12.1 L (13.0-17.5) gm/dL Hct 36.6 L (39.0-53.0) % Neutrophils # 12.9 H (1.3-7.7) k/uL Monocytes # 1.1 H (0-1.0) k/uL
[2022-07-05] MEDS: FLUTICASONE 50MCG/SPRAY NASAL 16GM EA NOSTRIL SCH (14:26)
[2022-07-05] MEDS: HYDROmorphone 0.5 MG/0.5 ML SYRINGE IVP PRN (15:12)
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
[2022-07-05] MEDS: MONTELUKAST 10 MG TAB PO SCH (21:21)
[2022-07-06] MEDS: HYDROcodone/APAP 10-325MG 1 EACH TAB PO SCH ×4 (00:39→12:44)
[2022-07-06] MEDS: ACETAMINOPHEN TAB 325 MG TAB PO SCH ×2 (05:42→12:43)
[2022-07-06] MEDS: LACTATED RINGERS 1,000 ML IV SCH ×2 (05:44)
[2022-07-06 07:28] VITALS: BP 146/76; PULSE 57; RESP 18; TEMP 97.8
--- NOTE | 2022-07-06 07:37 | P.PN ---
Subjective Progress Note Date: 07/06/22 Principal diagnosis: 1. C4-7 Spondylosis 2. grade 1 anterior listhesis C7 T1 3. upper extremity radiculopathy and weakness 4. lower extremity radiculopathy and weakness 5. Cervical myelopathy Patient seen and examined this morning. Patient is resting comfortably in bed. Patient states pain is managed on current regimen. Patient report that he has chronic sinus infections and feels he is developing one at this time. Surgical dressings have been changed this morning, posterior incision with scant sanguinous drainage. Encouraged patient to be working with physical therapy, he states he did get up multiple times yesterday and tolerated activity well. Hard cervical collar is present. Patient has remained afebrile, denies nausea/vomiting, or chest pain. Objective - Vital Signs Vital signs: Vital Signs Temp 97.8 F 07/06/22 07:28 Pulse 57 L 07/06/22 07:28 Resp 18 07/06/22 07:28 BP 146/76 07/06/22 07:28 Pulse Ox 97 07/06/22 07:28 FiO2 Intake & Output 07/05/22 07/06/22 07/06/22 18:59 06:59 18:59 Intake Total 450 Output Total 550 Balance -100 Intake: Oral 450 Output: Urine 550 Straight 550 Other: Voiding Method Indwelling Catheter Urinal # Voids 1 1 ABP, PAP, CO, CI - Last Documented Arterial Blood Pressure 102/94 - Exam Physical Examination General: The patient is awake and alert, in no acute distress Skin: Skin is warm and dry with no obvious rashes or lesions. Surgical dressings to the anterior and posterior cervical spine are clean dry and intact. Eye: Pupils are equal, round and reactive to light, extra-ocular movements are intact; there is normal conjunctiva bilaterally. Neck: The neck is supple, there is moderate tenderness and ROM limited due to recent surgical procedure and Hard cervical collar intact.. Cardiovascular: There is a regular rate and rhythm. No murmur, rub or gallop is appreciated. Respiratory: Lungs are clear to auscultation, respirations are non-labored, breath sounds are equal. Gastrointestinal: Soft, non-distended, non-tender abdomen. Back: There is no tenderness to palpation in the midline, paralumbar, parathoracic or buttocks region. There is no obvious deformity . Musculoskeletal: ROM limited secondary to pain and stiffness from surgical procedure. Muscle strength in all major muscle groups of bilateral upper extremities 4/5, bilateral lower extremities 5/5. Neurological: CN 2-12 intact. There are no obvious motor or sensory deficits. Movement and coordination equal and intact. Sensory exam to light touch intact C5-T1 and intact from L2-S1. Reflexes 2/4 in bilateral upper and lower extremities. Negative Hoffmans, babinski, and clonus signs. Psychiatric: Cooperative, appropriate mood & affect, normal judgment. - Labs CBC & Chem 7: 07/05/22 07:30 07/04/22 07:20 Labs: Abnormal Lab Results - Last 24 Hours (Table) 07/05/22 Range/Units 07:30 WBC 16.8 H (3.8-10.6) k/uL RBC 4.22 L (4.30-5.90) m/uL Hgb 12.1 L (13.0-17.5) gm/dL Hct 36.6 L (39.0-53.0) % Neutrophils # 12.9 H (1.3-7.7) k/uL Monocytes # 1.1 H (0-1.0) k/uL Assessment and Plan Assessment: Postop day 3; Stage 1: C3-C7 ACDF with Stage 2: C2-T2 open decompression and fusion 1. C4-7 Spondylosis 2. grade 1 anterior listhesis C7 T1 3. upper extremity radiculopathy and weakness 4. lower extremity radiculopathy and weakness 5. Cervical myelopathy Plan: -Appreciate net developer consultant and team management. -Activity: Ambulate QID, OOB all meals, up and about, limit lifting bending twisting to less than 5 lbs. Use walker or cane if needed for stability. -Daily PT/OT, increase ambulation strength and balance. -Hard cervical collar on at all times, may remove to shower -Pain control: Adequate at this time -Meds: reviewed -GI ppx: senna, Miralax -DC [place] when up and about, bedside commode if needed -DVT PPX: Heparin -Hygiene: Shower today. Maintain dressing clean and dry. -Encourage IS 10x/hr -Dispo: Patient is cleared from orthopedic standpoint for subacute rehab versus home with home care. *I reviewed and discussed this case with my attending Dr. Baptiste, whom has reviewed this chart and films and is in agreement with assessment and plan of care as outlined above. I have personally seen and examined the patient, performed the documentation and the assessment and plan as written. Number of minutes spent on the visit: 15m.
[2022-07-06] MEDS: ATORVASTATIN 40 MG TAB PO SCH (08:06)
[2022-07-06] MEDS: lisinopriL 20 MG TAB PO SCH (08:07)
[2022-07-06] MEDS: HEPARIN SODIUM,PORCINE/PF 5,000 UNIT/0.5 ML SYRINGE SQ SCH (08:07)
[2022-07-06] MEDS: amLODIPine 5 MG TAB PO SCH (08:07)
[2022-07-06] MEDS: hydrALAZINE HCL 25 MG TAB PO SCH (08:07)
[2022-07-06] MEDS: PANTOPRAZOLE 40 MG/10 ML VIAL IVP SCH (08:08)
--- NOTE | 2022-07-06 08:57 | P.DS ---
Providers Date of admission: 07/03/22 05:34 Attending physician: Damion Baptiste DO Consults: 07/03/22 10:57 Consult Physician Routine Consulting Provider: Malena [place] Consult Reason/Comments: medical management s/p C4-C7 ACDF & C2-T2 post. cervical decomp/fus Do you want consulting provider notified?: Yes 07/03/22 16:48 Consult Physician Routine Consulting Provider: Robbi Jean-Baptiste Consult Reason/Comments: ICU management Do you want consulting provider notified?: Already Contacted 07/05/22 16:00 Consult Physician Routine Consulting Provider: Shadi Sparks Consult Reason/Comments: Inpatient rehab, post-op cervical Do you want consulting provider notified?: Yes Primary care physician: Monster Bolivar - [place] Diagnosis(es) (1) Degenerative disc disease, cervical Current Visit: Yes Status: Acute (2) Hyperlipidemia Current Visit: Yes Status: Acute (3) Hypertension Current Visit: Yes Status: Acute (4) Moderate asthma Current Visit: Yes Status: Acute (5) Post-splenectomy Current Visit: No Status: Acute Hospital Course: This is a 67-year-old male who was admitted for decompression and fusion C2-T2 by Dr. Baptiste. Patient has done well postoperatively. Hard cervical collar in place and mostly worn at all times. He does admit some congestion this morning will start an antihistamine. Patient seen and evaluated by Dr. Spakrs. Plan for patient to go to inpatient subacute rehab with Dr. Sparks. Patient seen and evaluated by nurse practitioner, physician in agreement with plan Patient Condition at Discharge: Fair Plan - Discharge Summary Discharge Rx Participant: No New Discharge Prescriptions: New Loratadine [Claritin] 5 mg PO DAILY 30 Days #30 tab Continue Montelukast Sodium [Singulair] 10 mg PO HS Albuterol Inhaler [Ventolin Hfa Inhaler] 2 puff INHALATION RT-Q6H PRN PRN Reason: Shortness Of Breath hydrALAZINE HCL [Apresoline] 25 mg PO BID #60 tab amLODIPine [Norvasc] 5 mg PO DAILY #30 tab HYDROcodone/APAP 7.5-325MG [[place] 7.5-325] 1 tab PO QID PRN PRN Reason: Pain Fluticasone Nasal Friend [Flonase Nasal Friend] 1 spray EA NOSTRIL DAILY Ibuprofen [Motrin] 600 mg PO Q8HR EPINEPHrine (Auto Inject) [Epipen] 0.3 mg IM ONCE PRN PRN Reason: Anaphylaxis lisinopriL [Zestril] 20 mg PO DAILY #30 tab Atorvastatin Calcium [Lipitor] 40 mg PO BID Discharge Medication List Fluticasone Nasal Friend [Flonase Nasal Friend] 1 spray EA NOSTRIL DAILY 02/12/21 [History] HYDROcodone/APAP 7.5-325MG [[place] 7.5-325] 1 tab PO QID PRN 02/12/21 [History] Montelukast Sodium [Singulair] 10 mg PO HS 02/12/21 [History] Albuterol Inhaler [Ventolin Hfa Inhaler] 2 puff INHALATION RT-Q6H PRN 10/14/21 [History] EPINEPHrine (Auto Inject) [Epipen] 0.3 mg IM ONCE PRN 10/14/21 [History] Ibuprofen [Motrin] 600 mg PO Q8HR 10/14/21 [History] amLODIPine [Norvasc] 5 mg PO DAILY #30 tab 10/20/21 [Rx] hydrALAZINE HCL [Apresoline] 25 mg PO BID #60 tab 10/20/21 [Rx] lisinopriL [Zestril] 20 mg PO DAILY #30 tab 10/20/21 [Rx] Atorvastatin Calcium [Lipitor] 40 mg PO BID 06/19/22 [History] Loratadine [Claritin] 5 mg PO DAILY 30 Days #30 tab 07/06/22 [Rx] Follow up Appointment(s)/Referral(s): Monster Bolivar MD [Primary Care Provider] - 1 Week Damion Baptiste DO [Doctor of Osteopathic Medicine] - 1 Week Activity/Diet/Wound Care/Special Instructions: Patient must wear cervical collar at all times Discharge Disposition: OTHER INSTITUTION NOT DEFINED
[2022-07-06] MEDS ORDERED: LORATADINE 10 MG TAB PO SCH (09:00)
[2022-07-06] MEDS: FLUTICASONE 50MCG/SPRAY NASAL 16GM EA NOSTRIL SCH (09:13)
[2022-07-06 11:06] LABS: HCT 36.5 % (39.6-50.0); MCH 28.5 pg (27.0-32.0); MCHC 32.9 g/dL (32.0-37.0); MCV 86.7 fL (80.0-97.0); Mean Platelet Volume 10.9 fL (9.5-12.2); NRBC Per 100 WBC 0 /100 WBCS (0.0-0.0); Platelet Count 271 X 10*3/uL (140-440); RBC 4.21 X 10*6/uL (4.40-5.60); RDW 14.4 % (11.5-14.5); WBC 15.34 X 10*3/uL (4.50-10.00)
[2022-07-06 11:19] LABS: Albumin 3.6 g/dL (3.8-4.9); Albumin/Globulin Ratio 1.64 (1.60-3.17); Anion Gap 11.7 mmol/L (10.00-18.00); BUN/Creat Ratio 25.8 Ratio (12.00-20.00); Blood Urea Nitrogen 12.9 mg/dL (9.0-27.0); Carbon Dioxide 26.3 mmol/L (20.0-27.5); Globulin 2.2 g/dL (1.6-3.3); Non-African American GFR(CKD) 112.1 (60.0-200.0); Potassium 3.5 mmol/L (3.5-5.5); Total Bilirubin 0.3 mg/dL (0.30-1.20); Total Protein 5.8 g/dL (6.2-8.2)
--- NOTE | 2022-07-06 12:55 | P.PN ---
Subjective Progress Note Date: 07/06/22 Subjective: Patient seen and examined at bedside. No acute events overnight. Patient d enies any chest pain, shortness of breath, abdominal pain, nausea, vomiting, diarrhea, constipation. He continues to have significant neck pain after the surgery. Pertinent positives and negatives as discussed above, a complete review of systems was performed and all other systems are negative. Vitals Signs Reviewed. General: nontoxic, no distress, appears at stated age Derm: warm, dry Head: atraumatic, normocephalic, symmetric Eyes: EOMI, no lid lag, anicteric sclera, pupils equal round reactive to light ENT: Nose and ears atraumatic Neck: No thyromegaly, supple, c-collar in place Mouth: no lip lesion, mucus membranes moist Cardiovascular: S1S2 reg, no murmur, no edema Lungs: clear to auscultation bilateral, no rhonchi, no rales, no wheeze, no accessory muscle use Abdominal: soft, nontender to palpation, no guarding, no appreciable organomegaly Ext: no gross muscle atrophy, muscle strength muscle strength 5 out of 5 in all 4 extremities, no contractures Neuro: CN II-XII grossly intact Psych: Alert, oriented, appropriate affect Data Reviewed Today: Pertinent Labs: WBC 15.34, hemoglobin 12, creatinine 0.5 Assessment and Plan: History of Hypertension Intraoperative hypotension, resolved Status post cervical spine surgery Leukocytosis, reactive, improving Mild normocytic anemia, anticipated outcome of surgery Dyslipidemia Asthma/COPD -Patient being discharged to inpatient rehab -Patient on home amlodipine 5 mg, lisinopril 20 mg daily, hydralazine 25 twice a day, atorvastatin 40 mg twice a day, montelukast 10 mg at night, albuterol as needed -Pain control on oral Tylenol, oral [place], IV Dilaudid as needed -On bowel regimen -DVT prophylaxis: Subcu heparin Medically optimized for discharge. Thank you for allowing us to participate in the care of this pleasant patient. Do not hesitate to contact us with questions. Someone can be reached from the [facility] hospitalist group all hours of the day at [phone] or via perfect serve. Objective - Vital Signs Vital signs: Vital Signs Temp 97.8 F 07/06/22 07:28 Pulse 57 L 07/06/22 07:28 Resp 18 07/06/22 07:28 BP 146/76 07/06/22 07:28 Pulse Ox 97 07/06/22 07:28 FiO2 Intake & Output 07/05/22 07/06/22 07/06/22 18:59 06:59 18:59 Intake Total 450 Output Total 550 350 Balance -100 -350 Intake: Oral 450 Output: Urine 550 350 Straight 550 Other: Voiding Method Indwelling Catheter Urinal # Voids 1 1 ABP, PAP, CO, CI - Last Documented Arterial Blood Pressure 102/94 - Labs CBC & Chem 7: 07/06/22 06:59 07/06/22 06:59 Labs: Abnormal Lab Results - Last 24 Hours (Table) 07/06/22 07/06/22 Range/Units 06:59 06:59 WBC 15.34 H (4.50-10.00) X 10*3/uL RBC 4.21 L (4.40-5.60) X 10*6/uL Hgb 12.0 L (13.0-17.0) g/dL Hct 36.5 L (39.6-50.0) % Creatinine 0.5 L (0.6-1.5) mg/dL BUN/Creatinine Ratio 25.80 H (12.00-20.00) Ratio Total Protein 5.8 L (6.2-8.2) g/dL Albumin 3.6 L (3.8-4.9) g/dL
== END 2022-07-06 14:10 | disposition short-term general hospital (02) | DRG 454 ==
LOC: 2ORMAIN 07-03 05:34 → 2SICU 07-03 14:13 → 4SSUR 07-04 17:41
PROVIDERS: ADMIT Orthopaedic Surgery; ATTEND Orthopaedic Surgery
PROC: 01N10ZZ Release Cervical Nerve, Open Approach (ICD-10-PCS; 2022-07-03)
PROC: 00NW0ZZ Release Cervical Spinal Cord, Open Approach (ICD-10-PCS; 2022-07-03)
PROC: 0RT30ZZ Resection of Cervical Vertebral Disc, Open Approach (ICD-10-PCS; 2022-07-03)
PROC: 0RG20AJ Fusion of 2 or more Cervical Vertebral Joints with Interbody Fusion Device, Posterior Approach, Anterior Column, Open Approach (ICD-10-PCS; 2022-07-03)
PROC: 0RG207J Fusion of 2 or more Cervical Vertebral Joints with Autologous Tissue Substitute, Posterior Approach, Anterior Column, Open Approach (ICD-10-PCS; 2022-07-03)
PROC: 0RG40AJ Fusion of Cervicothoracic Vertebral Joint with Interbody Fusion Device, Posterior Approach, Anterior Column, Open Approach (ICD-10-PCS; principal; 2022-07-03 07:30)
PROC: 0RG20K1 Fusion of 2 or more Cervical Vertebral Joints with Nonautologous Tissue Substitute, Posterior Approach, Posterior Column, Open Approach (ICD-10-PCS; 2022-07-03 07:30)
DX: M47.12 Other spondylosis with myelopathy, cervical region (principal); G95.89 Other specified diseases of spinal cord; I95.2 Hypotension due to drugs; J44.9 Chronic obstructive pulmonary disease, unspecified; I10 Essential (primary) hypertension; T50.905A Adverse effect of unspecified drugs, medicaments and biological substances, initial encounter; M47.812 Spondylosis without myelopathy or radiculopathy, cervical region; M43.12 Spondylolisthesis, cervical region; M47.22 Other spondylosis with radiculopathy, cervical region; M48.02 Spinal stenosis, cervical region; R26.2 Difficulty in walking, not elsewhere classified; G47.9 Sleep disorder, unspecified; E78.5 Hyperlipidemia, unspecified; F17.210 Nicotine dependence, cigarettes, uncomplicated; F10.90 Alcohol use, unspecified, uncomplicated; R06.83 Snoring; M62.81 Muscle weakness (generalized); D72.828 Other elevated white blood cell count; D64.9 Anemia, unspecified; M25.78 Osteophyte, vertebrae; Z91.81 History of falling; Z79.899 Other long term (current) drug therapy; Z91.030 Bee allergy status; Z90.81 Acquired absence of spleen; Z28.311 Partially vaccinated for COVID-19
CPT/HCPCS: 36415; 71045; 72040; 72125; 80048; 80053; 85025; 85027; 86850; 86900; 86901

== ENCOUNTER → 2022-06-29 | Outpatient (CLI) | payer MEDICARE, BC ==
[2022-06-29 15:22] LABS: INR 1.1 (<1.2); Prothrombin Time 11.1 sec (9.0-12.0)
[2022-06-30 00:20] LABS: African American GFR (CKD) 109.4 (60.0-200.0); Anion Gap 10.3 mmol/L (10.00-18.00); BUN/Creat Ratio 18.73 Ratio (12.00-20.00); Blood Urea Nitrogen 14.5 mg/dL (9.0-27.0); Calcium 9.9 mg/dL (8.7-10.3); Carbon Dioxide 28.6 mmol/L (20.0-27.5); Non-African American GFR(CKD) 94.4 (60.0-200.0); Potassium 4.4 mmol/L (3.5-5.5)
[2022-06-30 02:38] LABS: Basophils # (A) 0.11 X 10*3/uL (0.00-0.10); Basophils % (A) 1.2 %; Eosinophils # (A) 0.59 X 10*3/uL (0.04-0.35); Eosinophils % (A) 6.2 %; HCT 42.9 % (39.6-50.0); HGB 13.2 g/dL (13.0-17.0); Immature Grans, Automated 0.1 %; Lymphocytes # (A) 2.42 X 10*3/uL (0.90-5.00); Lymphocytes % (A) 25.6 %; MCHC 30.8 g/dL (32.0-37.0); MCV 91.1 fL (80.0-97.0); Mean Platelet Volume 10.8 fL (9.5-12.2); Monocytes # (A) 0.89 X 10*3/uL (0.20-1.00); Monocytes % (A) 9.4 %; NRBC Per 100 WBC 0 /100 WBCS (0.0-0.0); Neutrophils # (A) 5.43 X 10*3/uL (1.80-7.70); Neutrophils % (A) 57.5 %; Platelet Count 331 X 10*3/uL (140-440); RBC 4.71 X 10*6/uL (4.40-5.60); WBC 9.45 X 10*3/uL (4.50-10.00)
[2022-06-30 02:39] LABS: RBC Morphology NORMAL
== END | disposition home or self-care (01) ==
LOC: LABPAT 13:34
PROVIDERS: ATTEND Orthopaedic Surgery
DX: Z01.812 Encounter for preprocedural laboratory examination (principal); M47.812 Spondylosis without myelopathy or radiculopathy, cervical region; M48.02 Spinal stenosis, cervical region; M43.12 Spondylolisthesis, cervical region
CPT/HCPCS: 80048; 85025; 85610

== ENCOUNTER 2022-08-03 13:00 | Inpatient (IN) | payer MEDICARE, BC ==
[~2022-08-03 13:00] MED LIST changes: -ACETAMINOPHEN TAB 500 MG TAB PO PRN; -GABAPENTIN 300 MG CAP PO PRN; -ONDANSETRON 4 MG/2 ML VIAL IVP PRN; +VANCOMYCIN 1,500 MG in SODIUM CHLORIDE 0.9% 500 ML 500 ML IVPB PRN
--- NOTE | 2022-08-03 13:35 | ED ---
General Adult HPI - General Chief complaint: Recheck/Abnormal Lab/Rx Stated complaint: Post-op bleeding Time Seen by Provider: 08/03/22 13:21 Source: patient, RN notes reviewed Mode of arrival: ambulatory Limitations: no limitations - History of Present Illness Initial comments: 67-year-old male presents emergency Department with chief complaint of wound opening. Patient states that he had cervical fusion by Dr. Baptiste 07/03/2022 states that he is with healed luis removed partially 2 weeks after surgery. He states he was talking and sure today when he felt a pop he states felt like something was draining on his back and nose are is a large open wound. Patient denies any other associated symptoms. He has chronic paresthesia his upper extremity which has not worsened usual denies any increasing in pain. - Related Data Home Medications Medication Instructions Recorded Confirmed Fluticasone Nasal [place] [Flonase 1 spray EA NOSTRIL DAILY 02/12/21 07/03/22 Nasal [place]] HYDROcodone/APAP 7.5-325MG [[place] 1 tab PO QID PRN 02/12/21 07/03/22 7.5-325] Montelukast Sodium [Singulair] 10 mg PO HS 02/12/21 07/03/22 Albuterol Inhaler [Ventolin Hfa 2 puff INHALATION RT-Q6H PRN 10/14/21 07/03/22 Inhaler] EPINEPHrine (Auto Inject) [Epipen] 0.3 mg IM ONCE PRN 10/14/21 07/03/22 Ibuprofen [Motrin] 600 mg PO Q8HR 10/14/21 07/03/22 Atorvastatin Calcium [Lipitor] 40 mg PO BID 06/19/22 07/03/22 Previous Rx's Medication Instructions Recorded amLODIPine [Norvasc] 5 mg PO DAILY #30 tab 10/20/21 hydrALAZINE HCL [Apresoline] 25 mg PO BID #60 tab 10/20/21 lisinopriL [Zestril] 20 mg PO DAILY #30 tab 10/20/21 Cyclobenzaprine [Flexeril] 5 mg PO TID #90 tablet 07/06/22 Loratadine [Claritin] 5 mg PO DAILY 30 Days #30 tab 07/06/22 Allergies Allergy/AdvReac Type Severity Reaction Status Date / Time bee venom protein (honey bee) Allergy Anaphylaxis Verified 08/03/22 13:08 Review of Systems ROS Statement: Those systems with pertinent positive or pertinent negative responses have been documented in the HPI. ROS Other: All systems not noted in ROS Statement are negative. Past Medical History Past Medical History: Eye Disorder, Hyperlipidemia, Hypertension Additional Past Medical History / Comment(s): Bilateral cataracts, environmental allergies, hx possible TIA possibly from overheating. History of Any Multi-Drug Resistant Organisms: None Reported Past Surgical History: Heart Catheterization, Hernia Repair, Orthopedic Surgery Additional Past Surgical History / Comment(s): Ankle surgery X3 with hardware, face surgery w/ titanium mesh, left eye cataract removed, right shoulder reverse total shoulder, left shoulder surgery X3 bankhart, rotator cuff repair, left wrist carpal tunnel surgery, left inguinal hernia repair. Past Anesthesia/Blood Transfusion Reactions: Previous Problems w/ Anesthesia Additional Past Anesthesia/Blood Transfusion Reaction / Comment(s): Pt states he went into shock prior to shoulder surgery was in the OR. Kept him overnight and he had the surgery done the next day. Patient states he has had surgery since then, including a total surgery with no problem. Past Psychological History: No Psychological Hx Reported Smoking Status: Current every day smoker Past Alcohol Use History: Occasional Past Drug Use History: Marijuana - Past Family History Mother Family Medical History: No Reported History Brother(s) Family Medical History: Coronary Artery Disease (CAD) General Exam Limitations: no limitations General appearance: alert, in no apparent distress Head exam: Present: atraumatic, normocephalic, normal inspection Eye exam: Present: normal appearance, PERRL, EOMI. Absent: scleral icterus, conjunctival injection, periorbital swelling ENT exam: Present: normal exam, normal oropharynx, mucous membranes moist Neck exam: Absent: normal inspection (Large open wound dehiscence with deep tissue exposed), tenderness, meningismus, full ROM, lymphadenopathy Respiratory exam: Present: normal lung sounds bilaterally. Absent: respiratory distress, wheezes, rales, rhonchi, stridor Cardiovascular Exam: Present: regular rate, normal rhythm, normal heart sounds. Absent: systolic murmur, diastolic murmur, rubs, gallop, clicks Neurological exam: Present: alert Course Vital Signs 08/03/22 13:08 Temperature 97.9 F Pulse Rate 78 Respiratory 18 Rate Blood Pressure 137/78 O2 Sat by Pulse 99 Oximetry Medical Decision Making - Medical Decision Making Was pt. sent in by a medical professional or institution (, [facility], CHIEF STEWARD/STEWARDESS, urgent care, hospital, or fdc...) When possible be specific @ -[No] Did you speak to anyone other than the patient for history (EMS, parent, family, police, friend...)? What history was obtained from this source @ -[EMS providing pre- hospital care and treatment] Did you review nursing and triage notes (agree or disagree)? Why? @ -[I reviewed and agree with nursing and triage notes] Were old charts reviewed (outside hosp., previous admission, EMS record, old EKG, old radiological studies, urgent care reports/EKG's, fdc records)? Report findings @ -[No old charts were reviewed] Differential Diagnosis (chest pain, altered mental status, abdominal pain women, abdominal pain men, vaginal bleeding, weakness, fever, dyspnea, syncope, headache, dizziness, GI bleed, back pain, seizure, CVA, palpatations, mental health, musculoskeletal)? @ -[Wound dehiscence] EKG interpreted by me (3pts min.). @ -[As above] X-rays interpreted by me (1pt min.). @ -[None done] CT interpreted by me (1pt min.). @ -[None done] U/S interpreted by me (1pt. min.). @ -[None done] What testing was considered but not performed or refused? (CT, X-rays, U/S, labs)? Why? @ -[None] What meds were considered but not given or refused? Why? @ -[None] Did you discuss the management of the patient with other professionals (prof ernestina i.e. , [facility], CHIEF STEWARD/STEWARDESS, lab, RT, psych nurse, director of social media marketing, chief electrician, teacher, police officer, skilled nursing case manager)? Give summary @ -[Surgeon Dr. Baptiste regarding patient's current condition and admission to or for surgical repair Was smoking cessation discussed for >3mins.? @ -[No] Was critical care preformed (if so, how long)? @ -[No] Were there social determinants of health that impacted care today? How? (Homelessness, low income, unemployed, alcoholism, drug addiction, transpor tation, low edu. Level, literacy, decrease access to med. care, nursing home, rehab)? @ -[No] Was there de-escalation of care discussed even if they declined (Discuss DNR or withdrawal of care, Hospice)? DNR status @ -[No] What co-morbidities impacted this encounter? (DM, HTN, Smoking, COPD, CAD, Cancer, CVA, ARF, Chemo, Hep., AIDS, mental health diagnosis, sleep apnea, morbid obesity)? @ -[None] Was patient admitted / discharged? Hospital course, mention meds given and route, prescriptions, significant lab abnormalities, going to OR and other pertinent info. @ -[Admitted to the hospital for OR for surgical wound dehiscence] Undiagnosed new problem with uncertain prognosis? @ -[No] Drug Therapy requiring intensive monitoring for toxicity (Heparin, Nitro, Insulin, Cardizem)? @ -[No] Were any procedures done? @ -[No] Diagnosis/symptom? @ -[Surgical wound dehiscence] Acute, or Chronic, or Acute on Chronic? @ -Acute Uncomplicated (without systemic symptoms) or Complicated (systemic symptoms)? @ -Complicated Side effects of treatment? @ -[No] Exacerbation, Progression, or Severe Exacerbation? @ -[No] Poses a threat to life or bodily function? How? (Chest pain, USA, MD, pneumonia, PE, COPD, DKA, ARF, appy, cholecystitis, CVA, Diverticulitis, Homicidal, Suicidal, threat to staff... and all critical care pts) @ -[No] Disposition Clinical Impression: Surgical wound dehiscence Disposition: ADMITTED IP TO THIS HOSP Referrals: Monster Bolivar MD [Primary Care Provider] - 1-2 days Time of Disposition: 13:38
[2022-08-03] MEDS ORDERED: VANCOMYCIN IV PER PHARMACY 1 EACH MISC MISCELLANE PRN (13:37)
[2022-08-03] MEDS ORDERED: TRANEXAMIC ACID 1,000 MG/10 ML VIAL IRRIGATION ONE (13:39)
[2022-08-03] MEDS ORDERED: TRANEXAMIC ACID 1,000 MG in SODIUM CHLORIDE 0.9% 100 ML IVPB SCH (14:00)
[2022-08-03] MEDS ORDERED: LACTATED RINGERS 1,000 ML IV ONE (14:13)
--- NOTE | 2022-08-03 14:26 | P.HPOR ---
History of Present Illness H&P Date: 08/03/22 Pt presented to the emergency department after today he was putting on his pants and bounding upper shirt he reached forward and felt a pop. He then felt some fluid running down his back and he reached back and noted that his incision had opened up. He states he was wearing his collar throughout the day however to get off at this. To help with dressing. Since surgeries been doing very well he has had no issues otherwise. States his arms and legs feel better. States he has really no neck pain and it did not hurt when it happened. He denies any fevers chills shortness of breath or chest pain at this time he denies any other symptoms Review of Systems 14 points review of systems completed and as stated in HPI, all other systems reviewed are negative. Past Medical History Past Medical History: Eye Disorder, Hyperlipidemia, Hypertension Additional Past Medical History / Comment(s): Bilateral cataracts, environmental allergies, hx possible TIA possibly from overheating. History of Any Multi-Drug Resistant Organisms: None Reported Past Surgical History: Heart Catheterization, Hernia Repair, Orthopedic Surgery Additional Past Surgical History / Comment(s): Ankle surgery X3 with hardware, face surgery w/ titanium mesh, left eye cataract removed, right shoulder reverse total shoulder, left shoulder surgery X3 bankhart, rotator cuff repair, left wrist carpal tunnel surgery, left inguinal hernia repair. Past Anesthesia/Blood Transfusion Reactions: Previous Problems w/ Anesthesia Additional Past Anesthesia/Blood Transfusion Reaction / Comment(s): Pt states he went into shock prior to shoulder surgery was in the OR. Kept him overnight and he had the surgery done the next day. Patient states he has had surgery since then, including a total surgery with no problem. Past Psychological History: No Psychological Hx Reported Smoking Status: Current every day smoker Past Alcohol Use History: Occasional Past Drug Use History: Marijuana - Past Family History Mother Family Medical History: No Reported History Brother(s) Family Medical History: Coronary Artery Disease (CAD) Medications and Allergies Home Medications Medication Instructions Recorded Confirmed Type Fluticasone Nasal [place] [Flonase 1 spray EA NOSTRIL DAILY 02/12/21 08/03/22 History Nasal [place]] Montelukast Sodium [Singulair] 10 mg PO HS 02/12/21 08/03/22 History Albuterol Inhaler [Ventolin Hfa 2 puff INHALATION RT-Q6H PRN 07/15/22 05/04/23 History Inhaler] EPINEPHrine (Auto Inject) [Epipen] 0.3 mg IM ONCE PRN 10/14/21 08/03/22 History Ibuprofen [Motrin] 600 mg PO Q8HR 10/14/21 08/03/22 History amLODIPine [Norvasc] 5 mg PO DAILY #30 tab 10/20/21 08/03/22 Rx hydrALAZINE HCL [Apresoline] 25 mg PO BID #60 tab 10/20/21 08/03/22 Rx lisinopriL [Zestril] 20 mg PO DAILY #30 tab 10/20/21 08/03/22 Rx Atorvastatin Calcium [Lipitor] 40 mg PO HS 06/19/22 08/03/22 History Loratadine [Claritin] 5 mg PO DAILY 30 Days #30 tab 07/06/22 08/03/22 Rx Cyclobenzaprine [Flexeril] 10 mg PO TID 08/03/22 08/03/22 History HYDROcodone/APAP 5-325MG [[place] 1 tab PO Q5H 08/03/22 08/03/22 History 5-325] Allergies Allergy/AdvReac Type Severity Reaction Status Date / Time bee venom protein (honey bee) Allergy Anaphylaxis Verified 08/03/22 13:55 Physical Examination Osteopathic Statement: *. No significant issues noted on an osteopathic structural exam other than those noted in the History and Physical/Consult. Patient is alert and oriented 3 appears well-nourished well-hydrated is in no acute distress. They do not appear septic. On exam the patient has no tenderness to palpation of her thoracic or lumbar spine. There is no edema or ballottement sign. Lower extremities with 4+/5 strength in all major muscle groups Upper extremities show 4+/5 strength in all major muscle groups. normal postop deconditioning no focal deficits [2]/4DTR all UE and LE b/l Patient shows a negative Homans, Smith's, negative Babinski's negative clonus bilaterally. negative straight leg raise bilaterally. No tensioning signs. Cranial nerves II through XII are grossly intact. There is FROM that is painless of the b/l UE and LE in all major joints [w/o pain]. They are intact to light touch sensation in L2 to S1 nerve distribution. Patient has palpable dorsalis pedis was posterior tibial pulses. Compartments are soft and compressible. posterior cervical incision has dehiscent at the caudal portion with exposed bone and hardware in this area. There is no purulence noted this is a clean d ehiscence. The superior cranial portion of the wound is well-healed without any issues noted. Assessment and Plan Assessment: 67-year-old male status post 360 cervical fusion with posterior cervical wound dehiscence Plan: Spine Surgery Clinical and Risk Review Good Gan is a 67-year-old male presenting for evaluation of open wound posterior neck. It was my pleasure to have seen and examined [Good Gan. In our visit today we have had a chance to go over subjective complaints, physical examination findings and treatments including the natural course history without intervention and various interventional options. On physical exam, Good Gan demonstrates posterior midline incision towards the caudal end of the cervical incision has dehisced down to bone. There is exposed bone and hardware in this area. No purulence noted. I have explained to the patient that as their condition progresses it will cause further neurological deficits and eventual paralysis. Based on the patients imaging, physical exam, and the rapid progression and disabling nature of their symptoms, at this time I recommend surgery in the form or a: Irrigation and debridement with complex closure posterior neck wound. I discussed the risk and benefits of this procedure at length with Good Gan. The patient agreed to considered pursuing the procedure abovementioned. Prior to surgery, she should follow up with her PCP (Cardio, ID, IM etc) for clearance. Questions were invited and answered, and the patient wishes to proceed as outlined below. Currently, I am recommendin. irrigation and debridement with complex closure posterior neck wound 2. Follow up with PCP for surgical clearance 3. Review of surgical risks and benefits as well as an educational packet on the proposed surgical procedure. Risks: All surgical procedures come with inherent risks, including those related to positioning, anesthesia, intraoperative findings, and postoperative complications. It is important to understand that surgery does not come with any guarantee of a successful outcome as complications and adverse events are always possible. The patient was given a handout in office today discussing the surgical procedure and risks associated with the intervention, both of which were discussed with the patient. These risks include but are not limited to the following: * Experiencing same, different or even worse symptoms in back, neck, arms, or legs compared to before surgery. * Requiring further surgery or other forms of treatment presently or at some time in the future at same or other levels of the intended spine surgery. * On an extreme but fortunately relatively rare basis severe complication such as blindness, stroke, heart attack, temporary and/or permanent nerve injury, paralysis, coma, or may occur, sometimes without known explanation. * Surgical complications may include but are not limited to risk of infection, fluid accumulation in the surgical dissection site, including a seroma or hematoma, that requires additional surgery, wound drainage, bleeding, new numbness or weakness, vision changes/loss, spinal fluid leakage, non-healing and/or infected incision, headaches, difficulty or inability to swallow, hoarseness, hemopneumothorax, pneumothorax, impotence, retrograde ejaculation, vaginal dryness; injury to nerves, spinal cord, blood vessels, lymphatics or other vital organs (i.e., bowel injury, injury to the great vessels); heterotopic bone formation; complications related to the hardware such as screws, rods, cages including misplaced hardware, device failure, instrumentation at the wrong spine level, hardware fracture/breakage, or hardware loosening; vertebral failure of the spinal column above or below the newly placed hardware; retained surgical instrumentations or devices and the n eed for further surgery. * Medical risks of the planned spine surgery include but are not limited to generalized Infections to the whole body or local areas outside of the surgical site (sepsis), heart attack, bleeding, anaphylaxis, meningitis, seizure, epilepsy, hearing loss, burn whitten, laceration of the head or other areas of the body, bruising, hypersensitivity of the skin, bladder over distension; allergic reaction; shoulder injury related to positioning; fat, blood and air clots to other areas of the body like heart, lungs, brain; failure of internal organs such as lungs, kidneys, liver and excessive bleeding. If blood transfusions are necessary, note that transfusions may cause intolerance reactions such as anaphylaxis or other complex reactions. * Despite best efforts, the results of spine surgery might not heal in terms of bone, soft tissues such as skin, fascia, ligaments, and joints. Additionally, in order to achieve best possible results, spine surgery may be carried out beyond the initially planned levels and involve decompression, fusion including insertion of hardware at levels other than the original intended area of surgical interest change some portions of the procedure in order to ensure the best possible outcomes. * With spine surgery and spinal fusion, there are different off label uses of instrumentation (devices, implants and hardware) as well as biological substances (bone morphogenic proteins, demineralized bone matrix) as well as using extra bone from allograft sources (i.e. cadaver bone) or autograft (iliac crest bone, ribs, or the spine itself). The patient has been given information about these practices and their inherent risks and benefits. The patient has had a chance to review all the listed information, has been given print outs detailing this information, and has had all his/her questions answered to their satisfaction. It was my pleasure to have seen and examined Good Gan. In our visit today we have had a chance to go over my understanding of our patient's current condition, the natural course history without intervention and various interventional options. Questions were invited and answered, and the patient wishes to proceed as outlined above. I have seen and examined the patient for 25 minutes and we have spent more than 50% of the time in repeat and detailed counseling about the patient's condition, its natural course history with out and as much as can be predicted with surgery and re-review of various surgical treatment options. In conclusion, Good Gan requested we proceed with the above suggested surgery and are willing to accept risks and limitations of the suggested surgery as nature of the disease process and our best attempts at treatment for the condition. Thank you again for allowing us to be part of your patient's care. Please don't hesitate to contact me if you have any further questions. Signed and authenticated by: Damion Monteiro [facility] [address] [place] [address] [place] [address] [id number]
[2022-08-03] MEDS ORDERED: SENNOSIDES-DOCUSATE SODIUM 1 EACH TAB PO PRN (14:27)
[2022-08-03] MEDS ORDERED: HYDROcodone/APAP 5-325MG 1 EACH TAB PO PRN (14:27)
[2022-08-03] MEDS ORDERED: CYCLOBENZAPRINE 5 MG TAB PO PRN (14:27)
[2022-08-03 14:32] LABS: Basophils # (A) 0.1 k/uL (0-0.2); Basophils % (A) 1 %; Eosinophils # (A) 1.2 k/uL (0-0.7); Eosinophils % (A) 11 %; HGB 12.4 gm/dL (13.0-17.5); Lymphocytes # (A) 2.4 k/uL (1.0-4.8); Lymphocytes % (A) 22 %; MCH 27.7 pg (25.0-35.0); MCHC 31.7 g/dL (31.0-37.0); MCV 87.2 fL (80.0-100.0); Mean Platelet Volume 8.6; Monocytes # (A) 0.8 k/uL (0-1.0); Monocytes % (A) 8 %; Neutrophils # (A) 6.1 k/uL (1.3-7.7); Neutrophils % (A) 56 %; Platelet Count 324 k/uL (150-450); RBC 4.47 m/uL (4.30-5.90); RDW 14.1 % (11.5-15.5); WBC 10.9 k/uL (3.8-10.6)
[2022-08-03] MEDS ORDERED: METOCLOPRAMIDE 5 MG/ML 2 ML VIAL ONE (14:48)
[2022-08-03] MEDS ORDERED: ONDANSETRON 4 MG/2 ML VIAL ONE (14:48)
[2022-08-03 14:54] LABS: INR 0.9 (<1.2); Partial Thromboplastin Time 25.3 sec (22.0-30.0); Prothrombin Time 9.8 sec (9.0-12.0)
[2022-08-03] MEDS ORDERED: FAMOTIDINE 20 MG/2 ML VIAL IVP ONE (15:00)
[2022-08-03] MEDS ORDERED: ePHEDrine 50 MG/ML 1 ML VIAL ONE (15:06)
[2022-08-03] MEDS ORDERED: SUCCINYLCHOLINE CHLORIDE 200 MG/10 ML VIAL IV ONE (15:06)
[2022-08-03] MEDS ORDERED: LIDOCAINE 2% INJ 20 MG/ML (2 ML VIAL) ONE (15:06)
[2022-08-03] MEDS ORDERED: PROPOFOL 10 MG/ML 20 ML VIAL IV ONE (15:06)
[2022-08-03] MEDS ORDERED: MIDAZOLAM 2 MG/2 ML VIAL ONE (15:06)
[2022-08-03] MEDS ORDERED: HYDROmorphone (PF) 1 MG/ML ONE (15:06)
[2022-08-03] MEDS ORDERED: fentaNYL (PF) 50 MCG/ML 2 ML AMP ONE (15:06)
[2022-08-03 15:28] LABS: ALT 33 U/L (4-49); AST 25 U/L (17-59); African American GFR (CKD) >90 (>60 ml/min/1.73 sqM); Albumin 4.4 g/dL (3.5-5.0); Alkaline Phosphatase 75 U/L (38-126); Anion Gap 12 mmol/L; Blood Urea Nitrogen 15 mg/dL (9-20); Calcium 9.9 mg/dL (8.4-10.2); Carbon Dioxide 26 mmol/L (22-30); Chloride 99 mmol/L (98-107); Glucose 85 mg/dL (74-99); Non-African American GFR(CKD) >90 (>60 ml/min/1.73 sqM); Potassium 4.8 mmol/L (3.5-5.1); Sodium 137 mmol/L (137-145); Total Bilirubin 0.4 mg/dL (0.2-1.3); Total Protein 7.2 g/dL (6.3-8.2)
[2022-08-03] MEDS ORDERED: VANCOMYCIN 1,000 MG VIAL MISCELLANE ONE (16:01)
--- NOTE | 2022-08-03 16:26 | FL ---
Intraoperative/procedural fluoroscopic services were provided. Total fluoroscopy time is 5 seconds wi th a total of 3submitted images to PACS. Please see the operative/procedural note for further details . DAP: [id number]
--- NOTE | 2022-08-03 16:43 | XR ---
Intraoperative/procedural fluoroscopic services were provided. Total fluoroscopy time is 6 seconds wi th a total of 3 submitted images to PACS. Please see the operative/procedural note for further detail s. DAP: [id number]
[2022-08-03] MEDS: HYDROmorphone 0.5 MG/0.5 ML SYRINGE IVP PRN ×3 (16:56→23:26)
[2022-08-03] MEDS: ACETAMINOPHEN TAB 325 MG TAB PO SCH ×2 (17:40→23:25)
[2022-08-03] MEDS: SODIUM CHLORIDE 0.9% 1,000 ML IV SCH (17:42)
[2022-08-03] MEDS ORDERED: ALBUTEROL NEBULIZED 2.5 MG/3 ML INHALATION PRN (17:42)
--- NOTE | 2022-08-03 17:44 | P.CONS ---
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 Patient states he was in his usual state of health and has been progressing well with physical therapy and mobility since his operation proximally one month ago when he reached across his body and felt a pop in the back of his neck. He says that shortly after he noticed that his back was becoming wet. He reports a 2 days prior he did have an episode of chills, however, he denies having had any fevers, nausea, vomiting, loss of appetite. He denies any worsening symptoms of lower extremity weakness or numbness/weakness of his upper extremities. He continues to have appropriate bladder and bowel habits with no evidence of urinary retention, incontinence. He denies chest pain, palpitations, sick, presyncope, cough, dyspnea, abdominal pain, constipation, diarrhea, dysuria, dyschezia. Upon evaluation, patient was afebrile, 141/65, heart rate 92, 100% on 6 L of nasal cannula. CBC demonstrated mild leukocytosis of 10.9, hemoglobin of 12.4. Basic metabolic panel was unremarkable. Liver function tests were unremarkable. Coags are unremarkable. Cervical spine x-ray was reviewed and showed appropriate postoperative changes with good hardware alignment. Case was discussed with orthopedic surgery regarding operative findings, medicine was asked to consult for further management. All Systems reviewed and pertinent positives and negatives noted in HPI, all other symptoms are negative Gen: in no apparent distress, resting comfortably in bed Eyes: PERRL, no scleral injection or icterus HENT: normocephalic, atraumatic, good hearing acuity, moist mucous membranes Neck: no tracheal deviation, full range of motion Resp: good air exchange, breathing comfortably with no accessory muscle use, no tactile fremitus CVS: good distal perfusion x 4, no pitting edema GI: soft, NTTP, ND, no hepatosplenomegaly : no suprapubic tenderness, no CVAT, rowland catheter is present MSK: no clubbing, no cyanosis, no noted contractures of extremities Skin: no noted rashes, petechiae; temperature of skin is appropriate Neuro: moving all extremities without signs of weakness, CN II-XII intact Psych: cooperative, euthymic mood, insight and judgment intact Labs and imaging as above Vital signs reviewed and noted in the HPI Lab work reviewed and noted in the HPI Cervical spine x-ray was personally interpreted and findings noted in the HPI Case was discussed with orthopedic surgery, wound did not appear to be infected, no signs or symptoms of localized or systemic infection at this time, will continue with prophylactic antibiotics I agree with vancomycin, monitor vancomycin trough for toxicity Agree with Dilaudid 0.5 mg every 3 hours when necessary for pain Agree with Flexeril 5 mg by mouth 3 times a day when necessary for pain Agree with [place] [id number] every 4 hours when necessary for pain Resume home albuterol, amlodipine, atorvastatin, hydralazine, lisinopril Patient is full code Past Medical History Past Medical History: Eye Disorder, Hyperlipidemia, Hypertension Additional Past Medical History / Comment(s): Bilateral cataracts, environmental allergies, hx possible TIA possibly from overheating. History of Any Multi-Drug Resistant Organisms: None Reported Past Surgical History: Heart Catheterization, Hernia Repair, Orthopedic Surgery Additional Past Surgical History / Comment(s): Ankle surgery X3 with hardware, face surgery w/ titanium mesh, left eye cataract removed, right shoulder reverse total shoulder, left shoulder surgery X3 bankhart, rotator cuff repair, left wrist carpal tunnel surgery, left inguinal hernia repair. Past Anesthesia/Blood Transfusion Reactions: Previous Problems w/ Anesthesia Additional Past Anesthesia/Blood Transfusion Reaction / Comm: Pt states he went into shock prior to shoulder surgery was in the OR. Kept him overnight and he had the surgery done the next day. Patient states he has had surgery since then, including a total surgery with no problem. Past Psychological History: No Psychological Hx Reported Smoking Status: Current every day smoker Past Alcohol Use History: Occasional Past Drug Use History: Marijuana - Past Family History Mother Family Medical History: No Reported History Brother(s) Family Medical History: Coronary Artery Disease (CAD) Medications and Allergies Home Medications Medication Instructions Recorded Confirmed Type Fluticasone Nasal [place] [Flonase 1 spray EA NOSTRIL DAILY 02/12/21 08/03/22 History Nasal [place]] Montelukast Sodium [Singulair] 10 mg PO HS 02/12/21 08/03/22 History Albuterol Inhaler [Ventolin Hfa 2 puff INHALATION RT-Q6H PRN 10/14/21 08/03/22 History Inhaler] EPINEPHrine (Auto Inject) [Epipen] 0.3 mg IM ONCE PRN 10/14/21 08/03/22 History Ibuprofen [Motrin] 600 mg PO Q8HR 10/14/21 08/03/22 History amLODIPine [Norvasc] 5 mg PO DAILY #30 tab 10/20/21 08/03/22 Rx hydrALAZINE HCL [Apresoline] 25 mg PO BID #60 tab 10/20/21 08/03/22 Rx lisinopriL [Zestril] 20 mg PO DAILY #30 tab 10/20/21 08/03/22 Rx Atorvastatin Calcium [Lipitor] 40 mg PO HS 06/19/22 08/03/22 History Loratadine [Claritin] 5 mg PO DAILY 30 Days #30 tab 07/06/22 08/03/22 Rx Cyclobenzaprine [Flexeril] 10 mg PO TID 08/03/22 08/03/22 History HYDROcodone/APAP 5-325MG [[place] 1 tab PO Q5H 08/03/22 08/03/22 History 5-325] Allergies Allergy/AdvReac Type Severity Reaction Status Date / Time bee venom protein (honey bee) Allergy Anaphylaxis Verified 08/03/22 13:55 Physical Exam Osteopathic Statement: *. No significant issues noted on an osteopathic structural exam other than those noted in the History and Physical/Consult. Vitals: Vital Signs Temp Pulse Pulse Resp BP BP Pulse Ox 08/03/22 16:57 92 16 135/59 100 08/03/22 16:42 97.2 F L 92 16 141/65 100 08/03/22 14:16 97.3 F L 68 18 156/70 100 08/03/22 14:04 82 18 124/71 99 08/03/22 13:08 97.9 F 78 18 137/78 99 Intake and Output 08/03/22 08/03/22 08/03/22 06:59 14:59 22:59 Intake Total 125 975 Output Total 400 50 Balance -275 925 Intake: IV 125 975 Output: Urine 400 Estimated Blood Loss 50 Other: Weight 76.657 kg Results CBC & Chem 7: 08/03/22 14:00 08/03/22 14:00 Labs: Abnormal Lab Results - Last 24 Hours (Table) 08/03/22 08/03/22 Range/Units 14:00 14:00 WBC 10.9 H (3.8-10.6) k/uL Hgb 12.4 L (13.0-17.5) gm/dL Eosinophils # 1.2 H (0-0.7) k/uL Creatinine 0.59 L (0.66-1.25) mg/dL
[2022-08-03] MEDS: HYDROcodone/APAP 10-325MG 1 EACH TAB PO PRN (18:15)
[2022-08-03] MEDS: CYCLOBENZAPRINE 10 MG TAB PO SCH (21:29)
[2022-08-03] MEDS: hydrALAZINE HCL 25 MG TAB PO SCH (21:29)
[2022-08-03] MEDS: ATORVASTATIN 40 MG TAB PO SCH (21:29)
[2022-08-03] MEDS: MONTELUKAST 10 MG TAB PO SCH (21:29)
[2022-08-04] MEDS: SODIUM CHLORIDE 0.9% 1,000 ML IV SCH ×2 (00:24→15:19)
--- NOTE | 2022-08-04 00:29 | CT ---
EXAM: CT Cervical Spine Without Intravenous Contrast CLINICAL HISTORY: ITS.REASON CT Reason: Post op TECHNIQUE: Axial computed tomography images of the cervical spine without intravenous contrast. CTDI is 11.7 mGy and DLP is 365.6 mGy-cm. This CT exam was performed using one or more of the following dose reduction techniques: automated exposure control, adjustment of the mA and/or kV according to patient size, and/or use of iterative reconstruction technique. COMPARISON: 07/04/2022 FINDINGS: Vertebrae: Grade 1 anterolisthesis of C7 relative to T1. Otherwise, alignment is maintained. No acute fracture. Discs/spinal canal/neural foramina: Posterior decompression of C3, C4, C5, C6, and C7 with posterior fusion. Interval resection of the T1 and T2 posterior spinous processes. Posterior fusion within bilateral posterior screws in C2, C3, C4, C5, C6, left T1 pedicle screw, and bilateral T2 pedicle screws in position without evidence of hardware complications. Patient is status post C4-5, C5-6, and C6-7 discectomy with placement of intervertebral bone graft in position. Anterior fusion with screws in the C4, C5, C6 and C7 levels in position. No spinal canal stenosis. Soft tissues: Soft tissue fluid and air within the soft tissues within expected limits post recent surgery. Sinuses: Partial opacification of bilateral maxillary sinuses. Lung apices: Centrilobular emphysema. Tubes, lines and devices: Interval removal of anterior surgical drain, posterior surgical drain, and left internal jugular central venous line. New small caliber posterior surgical drain has been placed. IMPRESSION: 1. Status post anterior posterior decompression of the cervical spine with anterior posterior fusion as described specifically above. No hardware complications are noted. 2. Interval resection of the T1 and T2 posterior spinous processes.
[2022-08-04] MEDS: HYDROcodone/APAP 10-325MG 1 EACH TAB PO PRN ×4 (03:50→21:56)
[2022-08-04] MEDS: ACETAMINOPHEN TAB 325 MG TAB PO SCH ×4 (06:11→21:56)
[2022-08-04] MEDS: CYCLOBENZAPRINE 10 MG TAB PO SCH ×3 (08:07→21:56)
[2022-08-04] MEDS: amLODIPine 5 MG TAB PO SCH (08:07)
[2022-08-04] MEDS: FLUTICASONE 50MCG/SPRAY NASAL 16GM EA NOSTRIL SCH (08:07)
[2022-08-04] MEDS: lisinopriL 20 MG TAB PO SCH (08:07)
[2022-08-04] MEDS: hydrALAZINE HCL 25 MG TAB PO SCH ×2 (08:07→21:56)
--- NOTE | 2022-08-04 08:38 | P.PN ---
Subjective Progress Note Date: 08/04/22 Principal diagnosis: Surgical wound dehiscence Patient seen and examined this morning. Patient is currently resting in bed. He reports that his pain is managed on current regimen. Surgical dressing to the posterior cervical spine is clean dry and intact, TALISHA drain present with 0mL output overnight. Encouraged patient to work with physical therapy today and to continue to use incentive spirometer. Patient reports no acute concerns at this time. Patient has been afebrile, denies nausea/vomiting, or chest pain. Objective - Vital Signs Vital signs: Vital Signs Temp 98.3 F 08/04/22 07:32 Pulse 73 08/04/22 07:32 Resp 16 08/04/22 07:32 BP 130/78 08/04/22 07:32 Pulse Ox 97 08/04/22 07:32 FiO2 Intake & Output 08/03/22 08/04/22 08/04/22 18:59 06:59 18:59 Intake Total 1100 900 Output Total 450 1600 Balance 650 -700 Weight 76.657 kg Intake: IV 1100 Intake, IV Titration 900 Amount Sodium Chloride 0.9% 1, 900 000 ml @ 75 mls/hr IV . [id number] [facility] Rx#:[id number] Output: Drainage 0 Posterior Neck 0 Urine 400 1600 Estimated Blood Loss 50 Other: Voiding Method Urinal # Voids 1 - Exam Inspection: Negative for any open fractures, ecchymosis, significant erythema/ulcers. Surgical incision to the posterior cervical spine is CDI, TALISHA drain is present 0ml overnight Sensation: Sensation is equal, symmetric, bilaterally intact throughout the upper and lower extremities Palpation: Non-tender to palpation throughout bilateral upper and lower extremities and throughout spine exam Range of motion: Patient does have full range of motion to lower extremities on exam, he has limited ROM to bilateral upper extremities due to procedure and history of multiple right shoulder surgeries. Motor: 5/5 in all major motor groups in the bilateral upper and lower extremities Special tests: Negative Homans bilaterally. Negative Smith bilaterally. Negative clonus bilaterally. Neurovascular: Radial pulse intact, 2+ bilaterally. Cap refill under 3 seconds in digits upper extremities. - Labs CBC & Chem 7: 08/03/22 14:00 08/03/22 14:00 Labs: Abnormal Lab Results - Last 24 Hours (Table) 08/03/22 08/03/22 Range/Units 14:00 14:00 WBC 10.9 H (3.8-10.6) k/uL Hgb 12.4 L (13.0-17.5) gm/dL Eosinophils # 1.2 H (0-0.7) k/uL Creatinine 0.59 L (0.66-1.25) mg/dL Microbiology - Last 24 Hours (Table) 08/03/22 15:51 Anaerobic Culture - Preliminary Neck 08/03/22 15:51 Wound Culture - Preliminary Neck 08/03/22 15:50 Wound Culture - Preliminary Neck 08/03/22 15:50 Anaerobic Culture - Preliminary Neck Assessment and Plan Assessment: Postop day 1: Irrigation and debridement with complex closure posterior neck wound Surgical wound dehiscence status post C4-7 cervical arthroplasty and C2 to T2 PLIF Plan: -Appreciate incident response consultant and team management. -Activity: Ambulate QID, OOB all meals, up and about, limit lifting bending twisting to less than 5 lbs. Use walker or cane if needed for stability. -Daily PT/OT, increase ambulation strength and balance. -Hard cervical collar at all times, do not wear in shower -Pain control: Adequate at this time -Meds: reviewed -GI ppx: senna, Miralax -DVT PPX: OK to restart Heparin tonight -Hygiene: Shower today. Maintain dressing clean and dry. Meticulous cleaning after BMs away from the incision site -Drains: Maintain for now. DC later today pending out put and PT -Encourage IS 10x/hr -Dispo: Anticipate discharge home within 24-48hrs with homecare *I reviewed and discussed this case with my attending Dr. Baptiste, whom has reviewed this chart and films and is in agreement with assessment and plan of care as outlined above. I have personally seen and examined the patient, performed the documentation and the assessment and plan as written. Number of minutes spent on the visit: 20m.
--- NOTE | 2022-08-04 14:17 | P.PN ---
Subjective Progress Note Date: 08/04/22 Patient is doing well today, no complaint of fevers, chills. Feels his energy levels back to normal. 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 Upon evaluation, patient was afebrile, 141/65, heart rate 92, 100% on 6 L of nasal cannula. CBC demonstrated mild leukocytosis of 10.9, hemoglobin of 12.4. Basic metabolic panel was unremarkable. Liver function tests were unremarkable. Coags are unremarkable. Cervical spine x-ray was reviewed and showed appropriate postoperative changes with good hardware alignment. Case was discussed with orthopedic surgery regarding operative findings, medicine was asked to consult for further management. Assessment: Wound dehiscense - not suspicious for infection HTN HLD Asplenia Cervical myelopathy s/p PLIF Plan: Today, patient is afebrile, 124/80, heart rate 79, 97% on room air Cervical spine CT was reviewed, no hardware complications Continue vancomycin for another 24 hours, monitor vancomycin trough for toxicity Agree with Dilaudid 0.5 mg every 3 hours when necessary for pain Agree with Flexeril 5 mg by mouth 3 times a day when necessary for pain Agree with [place] [id number] every 4 hours when necessary for pain Resume home albuterol, amlodipine, atorvastatin, hydralazine, lisinopril Patient is full code Objective - Vital Signs Vital signs: Vital Signs Temp 98.5 F 08/04/22 13:38 Pulse 79 08/04/22 13:38 Resp 16 08/04/22 13:38 BP 124/80 08/04/22 13:38 Pulse Ox 97 08/04/22 13:38 FiO2 Intake & Output 08/03/22 08/04/22 08/04/22 18:59 06:59 18:59 Intake Total 1100 900 Output Total 450 1600 0 Balance 650 -700 0 Weight 76.657 kg Intake: IV 1100 Intake, IV Titration 900 Amount Sodium Chloride 0.9% 1, 900 000 ml @ 75 mls/hr IV . [id number] [facility] Rx#:[id number] Output: Drainage 0 0 Posterior Neck 0 0 Urine 400 1600 Estimated Blood Loss 50 Other: Voiding Method Urinal Urinal # Voids 1 - Labs CBC & Chem 7: 08/03/22 14:00 08/03/22 14:00 Labs: Abnormal Lab Results - Last 24 Hours (Table) 08/03/22 08/03/22 Range/Units 14:00 14:00 WBC 10.9 H (3.8-10.6) k/uL Hgb 12.4 L (13.0-17.5) gm/dL Eosinophils # 1.2 H (0-0.7) k/uL Creatinine 0.59 L (0.66-1.25) mg/dL Microbiology - Last 24 Hours (Table) 08/03/22 15:51 Anaerobic Culture - Preliminary Neck 08/03/22 15:51 Wound Culture - Preliminary Neck 08/03/22 15:50 Wound Culture - Preliminary Neck 08/03/22 15:50 Anaerobic Culture - Preliminary Neck
[2022-08-04] MEDS: MONTELUKAST 10 MG TAB PO SCH (21:55)
[2022-08-04] MEDS: ATORVASTATIN 40 MG TAB PO SCH (21:56)
[2022-08-05] MEDS: HYDROcodone/APAP 10-325MG 1 EACH TAB PO PRN ×2 (07:14→21:17)
[2022-08-05] MEDS: SODIUM CHLORIDE 0.9% 1,000 ML IV SCH (07:15)
[2022-08-05] MEDS: ACETAMINOPHEN TAB 325 MG TAB PO SCH ×3 (07:16→17:14)
--- NOTE | 2022-08-05 08:53 | P.PN ---
Subjective Progress Note Date: 08/05/22 Patient is doing well today, no complaint of fevers, chills. Feels his energy levels back to normal. 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 Upon evaluation, patient was afebrile, 141/65, heart rate 92, 100% on 6 L of nasal cannula. CBC demonstrated mild leukocytosis of 10.9, hemoglobin of 12.4. Basic metabolic panel was unremarkable. Liver function tests were unremarkable. Coags are unremarkable. Cervical spine x-ray was reviewed and showed appropriate postoperative changes with good hardware alignment. Case was discussed with orthopedic surgery regarding operative findings, medicine was asked to consult for further management. Assessment: Wound dehiscense - not suspicious for infection HTN HLD Asplenia Cervical myelopathy s/p PLIF Plan: Today, patient is afebrile, 137/77, heart rate 85, 95% on room air Patient is medically cleared for discharge Continue vancomycin while hospitalized, on discharge consider 3 additional days of cephalexin Agree with Dilaudid 0.5 mg every 3 hours when necessary for pain Agree with Flexeril 5 mg by mouth 3 times a day when necessary for pain Agree with [place] [id number] every 4 hours when necessary for pain Resume home albuterol, amlodipine, atorvastatin, hydralazine, lisinopril Patient is full code Objective - Vital Signs Vital signs: Vital Signs Temp 98.3 F 08/05/22 07:43 Pulse 85 08/05/22 07:43 Resp 18 08/05/22 07:43 BP 137/77 08/05/22 07:43 Pulse Ox 95 08/05/22 07:43 FiO2 Intake & Output 08/04/22 08/05/22 08/05/22 18:59 06:59 18:59 Output Total 0 0 Balance 0 0 Output: Drainage 0 0 Posterior Neck 0 0 Other: Voiding Method Urinal Urinal # Voids 2 - Labs CBC & Chem 7: 08/03/22 14:00 08/03/22 14:00 Labs: Microbiology - Last 24 Hours (Table) 08/03/22 15:51 Gram Stain - Preliminary Neck Wound Culture - Preliminary 08/03/22 15:50 Gram Stain - Preliminary Neck Wound Culture - Preliminary
[2022-08-05] MEDS: CYCLOBENZAPRINE 10 MG TAB PO SCH ×3 (09:53→21:15)
[2022-08-05] MEDS: FLUTICASONE 50MCG/SPRAY NASAL 16GM EA NOSTRIL SCH (09:53)
[2022-08-05] MEDS: amLODIPine 5 MG TAB PO SCH (09:53)
[2022-08-05] MEDS: hydrALAZINE HCL 25 MG TAB PO SCH ×2 (09:53→21:15)
[2022-08-05] MEDS: lisinopriL 20 MG TAB PO SCH (09:53)
--- NOTE | 2022-08-05 10:56 | P.PN ---
Subjective Progress Note Date: 08/05/22 Principal diagnosis: Status post irrigation and debridement with complex wound closure, history of cervical wound dehiscence, history of recent C2-T2 posterior lateral interbody fusion Patient was examined today at bedside, he is resting in his hospital bed. He is utilizing a hard cervical collar at this time. He did attempt to use the [id number] brace while in bed, this did cause significant pain in his left shoulder. He has history of multiple surgeries to the bilateral shoulders and has chronic pain with these. The drain remains in place with minimal output. P atient denies any new onset numbness or tingling to the bilateral upper and lower extremities. His pain is currently controlled well. He's been eating minimally states at this time. He has been passing gas, he has not had a bowel movement. He's been urinating with no issues. Objective - Vital Signs Vital signs: Vital Signs Temp 98.3 F 08/05/22 07:43 Pulse 85 08/05/22 07:43 Resp 18 08/05/22 07:43 BP 137/77 08/05/22 07:43 Pulse Ox 95 08/05/22 07:43 FiO2 Intake & Output 08/04/22 08/05/22 08/05/22 18:59 06:59 18:59 Output Total 0 0 Balance 0 0 Output: Drainage 0 0 Posterior Neck 0 0 Other: Voiding Method Urinal Urinal # Voids 2 - Exam Gen: AOx3, NAD VSS stable at this time Integument: Postoperative bandage was removed today at bedside, the TALISHA drain was also removed. There was a moderate amount of serosanguineous bloody drainage after removal of the drain, this did subside. A new silver foam dressing was placed, the heart was also placed. The nylon sutures were all in good position and condition, no obvious redness. Palpation: Mild tenderness to this paraspinal region of the cervical spine ROM: Range of motion is limited in the bilateral shoulders with elevation and abduction. Elbow extension, elbow flexion, wrist extension, wrist flexion are intact. Forward elevation also groups of bilateral lower extremities, no focal deficits Sensory Exam: [place] exam to light touch is intact C5-T1 [place] exam to light touch is intact L2-S1 Motor: 4/5 strength appreciated in the bilateral upper extremities with elbow extension, elbow flexion, wrist extension, wrist flexion, elastic cutter, shoulder stre ngth was not assessed 5/5 strength appreciated in bilateral lower extremities with hip flexion, knee extension, knee flexion, dorsiflexion, EHL, FHL Reflexes: 2/4 in all UE and LE Negative Patricia's, clonus, Babinski bilaterally - Labs CBC & Chem 7: 08/03/22 14:00 08/03/22 14:00 Labs: Microbiology - Last 24 Hours (Table) 08/03/22 13:30 Blood Culture - Preliminary Blood 08/03/22 14:00 Blood Culture - Preliminary Blood 08/03/22 15:51 Gram Stain - Preliminary Neck Wound Culture - Preliminary 08/03/22 15:50 Gram Stain - Preliminary Neck Wound Culture - Preliminary Assessment and Plan Assessment: Postoperative day #2 status post irrigation and debridement with complex wound closure cervical spine History of cervical wound dehiscence History of C2-T2 posterior lateral fusion Plan: Pain control, continue with current medications DVT prophylaxis, continue use of DEANGELO hose and compression stockings Wound care, new foam dressing was placed continue to monitor, we will change prior to discharge Activity level restrictions, patient was instructed to utilize the [id number] brace mainly when ambulating. He will continue use of the c- collar at all times. No bending, lifting or twisting. Limited neck range of mo tion at this time PT/OT Continue with IV antibiotics through the weekend, plan for discharge on 0 08/07/2022 with oral course of antibiotics We will continue to follow during inpatient stay Time with Patient: Less than 30
[2022-08-05] MEDS: ATORVASTATIN 40 MG TAB PO SCH (21:15)
[2022-08-05] MEDS: MONTELUKAST 10 MG TAB PO SCH (21:15)
[2022-08-06] MEDS: ACETAMINOPHEN TAB 325 MG TAB PO SCH ×5 (04:39→23:25)
[2022-08-06] MEDS: HYDROcodone/APAP 10-325MG 1 EACH TAB PO PRN ×3 (05:49→21:05)
[2022-08-06] MEDS: hydrALAZINE HCL 25 MG TAB PO SCH ×2 (09:04→21:04)
[2022-08-06] MEDS: CYCLOBENZAPRINE 10 MG TAB PO SCH ×3 (09:04→21:05)
[2022-08-06] MEDS: FLUTICASONE 50MCG/SPRAY NASAL 16GM EA NOSTRIL SCH (09:04)
[2022-08-06] MEDS: amLODIPine 5 MG TAB PO SCH (09:04)
[2022-08-06] MEDS: lisinopriL 20 MG TAB PO SCH (09:04)
--- NOTE | 2022-08-06 09:39 | P.PN ---
Subjective Progress Note Date: 08/06/22 Principal diagnosis: Status post irrigation and debridement with complex wound closure, history of cervical wound dehiscence, history of recent C2-T2 posterior lateral interbody fusion Patient was examined today at bedside, he is resting in his hospital bed. He is utilizing a hard cervical collar at this time. Patient denies any new onset numbness or tingling to the bilateral upper and lower extremities. His pain is currently controlled well. He has been passing gas, he has not had a bowel movement. He's been urinating with no issues. Objective - Vital Signs Vital signs: Vital Signs Temp 97.7 F 08/06/22 07:08 Pulse 85 08/06/22 07:08 Resp 19 08/06/22 07:08 BP 131/72 08/06/22 07:08 Pulse Ox 95 08/06/22 07:08 FiO2 Intake & Output 08/05/22 08/06/22 08/06/22 18:59 06:59 18:59 Output Total 0 Balance 0 Output: Drainage 0 Posterior Neck 0 Other: Voiding Method Urinal # Voids 3 - Exam Gen: AOx3, NAD VSS stable at this time Integument: Postop dressing is in good position and condition, no active drainage Palpation: Mild tenderness to this paraspinal region of the cervical spine ROM: Range of motion is limited in the bilateral shoulders with elevation and abduction. Elbow extension, elbow flexion, wrist extension, wrist flexion are intact. 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 assistant, shoulder strength was not assessed 5/5 strength appreciated in bilateral lower extremities with hip flexion, knee extension, knee flexion, dorsiflexion, EHL, FHL Reflexes: 2/4 in all UE and LE Negative Patricia's, clonus, Babinski bilaterally - Labs CBC & Chem 7: 08/03/22 14:00 08/03/22 14:00 Labs: Microbiology - Last 24 Hours (Table) 08/03/22 13:30 Blood Culture - Preliminary Blood 08/03/22 14:00 Blood Culture - Preliminary Blood 08/03/22 15:50 Anaerobic Culture - Preliminary Neck 08/03/22 15:51 Anaerobic Culture - Preliminary Neck 08/03/22 15:50 Gram Stain - Final Neck Wound Culture - Final 08/03/22 15:51 Gram Stain - Final Neck Wound Culture - Final Assessment and Plan Assessment: Postoperative day #3 status post irrigation and debridement with complex wound closure cervical spine History of cervical wound dehiscence History of C2-T2 posterior lateral fusion Plan: Pain control, continue with current medications DVT prophylaxis, continue use of DEANGELO hose and compression stockings IV antibiotics have been restarted, continue during hospital stay, plan for oral abx at discharge Wound care, dressing change on 08/07/2022 Activity level restrictions, patient was instructed to utilize the [id number] brace mainly when ambulating. He will continue use of the c- collar at all times. No bending, lifting or twisting. Limited neck range of motion at this time PT/OT Discharge planning: hopeful discharge to home on 08/07/2022 Time with Patient: Less than 30
--- NOTE | 2022-08-06 13:24 | P.PN ---
Subjective Progress Note Date: 08/06/22 Patient is doing well today, no complaint of fevers, chills. Feels his energy levels back to normal. 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 Upon evaluation, patient was afebrile, 141/65, heart rate 92, 100% on 6 L of nasal cannula. CBC demonstrated mild leukocytosis of 10.9, hemoglobin of 12.4. Basic metabolic panel was unremarkable. Liver function tests were unremarkable. Coags are unremarkable. Cervical spine x-ray was reviewed and showed appropriate postoperative changes with good hardware alignment. Case was discussed with orthopedic surgery regarding operative findings, medicine was asked to consult for further management. Assessment: Wound dehiscense - not suspicious for infection HTN HLD Asplenia Cervical myelopathy s/p PLIF Plan: Today, patient is afebrile, 131/72, heart rate 85, 95% on room air Patient is medically cleared for discharge Continue vancomycin while hospitalized, on discharge consider 3 additional days of cephalexin Agree with Dilaudid 0.5 mg every 3 hours when necessary for pain Agree with Flexeril 5 mg by mouth 3 times a day when necessary for pain Agree with [place] [id number] every 4 hours when necessary for pain Resume home albuterol, amlodipine, atorvastatin, hydralazine, lisinopril Patient is full code Objective - Vital Signs Vital signs: Vital Signs Temp 97.7 F 08/06/22 07:08 Pulse 85 08/06/22 07:08 Resp 19 08/06/22 07:08 BP 131/72 08/06/22 07:08 Pulse Ox 95 08/06/22 07:08 FiO2 Intake & Output 08/05/22 08/06/22 08/06/22 18:59 06:59 18:59 Output Total 0 Balance 0 Output: Drainage 0 Posterior Neck 0 Other: Voiding Method Urinal # Voids 3 - Labs CBC & Chem 7: 08/03/22 14:00 08/03/22 14:00 Labs: Microbiology - Last 24 Hours (Table) 08/03/22 13:30 Blood Culture - Preliminary Blood 08/03/22 14:00 Blood Culture - Preliminary Blood 08/03/22 15:50 Anaerobic Culture - Preliminary Neck 08/03/22 15:51 Anaerobic Culture - Preliminary Neck 08/03/22 15:50 Gram Stain - Final Neck Wound Culture - Final 08/03/22 15:51 Gram Stain - Final Neck Wound Culture - Final
[2022-08-06 20:23] VITALS: RESP 18
[2022-08-06] MEDS ORDERED: SENNOSIDES-DOCUSATE SODIUM 1 EACH TAB PO SCH (21:00)
[2022-08-06] MEDS: MONTELUKAST 10 MG TAB PO SCH (21:05)
[2022-08-06] MEDS: ATORVASTATIN 40 MG TAB PO SCH (21:05)
[2022-08-07] MEDS: HYDROcodone/APAP 10-325MG 1 EACH TAB PO PRN ×3 (01:28→11:59)
[2022-08-07] MEDS: ACETAMINOPHEN TAB 325 MG TAB PO SCH ×2 (05:51→12:00)
[2022-08-07 07:28] VITALS: BP 124/74; PULSE 72; TEMP 97.9
--- NOTE | 2022-08-07 07:44 | P.PN ---
Subjective Progress Note Date: 08/07/22 Principal diagnosis: Surgical wound dehiscence Patient seen and examined this morning. Patient is currently resting in bed. He reports that his pain is managed on current regimen. Surgical dressing to the posterior cervical spine is clean dry and intact. Hard cervical collar in place. He states he feels he is getting around well. He feels he is ready to go home today. Patient reports no acute concerns at this time. He does state that he has pain medications and muscle relaxer from his PCP. Patient is cleared from an orthopedic standpoint for discharge today. Patient has been afebrile, denies nausea/vomiting, or chest pain. Objective - Vital Signs Vital signs: Vital Signs Temp 97.9 F 08/07/22 06:55 Pulse 72 08/07/22 06:55 Resp 18 08/07/22 06:55 BP 124/74 08/07/22 06:55 Pulse Ox 96 08/07/22 06:55 FiO2 Intake & Output 08/06/22 08/07/22 08/07/22 18:59 06:59 18:59 Intake Total 10 Balance 10 Intake: IV 10 Invasive Line 1 10 Other: Voiding Method Toilet Urinal # Voids 3 - Exam Inspection: Negative for any open fractures, ecchymosis, significant erythema/ul cers. Surgical incision to the posterior cervical spine is CDI, hard cervical collar in place. Sensation: Sensation is equal, symmetric, bilaterally intact throughout the upper and lower extremities Palpation: Non-tender to palpation throughout bilateral upper and lower extremities and throughout spine exam Range of motion: Patient does have full range of motion to lower extremities on exam, he has limited ROM to bilateral upper extremities due to procedure and history of multiple right shoulder surgeries. Motor: 5/5 in all major motor groups in the bilateral upper and lower extremities Special tests: Negative Homans bilaterally. Negative Smith bilaterally. Negative clonus bilaterally. Neurovascular: Radial pulse intact, 2+ bilaterally. Cap refill under 3 seconds in digits upper extremities. - Labs CBC & Chem 7: 08/03/22 14:00 08/03/22 14:00 Labs: Microbiology - Last 24 Hours (Table) 08/03/22 13:30 Blood Culture - Preliminary Blood 08/03/22 14:00 Blood Culture - Preliminary Blood Assessment and Plan Assessment: Postop day 4: Irrigation and debridement with complex closure posterior neck wound Surgical wound dehiscence status post C4-7 cervical arthroplasty and C2 to T2 PLIF Plan: -Appreciate financial reporting consultant and team management. -Activity: Ambulate QID, OOB all meals, up and about, limit lifting bending twisting to less than 5 lbs. Use walker or cane if needed for stability. -Daily PT/OT, increase ambulation strength and balance. -Hard cervical collar at all times, do not wear in shower -Pain control: Adequate at this time -Meds: reviewed. Patient will continue with oral antibiotic at discharge. -GI ppx: senna, Miralax -DVT PPX: Heparin -Hygiene: Shower today. Maintain dressing clean and dry. -Encourage IS 10x/hr -Dispo: Anticipate discharge home today with homecare *I reviewed and discussed this case with my attending Dr. Baptiste, whom has reviewed this chart and films and is in agreement with assessment and plan of care as outlined above. I have personally seen and examined the patient, performed the documentation and the assessment and plan as written. Number of minutes spent on the visit: 20m.
--- NOTE | 2022-08-07 07:49 | P.DS ---
Providers Date of admission: 08/03/22 13:41 Expected date of discharge: 08/07/22 Attending physician: Damion Baptiste DO Consults: 08/03/22 14:27 Consult Physician Routine Consulting Provider: Malena Colorado Consult Reason/Comments: medical management Do you want consulting provider notified?: Yes Primary care physician: Monster Bolivar [facility] Course: Hospital Course: The patient was evaluated preoperatively and found to have the diagnosis of surgical wound dehiscence of posterior cervical spine. They underwent appropriate preoperative care and were willing to undergo the intended procedure. They underwent a successful irrigation and debridement with complex wound closure, were recovered appropriately and sent to the floor. While on the floor they worked with physical therapy, occupational therapy and nursing to enhance their recovery experience. Their pain was well controlled through their stay and they were started on appropriate medications, DVT ppx modalities, activity and dietary needs. Daily labs were monitored closely, and transfusions were only used when necessary. Medicine as well as other consulting services have made their input and have helped with our team approach and multidisciplinary care. PT milestones have been met and passed and they have made the recommendation of home with home care for this patient and treating providers agree with this care path. The patient will be discharged home with appropriate medications, instructions and follow-up information and in stable condition. Patient Condition at Discharge: Good Plan - Discharge Summary Discharge Rx Participant: No New Discharge Prescriptions: New cefaDROXiL [Duricef] 500 mg PO Q12HR 5 Days #10 cap No Action Montelukast Sodium [Singulair] 10 mg PO HS Albuterol Inhaler [Ventolin Hfa Inhaler] 2 puff INHALATION RT-Q6H PRN PRN Reason: Shortness Of Breath hydrALAZINE HCL [Apresoline] 25 mg PO BID #60 tab amLODIPine [Norvasc] 5 mg PO DAILY #30 tab Fluticasone Nasal Emerson [Flonase Nasal Emerson] 1 spray EA NOSTRIL DAILY Ibuprofen [Motrin] 600 mg PO Q8HR EPINEPHrine (Auto Inject) [Epipen] 0.3 mg IM ONCE PRN PRN Reason: Anaphylaxis lisinopriL [Zestril] 20 mg PO DAILY #30 tab Atorvastatin Calcium [Lipitor] 40 mg PO HS Loratadine [Claritin] 5 mg PO DAILY 30 Days #30 tab Cyclobenzaprine [Flexeril] 10 mg PO TID HYDROcodone/APAP 5-325MG [Alvarado 5-325] 1 tab PO Q5H Discharge Medication List Fluticasone Nasal Emerson [Flonase Nasal Emerson] 1 spray EA NOSTRIL DAILY 02/12/21 [History] Montelukast Sodium [Singulair] 10 mg PO HS 02/12/21 [History] Albuterol Inhaler [Ventolin Hfa Inhaler] 2 puff INHALATION RT-Q6H PRN 10/14/21 [History] EPINEPHrine (Auto Inject) [Epipen] 0.3 mg IM ONCE PRN 10/14/21 [History] Ibuprofen [Motrin] 600 mg PO Q8HR 10/14/21 [History] amLODIPine [Norvasc] 5 mg PO DAILY #30 tab 10/20/21 [Rx] hydrALAZINE HCL [Apresoline] 25 mg PO BID #60 tab 10/20/21 [Rx] lisinopriL [Zestril] 20 mg PO DAILY #30 tab 10/20/21 [Rx] Atorvastatin Calcium [Lipitor] 40 mg PO HS 06/19/22 [History] Loratadine [Claritin] 5 mg PO DAILY 30 Days #30 tab 07/06/22 [Rx] Cyclobenzaprine [Flexeril] 10 mg PO TID 08/03/22 [History] HYDROcodone/APAP 5-325MG [Alvarado 5-325] 1 tab PO Q5H 08/03/22 [History] cefaDROXiL [Duricef] 500 mg PO Q12HR 5 Days #10 cap 08/07/22 [Rx] Follow up Appointment(s)/Referral(s): [facility], [NON-STAFF] - 1-2 Days Monster Bolivar MD [Primary Care Provider] - 1-2 days Damion Baptiste DO [Doctor of Osteopathic Medicine] - 2 Weeks Activity/Diet/Wound Care/Special Instructions: Change dressing daily to keep incision clean and dry. May leave open to air when there is no drainage. May shower, allow soapy water to run over incision and pat dry. Continue to wear hard cervical collar at all times, do not wear in shower and may take off for breaks while sitting in chair. Limit bending, lifting, pushing, pulling, or any overhead activities. Weight limit 5-10lbs. Follow up in office in 2 weeks. Discharge Disposition: HOME WITH HOME HEALTH SERVICES
[2022-08-07] MEDS: hydrALAZINE HCL 25 MG TAB PO SCH (08:09)
[2022-08-07] MEDS: amLODIPine 5 MG TAB PO SCH (08:09)
[2022-08-07] MEDS: lisinopriL 20 MG TAB PO SCH (08:09)
[2022-08-07] MEDS: CYCLOBENZAPRINE 10 MG TAB PO SCH (08:09)
[2022-08-07] MEDS: FLUTICASONE 50MCG/SPRAY NASAL 16GM EA NOSTRIL SCH (08:09)
--- NOTE | 2022-08-07 09:09 | P.PN ---
Subjective Progress Note Date: 08/07/22 Hospital course: Patient is a very pleasant 67-year-old male with a past medical history of hypertension, hyperlipidemia, splenectomy status post trauma, cervical myelopathy status post C4 through C7 cervical arthroplasty and C2 to T2 PLIF. He presented to the hospital on 08/03/22 with a chief complaint of wound dehiscence. Patient was admitted under orthospine surgical team and we were consulted for medical management throughout hospitalization. Physical exam: Vital signs reviewed and stable. General: Nontoxic, no distress and appears stated age. Derm: Skin warm and dry, normal coloration for ethnicity. Head: Atraumatic, normocephalic and symmetric. Hard C-collar in place. Eyes: EOMs intact, no lid lag, and anicteric sclera Mouth: no lip lesions, mucus membranes moist Cardiovascular: regular rate and rhythm with normal S1S2, no murmur, positive posterior tibial pulses bilaterally, and cap refill < 2 seconds. Lungs: Respirations even, regular, and unlabored on room air. Lungs CTA bilaterally, no rhonchi, no rales, no wheezing, and no accessory muscle usage. Abdominal: soft, nontender to palpation, no guarding, no appreciable organomegaly Ext: ROM intact. No gross muscle atrophy, no edema, no contractures Neuro: Speech clear, face symmetrical and CN II-XII grossly intact with no noted focal neuro deficits Psych: Alert and oriented to person, place, time, and situation. Appropriate and pleasant affect. Assessment and Plan of Care: Wound dehiscence, not suspicious for infection Blood cultures reviewed showing no growth to date, anaerobic wound culture showing no growth to date, and wound culture Gram stain was negative. Patient has remained afebrile throughout the entire hospitalization. Continue with symptomatic care and pain management with [place] 5/325 every 4 hours as needed for mild to moderate pain and Dilaudid 0.5 mg every 3 hours as needed for severe pain. Vital signs reviewed and stable with blood pressure 124/74, heart rate 72, temp 97.9F, respiratory rate 18, and SpO2 of 96% on room air. Patient to continue with amlodipine 5 mg daily, atorvastatin 40 mg nightly, hydralazine 25 mg twice daily, and lisinopril 20 mg daily upon discharge Patient is medically clear for discharge at this time, he received vancomycin 2000 mg IVPB followed by 2 days of of cefazolin 2 g every 8 hours. Patient being discharged home on cefadroxil 500 mg every 12 hours 5 additional days. Thank you for allowing us to participate in the care of this pleasant patient. Do not hesitate to contact us with questions. Someone can be reached from the [facility] hospitalist group all hours of the day at [phone] or via perfect serve. Objective - Vital Signs Vital signs: Vital Signs Temp 97.9 F 08/07/22 06:55 Pulse 72 08/07/22 06:55 Resp 18 08/07/22 06:55 BP 124/74 08/07/22 06:55 Pulse Ox 96 08/07/22 06:55 FiO2 Intake & Output 08/06/22 08/07/22 08/07/22 18:59 06:59 18:59 Intake Total 10 Balance 10 Intake: IV 10 Invasive Line 1 10 Other: Voiding Method Toilet Urinal # Voids 3 - Labs CBC & Chem 7: 08/03/22 14:00 08/03/22 14:00 Labs: Microbiology - Last 24 Hours (Table) 08/03/22 13:30 Blood Culture - Preliminary Blood 08/03/22 14:00 Blood Culture - Preliminary Blood Assessment and Plan Assessment: Kristian Nath NP rendered care for this patient independently, reviewed the findings and plan as documented in the note above. I did not physically speak with our examined the patient on this date.
--- NOTE | 2022-08-09 09:19 | P.OP ---
Date of Procedure: 08/03/22 Preoperative Diagnosis: 1. Posterior cervical wound dehiscence 2. Complex medical patient Postoperative Diagnosis: 1. Posterior cervical wound dehiscence 2. Complex medical patient Procedure(s) Performed: 1. Irrigation and debridement skin soft tissue muscle and bone posterior neck 15 x 10 x 5 cm -SKin knife used to freshen edges. -Curette and rongure used to debride bone -Irrigate used to irrigate wound of debris 2. Complex 4 layered closure posterior neck Implants: None Anesthesia: GETA Surgeon: Damion Baptiste [facility] Coordinator #1: Francisco Javier Persaud (Was present and assisted with all aspects of the case from positioning to dressing placement) Estimated Blood Loss (ml): 50 IV fluids (ml): 500 Urine output (ml): 250 Pathology: other (posterior neck 2) Indications for Procedure: Good Gan is a 67-year-old male presenting for evaluation of open wound posterior neck. It was my pleasure to have seen and examined [Good Gan. In our visit today we have had a chance to go over subjective complaints, physical examination findings and treatments including the natural course history without intervention and various interventional options. On physical exam, Good Gan demonstrates posterior midline incision towards the caudal end of the cervical incision has dehisced down to bone. There is exposed bone and hardware in this area. No purulence noted. I have explained to the patient that as their condition progresses it will cause further neurological deficits and eventual paralysis. Based on the patients imaging, physical exam, and the rapid progression and disabling nature of their symptoms, at this time I recommend surgery in the form or a: Irrigation and debridement with complex closure posterior neck wound. I discussed the risk and benefits of this procedure at length with Good Gan. The patient agreed to considered pursuing the procedure abovementioned. Prior to surgery, she should follow up with her PCP (Cardio, ID, IM etc) for clearance. Questions were invited and answered, and the patient wishes to proceed as outlined below. Currently, I am recommendin. irrigation and debridement with complex closure posterior neck wound Description of Procedure: The patient was seen and examined in the preoperative area. All preoperative protocols were followed. Informed consent was obtained risks and benefits of the procedure were discussed at length. Risks including bleeding infection damage to the surrounding tissue and risk of reoperation were discussed with the patient. Risk of anesthesia up to and including was a discussed with the patient. These are outlined in the risk review. They were willing to accept these risks and all of the risks of surgery. The patient was given a weight- based dose of antibiotics in the form of vancomycin weight-based dose. The patient was seen and evaluated by the anesthesia team who deemed them fit for surgery. The site was marked, the patient was willing to proceed with the procedure. The patient was transferred to the operative suite by the Department of anesthesia. They were then drifted off to sleep by the department anesthesia and GETA was performed. The patient tolerated this well. [Andres catheter was placed by nursing staff, atraumatically]. Once confirmation of lines and ventilation the patient was transferred to a [prone Ace table very carefully]. All bony prominences including wrists, elbows, axilla, chest, hips, and thighs, and feet were padded very well. Special attention was paid to the genitalia and these were padded accordingly. SCDs were placed on bilateral lower extremities and were connected. Arms were well padded and placed talk to his side thumbs down well-padded. Once in position, again we confirmed good ventilation capabilities and that lines were running appropriately. The patient's posterior cervical spine was then exposed. Shoulders were gently taped to the table. 1010s were placed outlining the incision site. Standard alcohol was used to clean the incision site and allowed to dry. C-arm was used to biomark the patient and confirm level for incision which was marked with a skin marker. Operative briefing was performed with all teams and everyone in agreement to proceed. The patient was then prepped and draped in a normal sterile fashion. Timeout was then performed and all parties were in agreement with the procedure to be performed. The midline skin incision had dehisced around the spinous process of T1. This was then visible in the wound. The wound was opened slightly distally and proximally and the fascia was noted to have dehisced as well. Sutures were removed debridement was performed using curettes. We then removed the cross- link which was visible to exchange this as it was opened air. The wound was then copiously irrigated with 3 L Ancef irrigation followed by a Betadine solution followed by 3 L of gentamicin irrigation all the while debriding the area of any necrotic tissue or free-floating tissue. This was followed by 3 L of normal sterile saline. Once this was accomplished with debrided the spinous process of T1 and T2 for better bleeding surfaces for healing as well as to remove anything that was exposed air. We inspected the dura and the surrounding areas and everything looked to be in good order. There are no injuries. There is no purulence in the area. This is simply due to dehiscence of the fascia. We then performed a multilevel layered closure first in the muscle tissue with #1 PDS followed by the fascial tissue deep with #1 PDS this approximated this very well and tightly. Vancomycin was placed deep within the wound prior to this. We then closed the deep subcu tissue with 0 PDS the superficial subcu tissue with 2-0 PDS and the skin was closed with nylon sutures and a simple fashion. The wound edges approximated very well. The wound was then cleaned and dressed sterilely with an operative foam dressing. The patient was transferred back to their hospital bed atraumatically. Patient was then awakened and extubated by the department of anesthesia having tolerated the procedure very well with no complications. They were transferred to the postoperative care unit in stable condition.
--- NOTE | 2022-08-10 08:54 | CDI ---
Documentation Clarification Form Date: 08/10/2022 8:38:33 AM From: Mya Marte RN CDDS Phone: [phone] Admit Date: 08/03/2022 1:41:00 PM Patient Name: Good Gan Visit Number: [id number] Discharge Date: 08/07/2022 12:10:00 PM ATTENTION: The Clinical Documentation Specialists (CDI) and [facility] Coding Staff appreciate your assistance in clarifying documentation. Please respond to the clarification below the line at the bottom and electronically sign. The CDI & [facility] Coding staff will review the response and follow-up if needed. Please note: Queries are made part of the Legal Health Record. If you have any questions, please contact the author of this message via ITS. Dr. Damion Gamez debridement is documented 08/03, Procedure note. Additional clarification regarding the procedure is requested. History/Risk Factors: 67 year old male presents with a posterior cervical incision that has dehisced. Medical History: Recent 360 cervical fusion, HTN, HLD, Asplenia and Cervical myelopathy. 08/03, Medicine consult. Clinical Indicators: Procedure: Irrigation and debridement skin soft tissue muscle and bone posterior neck. 15 x 10 x 5cm Skin knife used to freshen edges. Curette and rongure used to debride bone Irrigate used to irrigate wound of debris Complex 4 layered closure posterior neck Treatment: Irrigation and Debridement to the bone Please clarify the type of procedure performed: [ ] Excisional debridement (the removal of necrotic, devitalized tissue or slough by means of cutting away of tissue) [ ] Non-excisional debridement (the removal of necrotic, devitalized tissue or slough by means of flushing, brushing, or washing. (Irrigation) [ ] Other; please specify [ ] Unable to determine Five elements required for accurate and compliant documentation of a debridement: Technique used (e.g., excisional, excised, cutting, brushing, jet lavage etc.) Instrument(s) used (e.g., scalpel, curette, etc.) Nature of the tissue removed (e.g., necrotic, devitalized tissues, non-viable tissue, etc.) Appearance and size of the wound (e.g., down to fresh bleeding tissue, 7cm x 10cm, etc.) Depth of the debridement* (e.g., skin, subcutaneous tissue, fascia, muscle, bone, etc.) (Template Last Revised: May 2020) Excisional debridement (the removal of necrotic, devitalized tissue or slough by means of cutting away of tissue) [facility]
== END 2022-08-07 12:10 | disposition home health service (06) | DRG 908 ==
LOC: OR 13:00 → 4SSUR 13:41
PROVIDERS: ADMIT Orthopaedic Surgery; ATTEND Orthopaedic Surgery
PROC: 0PB30ZZ Excision of Cervical Vertebra, Open Approach (ICD-10-PCS; principal; 2022-08-03 09:00)
DX: T81.32XA Disruption of internal operation (surgical) wound, not elsewhere classified, initial encounter (principal); G95.9 Disease of spinal cord, unspecified; I96 Gangrene, not elsewhere classified; I10 Essential (primary) hypertension; F17.210 Nicotine dependence, cigarettes, uncomplicated; E78.5 Hyperlipidemia, unspecified; R20.2 Paresthesia of skin; G89.29 Other chronic pain; M25.512 Pain in left shoulder; M25.511 Pain in right shoulder; Y83.8 Other surgical procedures as the cause of abnormal reaction of the patient, or of later complication, without mention of misadventure at the time of the procedure; Z91.030 Bee allergy status; Z79.899 Other long term (current) drug therapy; Z98.1 Arthrodesis status; Z90.81 Acquired absence of spleen; Z86.73 Personal history of transient ischemic attack (TIA), and cerebral infarction without residual deficits
CPT/HCPCS: 72040; 72125; 80053; 83605; 85025; 85610; 85730; 87070; 87075; 87205; 99284

== ENCOUNTER → 2024-04-10 | Outpatient (CLI) | payer MEDICARE, BC, OTHER ==
--- NOTE | 2024-04-10 13:59 | CT ---
EXAMINATION TYPE: CT brain wo con DATE OF EXAM: 04/10/2024 COMPARISON: 05/07/2019 CLINICAL INDICATION: Male, 68 years old with history of G45.9 TRANSIENT CEREBRAL ISCHEMIC ATTACK; PHH , dizziness and numbness CT DLP: 1064.30 mGycm Automated exposure control for dose reduction was used. Findings: The ventricles, basal cisterns and sulci over the convexities are moderately enlarged consistent with moderate generalized atrophy appropriate for the patient's age. There is no mass effect or shift of midline structures. No abnormal density is seen throughout the brain parenchyma and there is no acute intra or extra-axia l hemorrhage. The posterior fossa including the brainstem, fourth ventricle and cerebellar pontine angles appear no rmal. Intraorbital contents appear normal and symmetric. There is marked stable chronic pansinusitis. Possible superimposed acute sinusitis in the sphenoid si nus and right maxillary sinus. The mastoid air cells are well aerated. The calvarium is intact. IMPRESSION: No significant abnormality seen. There is no acute bleed or mass effect. Marked chronic pansinusitis with possible superimposed acute sinusitis as described above. [facility], , 04/10/2024 1:56 PM
--- NOTE | 2024-04-10 21:08 | US ---
EXAMINATION TYPE: US carotid duplex BILAT DATE OF EXAM: 04/10/2024 COMPARISON: NONE CLINICAL INDICATION: Male, 68 years old with history of G45.9 TIA; TIA. Hx previous smoker, hypertens ion, hyperlipidemia. Dizziness TECHNIQUE: Grayscale, color Doppler and spectral Doppler evaluation of the bilateral carotid systems and vertebral arteries. Indirect Doppler criteria was utilized. FINDINGS: EXAM MEASUREMENTS: RIGHT: Peak Systolic Velocity (PSV) cm/sec ----- Right CCA: 63.5 ----- Right ICA: 63.8 ----- Right ECA: 109 ICA/CCA ratio: 1.0 RIGHT: End Diastole cm/sec ----- Right CCA: 12.6 ----- Right ICA: 21.8 ----- Right ECA: 15.7 LEFT: Peak Systolic Velocity (PSV) cm/sec ----- Left CCA: 58.7 ----- Left ICA: 61.5 ----- Left ECA: 95.1 ICA/CCA ratio: 1.05 LEFT: End Diastole cm/sec ----- Left CCA: 14.6 ----- Left ICA: 19.1 ----- Left ECA: 14.1 VERTEBRALS (direction of flow): Right Vertebral: Unable to visualize. Patient cannot turn his neck much. Left Vertebral: Antegrade Rhythm: Normal HEALTH/SAFETY JOB TITLES NOTES: Minimal plaque seen within bilateral bulbs No elevated velocities. IMPRESSION: 1. No hemodynamically significant internal carotid artery stenosis on either side. 2. Note that we were unable to visualize the right vertebral artery due to exam limitations. Criteria for Assigning % of Stenosis / Diameter reduction (Estimation based on the indirect measurements of the internal carotid artery velocities (ICA PSV). 1. Normal (no stenosis)=ICA PSV < 125 cm/s: ratio < 2.0: ICA EDV<40 cm/s. 2. Less than 50% stenosis=ICA PSV < 125 cm/s: ratio < 2.0: ICA EDV<40 cm/s. 3. 50 to 69% stenosis=ICA PSV of 125 to 230 cm/s: ration 2.0 ? 4.0: ICA EDV 40-100 cm/s. 4. Greater than 70% stenosis to near occlusion= ICA PSV > 230 cm/s: ratio > 4.0: ICA EDV > 100 cm/s. 5. Near occlusion= ICA PSV velocities may be low or undetectable: variable ratio and ICA EDV. 6. Total occlusion=unable to detect flow. [facility], , 04/10/2024 9:06 PM
== END | disposition home or self-care (01) ==
LOC: RADCTMAIN 13:15
PROVIDERS: ATTEND Family Medicine
DX: G45.9 Transient cerebral ischemic attack, unspecified (principal); J32.4 Chronic pansinusitis; I10 Essential (primary) hypertension; E78.5 Hyperlipidemia, unspecified; R42 Dizziness and giddiness
CPT/HCPCS: 70450; 93880

== ENCOUNTER → 2024-05-23 | Outpatient (CLI) | payer MEDICARE, BC, OTHER ==
--- NOTE | 2024-05-23 20:44 | CA ---
Transthoracic Echo Report Name: Good Gan Age: 68 Gender: M : 1955 Exam Date: 05/23/2024 13:02 Exam Location: [facility] Ht (in): 71 Wt (lb): 190 Ordering Physician: Monster Bolivar MD Attending/Referring Phys: Fisher [place] Grace Garcia RDCS Procedure CPT: Indications: G45.9 TIA Cardiac Hx: Technical Quality: Fair Contrast 1: Total Dose (mL): Contrast 2: Total Dose (mL): MEASUREMENTS (Male / Female) Normal Values 2D ECHO LV Diastolic Diameter PLAX 4.8 cm 4.2 - 5.9 / 3.9 - 5.3 cm LV Systolic Diameter PLAX 3.7 cm IVS Diastolic Thickness 1.0 cm 0.6 - 1.0 / 0.6 - 0.9 cm LVPW Diastolic Thickness 1.4 cm 0.6 - 1.0 / 0.6 - 0.9 cm LV Relative Wall Thickness 0.5 RV Internal Dim ED PLAX 1.7 cm LA Systolic Diameter LX 4.5 cm 3.0 - 4.0 / 2.7 - 3.8 cm LV Diastolic Volume MOD BP 91.8 cm??? 67 - 155 / 56 - 104 cm??? LV Systolic Volume MOD BP 52.9 cm??? 22 - 58 / 19 - 49 cm??? LV Ejection Fraction MOD BP 42.4 % >= 55 % LV Cardiac Index MOD BP 1023.2 cm???/min???m??? LV Diastolic Volume MOD 4C 89.2 cm??? LV Systolic Volume MOD 4C 46.7 cm??? LV Ejection Fraction MOD 4C 47.6 % LV Cardiac Index MOD 4C 1119.0 cm???/min???m??? LV Diastolic Length 4C 7.7 cm LV Systolic Length 4C 6.2 cm LV Diastolic Volume MOD 2C 88.4 cm??? LV Systolic Volume MOD 2C 48.6 cm??? LV Ejection Fraction MOD 2C 45.1 % LV Cardiac Index MOD 2C 1049.2 cm???/min???m??? LV Diastolic Length 2C 8.3 cm LV Systolic Length 2C 7.7 cm M-MODE Aortic Root Diameter MM 3.1 cm LA Systolic Diameter MM 4.7 cm LA Ao Ratio MM 1.5 AV Cusp Separation MM 2.3 cm DOPPLER AI Peak Velocity 253.2 cm/s AI Peak Gradient 25.6 mmHg AI Pressure Half Time 838.4 ms Mitral E Point Velocity 55.6 cm/s Mitral A Point Velocity 93.9 cm/s Mitral E to A Ratio 0.6 MV Deceleration Time 514.9 ms MV E' Velocity 6.1 cm/s Mitral E to MV E' Ratio 9.1 TR Peak Velocity 204.4 cm/s TR Peak Gradient 16.7 mmHg Right Ventricular Systolic Press 26.8 mmHg FINDINGS Left Ventricle Left ventricular ejection fraction is estimated at 40-45 %. Moderately decreased left ventricular ejection fraction. Left ventricular wall thickness normal. Left ventricular cavity size normal. Right Ventricle Normal right ventricular size and function. Right ventricular systolic pressure within normal limits. Right Atrium Mild right atrial dilatation. Left Atrium Mildly increased left atrial diameter. Mitral Valve Mitral valve thickened. No mitral stenosis. [id number] mitral regurgitation. Aortic Valve Trileaflet aortic valve. Mild aortic regurgitation. No aortic stenosis. Tricuspid Valve Structurally normal tricuspid valve. Mild tricuspid regurgitation. No tricuspid stenosis. Pulmonic Valve Structurally normal pulmonic valve. Trace pulmonic regurgitation. No pulmonic stenosis. Pericardium No pericardial or pleural effusion. Aorta Normal size aortic root and proximal ascending aorta. CONCLUSIONS Mildly impaired LV function with EF between 40 to 45% Mild to moderate mitral regurgitation Mild aortic insufficiency No pericardial effusion Hyperdynamic interatrial septum Previewed by: Dr. Alessandro Abel MD (Electronically Signed) Final Date: 23 May 2024 20:43
== END | disposition home or self-care (01) ==
LOC: RADECHMAIN 12:51
PROVIDERS: ATTEND Family Medicine
DX: G45.9 Transient cerebral ischemic attack, unspecified (principal); I34.0 Nonrheumatic mitral (valve) insufficiency; I35.1 Nonrheumatic aortic (valve) insufficiency
CPT/HCPCS: 93306

== ENCOUNTER 2024-07-09 08:53 | Day surgery (SDC) | payer MEDICARE, BC, OTHER ==
[2024-07-07 12:14] VITALS: BMI 26.7
[~2024-07-09 08:53] MED LIST changes: +CYCLOPENTOLATE 1% OPHTH SOLN 2 ML BTL OP PRN; +LACTATED RINGERS 1,000 ML IV SCH; +TETRACAINE 0.5% OPHTH (PF) DROPS 4 ML BTL OP PRN; -TRANEXAMIC ACID IN NACL,ISO-OS 1,000 MG in SALINE 1 100ML.BAG IVPB PRN; -VANCOMYCIN 1,500 MG in SODIUM CHLORIDE 0.9% 500 ML 500 ML IVPB PRN
[2024-07-09] MEDS: CYCLOPENTOLATE 1% OPHTH SOLN 2 ML BTL RIGHT EYE ONE ×3 (09:23→09:35)
[2024-07-09] MEDS: PHENYLEPHRINE 2.5% OPHTH DRP 2ML OP PRN (09:26)
[2024-07-09 09:30] VITALS: TEMP 97.6
[2024-07-09] MEDS: IV FLUID CONTINUATION 1,000 ML IV ONE ×2 (09:31)
[2024-07-09] MEDS ORDERED: MIDAZOLAM 2 MG/2 ML VIAL ONE (10:30)
[2024-07-09] MEDS ORDERED: PROPOFOL 10 MG/ML 20 ML VIAL IV ONE (10:30)
[2024-07-09] MEDS: EPINEPHrine (PF) 0.3 ML in BALANCED SALT IRRIG SOLN COMB2 500 ML IRRIGATION ONE (10:45)
[2024-07-09] MEDS: BALANCED SALT IRRIG SOLN COMB2 15 ML IRRIG.SOLN INTRAOCULA ONE (10:51)
[2024-07-09] MEDS: DUOVISC KIT (GREEN BOX) INTRAOCULA ONE (10:52)
[2024-07-09] MEDS: MOXIFLOXACIN HCL 0.5% DROPS 3 ML BTL OP PRN (10:52)
[2024-07-09] MEDS: LIDOCAINE 1% (PF) 10MG/ML VIAL SQ ONE (10:52)
[2024-07-09] MEDS: TIMOLOL 0.5% OPHTH DROPS 5 ML BTL OP PRN (10:52)
--- NOTE | 2024-07-09 11:09 | P.OP ---
Date of Procedure: 07/09/24 Preoperative Diagnosis: NS & CS & PSC Postoperative Diagnosis: same Procedure(s) Performed: PIOL, OD Implants: [id number] 19.50 Anesthesia: MAC Surgeon: Kiran Bae Pathology: none sent Condition: stable Disposition: same day Indications for Procedure: blurry vision Operative Findings: no complications
[2024-07-09 11:33] VITALS: BP 136/83; PULSE 83; RESP 16
--- NOTE | 2024-07-10 00:50 | OP ---
OPERATIVE REPORT DATE OF SERVICE : PREOPERATIVE DIAGNOSES: Nuclear sclerosis, cortical sclerosis, posterior subcapsular cataract, right eye. POSTOPERATIVE DIAGNOSES: Nuclear sclerosis, cortical sclerosis, posterior subcapsular cataract, right eye. OPERATION: Phacoemulsification of cataract and interocular lens implant, right eye. ESTIMATED BLOOD LOSS: Zero. SPECIMEN TAKEN: None. NARRATIVE: After obtaining the appropriate consent, the patient was brought to the operating room where the patient was placed under cardiac monitoring and prepped and draped in the usual sterile manner. At the 11 o'clock position, a 15-degree super sharp blade was used to create a paracentesis followed by instillation of 1% Xylocaine MPF 50:50 mix with BSS into the anterior chamber. This was followed by Amivisc viscoelastic to stabilize the anterior chamber. At the 9 o'clock position a self-sealing corneal flap incision was created using 2.8 mm mallory keratome. A cystotome was used to initiate a continuous tear capsulorrhexis which was completed with the Utrata forceps. A Binkhorst cannula was used to hydrodissect the lens nucleus followed by hydrodelineation. Phacoemulsification of the lens was performed utilizing phacochop in 26.34 seconds at 21% power. The remaining cortical material was removed using the irrigation aspiration mode followed by additional 1% Xylocaine MPF into the anterior chamber followed by viscoelastic to stabilize the capsular bag. A Leroy and Leroy DCB00 19.5 diopters posterior chamber lens was placed into the capsular bag without difficulty. The remaining viscoelastic material was removed from the anterior chamber with the irrigation/aspiration. Balanced salt solution was used to normalize the intraocular pressure. The incision was checked for watertight integrity. The patient then received 2 drops of 0.5% timolol followed by 2 drops Vigamox, was lightly patched and shielded in the usual manner. There were no complications from the procedure. The patient tolerated the procedure well and was returned to recovery in good condition. MMODL / IJN: [id number] /
== END 2024-07-09 12:08 | disposition home or self-care (01) ==
LOC: OR 08:53
PROVIDERS: ATTEND Ophthalmology
DX: H25.11 Age-related nuclear cataract, right eye (principal); H25.041 Posterior subcapsular polar age-related cataract, right eye; I10 Essential (primary) hypertension; E78.00 Pure hypercholesterolemia, unspecified
CPT/HCPCS: 66984; V2632; J2250; J0171; J2003; J2704

== ENCOUNTER → 2024-07-29 | Outpatient (CLI) | payer MEDICARE, BC, OTHER ==
--- NOTE | 2024-07-29 15:05 | XR ---
EXAMINATION TYPE: XR spine complete AP and Lat DATE OF EXAM: 07/29/2024 COMPARISON: 02/20/2022 CLINICAL INDICATION: Male, 69 years old with history of M54.2 CERVICALGIA; TECHNIQUE: 4 views of the cervical spine submitted FINDINGS: There is extensive change of ACDF at C4-5, C5-6 and C6-7. Pedicular screws are noted to ext end bilaterally from C1-2 to approximately T2-T3. There appears to be normal postoperative alignment. No fracture seen. IMPRESSION: As above [facility], , 07/29/2024 3:02 PM
== END | disposition home or self-care (01) ==
LOC: RADXRMAIN 14:20
PROVIDERS: ATTEND Family Medicine
DX: M50.321 Other cervical disc degeneration at C4-C5 level (principal)
CPT/HCPCS: 72082